=== PATIENT | male | born 1985 | race American Indian/Alaskan Native ===

== ENCOUNTER 2018-11-05 21:16 | Emergency (ER) | payer MEDICAID, OTHER | END 2018-11-05 21:35 | disposition left against medical advice (07) | LOC: JP.ED 21:16 | DX: Z53.21 Procedure and treatment not carried out due to patient leaving prior to being seen by health care provider (principal) ==

== ENCOUNTER 2019-07-03 21:45 | Inpatient (IN) | payer MEDICAID ==
[2019-07-03] MEDS ORDERED: Sodium Chloride 0.9% 1,000 ML IV SCH ×2 (22:45→23:15)
--- NOTE | 2019-07-03 22:47 | EDM.PDOC ---
ED HPI GENERAL MEDICAL PROBLEM - General Chief Complaint: Diabetic Complaint Stated Complaint: HIGH BLOOD SUGAR Time Seen by Provider: 07/03/19 22:46 Source of Information: Reports: Patient, Police History Limitations: Reports: No Limitations - History of Present Illness INITIAL COMMENTS - FREE TEXT/NARRATIVE: pt [facility] because he had a markedly elevated bs. He was also having severe upper abdomanal pain. He has a history of chronic pancreatitis. He has been drinking heavily and using Meth. His last Methj was used about 3 pm. Onset: Other ( He has not used his insulin for about 2 weeks. 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 Hx of trach Gastrointestinal History: Reports: GI Bleed, Pancreatitis Genitourinary History: Reports: Other (See Below) Other Genitourinary History: distended bladder Neurological History: Reports: Seizure Psychiatric History: Reports: Anxiety, Depression, Suicide Attempt Endocrine/Metabolic History: Reports: Diabetes, Type I Hematologic History: Reports: Anemia - Infectious Disease History Infectious Disease History: Reports: Chicken Pox Social & Family History - Tobacco Use Smoking Status *Q: Current Every Day Smoker Years of Tobacco use: 20 Packs/Tins Daily: 0.7 - Recreational Drug Use Recreational Drug Use: Yes Drug Use in Last 12 Months: Yes Recreational Drug Type: Reports: Methamphetamine Recreational Drug Use Frequency: Daily ED ROS GENERAL - Review of Systems Review Of Systems: See Below Constitutional: Reports: Weakness, Decreased Appetite HEENT: Reports: No Symptoms Respiratory: Reports: Shortness of Breath, Other (history of removal of 1 lung. ) Cardiovascular: Reports: No Symptoms Endocrine: Reports: No Symptoms GI/Abdominal: Reports: Abdominal Pain, Other (pt has upper abdomanal pain. He has been vomiting everything for the past 2 days. He has not used his insulin for 2 weeks. ) : Reports: No Symptoms Musculoskeletal: Reports: No Symptoms Skin: Reports: No Symptoms ED EXAM GENERAL NO PERIP PULSE - Physical Exam Exam: See Below Text/Narrative:: pt arrived with a very high bs. He has not used his insulin for 2 weeks. He has been vomiting for the past 2 days. He has upper abdomanal pain. He has not noted blood in the emesis. Exam Limited By: No Limitations General Appearance: Alert, Anxious, Moderate Distress Ears: Normal TMs Nose: Normal Inspection Throat/Mouth: Normal Inspection Head: Atraumatic Neck: Normal Inspection Respiratory/Chest: No Respiratory Distress Cardiovascular: Regular Rate, Rhythm GI/Abdominal: Other (pt has marked tenderness in the upper abdoman. ) (Male) Exam: Normal Inspection Rectal (Males) Exam: Deferred Back Exam: Normal Inspection Extremities: Normal Inspection Neurological: Alert, Oriented, Normal Cognition Course - Vital Signs Last Recorded V/S: Last Vital Signs Temp 35.2 C 07/03/19 22:09 Pulse 92 07/03/19 22:09 Resp 16 07/03/19 22:09 BP 110/78 07/03/19 22:09 Pulse Ox 100 07/03/19 22:09 - Orders/Labs/Meds Orders: Active Orders 24 hr Category Date Time Status Patient Status [ADT] Routine ADT 07/03/19 23:52 Active Accu Check [Blood Glucose Check, Bedside] [RC] Care 07/03/19 23:59 Active WITHMEALSANDBED Bedrest Bathroom Privileges [RC] ASDIRECTED Care 07/03/19 23:52 Active Height and Weight [RC] DAILY Care 07/03/19 23:52 Active Intake and Output [RC] QSHIFT Care 07/03/19 23:53 Active Oxygen Therapy [RC] PRN Care 07/03/19 23:52 Active Pulse Oximetry [RC] PRN Care 07/03/19 23:53 Active VTE/DVT Education [RC] Per Unit Routine Care 07/03/19 23:52 Active Vital Signs [RC] Q4H Care 07/03/19 23:52 Active OT Evaluation and Treatment [CONS] Routine Cons 07/03/19 23:52 Active PT Evaluation and Treatment [CONS] Routine Cons 07/03/19 23:52 Active Full Liquid Diet [DIET] Diet 11/14/19 Breakfast Ordered Chest 1V Frontal [CR] Stat Exams 07/04/19 00:01 Ordered CBC WITH AUTO DIFF [HEME] AM Lab 07/04/19 05:11 Ordered COMPREHENSIVE METABOLIC PN,CMP [CHEM] AM Lab 07/04/19 05:11 Ordered KETONES,BLOOD [CHEM] Stat Lab 07/04/19 00:07 Ordered LACTIC ACID [CHEM] Stat Lab 07/04/19 00:09 Ordered MAGNESIUM [CHEM] Stat Lab 07/03/19 23:52 Ordered PHOSPHORUS [CHEM] Stat Lab 07/03/19 23:52 Ordered Docusate Sodium/Sennosides [Senna Plus] Med 07/03/19 23:52 Ordered 1 tab PO BID PRN Enoxaparin [Lovenox] Med 07/04/19 09:00 Ordered 40 mg SUBCUT DAILY Insulin Glarg,Human.Rec.Analog [LantUS Solostar] Med 07/04/19 21:00 Ordered 20 units SUBCUT BEDTIME Insulin Lispro [HumaLOG] Med 07/04/19 07:00 Ordered See Protocol SUBCUT QIDACANDBED Morphine Med 07/04/19 00:02 Ordered 2 mg IVPUSH Q4H PRN Ondansetron [Zofran] Med 07/03/19 23:52 Ordered 4 mg IV Q4H PRN Pantoprazole [ProTONIX IV] 40 mg Med 07/04/19 00:15 Ordered Sodium Chloride 0.9% [Normal Saline] 100 ml IV Q24H Sodium Chloride 0.9% [Normal Saline] 1,000 ml Med 07/03/19 22:45 Active IV ASDIRECTED Sodium Chloride 0.9% [Normal Saline] 1,000 ml Med 07/03/19 23:15 Active IV ASDIRECTED Resuscitation Status Routine Resus Stat 07/03/19 23:52 Ordered Medication Orders Enoxaparin Sodium (Lovenox) 40 mg SUBCUT DAILY MARGY Sodium Chloride (Normal Saline) 1,000 mls @ 999 mls/hr IV ASDIRECTED MARGY Last Admin: 07/03/19 22:51 Dose: 999 mls/hr Sodium Chloride (Normal Saline) 1,000 mls @ 999 mls/hr IV ASDIRECTED MARGY Last Admin: 07/03/19 23:48 Dose: 999 mls/hr Pantoprazole Sodium 40 mg/ (Sodium Chloride) 100 mls @ 200 mls/hr IV Q24H MARGY Insulin Glargine (Lantus Solostar) 20 units SUBCUT BEDTIME MARGY Insulin Human Lispro (Humalog) 0 unit SUBCUT QIDACANDBED MARGY; Protocol Morphine Sulfate (Morphine) 2 mg IVPUSH Q4H PRN PRN Reason: Pain (moderate 4-6) Ondansetron HCl (Zofran) 4 mg IV Q4H PRN PRN Reason: Nausea/Vomiting Senna/Docusate Sodium (Senna Plus) 1 tab PO BID PRN PRN Reason: Constipation Labs: Laboratory Tests 07/03/19 07/03/19 07/03/19 Range/Units 19:00 19:00 19:00 WBC (4.5-11.0) K/uL RBC (4.30-5.90) M/uL Hgb (12.0-15.0) g/dL Hct (40.0-54.0) % MCV (80-98) fL MCH (27-31) pg MCHC (32-36) % Plt Count (150-400) K/uL Neut % (Auto) (36-66) % Lymph % (Auto) (24-44) % [place] % (Auto) (2-6) % Eos % (Auto) (2-4) % Baso % (Auto) (0-1) % VBG pH (7.350-7.450) Sodium (140-148) mmol/L Potassium (3.6-5.2) mmol/L Chloride (100-108) mmol/L Carbon Dioxide (21-32) mmol/L Anion Gap (5.0-14.0) mmol/L BUN (7-18) mg/dL Creatinine (0.8-1.3) mg/dL Est Cr Clr Drug Dosing mL/min Estimated GFR (MDRD) (>60) Glucose (74-106) mg/dL Calcium (8.5-10.1) mg/dL Total Bilirubin (0.2-1.0) mg/dL AST (15-37) U/L ALT (12-78) U/L Alkaline Phosphatase (46-116) U/L C-Reactive Protein 0.28 (0.0-0.3) mg/dL Total Protein (6.4-8.2) g/dL Albumin (3.4-5.0) g/dL Globulin (2.3-3.5) g/dL Albumin/Globulin Ratio (1.2-2.2) Amylase 29 (25-115) U/L Lipase 180 (73-393) U/L Urine Color (YELLOW) Urine Appearance (CLEAR) Urine pH (5.0-8.0) Ur Specific [place] (1.008-1.030) Urine Protein (NEGATIVE) mg/dL Urine Glucose (UA) (NEGATIVE) mg/dL Urine Ketones (NEGATIVE) mg/dL Urine Occult Blood (NEGATIVE) Urine Nitrite (NEGATIVE) Urine Bilirubin (NEGATIVE) Urine Urobilinogen (0.2-1.0) EU/dL Ur Leukocyte Esterase (NEGATIVE) Urine RBC (0-5) Urine WBC (0-5) Ur Epithelial Cells Amorphous Sediment Urine Bacteria Urine Mucus Urine Opiates Screen (NEGATIVE) Ur Oxycodone Screen (NEGATIVE) Urine Methadone Screen (NEGATIVE) Ur Propoxyphene Screen (NEGATIVE) Ur Barbiturates Screen (NEGATIVE) Ur Tricyclics Screen (NEGATIVE) Ur Phencyclidine Scrn (NEGATIVE) Ur Amphetamine Screen (NEGATIVE) U Methamphetamines Scrn (NEGATIVE) Urine MDMA Screen (NEGATIVE) U Benzodiazepines Scrn (NEGATIVE) U Cocaine Metab Screen (NEGATIVE) U Marijuana (THC) Screen (NEGATIVE) Ethyl Alcohol < 3 mg/dL 07/03/19 07/03/19 07/03/19 Range/Units 21:54 22:02 22:02 WBC 5.6 (4.5-11.0) K/uL RBC 4.23 L (4.30-5.90) M/uL Hgb 10.5 L (12.0-15.0) g/dL Hct 33.1 L (40.0-54.0) % MCV 78 L (80-98) fL MCH 25 L (27-31) pg MCHC 32 (32-36) % Plt Count 315 (150-400) K/uL Neut % (Auto) 60 (36-66) % Lymph % (Auto) 26 (24-44) % [place] % (Auto) 13 H (2-6) % Eos % (Auto) 1 L (2-4) % Baso % (Auto) 1 (0-1) % VBG pH 7.360 (7.350-7.450) Sodium 132 L (140-148) mmol/L Potassium 4.3 (3.6-5.2) mmol/L Chloride 98 L (100-108) mmol/L Carbon Dioxide 23 (21-32) mmol/L Anion Gap 15.3 H (5.0-14.0) mmol/L BUN 9 (7-18) mg/dL Creatinine 0.8 (0.8-1.3) mg/dL Est Cr Clr Drug Dosing 98.58 mL/min Estimated GFR (MDRD) > 60 (>60) Glucose 405 H* (74-106) mg/dL Calcium 8.3 L (8.5-10.1) mg/dL Total Bilirubin 0.3 (0.2-1.0) mg/dL AST 16 (15-37) U/L ALT 21 (12-78) U/L Alkaline Phosphatase 99 (46-116) U/L C-Reactive Protein (0.0-0.3) mg/dL Total Protein 6.3 L (6.4-8.2) g/dL Albumin 3.0 L (3.4-5.0) g/dL Globulin 3.3 (2.3-3.5) g/dL Albumin/Globulin Ratio 0.9 L (1.2-2.2) Amylase (25-115) U/L Lipase (73-393) U/L Urine Color (YELLOW) Urine Appearance (CLEAR) Urine pH (5.0-8.0) Ur Specific [place] (1.008-1.030) Urine Protein (NEGATIVE) mg/dL Urine Glucose (UA) (NEGATIVE) mg/dL Urine Ketones (NEGATIVE) mg/dL Urine Occult Blood (NEGATIVE) Urine Nitrite (NEGATIVE) Urine Bilirubin (NEGATIVE) Urine Urobilinogen (0.2-1.0) EU/dL Ur Leukocyte Esterase (NEGATIVE) Urine RBC (0-5) Urine WBC (0-5) Ur Epithelial Cells Amorphous Sediment Urine Bacteria Urine Mucus Urine Opiates Screen (NEGATIVE) Ur Oxycodone Screen (NEGATIVE) Urine Methadone Screen (NEGATIVE) Ur Propoxyphene Screen (NEGATIVE) Ur Barbiturates Screen (NEGATIVE) Ur Tricyclics Screen (NEGATIVE) Ur Phencyclidine Scrn (NEGATIVE) Ur Amphetamine Screen (NEGATIVE) U Methamphetamines Scrn (NEGATIVE) Urine MDMA Screen (NEGATIVE) U Benzodiazepines Scrn (NEGATIVE) U Cocaine Metab Screen (NEGATIVE) U Marijuana (THC) Screen (NEGATIVE) Ethyl Alcohol mg/dL 07/03/19 07/03/19 Range/Units 23:04 23:10 WBC (4.5-11.0) K/uL RBC (4.30-5.90) M/uL Hgb (12.0-15.0) g/dL Hct (40.0-54.0) % MCV (80-98) fL MCH (27-31) pg MCHC (32-36) % Plt Count (150-400) K/uL Neut % (Auto) (36-66) % Lymph % (Auto) (24-44) % [place] % (Auto) (2-6) % Eos % (Auto) (2-4) % Baso % (Auto) (0-1) % VBG pH (7.350-7.450) Sodium (140-148) mmol/L Potassium (3.6-5.2) mmol/L Chloride (100-108) mmol/L Carbon Dioxide (21-32) mmol/L Anion Gap (5.0-14.0) mmol/L BUN (7-18) mg/dL Creatinine (0.8-1.3) mg/dL Est Cr Clr Drug Dosing mL/min Estimated GFR (MDRD) (>60) Glucose (74-106) mg/dL Calcium (8.5-10.1) mg/dL Total Bilirubin (0.2-1.0) mg/dL AST (15-37) U/L ALT (12-78) U/L Alkaline Phosphatase (46-116) U/L C-Reactive Protein (0.0-0.3) mg/dL Total Protein (6.4-8.2) g/dL Albumin (3.4-5.0) g/dL Globulin (2.3-3.5) g/dL Albumin/Globulin Ratio (1.2-2.2) Amylase (25-115) U/L Lipase (73-393) U/L Urine Color Yellow (YELLOW) Urine Appearance Clear (CLEAR) Urine pH 5.5 (5.0-8.0) Ur Specific [place] 1.015 (1.008-1.030) Urine Protein Negative (NEGATIVE) mg/dL Urine Glucose (UA) 500 H (NEGATIVE) mg/dL Urine Ketones 40 H (NEGATIVE) mg/dL Urine Occult Blood Negative (NEGATIVE) Urine Nitrite Negative (NEGATIVE) Urine Bilirubin Negative (NEGATIVE) Urine Urobilinogen 0.2 (0.2-1.0) EU/dL Ur Leukocyte Esterase Negative (NEGATIVE) Urine RBC 0-5 (0-5) Urine WBC 0-5 (0-5) Ur Epithelial Cells Rare Amorphous Sediment Not seen Urine Bacteria Few Urine Mucus Not seen Urine Opiates Screen Negative (NEGATIVE) Ur Oxycodone Screen Negative (NEGATIVE) Urine Methadone Screen Negative (NEGATIVE) Ur Propoxyphene Screen Negative (NEGATIVE) Ur Barbiturates Screen Negative (NEGATIVE) Ur Tricyclics Screen Negative (NEGATIVE) Ur Phencyclidine Scrn Negative (NEGATIVE) Ur Amphetamine Screen Negative (NEGATIVE) U Methamphetamines Scrn Presumptive positive H (NEGATIVE) Urine MDMA Screen Negative (NEGATIVE) U Benzodiazepines Scrn Negative (NEGATIVE) U Cocaine Metab Screen Negative (NEGATIVE) U Marijuana (THC) Screen Negative (NEGATIVE) Ethyl Alcohol mg/dL Meds: Medications Generic Name Dose Route Start Last Admin Trade Name Freq PRN Reason Stop Dose Admin Enoxaparin Sodium 40 mg 07/04/19 09:00 Lovenox SUBCUT DAILY MARGY Sodium Chloride 1,000 mls @ 999 mls/hr 07/03/19 22:45 07/03/19 22:51 Normal Saline IV 999 mls/hr ASDIRECTED MARGY Administration Sodium Chloride 1,000 mls @ 999 mls/hr 07/03/19 23:15 07/03/19 23:48 Normal Saline IV 999 mls/hr ASDIRECTED MARGY Administration Pantoprazole Sodium 40 mg/ 100 mls @ 200 mls/hr 07/04/19 00:15 Sodium Chloride IV Q24H [facility] Insulin Glargine 20 units 07/04/19 21:00 Lantus Solostar SUBCUT BEDTIME MARGY Insulin Human Lispro 0 unit 07/04/19 07:00 Humalog SUBCUT QIDACANDBED [facility] Protocol Morphine Sulfate 2 mg 07/04/19 00:02 Morphine IVPUSH Q4H PRN Pain (moderate 4-6) Ondansetron HCl 4 mg 07/03/19 23:52 Zofran IV Q4H PRN Nausea/Vomiting Senna/Docusate Sodium 1 tab 07/03/19 23:52 Senna Plus PO BID PRN Constipation Discontinued Medications Generic Name Dose Route Start Last Admin Trade Name Kostas PRN Reason Stop Dose Admin Hydromorphone HCl 0.5 mg 07/03/19 23:13 07/03/19 23:45 Dilaudid IVPUSH 07/03/19 23:14 0.5 mg ONETIME ONE Administration Insulin Human Regular 3 unit 07/03/19 23:12 07/03/19 23:40 Humulin R IVPUSH 07/03/19 23:13 3 units ONETIME ONE Administration Insulin Human Regular 3 unit 07/03/19 23:13 07/03/19 23:43 Humulin R SUBCUT 07/03/19 23:14 3 units ONETIME ONE Administration Pantoprazole Sodium 40 mg 07/03/19 23:36 07/03/19 23:48 Protonix Iv IVPUSH 07/03/19 23:37 40 mg ONETIME ONE Administration - Re-Assessments/Exams Free Text/Narrative Re-Assessment/Exam: 07/03/19 23:45 pt had normal pancreatic enzymes. He is very dehydrated. His bs is 400. Departure - Departure Time of Disposition: 23:46 Disposition: Admitted As Inpatient 64 Condition: Fair Clinical Impression: Hyperglycemia, Dehydration, Methamphetamine abuse - Discharge Information Referrals: PCP,None [Primary Care Provider] - Forms: ED Department Discharge Care Plan Goals: admit to Dr Davison. - My Orders Last 24 Hours: My Active Orders 07/03/19 22:45 Sodium Chloride 0.9% [Normal Saline] 1,000 ml IV ASDIRECTED 07/03/19 23:15 Sodium Chloride 0.9% [Normal Saline] 1,000 ml IV ASDIRECTED 07/04/19 00:01 Chest 1V Frontal [CR] Stat - Assessment/Plan Last 24 Hours: My Active Orders 07/03/19 22:45 Sodium Chloride 0.9% [Normal Saline] 1,000 ml IV ASDIRECTED 07/03/19 23:15 Sodium Chloride 0.9% [Normal Saline] 1,000 ml IV ASDIRECTED 07/04/19 00:01 Chest 1V Frontal [CR] Stat
[2019-07-03] MEDS ORDERED: Insulin Regular, Human 100 Units/ML 3 ML Vial IVPUSH ONE (23:12)
[2019-07-03] MEDS ORDERED: Insulin Regular, Human 100 Units/ML 3 ML Vial SUBCUT ONE (23:13)
[2019-07-03] MEDS ORDERED: HYDROmorphone 0.5 MG/0.5 ML Syringe IVPUSH ONE (23:13)
[2019-07-03] MEDS ORDERED: Pantoprazole 40 MG Vial IVPUSH ONE (23:36)
--- NOTE | 2019-07-03 23:51 | PCM.HP.2 ---
H&P History of Present Illness - General Date of Service: 07/03/19 Admit Problem/Dx: hyperglycemia, abdominal pain Source of Information: Patient History Limitations: Reports: No Limitations - History of Present Illness Initial Comments - Free Text/Narative: 34-year-old male with past medical history of diabetes on Lantus 20 units twice daily, Humalog 10 units with each meal, history of drug abuse came to the ED with a concerns of abdominal pain. Patient reports of the abdominal pain started since last 2 days which is gradually progressing. Patient reports that he did not eat anything since last 2 weeks due to concerns of nausea, vomiting. Patient denies any recent fever, sick contacts. Patient denies any intermittent chest pains. Patient reports that he did not see any blood in the vomiting. Patient blood sugars are significantly elevated. The ED patient received 3 units of regular insulin and patient CRP results are within normal limit lipase, amylase levels are within normal limit patient CODE STATUS is DNR/DNI. 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 Hx of trach Gastrointestinal History: Reports: GI Bleed, Pancreatitis Genitourinary History: Reports: Other (See Below) Other Genitourinary History: distended bladder Neurological History: Reports: Seizure Psychiatric History: Reports: Anxiety, Depression, Suicide Attempt Endocrine/Metabolic History: Reports: Diabetes, Type I Hematologic History: Reports: Anemia - Infectious Disease History Infectious Disease History: Reports: Chicken Pox Social & Family History - Family History Family Medical History: Noncontributory - Tobacco Use Smoking Status *Q: Current Every Day Smoker Years of Tobacco use: 20 Packs/Tins Daily: 0.7 - Recreational Drug Use Recreational Drug Use: Yes Drug Use in Last 12 Months: Yes Recreational Drug Type: Reports: Methamphetamine Recreational Drug Use Frequency: Daily H&P Review of Systems - Review of Systems: Review Of Systems: See Below General: Reports: Weakness, Fatigue. Denies: Fever, Chills, Malaise Pulmonary: Denies: Shortness of Breath, Wheezing, Pleuritic Chest Pain, Cough, Sputum Cardiovascular: Denies: Chest Pain, Palpitations, Dyspnea on Exertion, Orthopnea Gastrointestinal: Reports: Abdominal Pain, Anorexia, Nausea, Vomiting. Denies: Black Stool, Constipation Genitourinary: Denies: Dysuria, Frequency, Burning, Pain Musculoskeletal: Denies: Neck Pain, Shoulder Pain, Arm Pain Skin: Denies: Cyanosis, Jaundice Psychiatric: Denies: Confusion, Depression, Mood Lability Neurological: Denies: Confusion, Dizziness Hematologic/Lymphatic: Denies: Anemia, Easy Bleeding Exam - Exam Exam: See Below - Vital Signs Vital Signs: Last Vital Signs Temp 35.2 C 07/03/19 22:09 Pulse 92 07/03/19 22:09 Resp 16 07/03/19 22:09 BP 110/78 07/03/19 22:09 Pulse Ox 100 07/03/19 22:09 Weight: 54.6 kg - Exam General: Alert, Oriented Neck: Supple, Trachea Midline Lungs: Clear to Auscultation, Normal Respiratory Effort Cardiovascular: Regular Rate, Regular Rhythm GI/Abdominal Exam: Normal Bowel Sounds, Tender. No: Non-Tender, Guarding, Rigid , Rebound, Hepatomegaly, Splenomegaly Back Exam: Normal Inspection, Full Range of Motion Extremities: Normal Inspection, Normal Range of Motion, Non-Tender, No Pedal Edema - Patient Data Lab Results Last 24 hrs: Laboratory Results - last 24 hr 07/03/19 07/03/19 07/03/19 Range/Units 19:00 19:00 19:00 WBC (4.5-11.0) K/uL RBC (4.30-5.90) M/uL Hgb (12.0-15.0) g/dL Hct (40.0-54.0) % MCV (80-98) fL MCH (27-31) pg MCHC (32-36) % Plt Count (150-400) K/uL Neut % (Auto) (36-66) % Lymph % (Auto) (24-44) % Barton % (Auto) (2-6) % Eos % (Auto) (2-4) % Baso % (Auto) (0-1) % VBG pH (7.350-7.450) Sodium (140-148) mmol/L Potassium (3.6-5.2) mmol/L Chloride (100-108) mmol/L Carbon Dioxide (21-32) mmol/L Anion Gap (5.0-14.0) mmol/L BUN (7-18) mg/dL Creatinine (0.8-1.3) mg/dL Est Cr Clr Drug Dosing mL/min Estimated GFR (MDRD) (>60) Glucose (74-106) mg/dL Calcium (8.5-10.1) mg/dL Total Bilirubin (0.2-1.0) mg/dL AST (15-37) U/L ALT (12-78) U/L Alkaline Phosphatase (46-116) U/L C-Reactive Protein 0.28 (0.0-0.3) mg/dL Total Protein (6.4-8.2) g/dL Albumin (3.4-5.0) g/dL Globulin (2.3-3.5) g/dL Albumin/Globulin Ratio (1.2-2.2) Amylase 29 (25-115) U/L Lipase 180 (73-393) U/L Urine Color (YELLOW) Urine Appearance (CLEAR) Urine pH (5.0-8.0) Ur Specific Sheldon (1.008-1.030) Urine Protein (NEGATIVE) mg/dL Urine Glucose (UA) (NEGATIVE) mg/dL Urine Ketones (NEGATIVE) mg/dL Urine Occult Blood (NEGATIVE) Urine Nitrite (NEGATIVE) Urine Bilirubin (NEGATIVE) Urine Urobilinogen (0.2-1.0) EU/dL Ur Leukocyte Esterase (NEGATIVE) Urine RBC (0-5) Urine WBC (0-5) Ur Epithelial Cells Amorphous Sediment Urine Bacteria Urine Mucus Urine Opiates Screen (NEGATIVE) Ur Oxycodone Screen (NEGATIVE) Urine Methadone Screen (NEGATIVE) Ur Propoxyphene Screen (NEGATIVE) Ur Barbiturates Screen (NEGATIVE) Ur Tricyclics Screen (NEGATIVE) Ur Phencyclidine Scrn (NEGATIVE) Ur Amphetamine Screen (NEGATIVE) U Methamphetamines Scrn (NEGATIVE) Urine MDMA Screen (NEGATIVE) U Benzodiazepines Scrn (NEGATIVE) U Cocaine Metab Screen (NEGATIVE) U Marijuana (THC) Screen (NEGATIVE) Ethyl Alcohol < 3 mg/dL 07/03/19 07/03/19 07/03/19 Range/Units 21:54 22:02 22:02 WBC 5.6 (4.5-11.0) K/uL RBC 4.23 L (4.30-5.90) M/uL Hgb 10.5 L (12.0-15.0) g/dL Hct 33.1 L (40.0-54.0) % MCV 78 L (80-98) fL MCH 25 L (27-31) pg MCHC 32 (32-36) % Plt Count 315 (150-400) K/uL Neut % (Auto) 60 (36-66) % Lymph % (Auto) 26 (24-44) % Barton % (Auto) 13 H (2-6) % Eos % (Auto) 1 L (2-4) % Baso % (Auto) 1 (0-1) % VBG pH 7.360 (7.350-7.450) Sodium 132 L (140-148) mmol/L Potassium 4.3 (3.6-5.2) mmol/L Chloride 98 L (100-108) mmol/L Carbon Dioxide 23 (21-32) mmol/L Anion Gap 15.3 H (5.0-14.0) mmol/L BUN 9 (7-18) mg/dL Creatinine 0.8 (0.8-1.3) mg/dL Est Cr Clr Drug Dosing 98.58 mL/min Estimated GFR (MDRD) > 60 (>60) Glucose 405 H* (74-106) mg/dL Calcium 8.3 L (8.5-10.1) mg/dL Total Bilirubin 0.3 (0.2-1.0) mg/dL AST 16 (15-37) U/L ALT 21 (12-78) U/L Alkaline Phosphatase 99 (46-116) U/L C-Reactive Protein (0.0-0.3) mg/dL Total Protein 6.3 L (6.4-8.2) g/dL Albumin 3.0 L (3.4-5.0) g/dL Globulin 3.3 (2.3-3.5) g/dL Albumin/Globulin Ratio 0.9 L (1.2-2.2) Amylase (25-115) U/L Lipase (73-393) U/L Urine Color (YELLOW) Urine Appearance (CLEAR) Urine pH (5.0-8.0) Ur Specific Sheldon (1.008-1.030) Urine Protein (NEGATIVE) mg/dL Urine Glucose (UA) (NEGATIVE) mg/dL Urine Ketones (NEGATIVE) mg/dL Urine Occult Blood (NEGATIVE) Urine Nitrite (NEGATIVE) Urine Bilirubin (NEGATIVE) Urine Urobilinogen (0.2-1.0) EU/dL Ur Leukocyte Esterase (NEGATIVE) Urine RBC (0-5) Urine WBC (0-5) Ur Epithelial Cells Amorphous Sediment Urine Bacteria Urine Mucus Urine Opiates Screen (NEGATIVE) Ur Oxycodone Screen (NEGATIVE) Urine Methadone Screen (NEGATIVE) Ur Propoxyphene Screen (NEGATIVE) Ur Barbiturates Screen (NEGATIVE) Ur Tricyclics Screen (NEGATIVE) Ur Phencyclidine Scrn (NEGATIVE) Ur Amphetamine Screen (NEGATIVE) U Methamphetamines Scrn (NEGATIVE) Urine MDMA Screen (NEGATIVE) U Benzodiazepines Scrn (NEGATIVE) U Cocaine Metab Screen (NEGATIVE) U Marijuana (THC) Screen (NEGATIVE) Ethyl Alcohol mg/dL 07/03/19 07/03/19 Range/Units 23:04 23:10 WBC (4.5-11.0) K/uL RBC (4.30-5.90) M/uL Hgb (12.0-15.0) g/dL Hct (40.0-54.0) % MCV (80-98) fL MCH (27-31) pg MCHC (32-36) % Plt Count (150-400) K/uL Neut % (Auto) (36-66) % Lymph % (Auto) (24-44) % Barton % (Auto) (2-6) % Eos % (Auto) (2-4) % Baso % (Auto) (0-1) % VBG pH (7.350-7.450) Sodium (140-148) mmol/L Potassium (3.6-5.2) mmol/L Chloride (100-108) mmol/L Carbon Dioxide (21-32) mmol/L Anion Gap (5.0-14.0) mmol/L BUN (7-18) mg/dL Creatinine (0.8-1.3) mg/dL Est Cr Clr Drug Dosing mL/min Estimated GFR (MDRD) (>60) Glucose (74-106) mg/dL Calcium (8.5-10.1) mg/dL Total Bilirubin (0.2-1.0) mg/dL AST (15-37) U/L ALT (12-78) U/L Alkaline Phosphatase (46-116) U/L C-Reactive Protein (0.0-0.3) mg/dL Total Protein (6.4-8.2) g/dL Albumin (3.4-5.0) g/dL Globulin (2.3-3.5) g/dL Albumin/Globulin Ratio (1.2-2.2) Amylase (25-115) U/L Lipase (73-393) U/L Urine Color Yellow (YELLOW) Urine Appearance Clear (CLEAR) Urine pH 5.5 (5.0-8.0) Ur Specific Sheldon 1.015 (1.008-1.030) Urine Protein Negative (NEGATIVE) mg/dL Urine Glucose (UA) 500 H (NEGATIVE) mg/dL Urine Ketones 40 H (NEGATIVE) mg/dL Urine Occult Blood Negative (NEGATIVE) Urine Nitrite Negative (NEGATIVE) Urine Bilirubin Negative (NEGATIVE) Urine Urobilinogen 0.2 (0.2-1.0) EU/dL Ur Leukocyte Esterase Negative (NEGATIVE) Urine RBC 0-5 (0-5) Urine WBC 0-5 (0-5) Ur Epithelial Cells Rare Amorphous Sediment Not seen Urine Bacteria Few Urine Mucus Not seen Urine Opiates Screen Negative (NEGATIVE) Ur Oxycodone Screen Negative (NEGATIVE) Urine Methadone Screen Negative (NEGATIVE) Ur Propoxyphene Screen Negative (NEGATIVE) Ur Barbiturates Screen Negative (NEGATIVE) Ur Tricyclics Screen Negative (NEGATIVE) Ur Phencyclidine Scrn Negative (NEGATIVE) Ur Amphetamine Screen Negative (NEGATIVE) U Methamphetamines Scrn Presumptive positive H (NEGATIVE) Urine MDMA Screen Negative (NEGATIVE) U Benzodiazepines Scrn Negative (NEGATIVE) U Cocaine Metab Screen Negative (NEGATIVE) U Marijuana (THC) Screen Negative (NEGATIVE) Ethyl Alcohol mg/dL Result Diagrams: 07/07/19 04:30 07/07/19 04:30 - Problem List (1) Dehydration SNOMED Code(s): 15206573 ICD Code: E86.0 - DEHYDRATION Status: Acute Current Visit: Yes (2) Hyperglycemia SNOMED Code(s): 63810216 ICD Code: R73.9 - HYPERGLYCEMIA, UNSPECIFIED Status: Acute Current Visit : Yes (3) Methamphetamine abuse SNOMED Code(s): 026621121 ICD Code: F15.10 - OTHER STIMULANT ABUSE, UNCOMPLICATED Status: Acute Current Visit: Yes (4) Type 2 diabetes mellitus SNOMED Code(s): 70888744 ICD Code: E11.9 - TYPE 2 DIABETES MELLITUS WITHOUT COMPLICATIONS Status: Chronic Current Visit: No Problem List Initiated/Reviewed/Updated: Yes Orders Last 24hrs: Active Orders 24 hr Category Date Time Status Chest 1V Frontal [CR] Stat Exams 07/03/19 23:37 Ordered Sodium Chloride 0.9% [Normal Saline] 1,000 ml Med 07/03/19 22:45 Active IV ASDIRECTED Sodium Chloride 0.9% [Normal Saline] 1,000 ml Med 07/03/19 23:15 Active IV ASDIRECTED Medication Orders Sodium Chloride (Normal Saline) 1,000 mls @ 999 mls/hr IV ASDIRECTED [facility] Last Admin: 07/03/19 22:51 Dose: 999 mls/hr Sodium Chloride (Normal Saline) 1,000 mls @ 999 mls/hr IV ASDIRECTED [facility] Last Admin: 07/03/19 23:48 Dose: 999 mls/hr Assessment/Plan Comment:: 34-year-old male with past medical history of diabetes on insulin, history of drug abuse came to the ED with a concerns of abdominal pain, high blood sugars and admitted into the hospital for hyperglycemia in observational status. Patient blood sugars are more than 400. Patient ketones are low, VBG is within normal limit Patient lipase, amylase levels are within normal limit CRP is at baseline. Lactic acid is 1.7 We will continue home Lantus 20 units twice daily Sliding scale insulin Maintenance IV fluids CBC CMP tomorrow DVT prophylaxis Lovenox 40 mg subcu GI prophylaxis pantoprazole 40 mg daily Full liquid diet Advance diet as tolerated DNR/DNI Observational status Sanchez catheter is not indicated
--- NOTE | 2019-07-04 00:33 | CRLCR ---
INDICATION: Chest pain shortness of breath TECHNIQUE: Chest radiograph 1 view COMPARISON: None FINDINGS: Mediastinum: The mediastinum is normal in appearance. The heart silhouette is normal in size and morphology. Lung: Bilateral hyperinflation is present and suggestive of moderate pulmonary emphysema. No sign of pleural effusion seen. No pneumothorax is identified. Bone and Soft tissue: Unremarkable for age. Moderate diffuse osteopenia is noted. IMPRESSION: 1. Bilateral hyperinflation is present and suggestive of moderate pulmonary emphysema. Dictated by: Luis A Chen MD @ 07/04/2019 00:31:46 (Electronically Signed)
[2019-07-04] MEDS ORDERED: Insulin Glargine,Human Rec. Analog 100 Units/ML 3 ML Pen SUBCUT STA (00:39)
[2019-07-04] MEDS: Sodium Chloride 0.9% 1,000 ML IV SCH ×3 (01:21→11:33)
[2019-07-04] MEDS: Morphine 2 MG/ML Syringe IVPUSH PRN ×4 (01:21→14:38)
[2019-07-04] MEDS ORDERED: FLU Vacc QS2019-20(6MOS+)/PF 60 MCG/0.5 ML SYRINGE IM ONE ×2 (02:00→10:00)
[2019-07-04] MEDS: Insulin Lispro 100 Unit/ML 3 ML KwikPen SUBCUT SCH ×4 (07:37→21:10)
[2019-07-04] MEDS: Enoxaparin 40 MG/0.4 ML Syringe SUBCUT SCH (09:34)
[2019-07-04] MEDS: Magnesium Oxide 400 MG Tab PO SCH ×2 (09:34→20:58)
[2019-07-04] MEDS: Magnesium Sulfate/Water 2 GM in Premix Bag 1 BAG IV SCH ×2 (09:34→16:33)
[2019-07-04] MEDS ORDERED: Sodium Ferric Gluconate Cmplex 250 MG in Sodium Chloride 0.9% 100 ML IV ONE (12:00)
[2019-07-04] MEDS ORDERED: Bisacodyl 5 MG Tab PO ONE ×2 (12:30→20:00)
[2019-07-04] MEDS ORDERED: Iopamidol 612 MG/ML 100 ML Bottle IV PRN (12:42)
[2019-07-04] MEDS ORDERED: Sodium Chloride 0.9% 1,000 ML IV SCH (12:45)
[2019-07-04] MEDS ORDERED: Potassium Chloride 20 MEQ Tab.ER PO ONE ×2 (12:45→17:00)
[2019-07-04] MEDS ORDERED: Sodium Chloride 0.9% 10 ML Syringe FLUSH SCH (12:45)
[2019-07-04] MEDS ORDERED: Iohexol 300 MG/ML 30 ML Bottle PO ONE (13:10)
[2019-07-04] MEDS: Pantoprazole 40 MG Vial IVPUSH SCH (14:06)
--- NOTE | 2019-07-04 14:59 | PCM.PN ---
- General Info Date of Service: 07/04/19 Subjective Update: Mr. Tony is a 34-year-old gentleman who was admitted through the emergency department last night with abdominal pain. He has a long-standing history of methamphetamine use and abuse and did test positive for methamphetamine. He has had difficulty with abdominal pain mainly in the left upper quadrant. Hemoglobin level was low on initial evaluation and after hydration has dropped to 7.7. MCV is low, ferritin and iron levels also found to be very low. Functional Status: Reports: Ambulating, Urinating - Review of Systems General: Reports: Weakness. Denies: Fever, Chills Pulmonary: Reports: No Symptoms Cardiovascular: Reports: No Symptoms Gastrointestinal: Reports: Abdominal Pain, Melena. Denies: Constipation, Diarrhea, Difficulty Swallowing, Hematochezia, Nausea, Vomiting - Patient Data Vitals - Most Recent: Last Vital Signs Temp 97.3 F 07/04/19 11:31 Pulse 88 07/04/19 11:31 Resp 18 07/04/19 11:31 BP 104/69 07/04/19 11:31 Pulse Ox 97 07/04/19 11:31 Weight - Most Recent: 120 lb I&O - Last 24 Hours: Intake & Output 07/03/19 07/04/19 07/04/19 22:59 06:59 14:59 Intake Total 1118 3521 Output Total 975 Balance 1118 1866 Lab Results Last 24 Hours: Laboratory Results - last 24 hr 07/03/19 07/03/19 07/03/19 Range/Units 19:00 19:00 19:00 WBC (4.5-11.0) K/uL RBC (4.30-5.90) M/uL Hgb (12.0-15.0) g/dL Hct (40.0-54.0) % MCV (80-98) fL MCH (27-31) pg MCHC (32-36) % Plt Count (150-400) K/uL Neut % (Auto) (36-66) % Lymph % (Auto) (24-44) % [place] % (Auto) (2-6) % Eos % (Auto) (2-4) % Baso % (Auto) (0-1) % VBG pH (7.350-7.450) Sodium (140-148) mmol/L Potassium (3.6-5.2) mmol/L Chloride (100-108) mmol/L Carbon Dioxide (21-32) mmol/L Anion Gap (5.0-14.0) mmol/L BUN (7-18) mg/dL Creatinine (0.8-1.3) mg/dL Est Cr Clr Drug Dosing mL/min Estimated GFR (MDRD) (>60) Glucose (74-106) mg/dL Lactic Acid (0.4-2.0) mmol/L Calcium (8.5-10.1) mg/dL Phosphorus (2.5-4.9) mg/dL Magnesium (1.8-2.4) mg/dL Iron (65-175) ug/dL TIBC (250-450) ug/dl % Saturation (20-55) % Ferritin (8-388) ng/ml Total Bilirubin (0.2-1.0) mg/dL AST (15-37) U/L ALT (12-78) U/L Alkaline Phosphatase (46-116) U/L C-Reactive Protein 0.28 (0.0-0.3) mg/dL Total Protein (6.4-8.2) g/dL Albumin (3.4-5.0) g/dL Globulin (2.3-3.5) g/dL Albumin/Globulin Ratio (1.2-2.2) Amylase 29 (25-115) U/L Lipase 180 (73-393) U/L Urine Color (YELLOW) Urine Appearance (CLEAR) Urine pH (5.0-8.0) Ur Specific [place] (1.008-1.030) Urine Protein (NEGATIVE) mg/dL Urine Glucose (UA) (NEGATIVE) mg/dL Urine Ketones (NEGATIVE) mg/dL Urine Occult Blood (NEGATIVE) Urine Nitrite (NEGATIVE) Urine Bilirubin (NEGATIVE) Urine Urobilinogen (0.2-1.0) EU/dL Ur Leukocyte Esterase (NEGATIVE) Urine RBC (0-5) Urine WBC (0-5) Ur Epithelial Cells Amorphous Sediment Urine Bacteria Urine Mucus Urine Opiates Screen (NEGATIVE) Ur Oxycodone Screen (NEGATIVE) Urine Methadone Screen (NEGATIVE) Ur Propoxyphene Screen (NEGATIVE) Ur Barbiturates Screen (NEGATIVE) Ur Tricyclics Screen (NEGATIVE) Ur Phencyclidine Scrn (NEGATIVE) Ur Amphetamine Screen (NEGATIVE) U Methamphetamines Scrn (NEGATIVE) Urine MDMA Screen (NEGATIVE) U Benzodiazepines Scrn (NEGATIVE) U Cocaine Metab Screen (NEGATIVE) U Marijuana (THC) Screen (NEGATIVE) Ethyl Alcohol < 3 mg/dL Ketones (NEGATIVE) 07/03/19 07/03/19 07/03/19 Range/Units 19:00 21:54 22:02 WBC 5.6 (4.5-11.0) K/uL RBC 4.23 L (4.30-5.90) M/uL Hgb 10.5 L (12.0-15.0) g/dL Hct 33.1 L (40.0-54.0) % MCV 78 L (80-98) fL MCH 25 L (27-31) pg MCHC 32 (32-36) % Plt Count 315 (150-400) K/uL Neut % (Auto) 60 (36-66) % Lymph % (Auto) 26 (24-44) % [place] % (Auto) 13 H (2-6) % Eos % (Auto) 1 L (2-4) % Baso % (Auto) 1 (0-1) % VBG pH (7.350-7.450) Sodium 132 L (140-148) mmol/L Potassium 4.3 (3.6-5.2) mmol/L Chloride 98 L (100-108) mmol/L Carbon Dioxide 23 (21-32) mmol/L Anion Gap 15.3 H (5.0-14.0) mmol/L BUN 9 (7-18) mg/dL Creatinine 0.8 (0.8-1.3) mg/dL Est Cr Clr Drug Dosing 98.58 mL/min Estimated GFR (MDRD) > 60 (>60) Glucose 405 H* (74-106) mg/dL Lactic Acid (0.4-2.0) mmol/L Calcium 8.3 L (8.5-10.1) mg/dL Phosphorus 3.9 (2.5-4.9) mg/dL Magnesium 1.5 L (1.8-2.4) mg/dL Iron (65-175) ug/dL TIBC (250-450) ug/dl % Saturation (20-55) % Ferritin (8-388) ng/ml Total Bilirubin 0.3 (0.2-1.0) mg/dL AST 16 (15-37) U/L ALT 21 (12-78) U/L Alkaline Phosphatase 99 (46-116) U/L C-Reactive Protein (0.0-0.3) mg/dL Total Protein 6.3 L (6.4-8.2) g/dL Albumin 3.0 L (3.4-5.0) g/dL Globulin 3.3 (2.3-3.5) g/dL Albumin/Globulin Ratio 0.9 L (1.2-2.2) Amylase (25-115) U/L Lipase (73-393) U/L Urine Color (YELLOW) Urine Appearance (CLEAR) Urine pH (5.0-8.0) Ur Specific [place] (1.008-1.030) Urine Protein (NEGATIVE) mg/dL Urine Glucose (UA) (NEGATIVE) mg/dL Urine Ketones (NEGATIVE) mg/dL Urine Occult Blood (NEGATIVE) Urine Nitrite (NEGATIVE) Urine Bilirubin (NEGATIVE) Urine Urobilinogen (0.2-1.0) EU/dL Ur Leukocyte Esterase (NEGATIVE) Urine RBC (0-5) Urine WBC (0-5) Ur Epithelial Cells Amorphous Sediment Urine Bacteria Urine Mucus Urine Opiates Screen (NEGATIVE) Ur Oxycodone Screen (NEGATIVE) Urine Methadone Screen (NEGATIVE) Ur Propoxyphene Screen (NEGATIVE) Ur Barbiturates Screen (NEGATIVE) Ur Tricyclics Screen (NEGATIVE) Ur Phencyclidine Scrn (NEGATIVE) Ur Amphetamine Screen (NEGATIVE) U Methamphetamines Scrn (NEGATIVE) Urine MDMA Screen (NEGATIVE) U Benzodiazepines Scrn (NEGATIVE) U Cocaine Metab Screen (NEGATIVE) U Marijuana (THC) Screen (NEGATIVE) Ethyl Alcohol mg/dL Ketones (NEGATIVE) 07/03/19 07/03/19 07/03/19 Range/Units 22:02 23:04 23:10 WBC (4.5-11.0) K/uL RBC (4.30-5.90) M/uL Hgb (12.0-15.0) g/dL Hct (40.0-54.0) % MCV (80-98) fL MCH (27-31) pg MCHC (32-36) % Plt Count (150-400) K/uL Neut % (Auto) (36-66) % Lymph % (Auto) (24-44) % [place] % (Auto) (2-6) % Eos % (Auto) (2-4) % Baso % (Auto) (0-1) % VBG pH 7.360 (7.350-7.450) Sodium (140-148) mmol/L Potassium (3.6-5.2) mmol/L Chloride (100-108) mmol/L Carbon Dioxide (21-32) mmol/L Anion Gap (5.0-14.0) mmol/L BUN (7-18) mg/dL Creatinine (0.8-1.3) mg/dL Est Cr Clr Drug Dosing mL/min Estimated GFR (MDRD) (>60) Glucose (74-106) mg/dL Lactic Acid (0.4-2.0) mmol/L Calcium (8.5-10.1) mg/dL Phosphorus (2.5-4.9) mg/dL Magnesium (1.8-2.4) mg/dL Iron (65-175) ug/dL TIBC (250-450) ug/dl % Saturation (20-55) % Ferritin (8-388) ng/ml Total Bilirubin (0.2-1.0) mg/dL AST (15-37) U/L ALT (12-78) U/L Alkaline Phosphatase (46-116) U/L C-Reactive Protein (0.0-0.3) mg/dL Total Protein (6.4-8.2) g/dL Albumin (3.4-5.0) g/dL Globulin (2.3-3.5) g/dL Albumin/Globulin Ratio (1.2-2.2) Amylase (25-115) U/L Lipase (73-393) U/L Urine Color Yellow (YELLOW) Urine Appearance Clear (CLEAR) Urine pH 5.5 (5.0-8.0) Ur Specific [place] 1.015 (1.008-1.030) Urine Protein Negative (NEGATIVE) mg/dL Urine Glucose (UA) 500 H (NEGATIVE) mg/dL Urine Ketones 40 H (NEGATIVE) mg/dL Urine Occult Blood Negative (NEGATIVE) Urine Nitrite Negative (NEGATIVE) Urine Bilirubin Negative (NEGATIVE) Urine Urobilinogen 0.2 (0.2-1.0) EU/dL Ur Leukocyte Esterase Negative (NEGATIVE) Urine RBC 0-5 (0-5) Urine WBC 0-5 (0-5) Ur Epithelial Cells Rare Amorphous Sediment Not seen Urine Bacteria Few Urine Mucus Not seen Urine Opiates Screen Negative (NEGATIVE) Ur Oxycodone Screen Negative (NEGATIVE) Urine Methadone Screen Negative (NEGATIVE) Ur Propoxyphene Screen Negative (NEGATIVE) Ur Barbiturates Screen Negative (NEGATIVE) Ur Tricyclics Screen Negative (NEGATIVE) Ur Phencyclidine Scrn Negative (NEGATIVE) Ur Amphetamine Screen Negative (NEGATIVE) U Methamphetamines Scrn Presumptive positive H (NEGATIVE) Urine MDMA Screen Negative (NEGATIVE) U Benzodiazepines Scrn Negative (NEGATIVE) U Cocaine Metab Screen Negative (NEGATIVE) U Marijuana (THC) Screen Negative (NEGATIVE) Ethyl Alcohol mg/dL Ketones (NEGATIVE) 07/04/19 07/04/19 07/04/19 Range/Units 00:15 00:19 00:19 WBC (4.5-11.0) K/uL RBC (4.30-5.90) M/uL Hgb (12.0-15.0) g/dL Hct (40.0-54.0) % MCV (80-98) fL MCH (27-31) pg MCHC (32-36) % Plt Count (150-400) K/uL Neut % (Auto) (36-66) % Lymph % (Auto) (24-44) % [place] % (Auto) (2-6) % Eos % (Auto) (2-4) % Baso % (Auto) (0-1) % VBG pH (7.350-7.450) Sodium (140-148) mmol/L Potassium (3.6-5.2) mmol/L Chloride (100-108) mmol/L Carbon Dioxide (21-32) mmol/L Anion Gap (5.0-14.0) mmol/L BUN (7-18) mg/dL Creatinine (0.8-1.3) mg/dL Est Cr Clr Drug Dosing mL/min Estimated GFR (MDRD) (>60) Glucose 226 H (74-106) mg/dL Lactic Acid 1.7 (0.4-2.0) mmol/L Calcium (8.5-10.1) mg/dL Phosphorus (2.5-4.9) mg/dL Magnesium (1.8-2.4) mg/dL Iron (65-175) ug/dL TIBC (250-450) ug/dl % Saturation (20-55) % Ferritin (8-388) ng/ml Total Bilirubin (0.2-1.0) mg/dL AST (15-37) U/L ALT (12-78) U/L Alkaline Phosphatase (46-116) U/L C-Reactive Protein (0.0-0.3) mg/dL Total Protein (6.4-8.2) g/dL Albumin (3.4-5.0) g/dL Globulin (2.3-3.5) g/dL Albumin/Globulin Ratio (1.2-2.2) Amylase (25-115) U/L Lipase (73-393) U/L Urine Color (YELLOW) Urine Appearance (CLEAR) Urine pH (5.0-8.0) Ur Specific [place] (1.008-1.030) Urine Protein (NEGATIVE) mg/dL Urine Glucose (UA) (NEGATIVE) mg/dL Urine Ketones (NEGATIVE) mg/dL Urine Occult Blood (NEGATIVE) Urine Nitrite (NEGATIVE) Urine Bilirubin (NEGATIVE) Urine Urobilinogen (0.2-1.0) EU/dL Ur Leukocyte Esterase (NEGATIVE) Urine RBC (0-5) Urine WBC (0-5) Ur Epithelial Cells Amorphous Sediment Urine Bacteria Urine Mucus Urine Opiates Screen (NEGATIVE) Ur Oxycodone Screen (NEGATIVE) Urine Methadone Screen (NEGATIVE) Ur Propoxyphene Screen (NEGATIVE) Ur Barbiturates Screen (NEGATIVE) Ur Tricyclics Screen (NEGATIVE) Ur Phencyclidine Scrn (NEGATIVE) Ur Amphetamine Screen (NEGATIVE) U Methamphetamines Scrn (NEGATIVE) Urine MDMA Screen (NEGATIVE) U Benzodiazepines Scrn (NEGATIVE) U Cocaine Metab Screen (NEGATIVE) U Marijuana (THC) Screen (NEGATIVE) Ethyl Alcohol mg/dL Ketones Small H (NEGATIVE) 07/04/19 07/04/19 07/04/19 Range/Units 05:45 05:45 08:39 WBC 4.0 L (4.5-11.0) K/uL RBC 3.18 L (4.30-5.90) M/uL Hgb 7.7 L D (12.0-15.0) g/dL Hct 24.8 L (40.0-54.0) % MCV 78 L (80-98) fL MCH 24 L (27-31) pg MCHC 31 L (32-36) % Plt Count 252 (150-400) K/uL Neut % (Auto) 29 L (36-66) % Lymph % (Auto) 50 H (24-44) % [place] % (Auto) 15 H (2-6) % Eos % (Auto) 5 H (2-4) % Baso % (Auto) 1 (0-1) % VBG pH (7.350-7.450) Sodium 139 L (140-148) mmol/L Potassium 3.4 L (3.6-5.2) mmol/L Chloride 109 H (100-108) mmol/L Carbon Dioxide 23 (21-32) mmol/L Anion Gap 10.4 (5.0-14.0) mmol/L BUN 6 L (7-18) mg/dL Creatinine 0.4 L (0.8-1.3) mg/dL Est Cr Clr Drug Dosing 197.17 mL/min Estimated GFR (MDRD) > 60 (>60) Glucose 75 (74-106) mg/dL Lactic Acid (0.4-2.0) mmol/L Calcium 6.9 L* D (8.5-10.1) mg/dL Phosphorus (2.5-4.9) mg/dL Magnesium (1.8-2.4) mg/dL Iron 11 L (65-175) ug/dL TIBC 219 L (250-450) ug/dl % Saturation 5 L (20-55) % Ferritin (8-388) ng/ml Total Bilirubin 0.2 (0.2-1.0) mg/dL AST 20 (15-37) U/L ALT 16 (12-78) U/L Alkaline Phosphatase 68 (46-116) U/L C-Reactive Protein (0.0-0.3) mg/dL Total Protein 4.7 L (6.4-8.2) g/dL Albumin 2.1 L (3.4-5.0) g/dL Globulin 2.6 (2.3-3.5) g/dL Albumin/Globulin Ratio 0.8 L (1.2-2.2) Amylase (25-115) U/L Lipase (73-393) U/L Urine Color (YELLOW) Urine Appearance (CLEAR) Urine pH (5.0-8.0) Ur Specific [place] (1.008-1.030) Urine Protein (NEGATIVE) mg/dL Urine Glucose (UA) (NEGATIVE) mg/dL Urine Ketones (NEGATIVE) mg/dL Urine Occult Blood (NEGATIVE) Urine Nitrite (NEGATIVE) Urine Bilirubin (NEGATIVE) Urine Urobilinogen (0.2-1.0) EU/dL Ur Leukocyte Esterase (NEGATIVE) Urine RBC (0-5) Urine WBC (0-5) Ur Epithelial Cells Amorphous Sediment Urine Bacteria Urine Mucus Urine Opiates Screen (NEGATIVE) Ur Oxycodone Screen (NEGATIVE) Urine Methadone Screen (NEGATIVE) Ur Propoxyphene Screen (NEGATIVE) Ur Barbiturates Screen (NEGATIVE) Ur Tricyclics Screen (NEGATIVE) Ur Phencyclidine Scrn (NEGATIVE) Ur Amphetamine Screen (NEGATIVE) U Methamphetamines Scrn (NEGATIVE) Urine MDMA Screen (NEGATIVE) U Benzodiazepines Scrn (NEGATIVE) U Cocaine Metab Screen (NEGATIVE) U Marijuana (THC) Screen (NEGATIVE) Ethyl Alcohol mg/dL Ketones (NEGATIVE) 07/04/19 Range/Units 08:39 WBC (4.5-11.0) K/uL RBC (4.30-5.90) M/uL Hgb (12.0-15.0) g/dL Hct (40.0-54.0) % MCV (80-98) fL MCH (27-31) pg MCHC (32-36) % Plt Count (150-400) K/uL Neut % (Auto) (36-66) % Lymph % (Auto) (24-44) % [place] % (Auto) (2-6) % Eos % (Auto) (2-4) % Baso % (Auto) (0-1) % VBG pH (7.350-7.450) Sodium (140-148) mmol/L Potassium (3.6-5.2) mmol/L Chloride (100-108) mmol/L Carbon Dioxide (21-32) mmol/L Anion Gap (5.0-14.0) mmol/L BUN (7-18) mg/dL Creatinine (0.8-1.3) mg/dL Est Cr Clr Drug Dosing mL/min Estimated GFR (MDRD) (>60) Glucose (74-106) mg/dL Lactic Acid (0.4-2.0) mmol/L Calcium (8.5-10.1) mg/dL Phosphorus (2.5-4.9) mg/dL Magnesium (1.8-2.4) mg/dL Iron (65-175) ug/dL TIBC (250-450) ug/dl % Saturation (20-55) % Ferritin 7 L (8-388) ng/ml Total Bilirubin (0.2-1.0) mg/dL AST (15-37) U/L ALT (12-78) U/L Alkaline Phosphatase (46-116) U/L C-Reactive Protein (0.0-0.3) mg/dL Total Protein (6.4-8.2) g/dL Albumin (3.4-5.0) g/dL Globulin (2.3-3.5) g/dL Albumin/Globulin Ratio (1.2-2.2) Amylase (25-115) U/L Lipase (73-393) U/L Urine Color (YELLOW) Urine Appearance (CLEAR) Urine pH (5.0-8.0) Ur Specific [place] (1.008-1.030) Urine Protein (NEGATIVE) mg/dL Urine Glucose (UA) (NEGATIVE) mg/dL Urine Ketones (NEGATIVE) mg/dL Urine Occult Blood (NEGATIVE) Urine Nitrite (NEGATIVE) Urine Bilirubin (NEGATIVE) Urine Urobilinogen (0.2-1.0) EU/dL Ur Leukocyte Esterase (NEGATIVE) Urine RBC (0-5) Urine WBC (0-5) Ur Epithelial Cells Amorphous Sediment Urine Bacteria Urine Mucus Urine Opiates Screen (NEGATIVE) Ur Oxycodone Screen (NEGATIVE) Urine Methadone Screen (NEGATIVE) Ur Propoxyphene Screen (NEGATIVE) Ur Barbiturates Screen (NEGATIVE) Ur Tricyclics Screen (NEGATIVE) Ur Phencyclidine Scrn (NEGATIVE) Ur Amphetamine Screen (NEGATIVE) U Methamphetamines Scrn (NEGATIVE) Urine MDMA Screen (NEGATIVE) U Benzodiazepines Scrn (NEGATIVE) U Cocaine Metab Screen (NEGATIVE) U Marijuana (THC) Screen (NEGATIVE) Ethyl Alcohol mg/dL Ketones (NEGATIVE) Med Orders - Current: Current Medications Bisacodyl (Dulcolax) 10 mg PO ONETIME ONE Stop: 07/04/19 20:01 Enoxaparin Sodium (Lovenox) 40 mg SUBCUT DAILY MARGY Last Admin: 07/04/19 09:34 Dose: 40 mg Magnesium Sulfate 2 gm/ Premix 50 mls @ 25 mls/hr IV Q6H [facility] Stop: 07/04/19 17:59 Last Admin: 07/04/19 09:34 Dose: 25 mls/hr Ferric Sodium Gluconate Complex 250 mg/ Sodium Chloride 120 mls @ 60 mls/hr IV ONETIME ONE Stop: 07/05/19 10:29 Sodium Chloride (Normal Saline) 1,000 mls @ 100 mls/hr IV ASDIRECTED [facility] Sodium Chloride (Normal Saline) 70 mls @ 3 mls/sec IV ASDIRECTED [facility] Stop: 07/04/19 16:00 Insulin Glargine (Lantus Solostar) 20 units SUBCUT BEDTIME MARGY Insulin Human Lispro (Humalog) 0 unit SUBCUT QIDACANDBED [facility]; Protocol Last Admin: 07/04/19 11:59 Dose: 2 unit Iopamidol (Isovue-300 (61%)) 81 ml IV . DIRECTED PRN PRN Reason: RADIOLOGY EXAM Stop: 07/05/19 12:43 Magnesium Oxide (Magnesium Oxide) 400 mg PO BID [facility] Last Admin: 07/04/19 09:34 Dose: 400 mg Ondansetron HCl (Zofran) 4 mg IV Q4H PRN PRN Reason: Nausea/Vomiting Pantoprazole Sodium (Protonix Iv) 40 mg IVPUSH Q12H [facility] Last Admin: 07/04/19 14:06 Dose: 40 mg Polyethylene Glycol (Miralax) 238 gm PO ONETIME ONE Stop: 07/04/19 17:01 Potassium Chloride (Klor-Con M20) 40 meq PO ONETIME ONE Stop: 07/04/19 17:01 Senna/Docusate Sodium (Senna Plus) 1 tab PO BID PRN PRN Reason: Constipation Sodium Chloride (Saline Flush) 10 ml FLUSH ONETIME [facility] Stop: 07/04/19 16:00 Discontinued Medications Bisacodyl (Dulcolax) 10 mg PO ONETIME ONE Stop: 07/04/19 12:31 Last Admin: 07/04/19 14:06 Dose: 10 mg Hydromorphone HCl (Dilaudid) 0.5 mg IVPUSH ONETIME ONE Stop: 07/03/19 23:14 Last Admin: 07/03/19 23:45 Dose: 0.5 mg Sodium Chloride (Normal Saline) 1,000 mls @ 999 mls/hr IV ASDIRECTED MARGY Last Admin: 07/03/19 22:51 Dose: 999 mls/hr Sodium Chloride (Normal Saline) 1,000 mls @ 999 mls/hr IV ASDIRECTED MARGY Last Admin: 07/03/19 23:48 Dose: 999 mls/hr Sodium Chloride (Normal Saline) 1,000 mls @ 200 mls/hr IV ASDIRECTED [facility] Last Admin: 07/04/19 11:33 Dose: 200 mls/hr Ferric Sodium Gluconate Complex 250 mg/ Sodium Chloride 120 mls @ 50 mls/hr IV ONETIME ONE Stop: 07/04/19 14:23 Last Admin: 07/04/19 11:57 Dose: 50 mls/hr Influenza Virus Vaccine (Fluzone Quad Syringe) 60 mcg IM .ONCE ONE Stop: 07/04/19 10:01 Last Admin: 07/04/19 09:31 Dose: 60 mcg Insulin Glargine (Lantus Solostar) 20 units SUBCUT BEDTIME STA Stop: 07/04/19 00:40 Last Admin: 07/04/19 01:02 Dose: 20 units Insulin Human Regular (Humulin R) 3 unit IVPUSH ONETIME ONE Stop: 07/03/19 23:13 Last Admin: 07/03/19 23:40 Dose: 3 units Insulin Human Regular (Humulin R) 3 unit SUBCUT ONETIME ONE Stop: 07/03/19 23:14 Last Admin: 07/03/19 23:43 Dose: 3 units Iohexol (Omnipaque) 20 ml PO ONETIME ONE Stop: 07/04/19 13:11 Last Admin: 07/04/19 14:16 Dose: 20 ml Morphine Sulfate (Morphine) 2 mg IVPUSH Q4H PRN PRN Reason: Pain (moderate 4-6) Last Admin: 07/04/19 14:38 Dose: 2 mg Pantoprazole Sodium (Protonix Iv) 40 mg IVPUSH ONETIME ONE Stop: 07/03/19 23:37 Last Admin: 07/03/19 23:48 Dose: 40 mg Potassium Chloride (Klor-Con M20) 40 meq PO ONETIME ONE Stop: 07/04/19 12:46 Last Admin: 07/04/19 14:06 Dose: 40 meq - Exam General: Alert, Oriented, Cooperative, Moderate Distress Lungs: Clear to Auscultation, Normal Respiratory Effort Cardiovascular: Regular Rate, Regular Rhythm, No Murmurs GI/Abdominal Exam: Soft, No Organomegaly, Tender. No: Distended, Guarding, Rigid, Rebound Extremities: Non-Tender, No Pedal Edema - Problem List Review Problem List Initiated/Reviewed/Updated: Yes - My Orders Last 24 Hours: My Active Orders 07/04/19 09:00 Magnesium Oxide 400 mg PO BID 07/04/19 10:00 Magnesium Sulfate/Water [Magnesium Sulfate in Water Premix] 2 gm Premix Bag 1 bag IV Q6H 07/04/19 12:26 Consult to Physician [CONS] Routine Abdomen Pelvis w Cont [CT] Urgent 07/04/19 12:27 Notify Provider Consults [RC] ASDIRECTED 07/04/19 12:30 Verify Patient Consent Obtain [RC] ASDIRECTED Schedule Procedure [COMM] Routine 07/04/19 12:42 Iopamidol [Isovue-300 (61%)] 81 ml IV . DIRECTED PRN 07/04/19 12:45 Sodium Chloride 0.9% [Normal Saline] 1,000 ml IV ASDIRECTED Sodium Chloride 0.9% [Normal Saline] 70 ml IV ASDIRECTED Sodium Chloride 0.9% [Saline Flush] 10 ml FLUSH ONETIME 07/04/19 13:00 Pantoprazole [ProTONIX IV] 40 mg IVPUSH Q12H 07/04/19 17:00 Polyethylene Glycol 3350 [MiraLAX] 238 gm PO ONETIME ONE Potassium Chloride [Klor-Con M20] 40 meq PO ONETIME ONE 07/04/19 20:00 Bisacodyl [Dulcolax] 10 mg PO ONETIME ONE 07/05/19 05:00 BASIC METABOLIC PANEL,BMP [CHEM] Timed CBC WITH AUTO DIFF [HEME] Timed 07/05/19 08:30 Sodium Ferric Gluconate Cmplex [Ferrlecit IV] 250 mg Sodium Chloride 0.9% [ Normal Saline] 100 ml IV ONETIME 07/05/19 Breakfast Nothing per Oral After Midnight Diet [DIET] - Plan Plan:: ASSESSMENT AND PLAN ABDOMINAL PAIN-fairly diffuse but seems to be worse in the left upper quadrant. Possible underlying ulcer disease versus gastritis versus other cause -Protonix 40 mg IV twice daily -CT scan of the abdomen and pelvis with IV and oral contrast -EGD and colonoscopy in a.m. MICROCYTIC ANEMIA-likely secondary to chronic blood loss as well as iron deficiency -IV iron supplement today and tomorrow -Follow-up hemoglobin in a.m. -EGD and colonoscopy as above MAINTENANCE ISSUES -DVT prophylaxis; not indicated -GI prophylaxis; Protonix as above -Sanchez catheter; not indicated -Nutrition; full liquid diet, nothing by mouth after midnight -Nicotine dependence; not required CODE STATUS-FULL CODE ADMISSION STATUS-patient will be admitted to inpatient status, expect at least a 2 night hospital stay for evaluation and management of problems as outlined above. At the time of this admission I do not reasonably expected evaluation and management of this problem will require more than a 96 hour hospital stay. DISPOSITION-anticipate discharge to home after the hospital stay. PRIMARY CARE PROVIDER-
[2019-07-04] MEDS: oxyCODONE 5 MG Tab PO PRN ×2 (16:31→20:33)
--- NOTE | 2019-07-04 16:46 | CRLCT ---
INDICATION: Abdominal pain TECHNIQUE: CT abdomen and pelvis acquired with IV and oral contrast. 80 mL of Isovue 300 administered. COMPARISON: None available FINDINGS: Lower chest: Areas of cystic bronchiectasis and parenchymal emphysematous changes at the lung bases, most pronounced in the right middle lobe, with associated scarring and subsegmental atelectasis. Small pleural effusions. Dilated, fluid and debris filled distal esophagus versus a hiatal hernia with apparent mild wall prominence. Few tiny collateral vessels may be present within the distal esophageal wall. Liver: Unremarkable. Mild central periportal edema. Spleen: Unremarkable. Pancreas: Multiple pancreatic calcifications consistent with chronic calcific pancreatitis. Dilatation of the central pancreatic duct measuring up to 7 mm. An irregular 2.3 x 2.1 x 2.2 cm collection of fluid and gas with thin peripheral enhancement adjacent to the distal pancreatic body, seen on images 41-46 of series 2 and images 43-47 of series 3, extending adjacent to the colonic splenic flexure. Gallbladder and bile ducts: Unremarkable. Adrenal glands: Unremarkable. Kidneys: Mild bilateral hydronephrosis. GI tract: A distended fluid and debris-filled stomach. A 1.1 x 0.9 cm ovoid low-attenuation luminal structure within the duodenum on image 63. Wall prominence in multiple left abdominal jejunal segments, as well as multiple nodular low-attenuation mural foci. Nondilated gas-filled small bowel segments are nonspecific and contrast traverses the small bowel into the cecum. Portions of a normal caliber appendix seen. No significant pericolonic changes. Vascular structures: Mild atherosclerotic changes. Thrombosis of the proximal splenic vein with multiple upper abdominal venous collaterals. Lymph nodes: No abnormally enlarged lymph nodes. Shotty subcentimeter mesenteric lymph nodes, nonspecific. Miscellaneous: Diffuse mesenteric edema with small to moderate ascites. No free air. Soft tissue edema. Pelvic Organs: A significantly distended bladder. A grossly unremarkable prostate. Bones: L5 spondylolysis. IMPRESSION: Chronic calcific pancreatitis. 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 Diffuse mesenteric edema with small to moderate ascites. Although this is not centered at the pancreas, correlate with pancreatic enzymes. A 2.3 cm irregular collection of fluid and gas with thin peripheral enhancement adjacent to the distal pancreatic body, extending to the colonic splenic flexure. This could represent an infected pseudocyst, abscess or sinus tract to the colon, versus a large irregular colonic diverticulum. Apparent fold thickening in multiple jejunal segments as well as multiple nodular low-attenuation mural foci within the jejunal segments, raising concern for small-bowel polyposis. Superimposed nonspecific enteritis may be present. Recommend further evaluation of the bowel. A distended fluid and debris-filled stomach. Dilatation of the distal esophagus versus a hiatal hernia with apparent mild wall prominence. Correlate for mild esophagitis. Mild bilateral hydronephrosis, likely related to a significantly distended urinary bladder. Small pleural effusions. Emphysematous changes and areas of cystic bronchiectasis at the lung bases with associated scarring. Dictated by Stevo Douglas MD @ 07/04/2019 4:42:32 PM Please note that all CT scans at this facility use dose modulation, iterative reconstruction, and/or weight-based dosing when appropriate to reduce radiation dose to as low as reasonably achievable. Dictated by: Stevo Douglas MD @ 07/04/2019 16:43:42 (Electronically Signed)
[2019-07-04] MEDS ORDERED: Insulin Lispro 100 Unit/ML 3 ML KwikPen SUBCUT ONE (16:54)
[2019-07-04] MEDS ORDERED: Polyethylene Glycol 3350 Powder 238 GM Bot PO ONE (17:00)
[2019-07-04] MEDS ORDERED: LORazepam 1 MG Tab PO SCH (17:45)
[2019-07-04] MEDS: Thiamine 100 MG Tab PO SCH (18:26)
[2019-07-04] MEDS: Folic Acid 1 MG Tab PO SCH (18:26)
[2019-07-04] MEDS: Calcium Carbonate/Vitamin D3 1500 MG-400 Units Tab PO SCH (20:34)
[2019-07-04] MEDS ORDERED: Pantoprazole 40 MG Vial IVPUSH SCH (21:00)
[2019-07-04] MEDS ORDERED: Pantoprazole 40 MG in Sodium Chloride 0.9% 100 ML IV SCH (21:00)
[2019-07-04] MEDS: Insulin Glargine,Human Rec. Analog 100 Units/ML 3 ML Pen SUBCUT SCH (21:09)
[2019-07-05] MEDS: Pantoprazole 40 MG Vial IVPUSH SCH ×2 (01:06→13:05)
[2019-07-05] MEDS: oxyCODONE 5 MG Tab PO PRN ×4 (01:10→21:18)
[2019-07-05] MEDS ORDERED: 50% Dextrose in Water 50 ML Syringe IVPUSH ONE (04:52)
[2019-07-05] MEDS ORDERED: 50% Dextrose in Water 50 ML Syringe ONE (04:55)
[2019-07-05] MEDS: Dextrose 5%-0.9% NaCl 1,000 ML IV SCH ×2 (05:01→11:46)
[2019-07-05] MEDS ORDERED: fentaNYL 100 MCG/2 ML SDV ONE (06:14)
[2019-07-05] MEDS ORDERED: Midazolam 1 MG/ML 2 ML SDV ONE (06:14)
[2019-07-05] MEDS ORDERED: Propofol 200 MG/20 ML SDV ONE (06:15)
[2019-07-05] MEDS ORDERED: Sodium Ferric Gluconate Cmplex 250 MG in Sodium Chloride 0.9% 100 ML IV ONE (08:30)
[2019-07-05] MEDS: Insulin Lispro 100 Unit/ML 3 ML KwikPen SUBCUT SCH ×4 (09:07→21:16)
[2019-07-05] MEDS: Calcium Carbonate/Vitamin D3 1500 MG-400 Units Tab PO SCH (09:34)
[2019-07-05] MEDS: Magnesium Oxide 400 MG Tab PO SCH ×2 (09:34→21:18)
[2019-07-05] MEDS: Thiamine 100 MG Tab PO SCH (09:34)
[2019-07-05] MEDS: Folic Acid 1 MG Tab PO SCH (09:34)
[2019-07-05] MEDS: Enoxaparin 40 MG/0.4 ML Syringe SUBCUT SCH (09:34)
[2019-07-05] MEDS ORDERED: Potassium Chloride 20 MEQ, Lidocaine 1% 2 ML in Sodium Chloride 0.9% 100 ML IV SCH (10:00)
[2019-07-05] MEDS: Potassium Chloride 20 MEQ, Lidocaine 1% 2 ML in Sodium Chloride 0.9% 100 ML IV SCH ×2 (11:44→14:26)
--- NOTE | 2019-07-05 11:48 | PCM.PN ---
- General Info Date of Service: 07/05/19 Subjective Update: Mr. Tony continues to experience abdominal pain, worse in the epigastric region and left upper quadrant. EGD was performed earlier today by Dr. Velarde and shows diffuse fulminant esophagitis and esophageal varices, probable source of ongoing blood loss. Colonoscopy was attempted but unsuccessful because of a poor prep. 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 He remains on Protonix twice daily. Dr. Velarde is planning for exploratory laparotomy in 2 days time. - Review of Systems General: Denies: Fever, Chills Pulmonary: Reports: No Symptoms Cardiovascular: Reports: No Symptoms Gastrointestinal: Reports: Abdominal Pain. Denies: Diarrhea, Difficulty Swallowing, Hematochezia, Melena, Nausea, Vomiting - Patient Data Vitals - Most Recent: Last Vital Signs Temp 96.8 F 07/05/19 09:45 Pulse 72 07/05/19 09:45 Resp 16 07/05/19 09:45 BP 101/74 07/05/19 09:45 Pulse Ox 98 07/05/19 09:45 Weight - Most Recent: 120 lb I&O - Last 24 Hours: Intake & Output 07/04/19 07/05/19 07/05/19 22:59 06:59 14:59 Intake Total 3252 1146 1920 Output Total 3900 3000 1000 Balance -648 -5236 920 Lab Results Last 24 Hours: Laboratory Results - last 24 hr 07/04/19 07/05/19 07/05/19 Range/Units 19:07 04:46 04:46 WBC 6.2 (4.5-11.0) K/uL RBC 3.74 L (4.30-5.90) M/uL Hgb 9.0 L (12.0-15.0) g/dL Hct 30.1 L (40.0-54.0) % MCV 81 (80-98) fL MCH 24 L (27-31) pg MCHC 30 L (32-36) % Plt Count 307 (150-400) K/uL Neut % (Auto) 56 (36-66) % Lymph % (Auto) 21 L (24-44) % [place] % (Auto) 20 H (2-6) % Eos % (Auto) 3 (2-4) % Baso % (Auto) 0 (0-1) % Sodium 145 (140-148) mmol/L Potassium 3.4 L (3.6-5.2) mmol/L Chloride 112 H (100-108) mmol/L Carbon Dioxide 25 (21-32) mmol/L Anion Gap 11.4 (5.0-14.0) mmol/L BUN 2 L D (7-18) mg/dL Creatinine 0.5 L (0.8-1.3) mg/dL Est Cr Clr Drug Dosing 157.25 mL/min Estimated GFR (MDRD) > 60 (>60) Glucose 55 L (74-106) mg/dL Calcium 7.5 L (8.5-10.1) mg/dL POC WB Ioniz Calcium 1.12 (1.12-1.32) mmol/L Med Orders - Current: Current Medications Calcium Carbonate (Caltrate 600+D 1500 Mg-400 Units) 1 tab PO DAILY [facility] Last Admin: 07/05/19 09:34 Dose: 1 tab Enoxaparin Sodium (Lovenox) 40 mg SUBCUT DAILY [facility] Last Admin: 07/05/19 09:34 Dose: 40 mg Folic Acid (Folic Acid) 1 mg PO DAILY [facility] Last Admin: 07/05/19 09:34 Dose: 1 mg Gabapentin (Neurontin) 400 mg PO Q8H [facility] Stop: 07/09/19 03:46 Potassium Chloride 20 meq/Lidocaine HCl 2 ml/ Sodium Chloride 112 mls @ 56 mls/ hr IV Q2H [facility] Stop: 07/05/19 14:59 Insulin Glargine (Lantus Solostar) 20 units SUBCUT BEDTIME [facility] Last Admin: 07/04/19 21:09 Dose: 20 units Insulin Human Lispro (Humalog) 0 unit SUBCUT QIDACANDBED [facility]; Protocol Last Admin: 07/05/19 09:07 Dose: Not Given Iopamidol (Isovue-300 (61%)) 81 ml IV . DIRECTED PRN PRN Reason: RADIOLOGY EXAM Stop: 07/05/19 12:43 Last Admin: 07/04/19 15:59 Dose: 79 ml Lorazepam (Ativan) 0 mg PO ASDIRECTED [facility]; Protocol Magnesium Oxide (Magnesium Oxide) 400 mg PO BID [facility] Last Admin: 07/05/19 09:34 Dose: 400 mg Ondansetron HCl (Zofran) 4 mg IV Q4H PRN PRN Reason: Nausea/Vomiting Oxycodone HCl (Oxycodone) 10 mg PO Q4H PRN PRN Reason: Pain Last Admin: 07/05/19 09:40 Dose: 10 mg Pantoprazole Sodium (Protonix Iv) 40 mg IVPUSH Q12H [facility] Last Admin: 07/05/19 01:06 Dose: 40 mg Potassium Chloride (Klor-Con M20) 40 meq PO ONETIME ONE Stop: 07/05/19 17:01 Senna/Docusate Sodium (Senna Plus) 1 tab PO BID PRN PRN Reason: Constipation Thiamine HCl (Vitamin B-1) 100 mg PO DAILY [facility] Last Admin: 07/05/19 09:34 Dose: 100 mg Discontinued Medications Bisacodyl (Dulcolax) 10 mg PO ONETIME ONE Stop: 07/04/19 12:31 Last Admin: 07/04/19 14:06 Dose: 10 mg Bisacodyl (Dulcolax) 10 mg PO ONETIME ONE Stop: 07/04/19 20:01 Last Admin: 07/04/19 20:33 Dose: 10 mg Dextrose/Water (Dextrose 50% In Water) 50 ml IVPUSH ONETIME ONE Stop: 07/05/19 04:53 Last Admin: 07/05/19 04:57 Dose: 50 ml Dextrose/Water (Dextrose 50% In Water) Confirm Administered Dose 50 ml .ROUTE .STK-MED ONE Stop: 07/05/19 04:56 Last Admin: 07/05/19 05:16 Dose: Not Given Fentanyl (Sublimaze) Confirm Administered Dose 100 mcg .ROUTE .STK-MED ONE Stop: 07/05/19 06:15 Hydromorphone HCl (Dilaudid) 0.5 mg IVPUSH ONETIME ONE Stop: 07/03/19 23:14 Last Admin: 07/03/19 23:45 Dose: 0.5 mg Sodium Chloride (Normal Saline) 1,000 mls @ 999 mls/hr IV ASDIRECTED [facility] Last Admin: 07/03/19 22:51 Dose: 999 mls/hr Sodium Chloride (Normal Saline) 1,000 mls @ 999 mls/hr IV ASDIRECTED [facility] Last Admin: 07/03/19 23:48 Dose: 999 mls/hr Sodium Chloride (Normal Saline) 1,000 mls @ 200 mls/hr IV ASDIRECTED [facility] Last Admin: 07/04/19 11:33 Dose: 200 mls/hr Magnesium Sulfate 2 gm/ Premix 50 mls @ 25 mls/hr IV Q6H [facility] Stop: 07/04/19 17:59 Last Admin: 07/04/19 16:33 Dose: 25 mls/hr Ferric Sodium Gluconate Complex 250 mg/ Sodium Chloride 120 mls @ 50 mls/hr IV ONETIME ONE Stop: 07/04/19 14:23 Last Admin: 07/04/19 11:57 Dose: 50 mls/hr Ferric Sodium Gluconate Complex 250 mg/ Sodium Chloride 120 mls @ 60 mls/hr IV ONETIME ONE Stop: 07/05/19 10:29 Last Admin: 07/05/19 08:54 Dose: 60 mls/hr Sodium Chloride (Normal Saline) 1,000 mls @ 100 mls/hr IV ASDIRECTED [facility] Last Admin: 07/05/19 00:17 Dose: 100 mls/hr Sodium Chloride (Normal Saline) 70 mls @ 3 mls/sec IV ASDIRECTED [facility] Stop: 07/04/19 16:00 Last Admin: 07/04/19 15:59 Dose: 3 mls/sec Dextrose/Sodium Chloride (Dextrose 5%-Normal Saline) 1,000 mls @ 100 mls/hr IV ASDIRECTED [facility] Last Admin: 07/05/19 05:01 Dose: 100 mls/hr Potassium Chloride 20 meq/Lidocaine HCl 2 ml/ Sodium Chloride 112 mls @ 56 mls/ hr IV Q2H [facility] Stop: 07/05/19 13:59 Influenza Virus Vaccine (Fluzone Quad 8278-2702 Syringe) 60 mcg IM .ONCE ONE Stop: 07/04/19 10:01 Last Admin: 07/04/19 09:31 Dose: 60 mcg Insulin Glargine (Lantus Solostar) 20 units SUBCUT BEDTIME [facility] Stop: 07/04/19 00:40 Last Admin: 07/04/19 01:02 Dose: 20 units Insulin Human Lispro (Humalog) 14 unit SUBCUT ONETIME ONE Stop: 07/04/19 16:55 Last Admin: 07/04/19 17:06 Dose: 14 units Insulin Human Regular (Humulin R) 3 unit IVPUSH ONETIME ONE Stop: 07/03/19 23:13 Last Admin: 07/03/19 23:40 Dose: 3 units Insulin Human Regular (Humulin R) 3 unit SUBCUT ONETIME ONE Stop: 07/03/19 23:14 Last Admin: 07/03/19 23:43 Dose: 3 units Iohexol (Omnipaque) 20 ml PO ONETIME ONE Stop: 07/04/19 13:11 Last Admin: 07/04/19 14:16 Dose: 20 ml Midazolam HCl (Versed 1 Mg/Ml) Confirm Administered Dose 2 mg .ROUTE .STK-MED ONE Stop: 07/05/19 06:15 Morphine Sulfate (Morphine) 2 mg IVPUSH Q4H PRN PRN Reason: Pain (moderate 4-6) Last Admin: 07/04/19 14:38 Dose: 2 mg Pantoprazole Sodium (Protonix Iv) 40 mg IVPUSH ONETIME ONE Stop: 07/03/19 23:37 Last Admin: 07/03/19 23:48 Dose: 40 mg Polyethylene Glycol (Miralax) 238 gm PO ONETIME ONE Stop: 07/04/19 17:01 Last Admin: 07/04/19 16:58 Dose: 238 gm Potassium Chloride (Klor-Con M20) 40 meq PO ONETIME ONE Stop: 07/04/19 12:46 Last Admin: 07/04/19 14:06 Dose: 40 meq Potassium Chloride (Klor-Con M20) 40 meq PO ONETIME ONE Stop: 07/04/19 17:01 Last Admin: 07/04/19 17:10 Dose: 40 meq Propofol (Diprivan 20 Ml) Confirm Administered Dose 200 mg .ROUTE .STK-MED ONE Stop: 07/05/19 06:16 Sodium Chloride (Saline Flush) 10 ml FLUSH ONETIME [facility] Stop: 07/04/19 16:00 Last Admin: 07/04/19 15:59 Dose: 10 ml - Exam General: Alert, Oriented, Mild Distress Lungs: Clear to Auscultation, Normal Respiratory Effort Cardiovascular: Regular Rate, Regular Rhythm, No Murmurs GI/Abdominal Exam: Soft, No Organomegaly, Tender. No: Distended, Guarding, Rigid, Rebound Extremities: Non-Tender, No Pedal Edema - Problem List Review Problem List Initiated/Reviewed/Updated: Yes - My Orders Last 24 Hours: My Active Orders 07/04/19 12:26 Consult to Physician [CONS] Routine 07/04/19 12:27 Notify Provider Consults [RC] ASDIRECTED 07/04/19 12:30 Schedule Procedure [COMM] Routine 07/04/19 12:42 Iopamidol [Isovue-300 (61%)] 81 ml IV . DIRECTED PRN 07/04/19 13:00 Pantoprazole [ProTONIX IV] 40 mg IVPUSH Q12H 07/04/19 16:17 oxyCODONE 10 mg PO Q4H PRN 07/04/19 17:43 CIWAA Assessment [RC] Q4H 07/04/19 17:45 LORazepam [Ativan] See Protocol PO ASDIRECTED 07/04/19 17:46 Notify Provider [RC] PRN 07/04/19 18:00 Folic Acid 1 mg PO DAILY Thiamine [Vitamin B-1] 100 mg PO DAILY 07/05/19 08:09 Transfuse Red Blood Cells [COMM] Routine 07/05/19 11:00 Potassium Chloride 20 meq Lidocaine 1% [Xylocaine 1%] 2 ml Sodium Chloride 0.9 % [Normal Saline] 100 ml IV Q2H 07/05/19 11:35 Convert IV to Saline Lock [OM.PC] Routine 07/05/19 11:45 Gabapentin [Neurontin] 400 mg PO Q8H 07/05/19 17:00 Potassium Chloride [Klor-Con M20] 40 meq PO ONETIME ONE 07/05/19 Breakfast GI Soft Low Fiber [Soft Diet] [DIET] - Plan Plan:: ASSESSMENT AND PLAN SEVERE ESOPHAGITIS-probable source of anemia and chronic blood loss -Protonix 40 mg IV twice daily -Soft low residue diet PANCREATIC PSEUDOCYST-evidence of chronic calcified pancreatitis noted on CT scan -Surgical management per Dr. Velarde SPLENIC VEIN THROMBOSIS HEPATIC CIRRHOSIS-evidence of esophageal varices as well as splenic vein thrombosis TYPE 2 DIABETES MELLITUS -Lantus 20 units subcutaneous twice daily -QID glucometers -Moderate dose sliding scale Humalog CHRONIC ALCOHOL USE -Gabapentin 400 mg by mouth every 8 hours 4 days, then 200 mg by mouth every 8 hours 4 days -Alcohol withdrawal protocol MICROCYTIC ANEMIA-likely secondary to chronic blood loss as well as iron deficiency -Follow-up hemoglobin in a.m. MAINTENANCE ISSUES -DVT prophylaxis; not indicated -GI prophylaxis; Protonix as above -Sanchez catheter; not indicated -Nutrition; full liquid diet, nothing by mouth after midnight -Nicotine dependence; not required CODE STATUS-FULL CODE ADMISSION STATUS-patient will be admitted to inpatient status, expect at least a 2 night hospital stay for evaluation and management of problems as outlined above. At the time of this admission I do not reasonably expected evaluation and management of this problem will require more than a 96 hour hospital stay. DISPOSITION-anticipate discharge to home after the hospital stay. PRIMARY CARE PROVIDER-patient currently has no primary care provider
[2019-07-05] MEDS: Gabapentin 400 MG Cap PO SCH ×2 (13:09→21:18)
[2019-07-05] MEDS ORDERED: Potassium Chloride 20 MEQ Tab.ER PO ONE (17:00)
[2019-07-05] MEDS: Insulin Glargine,Human Rec. Analog 100 Units/ML 3 ML Pen SUBCUT SCH (21:15)
[2019-07-06] MEDS: Pantoprazole 40 MG Vial IVPUSH SCH ×2 (00:14→14:40)
[2019-07-06] MEDS: oxyCODONE 5 MG Tab PO PRN ×4 (02:55→21:30)
[2019-07-06] MEDS: Gabapentin 400 MG Cap PO SCH ×3 (07:04→21:13)
[2019-07-06] MEDS: Insulin Lispro 100 Unit/ML 3 ML KwikPen SUBCUT SCH ×4 (09:28→21:12)
[2019-07-06] MEDS ORDERED: Magnesium Sulfate/Water 2 GM in Premix Bag 1 BAG IV SCH (10:00)
[2019-07-06] MEDS: Folic Acid 1 MG Tab PO SCH (10:03)
[2019-07-06] MEDS: Magnesium Oxide 400 MG Tab PO SCH ×2 (10:03→20:25)
[2019-07-06] MEDS: Calcium Carbonate/Vitamin D3 1500 MG-400 Units Tab PO SCH (10:03)
[2019-07-06] MEDS: Enoxaparin 40 MG/0.4 ML Syringe SUBCUT SCH (10:03)
[2019-07-06] MEDS: Thiamine 100 MG Tab PO SCH (10:04)
[2019-07-06] MEDS: Magnesium Sulfate/Water 2 GM in Premix Bag 1 BAG IV SCH ×2 (10:40→15:59)
--- NOTE | 2019-07-06 11:47 | PCM.PN ---
- General Info Date of Service: 07/06/19 Subjective Update: Mr. Tony has been stable for the last 24 hours. Continues to report abdominal pain, appetite has been good and these been eating several large meals per day. Glucose levels elevated because of oral intake. No evidence of significant alcohol withdrawal. Functional Status: Reports: Tolerating Diet, Ambulating, Urinating - Review of Systems General: Reports: Weakness. Denies: Fever, Chills Pulmonary: Reports: No Symptoms Cardiovascular: Reports: No Symptoms Gastrointestinal: Reports: Abdominal Pain. Denies: Constipation, Diarrhea, Difficulty Swallowing, Nausea, Vomiting - Patient Data Vitals - Most Recent: Last Vital Signs Temp 99.7 F 07/06/19 10:32 Pulse 99 07/06/19 10:32 Resp 14 07/06/19 10:32 BP 97/64 07/06/19 10:32 Pulse Ox 92 L 07/06/19 10:32 Weight - Most Recent: 120 lb I&O - Last 24 Hours: Intake & Output 07/05/19 07/06/19 07/06/19 22:59 06:59 14:59 Intake Total 2438 1195 1530 Output Total 1999 975 2000 Balance 438 220 -470 Lab Results Last 24 Hours: Laboratory Results - last 24 hr 07/05/19 07/06/19 07/06/19 Range/Units 08:25 04:00 04:00 WBC 4.0 L (4.5-11.0) K/uL RBC 3.19 L (4.30-5.90) M/uL Hgb 7.7 L (12.0-15.0) g/dL Hct 26.0 L (40.0-54.0) % MCV 82 (80-98) fL MCH 24 L (27-31) pg MCHC 30 L (32-36) % Plt Count 239 (150-400) K/uL Neut % (Auto) 41 (36-66) % Lymph % (Auto) 40 (24-44) % [place] % (Auto) 16 H (2-6) % Eos % (Auto) 4 (2-4) % Baso % (Auto) 0 (0-1) % Sodium 139 L (140-148) mmol/L Potassium 4.4 (3.6-5.2) mmol/L Chloride 105 (100-108) mmol/L Carbon Dioxide 28 (21-32) mmol/L Anion Gap 10.4 (5.0-14.0) mmol/L BUN 6 L D (7-18) mg/dL Creatinine 0.6 L (0.8-1.3) mg/dL Est Cr Clr Drug Dosing 131.04 mL/min Estimated GFR (MDRD) > 60 (>60) Glucose 159 H (74-106) mg/dL Calcium 8.0 L (8.5-10.1) mg/dL Phosphorus 4.5 (2.5-4.9) mg/dL Magnesium 1.5 L (1.8-2.4) mg/dL Total Bilirubin 0.1 L (0.2-1.0) mg/dL AST 20 (15-37) U/L ALT 19 (12-78) U/L Alkaline Phosphatase 64 (46-116) U/L NT-Pro-B Natriuret Pep 93 (5-125) pg/mL Total Protein 4.6 L (6.4-8.2) g/dL Albumin 2.0 L (3.4-5.0) g/dL Globulin 2.6 (2.3-3.5) g/dL Albumin/Globulin Ratio 0.8 L (1.2-2.2) Blood Type Cancelled Gel Antibody Screen Cancelled Antibody Identification Cancelled Crossmatch See Detail 07/06/19 Range/Units 04:00 WBC (4.5-11.0) K/uL RBC (4.30-5.90) M/uL Hgb (12.0-15.0) g/dL Hct (40.0-54.0) % MCV (80-98) fL MCH (27-31) pg MCHC (32-36) % Plt Count (150-400) K/uL Neut % (Auto) (36-66) % Lymph % (Auto) (24-44) % [place] % (Auto) (2-6) % Eos % (Auto) (2-4) % Baso % (Auto) (0-1) % Sodium (140-148) mmol/L Potassium (3.6-5.2) mmol/L Chloride (100-108) mmol/L Carbon Dioxide (21-32) mmol/L Anion Gap (5.0-14.0) mmol/L BUN (7-18) mg/dL Creatinine (0.8-1.3) mg/dL Est Cr Clr Drug Dosing mL/min Estimated GFR (MDRD) (>60) Glucose (74-106) mg/dL Calcium (8.5-10.1) mg/dL Phosphorus (2.5-4.9) mg/dL Magnesium (1.8-2.4) mg/dL Total Bilirubin (0.2-1.0) mg/dL AST (15-37) U/L ALT (12-78) U/L Alkaline Phosphatase (46-116) U/L NT-Pro-B Natriuret Pep (5-125) pg/mL Total Protein (6.4-8.2) g/dL Albumin (3.4-5.0) g/dL Globulin (2.3-3.5) g/dL Albumin/Globulin Ratio (1.2-2.2) Blood Type A POSITIVE Gel Antibody Screen Positive A* Antibody Identification Crossmatch See Detail Med Orders - Current: Current Medications Calcium Carbonate (Caltrate 600+D 1500 Mg-400 Units) 1 tab PO DAILY [facility] Last Admin: 07/06/19 10:03 Dose: 1 tab Ropivacaine 27 ml/Dexamethasone 8 mg/Epinephrine HCl 0.4 mg/ Sodium Chloride 50.6 ml 0 ml NERVRT ASDIRECTED [facility] Enoxaparin Sodium (Lovenox) 40 mg SUBCUT DAILY [facility] Last Admin: 07/06/19 10:03 Dose: 40 mg Folic Acid (Folic Acid) 1 mg PO DAILY [facility] Last Admin: 07/06/19 10:03 Dose: 1 mg Gabapentin (Neurontin) 400 mg PO Q8H [facility] Stop: 07/09/19 06:01 Last Admin: 07/06/19 07:04 Dose: 400 mg Ketamine HCl 50 mg/ Sodium (Chloride) 50 mls @ 16.32 mls/hr IV ASDIRECTED [facility] Magnesium Sulfate 2 gm/ Premix 50 mls @ 25 mls/hr IV Q6H [facility] Stop: 07/09/19 05:59 Last Admin: 07/06/19 10:40 Dose: 25 mls/hr Cefoxitin Sodium 2 gm/ Sodium (Chloride) 50 mls @ 100 mls/hr IV ONETIME ONE Stop: 07/07/19 09:29 Dextrose/Lactated Ringer's (Dextrose 5%-Lactated Ringers) 1,000 mls @ 100 mls/ hr IV ASDIRECTED [facility] Insulin Glargine (Lantus Solostar) 20 units SUBCUT BEDTIME [facility] Last Admin: 07/05/19 21:15 Dose: 20 units Insulin Human Lispro (Humalog) 0 unit SUBCUT QIDACANDBED [facility]; Protocol Last Admin: 07/06/19 11:13 Dose: 4 unit Ketamine HCl (Ketalar) 27 mg IV ASDIRECTED [facility] Lorazepam (Ativan) 0 mg PO ASDIRECTED [facility]; Protocol Magnesium Oxide (Magnesium Oxide) 400 mg PO BID [facility] Last Admin: 07/06/19 10:03 Dose: 400 mg Ondansetron HCl (Zofran) 4 mg IV Q4H PRN PRN Reason: Nausea/Vomiting Oxycodone HCl (Oxycodone) 10 mg PO Q4H PRN PRN Reason: Pain Last Admin: 07/06/19 07:09 Dose: 10 mg Pantoprazole Sodium (Protonix Iv) 40 mg IVPUSH Q12H [facility] Last Admin: 07/06/19 00:14 Dose: 40 mg Senna/Docusate Sodium (Senna Plus) 1 tab PO BID PRN PRN Reason: Constipation Thiamine HCl (Vitamin B-1) 100 mg PO DAILY [facility] Last Admin: 07/06/19 10:04 Dose: 100 mg Discontinued Medications Bisacodyl (Dulcolax) 10 mg PO ONETIME ONE Stop: 07/04/19 12:31 Last Admin: 07/04/19 14:06 Dose: 10 mg Bisacodyl (Dulcolax) 10 mg PO ONETIME ONE Stop: 07/04/19 20:01 Last Admin: 07/04/19 20:33 Dose: 10 mg Dextrose/Water (Dextrose 50% In Water) 50 ml IVPUSH ONETIME ONE Stop: 07/05/19 04:53 Last Admin: 07/05/19 04:57 Dose: 50 ml Dextrose/Water (Dextrose 50% In Water) Confirm Administered Dose 50 ml .ROUTE .STK-MED ONE Stop: 07/05/19 04:56 Last Admin: 07/05/19 05:16 Dose: Not Given Fentanyl (Sublimaze) Confirm Administered Dose 100 mcg .ROUTE .STK-MED ONE Stop: 07/05/19 06:15 Hydromorphone HCl (Dilaudid) 0.5 mg IVPUSH ONETIME ONE Stop: 07/03/19 23:14 Last Admin: 07/03/19 23:45 Dose: 0.5 mg Sodium Chloride (Normal Saline) 1,000 mls @ 999 mls/hr IV ASDIRECTED [facility] Last Admin: 07/03/19 22:51 Dose: 999 mls/hr Sodium Chloride (Normal Saline) 1,000 mls @ 999 mls/hr IV ASDIRECTED [facility] Last Admin: 07/03/19 23:48 Dose: 999 mls/hr Sodium Chloride (Normal Saline) 1,000 mls @ 200 mls/hr IV ASDIRECTED [facility] Last Admin: 07/04/19 11:33 Dose: 200 mls/hr Magnesium Sulfate 2 gm/ Premix 50 mls @ 25 mls/hr IV Q6H [facility] Stop: 07/04/19 17:59 Last Admin: 07/04/19 16:33 Dose: 25 mls/hr Ferric Sodium Gluconate Complex 250 mg/ Sodium Chloride 120 mls @ 50 mls/hr IV ONETIME ONE Stop: 07/04/19 14:23 Last Admin: 07/04/19 11:57 Dose: 50 mls/hr Ferric Sodium Gluconate Complex 250 mg/ Sodium Chloride 120 mls @ 60 mls/hr IV ONETIME ONE Stop: 07/05/19 10:29 Last Admin: 07/05/19 08:54 Dose: 60 mls/hr Sodium Chloride (Normal Saline) 1,000 mls @ 100 mls/hr IV ASDIRECTED [facility] Last Admin: 07/05/19 00:17 Dose: 100 mls/hr Sodium Chloride (Normal Saline) 70 mls @ 3 mls/sec IV ASDIRECTED [facility] Stop: 07/04/19 16:00 Last Admin: 07/04/19 15:59 Dose: 3 mls/sec Dextrose/Sodium Chloride (Dextrose 5%-Normal Saline) 1,000 mls @ 100 mls/hr IV ASDIRECTED [facility] Last Admin: 07/05/19 11:46 Dose: 100 mls/hr Potassium Chloride 20 meq/Lidocaine HCl 2 ml/ Sodium Chloride 112 mls @ 56 mls/ hr IV Q2H [facility] Stop: 07/05/19 13:59 Potassium Chloride 20 meq/Lidocaine HCl 2 ml/ Sodium Chloride 112 mls @ 56 mls/ hr IV Q2H [facility] Stop: 07/05/19 14:59 Last Admin: 07/05/19 14:26 Dose: 56 mls/hr Influenza Virus Vaccine (Fluzone Quad Syringe) 60 mcg IM .ONCE ONE Stop: 07/04/19 10:01 Last Admin: 07/04/19 09:31 Dose: 60 mcg Insulin Glargine (Lantus Solostar) 20 units SUBCUT BEDTIME [facility] Stop: 07/04/19 00:40 Last Admin: 07/04/19 01:02 Dose: 20 units Insulin Human Lispro (Humalog) 14 unit SUBCUT ONETIME ONE Stop: 07/04/19 16:55 Last Admin: 07/04/19 17:06 Dose: 14 units Insulin Human Regular (Humulin R) 3 unit IVPUSH ONETIME ONE Stop: 07/03/19 23:13 Last Admin: 07/03/19 23:40 Dose: 3 units Insulin Human Regular (Humulin R) 3 unit SUBCUT ONETIME ONE Stop: 07/03/19 23:14 Last Admin: 07/03/19 23:43 Dose: 3 units Iohexol (Omnipaque) 20 ml PO ONETIME ONE Stop: 07/04/19 13:11 Last Admin: 07/04/19 14:16 Dose: 20 ml Iopamidol (Isovue-300 (61%)) 81 ml IV . DIRECTED PRN PRN Reason: RADIOLOGY EXAM Stop: 07/05/19 12:43 Last Admin: 07/04/19 15:59 Dose: 79 ml Midazolam HCl (Versed 1 Mg/Ml) Confirm Administered Dose 2 mg .ROUTE .STK-MED ONE Stop: 07/05/19 06:15 Morphine Sulfate (Morphine) 2 mg IVPUSH Q4H PRN PRN Reason: Pain (moderate 4-6) Last Admin: 07/04/19 14:38 Dose: 2 mg Pantoprazole Sodium (Protonix Iv) 40 mg IVPUSH ONETIME ONE Stop: 07/03/19 23:37 Last Admin: 07/03/19 23:48 Dose: 40 mg Polyethylene Glycol (Miralax) 238 gm PO ONETIME ONE Stop: 07/04/19 17:01 Last Admin: 07/04/19 16:58 Dose: 238 gm Potassium Chloride (Klor-Con M20) 40 meq PO ONETIME ONE Stop: 07/04/19 12:46 Last Admin: 07/04/19 14:06 Dose: 40 meq Potassium Chloride (Klor-Con M20) 40 meq PO ONETIME ONE Stop: 07/04/19 17:01 Last Admin: 07/04/19 17:10 Dose: 40 meq Potassium Chloride (Klor-Con M20) 40 meq PO ONETIME ONE Stop: 07/05/19 17:01 Last Admin: 07/05/19 16:53 Dose: 40 meq Propofol (Diprivan 20 Ml) Confirm Administered Dose 200 mg .ROUTE .STK-MED ONE Stop: 07/05/19 06:16 Sodium Chloride (Saline Flush) 10 ml FLUSH ONETIME [facility] Stop: 07/04/19 16:00 Last Admin: 07/04/19 15:59 Dose: 10 ml - Exam General: Alert, Oriented, Cooperative, Mild Distress Lungs: Clear to Auscultation, Normal Respiratory Effort Cardiovascular: Regular Rate, Regular Rhythm, No Murmurs GI/Abdominal Exam: Soft, No Organomegaly, Tender. No: Distended, Guarding, Rigid, Rebound Extremities: Non-Tender, No Pedal Edema Skin: Warm, Dry - Problem List Review Problem List Initiated/Reviewed/Updated: Yes - My Orders Last 24 Hours: My Active Orders 07/05/19 11:35 Convert IV to Saline Lock [OM.PC] Routine 07/05/19 14:00 Gabapentin [Neurontin] 400 mg PO Q8H 07/06/19 08:35 Verify Patient Consent Obtain [RC] ASDIRECTED 07/07/19 05:00 BASIC METABOLIC PANEL,BMP [CHEM] Timed CBC WITH AUTO DIFF [HEME] Timed MAGNESIUM [CHEM] Timed - Plan Plan:: ASSESSMENT AND PLAN SEVERE ESOPHAGITIS-probable source of anemia and chronic blood loss -Protonix 40 mg IV twice daily -Soft low residue diet, nothing by mouth after midnight PANCREATIC PSEUDOCYST-evidence of chronic calcified pancreatitis noted on CT scan, with pseudocyst noted at the pancreatic tail -Surgical management per Dr. Velarde SPLENIC VEIN THROMBOSIS HEPATIC CIRRHOSIS-evidence of esophageal varices as well as splenic vein thrombosis TYPE 2 DIABETES MELLITUS -Lantus 20 units subcutaneous twice daily -QID glucometers -Moderate dose sliding scale Humalog CHRONIC ALCOHOL USE -Gabapentin 400 mg by mouth every 8 hours 4 days, then 200 mg by mouth every 8 hours 4 days -Alcohol withdrawal protocol MICROCYTIC ANEMIA-likely secondary to chronic blood loss as well as iron deficiency -He will be transfused 1 unit of red blood cells pending surgery tomorrow -Follow-up hemoglobin in a.m. MAINTENANCE ISSUES -DVT prophylaxis; not indicated -GI prophylaxis; Protonix as above -Sanchez catheter; not indicated -Nutrition; full liquid diet, nothing by mouth after midnight -Nicotine dependence; not required CODE STATUS-FULL CODE ADMISSION STATUS-patient will be admitted to inpatient status, expect at least a 2 night hospital stay for evaluation and management of problems as outlined above. At the time of this admission I do not reasonably expected evaluation and management of this problem will require more than a 96 hour hospital stay. DISPOSITION-anticipate discharge to home after the hospital stay. PRIMARY CARE PROVIDER-patient currently has no primary care provider
--- NOTE | 2019-07-06 13:37 | PN ---
DATE OF SERVICE: 07/06/2019 The patient has been afebrile with stable vital signs. Oral intake is quite good. Blood sugar control is a little bit better this morning. His hemoglobin is down to 7.7. We are not able to give him blood as of yet due to antibody problems, and we will try getting in 4 units of blood either later today or tomorrow. Otherwise, his magnesium is somewhat low. 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 The plan will be to proceed with exploratory laparotomy and likely distal pancreatectomy and splenectomy, which will likely definitively treat both components. We will try to minimize the amount of pancreatic resection given his diabetic status and generally the predominance of islet cells located in the tail of the pancreas. Potential risks were reviewed with the patient including bleeding, infection, injury to underlying viscera, possible leaks from the pancreatic closure, and lastly, the remote possibility of cardiopulmonary, septic, or hemorrhagic complications leading to were all discussed, and the patient wishes to proceed. His magnesium is low. We will give him some magnesium supplementation today and then transfuse him up with 1 or 2 units of blood if available prior to the surgery tomorrow. Isaias Velarde MD /[id number]
[2019-07-06] MEDS: Insulin Glargine,Human Rec. Analog 100 Units/ML 3 ML Pen SUBCUT SCH (21:10)
[2019-07-07] MEDS: oxyCODONE 5 MG Tab PO PRN ×2 (02:05→07:06)
[2019-07-07] MEDS: Magnesium Sulfate/Water 2 GM in Premix Bag 1 BAG IV SCH ×4 (02:54→17:11)
[2019-07-07] MEDS: Pantoprazole 40 MG Vial IVPUSH SCH ×2 (03:24→17:03)
[2019-07-07] MEDS ORDERED: Dextrose 5%-Lactated Ringers 1,000 ML IV SCH (04:00)
[2019-07-07] MEDS: Gabapentin 400 MG Cap PO SCH ×2 (05:22→17:04)
--- NOTE | 2019-07-07 08:14 | PN ---
DATE OF SERVICE: 07/07/2019 SUBJECTIVE: Joe states his pain is controlled. Vital signs have been stable. He is n.p.o. for surgery. Case to follow. He had 2 units of packed red blood cells overnight. Hemoglobin went from 7.7 yesterday to 9.9 this morning REVIEW OF SYSTEMS: Remainder of review of systems negative for any pertinent positives and negatives. OBJECTIVE: GENERAL: Joe Tony is a 34-year-old male. He is quite quiet. VITAL SIGNS: TPR is 97.3, 101, 16. Blood pressure 114/79. HEENT: Negative. NECK: Supple. HEART: Regular rate and rhythm. LUNGS: Clear. ABDOMEN: Slightly distended. Generalized tenderness in the upper right and left quadrant to minimal palpation. EXTREMITIES: Negative. ASSESSMENT: 1. Pancreatic pseudocyst. 2. Esophageal varices. 3. Diabetes type 2. PLAN: 1. Three more units of packed red blood cells. A verbal order given to , LEGAL SUPPORT SPECIALIST, to have available. 2. We will evaluate p.r.n. Orders to be written postoperatively. Dione Cunningham PA-C /[id number]
[2019-07-07] MEDS: Enoxaparin 40 MG/0.4 ML Syringe SUBCUT SCH (08:56)
[2019-07-07] MEDS ORDERED: cefOXitin 2 GM in Sodium Chloride 0.9% 50 ML IV ONE (09:00)
--- NOTE | 2019-07-07 09:05 | CONS ---
DATE OF SERVICE: 07/05/2019 REFERRING PHYSICIAN: CONSULTING PHYSICIAN: Isaias Velarde MD HISTORY OF PRESENT ILLNESS: This is a 34-year-old, admitted with severe anemia and some upper abdominal pain. At the time of upper endoscopy this morning, the patient was noted to have severe esophagitis extending up to the proximal esophagus, associated with quite a bit in the way of esophageal varices as well. Colonoscopy was planned, but his prep was grossly inadequate, and we did find an obvious bleeding source in terms of the ulcerative esophagitis with which there was some blood present in the esophagus at the time of the endoscopy, so I do not think we will need to pursue the colonoscopy per se. Otherwise, the patient has a complex past medical history as outlined in the H and P. Appears to have chronic pancreatitis and has what is probably an infected pancreatic pseudocyst with air and possible attachment to the splenic flexure of the colon. This is in the pancreatic tail. He does also have splenic vein thrombosis, which likely accounts for his esophageal varices. He does not have any significant liver disease evident on the CT scan. IMPRESSION: 1. Severe esophagitis with esophageal varices, secondary to splenic vein thrombosis. 2. Probable re-infected pancreatic pseudocyst involving the pancreatic tail, possibly extending or connecting to the colon. This is associated with some degree of dilation of the pancreatic duct, but not too significantly, this only measuring around 7 mm at its maximum. PLAN: The plan will be to continue the proton pump inhibitor use. The patient also has a large gastric bezoar, and at some point, he may benefit from some prokinetic agents but will put that issue on a back burner at this point. With regard to the splenic vein thrombosis and esophageal varices, a splenectomy is probably indicated at this time, so as to avoid problems with bleeding. With the liver being apparently normal, his esophageal varices will likely disappear once the splenectomy is undertaken. We also would, if the pancreatic pseudocyst is identified, proceed with distal pancreatectomy, along with colon resection if indicated. The operative procedures will be discussed with the patient later on today. Isaias Velarde MD /[id number]
[2019-07-07] MEDS: Insulin Lispro 100 Unit/ML 3 ML KwikPen SUBCUT SCH ×2 (09:09→14:06)
[2019-07-07] MEDS: Magnesium Oxide 400 MG Tab PO SCH (09:20)
[2019-07-07] MEDS: Calcium Carbonate/Vitamin D3 1500 MG-400 Units Tab PO SCH (09:20)
[2019-07-07] MEDS: Folic Acid 1 MG Tab PO SCH (09:20)
[2019-07-07] MEDS: Thiamine 100 MG Tab PO SCH (09:21)
[2019-07-07] MEDS ORDERED: Ketamine 500 MG/5 ML MDV IV SCH (10:00)
[2019-07-07] MEDS ORDERED: Ketamine 50 MG in Sodium Chloride 0.9% 49.5 ML IV SCH (10:00)
--- NOTE | 2019-07-07 10:28 | PCM.PN ---
- General Info Date of Service: 07/07/19 Subjective Update: There were no acute events overnight. Patient does report a difference in his abdominal pain today. Patient reports that his pain is now across the lower portion of his abdomen rather than the upper half. Pain is rated as severe. He had an emesis this morning of about 500 mL. He has not had any fevers. No diarrhea. He is hungry and asking when he gets to eat after surgery. No evidence for withdrawal. Functional Status: Reports: Pain Controlled - Review of Systems General: Denies: Fever Gastrointestinal: Reports: Abdominal Pain - Patient Data Vitals - Most Recent: Last Vital Signs Temp 36.3 C 07/07/19 06:42 Pulse 101 H 07/07/19 06:42 Resp 16 07/07/19 06:42 BP 114/79 07/07/19 06:42 Pulse Ox 92 L 07/07/19 06:42 Weight - Most Recent: 54.431 kg I&O - Last 24 Hours: Intake & Output 07/06/19 07/07/19 07/07/19 22:59 06:59 14:59 Intake Total 1432 1661 Output Total 850 Balance 582 1661 Lab Results Last 24 Hours: Laboratory Results - last 24 hr 07/06/19 07/07/19 07/07/19 Range/Units 04:00 04:30 04:30 WBC 4.9 (4.5-11.0) K/uL RBC 3.86 L (4.30-5.90) M/uL Hgb 9.9 L D (12.0-15.0) g/dL Hct 31.9 L (40.0-54.0) % MCV 83 (80-98) fL MCH 26 L (27-31) pg MCHC 31 L (32-36) % Plt Count 203 (150-400) K/uL Neut % (Auto) 42 (36-66) % Lymph % (Auto) 34 (24-44) % [place] % (Auto) 20 H (2-6) % Eos % (Auto) 3 (2-4) % Baso % (Auto) 0 (0-1) % Sodium 139 L (140-148) mmol/L Potassium 4.0 (3.6-5.2) mmol/L Chloride 104 (100-108) mmol/L Carbon Dioxide 29 (21-32) mmol/L Anion Gap 10.0 (5.0-14.0) mmol/L BUN 9 (7-18) mg/dL Creatinine 0.5 L (0.8-1.3) mg/dL Est Cr Clr Drug Dosing 157.25 mL/min Estimated GFR (MDRD) > 60 (>60) Glucose 203 H (74-106) mg/dL Calcium 8.0 L (8.5-10.1) mg/dL Magnesium 2.1 (1.8-2.4) mg/dL Blood Type A POSITIVE Gel Antibody Screen Positive A* Antibody Identification Anti-K Crossmatch See Detail Med Orders - Current: Current Medications Calcium Carbonate (Caltrate 600+D 1500 Mg-400 Units) 1 tab PO DAILY [facility] Last Admin: 07/07/19 09:20 Dose: Not Given Ropivacaine 27 ml/Dexamethasone 8 mg/Epinephrine HCl 0.4 mg/ Sodium Chloride 50.6 ml 0 ml NERVRT ASDIRECTED [facility] Folic Acid (Folic Acid) 1 mg PO DAILY [facility] Last Admin: 07/07/19 09:20 Dose: Not Given Gabapentin (Neurontin) 400 mg PO Q8H [facility] Stop: 07/09/19 06:01 Last Admin: 07/07/19 05:22 Dose: 400 mg Ketamine HCl 50 mg/ Sodium (Chloride) 50 mls @ 16.32 mls/hr IV ASDIRECTED [facility] Magnesium Sulfate 2 gm/ Premix 50 mls @ 25 mls/hr IV Q6H [facility] Stop: 07/09/19 05:59 Last Admin: 07/07/19 09:18 Dose: 25 mls/hr Dextrose/Lactated Ringer's (Dextrose 5%-Lactated Ringers) 1,000 mls @ 100 mls/ hr IV ASDIRECTED [facility] Last Admin: 07/07/19 03:24 Dose: 100 mls/hr Insulin Glargine (Lantus Solostar) 20 units SUBCUT BEDTIME [facility] Last Admin: 07/06/19 21:10 Dose: 20 units Insulin Human Lispro (Humalog) 0 unit SUBCUT QIDACANDBED [facility]; Protocol Last Admin: 07/07/19 09:09 Dose: 2 unit Ketamine HCl (Ketalar) 27 mg IV ASDIRECTED [facility] Lorazepam (Ativan) 0 mg PO ASDIRECTED [facility]; Protocol Magnesium Oxide (Magnesium Oxide) 400 mg PO BID [facility] Last Admin: 07/07/19 09:20 Dose: Not Given Ondansetron HCl (Zofran) 4 mg IV Q4H PRN PRN Reason: Nausea/Vomiting Oxycodone HCl (Oxycodone) 10 mg PO Q4H PRN PRN Reason: Pain Last Admin: 07/07/19 07:06 Dose: 10 mg Pantoprazole Sodium (Protonix Iv) 40 mg IVPUSH Q12H [facility] Last Admin: 07/07/19 03:24 Dose: 40 mg Senna/Docusate Sodium (Senna Plus) 1 tab PO BID PRN PRN Reason: Constipation Last Admin: 07/06/19 21:30 Dose: 1 tab Thiamine HCl (Vitamin B-1) 100 mg PO DAILY [facility] Last Admin: 07/07/19 09:21 Dose: Not Given Discontinued Medications Bisacodyl (Dulcolax) 10 mg PO ONETIME ONE Stop: 07/04/19 12:31 Last Admin: 07/04/19 14:06 Dose: 10 mg Bisacodyl (Dulcolax) 10 mg PO ONETIME ONE Stop: 07/04/19 20:01 Last Admin: 07/04/19 20:33 Dose: 10 mg Dextrose/Water (Dextrose 50% In Water) 50 ml IVPUSH ONETIME ONE Stop: 07/05/19 04:53 Last Admin: 07/05/19 04:57 Dose: 50 ml Dextrose/Water (Dextrose 50% In Water) Confirm Administered Dose 50 ml .ROUTE .STK-MED ONE Stop: 07/05/19 04:56 Last Admin: 07/05/19 05:16 Dose: Not Given Enoxaparin Sodium (Lovenox) 40 mg SUBCUT DAILY [facility] Last Admin: 07/07/19 08:56 Dose: Not Given Fentanyl (Sublimaze) Confirm Administered Dose 100 mcg .ROUTE .STK-MED ONE Stop: 07/05/19 06:15 Hydromorphone HCl (Dilaudid) 0.5 mg IVPUSH ONETIME ONE Stop: 07/03/19 23:14 Last Admin: 07/03/19 23:45 Dose: 0.5 mg Sodium Chloride (Normal Saline) 1,000 mls @ 999 mls/hr IV ASDIRECTED [facility] Last Admin: 07/03/19 22:51 Dose: 999 mls/hr Sodium Chloride (Normal Saline) 1,000 mls @ 999 mls/hr IV ASDIRECTED [facility] Last Admin: 07/03/19 23:48 Dose: 999 mls/hr Sodium Chloride (Normal Saline) 1,000 mls @ 200 mls/hr IV ASDIRECTED [facility] Last Admin: 07/04/19 11:33 Dose: 200 mls/hr Magnesium Sulfate 2 gm/ Premix 50 mls @ 25 mls/hr IV Q6H [facility] Stop: 07/04/19 17:59 Last Admin: 07/04/19 16:33 Dose: 25 mls/hr Ferric Sodium Gluconate Complex 250 mg/ Sodium Chloride 120 mls @ 50 mls/hr IV ONETIME ONE Stop: 07/04/19 14:23 Last Admin: 07/04/19 11:57 Dose: 50 mls/hr Ferric Sodium Gluconate Complex 250 mg/ Sodium Chloride 120 mls @ 60 mls/hr IV ONETIME ONE Stop: 07/05/19 10:29 Last Admin: 07/05/19 08:54 Dose: 60 mls/hr Sodium Chloride (Normal Saline) 1,000 mls @ 100 mls/hr IV ASDIRECTED [facility] Last Admin: 07/05/19 00:17 Dose: 100 mls/hr Sodium Chloride (Normal Saline) 70 mls @ 3 mls/sec IV ASDIRECTED [facility] Stop: 07/04/19 16:00 Last Admin: 07/04/19 15:59 Dose: 3 mls/sec Dextrose/Sodium Chloride (Dextrose 5%-Normal Saline) 1,000 mls @ 100 mls/hr IV ASDIRECTED [facility] Last Admin: 07/05/19 11:46 Dose: 100 mls/hr Potassium Chloride 20 meq/Lidocaine HCl 2 ml/ Sodium Chloride 112 mls @ 56 mls/ hr IV Q2H [facility] Stop: 07/05/19 13:59 Potassium Chloride 20 meq/Lidocaine HCl 2 ml/ Sodium Chloride 112 mls @ 56 mls/ hr IV Q2H [facility] Stop: 07/05/19 14:59 Last Admin: 07/05/19 14:26 Dose: 56 mls/hr Cefoxitin Sodium 2 gm/ Sodium (Chloride) 50 mls @ 100 mls/hr IV ONETIME ONE Stop: 07/07/19 09:29 Influenza Virus Vaccine (Fluzone Quad 0490-4496 Syringe) 60 mcg IM .ONCE ONE Stop: 07/04/19 10:01 Last Admin: 07/04/19 09:31 Dose: 60 mcg Insulin Glargine (Lantus Solostar) 20 units SUBCUT BEDTIME [facility] Stop: 07/04/19 00:40 Last Admin: 07/04/19 01:02 Dose: 20 units Insulin Human Lispro (Humalog) 14 unit SUBCUT ONETIME ONE Stop: 07/04/19 16:55 Last Admin: 07/04/19 17:06 Dose: 14 units Insulin Human Regular (Humulin R) 3 unit IVPUSH ONETIME ONE Stop: 07/03/19 23:13 Last Admin: 07/03/19 23:40 Dose: 3 units Insulin Human Regular (Humulin R) 3 unit SUBCUT ONETIME ONE Stop: 07/03/19 23:14 Last Admin: 07/03/19 23:43 Dose: 3 units Iohexol (Omnipaque) 20 ml PO ONETIME ONE Stop: 07/04/19 13:11 Last Admin: 07/04/19 14:16 Dose: 20 ml Iopamidol (Isovue-300 (61%)) 81 ml IV . DIRECTED PRN PRN Reason: RADIOLOGY EXAM Stop: 07/05/19 12:43 Last Admin: 07/04/19 15:59 Dose: 79 ml Midazolam HCl (Versed 1 Mg/Ml) Confirm Administered Dose 2 mg .ROUTE .STK-MED ONE Stop: 07/05/19 06:15 Morphine Sulfate (Morphine) 2 mg IVPUSH Q4H PRN PRN Reason: Pain (moderate 4-6) Last Admin: 07/04/19 14:38 Dose: 2 mg Pantoprazole Sodium (Protonix Iv) 40 mg IVPUSH ONETIME ONE Stop: 07/03/19 23:37 Last Admin: 07/03/19 23:48 Dose: 40 mg Polyethylene Glycol (Miralax) 238 gm PO ONETIME ONE Stop: 07/04/19 17:01 Last Admin: 07/04/19 16:58 Dose: 238 gm Potassium Chloride (Klor-Con M20) 40 meq PO ONETIME ONE Stop: 07/04/19 12:46 Last Admin: 07/04/19 14:06 Dose: 40 meq Potassium Chloride (Klor-Con M20) 40 meq PO ONETIME ONE Stop: 07/04/19 17:01 Last Admin: 07/04/19 17:10 Dose: 40 meq Potassium Chloride (Klor-Con M20) 40 meq PO ONETIME ONE Stop: 07/05/19 17:01 Last Admin: 07/05/19 16:53 Dose: 40 meq Propofol (Diprivan 20 Ml) Confirm Administered Dose 200 mg .ROUTE .STK-MED ONE Stop: 07/05/19 06:16 Sodium Chloride (Saline Flush) 10 ml FLUSH ONETIME [facility] Stop: 07/04/19 16:00 Last Admin: 07/04/19 15:59 Dose: 10 ml - Exam Quality Assessment: No: Supplemental Oxygen General: Alert, Oriented, Cooperative, No Acute Distress Lungs: Normal Respiratory Effort Cardiovascular: Regular Rate, Regular Rhythm GI/Abdominal Exam: Soft, No Distention, Tender Extremities: No Pedal Edema Psy/Mental Status: Alert, Normal Affect - Problem List Review Problem List Initiated/Reviewed/Updated: Yes - My Orders Last 24 Hours: My Active Orders 07/07/19 10:27 Up ad [place]tag[place]ia [RC] ASDIRECTED 07/08/19 05:00 CBC W/O DIFF,HEMOGRAM [HEME] Timed (1) COMPREHENSIVE METABOLIC PN,CMP [CHEM] Timed - Plan Plan:: ASSESSMENT AND PLAN SEVERE ESOPHAGITIS - probable source of anemia and chronic blood loss. Doing well from the standpoint and tolerating diet before he became nothing by mouth. -Protonix 40 mg IV twice daily -Nothing by mouth PANCREATIC PSEUDOCYST - evidence of chronic calcified pancreatitis noted on CT scan, with pseudocyst noted at the pancreatic tail. There is concern for possible communication with the colon and surgical exploration is planned today. -Surgical management per Dr. Velarde SPLENIC VEIN THROMBOSIS HEPATIC CIRRHOSIS - evidence of esophageal varices as well as splenic vein thrombosis TYPE 2 DIABETES MELLITUS - blood sugar control has improved during the hospital stay. -Lantus 15 units subcutaneous twice daily -QID glucometers -Moderate dose sliding scale Humalog CHRONIC ALCOHOL USE - no evidence for withdrawal. He is interested in treatment for alcohol dependence. -Gabapentin 400 mg by mouth every 8 hours 4 days, then 200 mg by mouth every 8 hours 4 days -Alcohol withdrawal protocol MICROCYTIC ANEMIA - likely secondary to chronic blood loss as well as iron deficiency. Hemoglobin stable following transfusion. -Follow-up hemoglobin in a.m. MAINTENANCE ISSUES -DVT prophylaxis; mechanical -GI prophylaxis; Protonix as above -Sanchez catheter; not indicated -Nutrition; nothing by mouth -Nicotine dependence; not required DISPOSITION - anticipate discharge to home after the hospital stay. Jens Bailon M.D.
[2019-07-07] MEDS ORDERED: Glycopyrrolate 0.2 MG/ML 5 ML MDV ONE (10:32)
[2019-07-07] MEDS ORDERED: fentaNYL 250 MCG/5 ML SDV ONE (10:32)
[2019-07-07] MEDS ORDERED: Ondansetron 4 MG/2 ML SDV ONE (10:32)
[2019-07-07] MEDS ORDERED: Propofol 200 MG/20 ML SDV ONE ×3 (10:32→11:18)
[2019-07-07] MEDS ORDERED: Succinylcholine 200 MG/10 ML MDV ONE (10:32)
[2019-07-07] MEDS ORDERED: Dexamethasone 4 MG/ML SDV ONE (10:32)
[2019-07-07] MEDS ORDERED: Neostigmine Methylsulfate 1 MG/ML 5 ML Syringe ONE (10:32)
[2019-07-07] MEDS ORDERED: Midazolam 1 MG/ML 2 ML SDV ONE (10:33)
[2019-07-07] MEDS ORDERED: fentaNYL 100 MCG/2 ML SDV ONE (10:33)
[2019-07-07] MEDS: Ondansetron 4 MG/2 ML SDV IV PRN (10:40)
[2019-07-07] MEDS ORDERED: fentaNYL 100 MCG/2 ML SDV IVPUSH ONE (10:51)
[2019-07-07] MEDS ORDERED: Lactated Ringers 0 ML ONE (11:39)
[2019-07-07] MEDS ORDERED: Meropenem 500 MG SDV ONE (12:06)
[2019-07-07] MEDS ORDERED: Lactated Ringers 1,000 ML ONE ×2 (13:13→15:08)
[2019-07-07] MEDS ORDERED: Azithromycin 250 MG in Sodium Chloride 0.9% 250 ML IV ONE (14:00)
[2019-07-07] MEDS ORDERED: Labetalol 20 MG/4 ML Syringe ONE (15:09)
[2019-07-07] MEDS ORDERED: diphenhydrAMINE 50 MG/ML SDV IVPUSH PRN (16:22)
[2019-07-07] MEDS ORDERED: Ondansetron 4 MG/2 ML SDV IVPUSH PRN (16:22)
[2019-07-07] MEDS ORDERED: diphenhydrAMINE 25 MG Cap PO PRN (16:22)
[2019-07-07] MEDS ORDERED: Naloxone 0.4 MG/ML SDV IVPUSH PRN (16:22)
[2019-07-07] MEDS ORDERED: Naloxone 0.4 MG/ML SDV IV PRN (16:27)
[2019-07-07] MEDS ORDERED: hydrOXYzine HCl 100 MG/2 ML SDV IM PRN (16:41)
[2019-07-07] MEDS: HYDROmorphone/Normal Saline 15 MG/30 ML PCA IV PRN (16:42)
[2019-07-07] MEDS ORDERED: 50% Dextrose in Water 50 ML Syringe IVPUSH PRN (16:48)
[2019-07-07] MEDS ORDERED: Glucagon,Human Recombinant 1 MG Vial IM PRN (16:48)
[2019-07-07] MEDS ORDERED: Glucose Gel 15 GM in 37.5 GM Tube PO PRN (16:48)
[2019-07-07] MEDS: Insulin Lispro 100 Unit/ML 3 ML KwikPen SUBCUT PRN ×2 (17:19→20:36)
[2019-07-07] MEDS: MVI, Adult with Vitamin K 10 ML, Thiamine 100 MG, Chromium/Copper/Mang/Selen/Zn 1 ML in... IV SCH ×4 (18:25)
[2019-07-07] MEDS: cefOXitin 2 GM in Sodium Chloride 0.9% 50 ML IV SCH (20:35)
[2019-07-07] MEDS: Metoclopramide 10 MG/2 ML SDV IVPUSH SCH (20:36)
[2019-07-07] MEDS: Insulin Glargine,Human Rec. Analog 100 Units/ML 3 ML Pen SUBCUT SCH (20:36)
[2019-07-08] MEDS: Dextrose 5%-Lactated Ringers 1,000 ML IV SCH ×4 (00:19→21:53)
[2019-07-08] MEDS: Magnesium Sulfate/Water 2 GM in Premix Bag 1 BAG IV SCH ×5 (00:19→23:33)
[2019-07-08] MEDS: Pantoprazole 40 MG Vial IVPUSH SCH ×2 (00:19→14:11)
[2019-07-08] MEDS: LORazepam 2 MG/ML SDV IVPUSH PRN ×2 (00:35→14:23)
[2019-07-08] MEDS: Metoclopramide 10 MG/2 ML SDV IVPUSH SCH ×4 (02:24→19:47)
[2019-07-08] MEDS: cefOXitin 2 GM in Sodium Chloride 0.9% 50 ML IV SCH ×4 (02:24→19:39)
[2019-07-08] MEDS: Azithromycin 125 MG in Sodium Chloride 0.9% 150 ML IV SCH ×2 (02:55→14:48)
[2019-07-08] MEDS: HYDROmorphone/Normal Saline 15 MG/30 ML PCA IV PRN (07:33)
[2019-07-08] MEDS: Insulin Glargine,Human Rec. Analog 100 Units/ML 3 ML Pen SUBCUT SCH (09:24)
[2019-07-08] MEDS: Insulin Lispro 100 Unit/ML 3 ML KwikPen SUBCUT PRN ×2 (09:25→12:15)
--- NOTE | 2019-07-08 10:03 | PCM.PN ---
- General Info Date of Service: 07/08/19 Subjective Update: No acute events overnight. Patient underwent an exploratory laparotomy with partial pancreatectomy and drainage of a fluid collection that was adherent to the transverse colon as well as a splenectomy. He is reporting moderately severe pain in the abdomen. Pain is in the central abdomen. No complaints of nausea. He does report that he's hungry. Blood sugars have been running in the mid 200s or greater. He does not feel short of breath at this time. Functional Status: Reports: Pain Controlled - Review of Systems General: Denies: Fever Gastrointestinal: Reports: Abdominal Pain - Patient Data Vitals - Most Recent: Last Vital Signs Temp 36.9 C 07/08/19 03:00 Pulse 114 H 07/07/19 19:00 Resp 10 L 07/08/19 06:00 BP 120/82 07/08/19 06:00 Pulse Ox 96 07/08/19 06:00 Weight - Most Recent: 54.6 kg I&O - Last 24 Hours: Intake & Output 07/07/19 07/08/19 07/08/19 22:59 06:59 14:59 Intake Total 390 1935 Output Total 2261 2145 Balance -1879 -210 Lab Results Last 24 Hours: Laboratory Results - last 24 hr 07/06/19 07/08/19 07/08/19 Range/Units 04:00 04:00 04:00 WBC 18.2 H (4.5-11.0) K/uL RBC 3.89 L (4.30-5.90) M/uL Hgb 10.1 L (12.0-15.0) g/dL Hct 31.8 L (40.0-54.0) % MCV 82 (80-98) fL MCH 26 L (27-31) pg MCHC 32 (32-36) % Plt Count 194 (150-400) K/uL Sodium 136 L (140-148) mmol/L Potassium 4.4 (3.6-5.2) mmol/L Chloride 99 L (100-108) mmol/L Carbon Dioxide 29 (21-32) mmol/L Anion Gap 12.4 (5.0-14.0) mmol/L BUN 8 (7-18) mg/dL Creatinine 0.6 L (0.8-1.3) mg/dL Est Cr Clr Drug Dosing 131.44 mL/min Estimated GFR (MDRD) > 60 (>60) Glucose 261 H (74-106) mg/dL Calcium 8.0 L (8.5-10.1) mg/dL Total Bilirubin 0.4 D (0.2-1.0) mg/dL AST 26 (15-37) U/L ALT 30 (12-78) U/L Alkaline Phosphatase 64 (46-116) U/L Total Protein 5.4 L (6.4-8.2) g/dL Albumin 2.2 L (3.4-5.0) g/dL Globulin 3.2 (2.3-3.5) g/dL Albumin/Globulin Ratio 0.7 L (1.2-2.2) Blood Type A POSITIVE Gel Antibody Screen Positive A* Antibody Identification Anti-K Crossmatch See Detail Kiran Results Last 24 Hours: Microbiology 07/07/19 16:09 Gram Stain - Final Spleen Med Orders - Current: Current Medications Dextrose (Glutose 15) 15 gm PO ASDIRECTED PRN PRN Reason: HYPOGLYCEMIA Dextrose/Water (Dextrose 50% In Water) 50 ml IVPUSH ASDIRECTED PRN PRN Reason: HYPOGLYCEMIA Glucagon (Glucagen) 1 mg IM ASDIRECTED PRN PRN Reason: HYPOGLYCEMIA Hydromorphone HCl (Dilaudid Sanitary Inspector 15 Mg In Ns 30 Ml) 0 mg IV ASDIRECTED PRN; Protocol PRN Reason: Pain Last Admin: 07/08/19 07:33 Dose: 15 mg Hydroxyzine HCl (Vistaril) 100 mg IM Q4H PRN PRN Reason: pain Multivitamins/Minerals 10 ml/Thiamine HCl 100 mg/ Chromium/Copper/Manganese/ Seleni/Zn 1 ml/ Dextrose/Lactated Ringer's 1,012 mls @ 200 mls/hr IV DAILY@ 1600 [facility] Last Admin: 07/07/19 18:25 Dose: 200 mls/hr Cefoxitin Sodium 2 gm/ Sodium (Chloride) 50 mls @ 100 mls/hr IV Q6H MARGY Last Admin: 07/08/19 09:05 Dose: 100 mls/hr Azithromycin 125 mg/ Sodium (Chloride) 150 mls @ 150 mls/hr IV Q12H [facility] Last Admin: 07/08/19 02:55 Dose: 150 mls/hr Magnesium Sulfate 2 gm/ Premix 50 mls @ 25 mls/hr IV Q6H [facility] Stop: 07/09/19 13:59 Last Admin: 07/08/19 05:59 Dose: 25 mls/hr Dextrose/Lactated Ringer's (Dextrose 5%-Lactated Ringers) 1,000 mls @ 100 mls/ hr IV ASDIRECTED [facility] Insulin Glargine (Lantus Solostar) 10 units SUBCUT Q12H [facility] Last Admin: 07/08/19 09:24 Dose: 10 units Insulin Human Lispro (Humalog) 0 unit SUBCUT ASDIRECTED PRN; Protocol PRN Reason: MEDIUM CORRECTIONAL DOSING Last Admin: 07/08/19 09:25 Dose: 5 units Lorazepam (Ativan) 0.5 - 1 mg IVPUSH Q4H PRN PRN Reason: * Last Admin: 07/08/19 00:35 Dose: 1 mg Metoclopramide HCl (Reglan) 10 mg IVPUSH Q6H [facility] Last Admin: 07/08/19 09:34 Dose: 10 mg Naloxone HCl (Narcan) 0.1 mg IV ASDIRECTED PRN PRN Reason: decreased respiratory rate Ondansetron HCl (Zofran) 4 mg IV Q4H PRN PRN Reason: Nausea/Vomiting Last Admin: 07/07/19 10:40 Dose: 4 mg Pantoprazole Sodium (Protonix Iv) 40 mg IVPUSH Q12H [facility] Last Admin: 07/08/19 00:19 Dose: 40 mg Discontinued Medications Bisacodyl (Dulcolax) 10 mg PO ONETIME ONE Stop: 07/04/19 12:31 Last Admin: 07/04/19 14:06 Dose: 10 mg Bisacodyl (Dulcolax) 10 mg PO ONETIME ONE Stop: 07/04/19 20:01 Last Admin: 07/04/19 20:33 Dose: 10 mg Calcium Carbonate (Caltrate 600+D 1500 Mg-400 Units) 1 tab PO DAILY [facility] Last Admin: 07/07/19 09:20 Dose: Not Given Ropivacaine 27 ml/Dexamethasone 8 mg/Epinephrine HCl 0.4 mg/ Sodium Chloride 50.6 ml 0 ml NERVRT ASDIRECTED [facility] Last Admin: 07/07/19 13:24 Dose: 80 syringe Dexamethasone (Dexamethasone) Confirm Administered Dose 4 mg .ROUTE .STK-MED ONE Stop: 07/07/19 10:33 Dextrose/Water (Dextrose 50% In Water) 50 ml IVPUSH ONETIME ONE Stop: 07/05/19 04:53 Last Admin: 07/05/19 04:57 Dose: 50 ml Dextrose/Water (Dextrose 50% In Water) Confirm Administered Dose 50 ml .ROUTE .STK-MED ONE Stop: 07/05/19 04:56 Last Admin: 07/05/19 05:16 Dose: Not Given Enoxaparin Sodium (Lovenox) 40 mg SUBCUT DAILY [facility] Last Admin: 07/07/19 08:56 Dose: Not Given Fentanyl (Sublimaze) Confirm Administered Dose 100 mcg .ROUTE .STK-MED ONE Stop: 07/05/19 06:15 Fentanyl (Sublimaze) Confirm Administered Dose 250 mcg .ROUTE .STK-MED ONE Stop: 07/07/19 10:33 Fentanyl (Sublimaze) Confirm Administered Dose 100 mcg .ROUTE .STK-MED ONE Stop: 07/07/19 10:34 Fentanyl (Sublimaze) 50 mcg IVPUSH ONETIME ONE Stop: 07/07/19 10:52 Last Admin: 07/07/19 11:00 Dose: 50 mcg Folic Acid (Folic Acid) 1 mg PO DAILY [facility] Last Admin: 07/07/19 09:20 Dose: Not Given Gabapentin (Neurontin) 400 mg PO Q8H MARGY Stop: 07/09/19 06:01 Last Admin: 07/07/19 17:04 Dose: Not Given Glycopyrrolate (Robinul) Confirm Administered Dose 1 mg .ROUTE .STK-MED ONE Stop: 07/07/19 10:33 Hydromorphone HCl (Dilaudid) 0.5 mg IVPUSH ONETIME ONE Stop: 07/03/19 23:14 Last Admin: 07/03/19 23:45 Dose: 0.5 mg Sodium Chloride (Normal Saline) 1,000 mls @ 999 mls/hr IV ASDIRECTED [facility] Last Admin: 07/03/19 22:51 Dose: 999 mls/hr Sodium Chloride (Normal Saline) 1,000 mls @ 999 mls/hr IV ASDIRECTED [facility] Last Admin: 07/03/19 23:48 Dose: 999 mls/hr Sodium Chloride (Normal Saline) 1,000 mls @ 200 mls/hr IV ASDIRECTED [facility] Last Admin: 07/04/19 11:33 Dose: 200 mls/hr Magnesium Sulfate 2 gm/ Premix 50 mls @ 25 mls/hr IV Q6H [facility] Stop: 07/04/19 17:59 Last Admin: 07/04/19 16:33 Dose: 25 mls/hr Ferric Sodium Gluconate Complex 250 mg/ Sodium Chloride 120 mls @ 50 mls/hr IV ONETIME ONE Stop: 07/04/19 14:23 Last Admin: 07/04/19 11:57 Dose: 50 mls/hr Ferric Sodium Gluconate Complex 250 mg/ Sodium Chloride 120 mls @ 60 mls/hr IV ONETIME ONE Stop: 07/05/19 10:29 Last Admin: 07/05/19 08:54 Dose: 60 mls/hr Sodium Chloride (Normal Saline) 1,000 mls @ 100 mls/hr IV ASDIRECTED [facility] Last Admin: 07/05/19 00:17 Dose: 100 mls/hr Sodium Chloride (Normal Saline) 70 mls @ 3 mls/sec IV ASDIRECTED [facility] Stop: 07/04/19 16:00 Last Admin: 07/04/19 15:59 Dose: 3 mls/sec Dextrose/Sodium Chloride (Dextrose 5%-Normal Saline) 1,000 mls @ 100 mls/hr IV ASDIRECTED [facility] Last Admin: 07/05/19 11:46 Dose: 100 mls/hr Potassium Chloride 20 meq/Lidocaine HCl 2 ml/ Sodium Chloride 112 mls @ 56 mls/ hr IV Q2H [facility] Stop: 07/05/19 13:59 Potassium Chloride 20 meq/Lidocaine HCl 2 ml/ Sodium Chloride 112 mls @ 56 mls/ hr IV Q2H [facility] Stop: 07/05/19 14:59 Last Admin: 07/05/19 14:26 Dose: 56 mls/hr Ketamine HCl 50 mg/ Sodium (Chloride) 50 mls @ 16.32 mls/hr IV ASDIRECTED [facility] Magnesium Sulfate 2 gm/ Premix 50 mls @ 25 mls/hr IV Q6H [facility] Stop: 07/09/19 05:59 Last Admin: 07/07/19 09:18 Dose: 25 mls/hr Cefoxitin Sodium 2 gm/ Sodium (Chloride) 50 mls @ 100 mls/hr IV ONETIME ONE Stop: 07/07/19 09:29 Last Admin: 07/07/19 13:23 Dose: 100 mls/hr Dextrose/Lactated Ringer's (Dextrose 5%-Lactated Ringers) 1,000 mls @ 100 mls/ hr IV ASDIRECTED [facility] Last Admin: 07/07/19 03:24 Dose: 100 mls/hr Lactated Ringer's (Ringers, Lactated) Confirm Administered Dose 1,000 mls @ as directed .ROUTE .STK-MED ONE Stop: 07/07/19 11:40 Lactated Ringer's (Ringers, Lactated) Confirm Administered Dose 1,000 mls @ as directed .ROUTE .STK-MED ONE Stop: 07/07/19 13:14 Azithromycin 250 mg/ Sodium (Chloride) 250 mls @ 250 mls/hr IV ONETIME ONE Stop: 07/07/19 14:59 Last Admin: 07/07/19 16:55 Dose: 250 mls/hr Lactated Ringer's (Ringers, Lactated) Confirm Administered Dose 1,000 mls @ as directed .ROUTE .STK-[facility] ONE Stop: 07/07/19 15:09 Dextrose/Lactated Ringer's (Dextrose 5%-Lactated Ringers) 1,000 mls @ 200 mls/ hr IV ASDIRECTED [facility] Last Admin: 07/08/19 06:04 Dose: 200 mls/hr Influenza Virus Vaccine (Fluzone Quad 9246-3145 Syringe) 60 mcg IM .ONCE ONE Stop: 07/04/19 10:01 Last Admin: 07/04/19 09:31 Dose: 60 mcg Insulin Glargine (Lantus Solostar) 20 units SUBCUT BEDTIME [facility] Last Admin: 07/06/19 21:10 Dose: 20 units Insulin Glargine (Lantus Solostar) 20 units SUBCUT BEDTIME STA Stop: 07/04/19 00:40 Last Admin: 07/04/19 01:02 Dose: 20 units Insulin Human Lispro (Humalog) 0 unit SUBCUT QIDACANDBED [facility]; Protocol Last Admin: 07/07/19 14:06 Dose: Not Given Insulin Human Lispro (Humalog) 14 unit SUBCUT ONETIME ONE Stop: 07/04/19 16:55 Last Admin: 07/04/19 17:06 Dose: 14 units Insulin Human Regular (Humulin R) 3 unit IVPUSH ONETIME ONE Stop: 07/03/19 23:13 Last Admin: 07/03/19 23:40 Dose: 3 units Insulin Human Regular (Humulin R) 3 unit SUBCUT ONETIME ONE Stop: 07/03/19 23:14 Last Admin: 07/03/19 23:43 Dose: 3 units Iohexol (Omnipaque) 20 ml PO ONETIME ONE Stop: 07/04/19 13:11 Last Admin: 07/04/19 14:16 Dose: 20 ml Iopamidol (Isovue-300 (61%)) 81 ml IV . DIRECTED PRN PRN Reason: RADIOLOGY EXAM Stop: 07/05/19 12:43 Last Admin: 07/04/19 15:59 Dose: 79 ml Ketamine HCl (Ketalar) 27 mg IV ASDIRECTED [facility] Labetalol HCl (Normodyne) Confirm Administered Dose 20 mg .ROUTE .STK-MED ONE Stop: 07/07/19 15:10 Lorazepam (Ativan) 0 mg PO ASDIRECTED [facility]; Protocol Magnesium Oxide (Magnesium Oxide) 400 mg PO BID [facility] Last Admin: 07/07/19 09:20 Dose: Not Given Meropenem (Merrem) Confirm Administered Dose 500 mg .ROUTE .STK-MED ONE Stop: 07/07/19 12:07 Last Admin: 07/07/19 13:35 Dose: 500 mg Midazolam HCl (Versed 1 Mg/Ml) Confirm Administered Dose 2 mg .ROUTE .STK-MED ONE Stop: 07/05/19 06:15 Midazolam HCl (Versed 1 Mg/Ml) Confirm Administered Dose 2 mg .ROUTE .STK-MED ONE Stop: 07/07/19 10:34 Morphine Sulfate (Morphine) 2 mg IVPUSH Q4H PRN PRN Reason: Pain (moderate 4-6) Last Admin: 07/04/19 14:38 Dose: 2 mg Neostigmine Methylsulfate (Neostigmine) Confirm Administered Dose 5 mg .ROUTE .STK-MED ONE Stop: 07/07/19 10:33 Ondansetron HCl (Zofran) Confirm Administered Dose 4 mg .ROUTE .STK-MED ONE Stop: 07/07/19 10:33 Oxycodone HCl (Oxycodone) 10 mg PO Q4H PRN PRN Reason: Pain Last Admin: 07/07/19 07:06 Dose: 10 mg Pantoprazole Sodium (Protonix Iv) 40 mg IVPUSH ONETIME ONE Stop: 07/03/19 23:37 Last Admin: 07/03/19 23:48 Dose: 40 mg Polyethylene Glycol (Miralax) 238 gm PO ONETIME ONE Stop: 07/04/19 17:01 Last Admin: 07/04/19 16:58 Dose: 238 gm Potassium Chloride (Klor-Con M20) 40 meq PO ONETIME ONE Stop: 07/04/19 12:46 Last Admin: 07/04/19 14:06 Dose: 40 meq Potassium Chloride (Klor-Con M20) 40 meq PO ONETIME ONE Stop: 07/04/19 17:01 Last Admin: 07/04/19 17:10 Dose: 40 meq Potassium Chloride (Klor-Con M20) 40 meq PO ONETIME ONE Stop: 07/05/19 17:01 Last Admin: 07/05/19 16:53 Dose: 40 meq Propofol (Diprivan 20 Ml) Confirm Administered Dose 200 mg .ROUTE .STK-MED ONE Stop: 07/05/19 06:16 Propofol (Diprivan 20 Ml) Confirm Administered Dose 200 mg .ROUTE .STK-MED ONE Stop: 07/07/19 10:33 Propofol (Diprivan 20 Ml) Confirm Administered Dose 200 mg .ROUTE .STK-MED ONE Stop: 07/07/19 10:34 Senna/Docusate Sodium (Senna Plus) 1 tab PO BID PRN PRN Reason: Constipation Last Admin: 07/06/19 21:30 Dose: 1 tab Sodium Chloride (Saline Flush) 10 ml FLUSH ONETIME MARGY Stop: 07/04/19 16:00 Last Admin: 07/04/19 15:59 Dose: 10 ml Succinylcholine Chloride (Quelicin) Confirm Administered Dose 200 mg .ROUTE .STK -MED ONE Stop: 07/07/19 10:33 Thiamine HCl (Vitamin B-1) 100 mg PO DAILY [facility] Last Admin: 07/07/19 09:21 Dose: Not Given - Exam Quality Assessment: Supplemental Oxygen General: Alert, Oriented, Cooperative, Mild Distress HEENT: Pupils Equal Lungs: Clear to Auscultation, Normal Respiratory Effort Cardiovascular: Regular Rhythm, Tachycardia GI/Abdominal Exam: Soft, Tender, Abnormal Bowel Sounds (hypoactive but present) Extremities: No Pedal Edema. No: Increased Warmth Skin: Warm, Dry Psy/Mental Status: Alert, Normal Affect - Problem List Review Problem List Initiated/Reviewed/Updated: Yes - My Orders Last 24 Hours: My Active Orders 07/07/19 11:50 Patient Status [ADT] Routine 07/07/19 16:15 Up ad Altagracia [RC] QID 07/08/19 21:00 Insulin Glarg,Human.Rec.Analog [LantUS Solostar] 20 units SUBCUT BID - Plan Plan:: SEVERE ESOPHAGITIS - probable source of anemia and chronic blood loss. Doing well from the standpoint and no esophageal pain at this time. -Protonix 40 mg IV twice daily -Nothing by mouth PANCREATIC PSEUDOCYST - evidence of chronic calcified pancreatitis noted on CT scan, with pseudocyst noted at the pancreatic tail. 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 Still having a fair amount of pain but otherwise stable. -Surgical management per Dr. 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 HEPATIC CIRRHOSIS - evidence of esophageal varices as well as splenic vein thrombosis TYPE 2 DIABETES MELLITUS - blood sugar has been moderately elevated and he is on a dextrose containing infusion at this time. -Lantus 20 units subcutaneous twice daily -QID glucometers -Moderate dose sliding scale Humalog CHRONIC ALCOHOL USE - no evidence for withdrawal. He is interested in treatment for alcohol dependence. -Gabapentin 200 mg by mouth every 8 hours 4 days -Alcohol withdrawal protocol MICROCYTIC ANEMIA - likely secondary to chronic blood loss as well as iron deficiency. Hemoglobin stable following transfusion. -Follow-up hemoglobin in a.m. MAINTENANCE ISSUES -DVT prophylaxis; mechanical -GI prophylaxis; Protonix as above -Sanchez catheter; not indicated -Nutrition; nothing by mouth DISPOSITION - anticipate discharge to home after the hospital stay. Jens Bailon M.D.
[2019-07-08] MEDS ORDERED: Lactated Ringers 1,000 ML IV SCH ×3 (15:45→19:30)
[2019-07-08] MEDS: MVI, Adult with Vitamin K 10 ML, Thiamine 100 MG, Chromium/Copper/Mang/Selen/Zn 1 ML in... IV SCH ×4 (16:20)
[2019-07-08] MEDS ORDERED: Sodium Chloride 0.9% 100 ML IV SCH (17:30)
[2019-07-08] MEDS ORDERED: Iopamidol 755 Mg/ML 100 ML Bottle IV SCH (17:30)
[2019-07-08] MEDS: Sodium Chloride 0.9% 10 ML Syringe FLUSH ONE ×2 (18:20→18:26)
--- NOTE | 2019-07-08 18:55 | CRLCT ---
INDICATION: Shortness of breath, tachycardia TECHNIQUE: CT chest pulmonary PE protocol acquired with 100 cc Isovue 370 IV contrast. COMPARISON: Chest radiograph July 04, 2019, CT abdomen pelvis July 04, 2019 FINDINGS: Cardiovascular structures: Normal vascular enhancement of the pulmonary arteries, no sign of pulmonary embolism. Heart size is normal. No sign of aneurysm in the thoracic aorta. Mediastinum and ronnie: No mass or adenopathy. There is fluid and debris within the esophagus to the level of thoracic inlet. Lungs: Emphysema. No focal infiltrate. Pleura and pericardium: Small bilateral pleural effusions. Chest wall and axilla: No mass or adenopathy. Upper abdomen: S/p midline laparotomy. Gastric drainage tube tip terminates at the level of the mid stomach. The gastric benjamin appear thickened. Status post splenectomy with two NEMO drains in left upper quadrant. Small amount of postoperative pneumoperitoneum. Pancreatic calcifications. Moderate anasarca. Bones: No significant findings. IMPRESSION: No pulmonary embolism or pneumonia. Moderate to severe emphysema. Small bilateral pleural effusions. Fluid and debris within the esophagus to the level of the thoracic inlet. Gastric drainage tube appears appropriate in position. The gastric benjamin appear thickened which could be due to postoperative state,recent significant gastric distension or gastritis. Chronic pancreatitis. Moderate anasarca. Findings discussed with Dr. Bailon at 6:52 p.m. on July 08, 2019. Please note that all CT scans at this facility use dose modulation, iterative reconstruction, and/or weight-based dosing when appropriate to reduce radiation dose to as low as reasonably achievable. Dictated by Unique Mcgee MD @ Jul 08 2019 6:46PM (Electronically Signed)
[2019-07-08] MEDS ORDERED: Hydrocortisone Sodium Succinate 100 MG/2 ML SDV IVPUSH ONE (22:32)
[2019-07-09] MEDS: Pantoprazole 40 MG Vial IVPUSH SCH ×2 (00:56→12:00)
[2019-07-09] MEDS: Metoclopramide 10 MG/2 ML SDV IVPUSH SCH ×4 (01:01→19:59)
[2019-07-09] MEDS: cefOXitin 2 GM in Sodium Chloride 0.9% 50 ML IV SCH ×4 (01:01→19:56)
[2019-07-09] MEDS: Azithromycin 125 MG in Sodium Chloride 0.9% 150 ML IV SCH ×2 (01:36→13:50)
[2019-07-09] MEDS: HYDROmorphone/Normal Saline 15 MG/30 ML PCA IV PRN (03:58)
[2019-07-09] MEDS: Magnesium Sulfate/Water 2 GM in Premix Bag 1 BAG IV SCH (05:46)
[2019-07-09] MEDS: Dextrose 5%-Lactated Ringers 1,000 ML IV SCH ×2 (08:19→21:36)
--- NOTE | 2019-07-09 08:48 | PN ---
DATE OF SERVICE: 07/09/2019 SUBJECTIVE: Joe had a temperature max of 101. Current temperature is 98.6. He did become quite tachy at 1:41. NG put out 50. He is using his [employer], not reporting additional pain. He did have some suicide ideations and was put on suicide watch. He was given albumin and Solu-Cortef during the night. LABORATORY DATA: White count was 28.9, hemoglobin 8.5, and albumin was 2.3. OBJECTIVE: GENERAL: Joe Tony is a 34-year-old male. He is resting comfortably in bed. VITAL SIGNS: TPR is 98.7, 116, . Blood pressure 92/50. HEART: Regular rate and rhythm. LUNGS: Reveal some rales, but he has decreased breath sounds. ABDOMEN: Abdominal binder is on. Dressing dry. EXTREMITIES: Without peripheral edema. ASSESSMENT: Exploratory laparotomy with distal pancreatectomy and splenectomy. Date of surgery is 07/07/2019. PLAN: He is scheduled for delayed primary closure with TAP block in a.m., 07/10/2019. Isaias Velarde MD, will be available to evaluate the patient in approximately 2 hours. Dione Cunningham PA-C /[id number]
--- NOTE | 2019-07-09 09:53 | PCM.PN ---
- General Info Date of Service: 07/09/19 Subjective Update: Yesterday afternoon the patient had a steady rise in his heart rate up to 150s. Heart rate has slowly come down with the use of fluid boluses, albumin and hydrocortisone. Pain is little better today. No fevers overnight. Still on supplemental oxygen but oxygenation has been improving. Patient did also make statements to the nurse last night that he wishes all of this would and then later was seen trying to find something in the room that was sharp but he would not say why. He was placed on suicide precautions. This morning he reports fleeting thoughts of harming himself. He no longer feels suicidal. Functional Status: Reports: Pain Controlled - Review of Systems General: Denies: Fever Gastrointestinal: Reports: Abdominal Pain - Patient Data Vitals - Most Recent: Last Vital Signs Temp 37.0 C 07/09/19 08:00 Pulse 119 H 07/09/19 08:00 Resp 14 07/09/19 08:00 BP 91/67 07/09/19 08:00 Pulse Ox 99 07/09/19 08:00 Weight - Most Recent: 54.6 kg I&O - Last 24 Hours: Intake & Output 07/08/19 07/09/19 07/09/19 22:59 06:59 14:59 Intake Total 2700 1739 Output Total 1960 2060 100 Balance 740 -321 -100 Lab Results Last 24 Hours: Laboratory Results - last 24 hr 07/08/19 07/09/19 07/09/19 Range/Units 15:32 04:40 04:40 WBC 28.9 H (4.5-11.0) K/uL RBC 3.27 L (4.30-5.90) M/uL Hgb 10.1 L 8.5 L (12.0-15.0) g/dL Hct 28.1 L (40.0-54.0) % MCV 86 (80-98) fL MCH 26 L (27-31) pg MCHC 30 L (32-36) % Plt Count 310 (150-400) K/uL Sodium 138 L (140-148) mmol/L Potassium 4.2 (3.6-5.2) mmol/L Chloride 103 (100-108) mmol/L Carbon Dioxide 29 (21-32) mmol/L Anion Gap 10.2 (5.0-14.0) mmol/L BUN 6 L (7-18) mg/dL Creatinine 0.6 L (0.8-1.3) mg/dL Est Cr Clr Drug Dosing 131.44 mL/min Estimated GFR (MDRD) > 60 (>60) Glucose 79 (74-106) mg/dL Calcium 7.7 L (8.5-10.1) mg/dL Phosphorus 4.4 (2.5-4.9) mg/dL Total Bilirubin 0.4 (0.2-1.0) mg/dL AST 31 (15-37) U/L ALT 25 (12-78) U/L Alkaline Phosphatase 65 (46-116) U/L Total Protein 5.4 L (6.4-8.2) g/dL Albumin 2.3 L (3.4-5.0) g/dL Globulin 3.1 (2.3-3.5) g/dL Albumin/Globulin Ratio 0.7 L (1.2-2.2) Med Orders - Current: Current Medications Ropivacaine 27 ml/Dexamethasone 8 mg/Epinephrine HCl 0.4 mg/ Sodium Chloride 50.6 ml 0 ml NERVRT ASDIRECTED MARGY Dextrose (Glutose 15) 15 gm PO ASDIRECTED PRN PRN Reason: HYPOGLYCEMIA Dextrose/Water (Dextrose 50% In Water) 50 ml IVPUSH ASDIRECTED PRN PRN Reason: HYPOGLYCEMIA Last Admin: 07/08/19 21:12 Dose: 50 ml Glucagon (Glucagen) 1 mg IM ASDIRECTED PRN PRN Reason: HYPOGLYCEMIA Hydrocortisone Sodium Succinate (Solu-Cortef) 100 mg IVPUSH Q12H [facility] Stop: 07/10/19 10:01 Hydromorphone HCl (Dilaudid [employer] Educator 15 Mg In Ns 30 Ml) 0 mg IV ASDIRECTED PRN; Protocol PRN Reason: Pain Last Admin: 07/09/19 03:58 Dose: 15 mg Hydroxyzine HCl (Vistaril) 100 mg IM Q4H PRN PRN Reason: pain Multivitamins/Minerals 10 ml/Thiamine HCl 100 mg/ Chromium/Copper/Manganese/ Seleni/Zn 1 ml/ Dextrose/Lactated Ringer's 1,012 mls @ 200 mls/hr IV DAILY@ 1600 MARGY Last Admin: 07/08/19 16:20 Dose: 200 mls/hr Cefoxitin Sodium 2 gm/ Sodium (Chloride) 50 mls @ 100 mls/hr IV Q6H [facility] Last Admin: 07/09/19 08:05 Dose: 100 mls/hr Azithromycin 125 mg/ Sodium (Chloride) 150 mls @ 150 mls/hr IV Q12H [facility] Last Admin: 07/09/19 01:36 Dose: 150 mls/hr Dextrose/Lactated Ringer's (Dextrose 5%-Lactated Ringers) 1,000 mls @ 100 mls/ hr IV ASDIRECTED MARGY Last Admin: 07/09/19 08:19 Dose: 100 mls/hr Insulin Glargine (Lantus Solostar) 20 units SUBCUT BID [facility] Insulin Human Lispro (Humalog) 0 unit SUBCUT ASDIRECTED PRN; Protocol PRN Reason: MEDIUM CORRECTIONAL DOSING Last Admin: 07/08/19 12:15 Dose: 2 units Lorazepam (Ativan) 0.5 - 1 mg IVPUSH Q4H PRN PRN Reason: * Last Admin: 07/08/19 14:23 Dose: 1 mg Metoclopramide HCl (Reglan) 10 mg IVPUSH Q6H [facility] Last Admin: 07/09/19 08:10 Dose: 10 mg Naloxone HCl (Narcan) 0.1 mg IV ASDIRECTED PRN PRN Reason: decreased respiratory rate Ondansetron HCl (Zofran) 4 mg IV Q4H PRN PRN Reason: Nausea/Vomiting Last Admin: 07/07/19 10:40 Dose: 4 mg Pantoprazole Sodium (Protonix Iv) 40 mg IVPUSH Q12H [facility] Last Admin: 07/09/19 00:56 Dose: 40 mg Discontinued Medications Bisacodyl (Dulcolax) 10 mg PO ONETIME ONE Stop: 07/04/19 12:31 Last Admin: 07/04/19 14:06 Dose: 10 mg Bisacodyl (Dulcolax) 10 mg PO ONETIME ONE Stop: 07/04/19 20:01 Last Admin: 07/04/19 20:33 Dose: 10 mg Calcium Carbonate (Caltrate 600+D 1500 Mg-400 Units) 1 tab PO DAILY [facility] Last Admin: 07/07/19 09:20 Dose: Not Given Ropivacaine 27 ml/Dexamethasone 8 mg/Epinephrine HCl 0.4 mg/ Sodium Chloride 50.6 ml 0 ml NERVRT ASDIRECTED [facility] Last Admin: 07/07/19 13:24 Dose: 80 syringe Dexamethasone (Dexamethasone) Confirm Administered Dose 4 mg .ROUTE .STK-MED ONE Stop: 07/07/19 10:33 Dextrose/Water (Dextrose 50% In Water) 50 ml IVPUSH ONETIME ONE Stop: 07/05/19 04:53 Last Admin: 07/05/19 04:57 Dose: 50 ml Dextrose/Water (Dextrose 50% In Water) Confirm Administered Dose 50 ml .ROUTE .STK-MED ONE Stop: 07/05/19 04:56 Last Admin: 07/05/19 05:16 Dose: Not Given Enoxaparin Sodium (Lovenox) 40 mg SUBCUT DAILY [facility] Last Admin: 07/07/19 08:56 Dose: Not Given Fentanyl (Sublimaze) Confirm Administered Dose 100 mcg .ROUTE .STK-MED ONE Stop: 07/05/19 06:15 Fentanyl (Sublimaze) Confirm Administered Dose 250 mcg .ROUTE .STK-MED ONE Stop: 07/07/19 10:33 Fentanyl (Sublimaze) Confirm Administered Dose 100 mcg .ROUTE .STK-MED ONE Stop: 07/07/19 10:34 Fentanyl (Sublimaze) 50 mcg IVPUSH ONETIME ONE Stop: 07/07/19 10:52 Last Admin: 07/07/19 11:00 Dose: 50 mcg Folic Acid (Folic Acid) 1 mg PO DAILY [facility] Last Admin: 07/07/19 09:20 Dose: Not Given Gabapentin (Neurontin) 400 mg PO Q8H [facility] Stop: 07/09/19 06:01 Last Admin: 07/07/19 17:04 Dose: Not Given Glycopyrrolate (Robinul) Confirm Administered Dose 1 mg .ROUTE .STK-MED ONE Stop: 07/07/19 10:33 Hydrocortisone Sodium Succinate (Solu-Cortef) 100 mg IVPUSH ONETIME ONE Stop: 07/08/19 22:33 Last Admin: 07/08/19 22:49 Dose: 100 mg Hydromorphone HCl (Dilaudid) 0.5 mg IVPUSH ONETIME ONE Stop: 07/03/19 23:14 Last Admin: 07/03/19 23:45 Dose: 0.5 mg Sodium Chloride (Normal Saline) 1,000 mls @ 999 mls/hr IV ASDIRECTED MARGY Last Admin: 07/03/19 22:51 Dose: 999 mls/hr Sodium Chloride (Normal Saline) 1,000 mls @ 999 mls/hr IV ASDIRECTED MARGY Last Admin: 07/03/19 23:48 Dose: 999 mls/hr Sodium Chloride (Normal Saline) 1,000 mls @ 200 mls/hr IV ASDIRECTED MARGY Last Admin: 07/04/19 11:33 Dose: 200 mls/hr Magnesium Sulfate 2 gm/ Premix 50 mls @ 25 mls/hr IV Q6H MARGY Stop: 07/04/19 17:59 Last Admin: 07/04/19 16:33 Dose: 25 mls/hr Ferric Sodium Gluconate Complex 250 mg/ Sodium Chloride 120 mls @ 50 mls/hr IV ONETIME ONE Stop: 07/04/19 14:23 Last Admin: 07/04/19 11:57 Dose: 50 mls/hr Ferric Sodium Gluconate Complex 250 mg/ Sodium Chloride 120 mls @ 60 mls/hr IV ONETIME ONE Stop: 07/05/19 10:29 Last Admin: 07/05/19 08:54 Dose: 60 mls/hr Sodium Chloride (Normal Saline) 1,000 mls @ 100 mls/hr IV ASDIRECTED MARGY Last Admin: 07/05/19 00:17 Dose: 100 mls/hr Sodium Chloride (Normal Saline) 70 mls @ 3 mls/sec IV ASDIRECTED MARGY Stop: 07/04/19 16:00 Last Admin: 07/04/19 15:59 Dose: 3 mls/sec Dextrose/Sodium Chloride (Dextrose 5%-Normal Saline) 1,000 mls @ 100 mls/hr IV ASDIRECTED MARGY Last Admin: 07/05/19 11:46 Dose: 100 mls/hr Potassium Chloride 20 meq/Lidocaine HCl 2 ml/ Sodium Chloride 112 mls @ 56 mls/ hr IV Q2H MARGY Stop: 07/05/19 13:59 Potassium Chloride 20 meq/Lidocaine HCl 2 ml/ Sodium Chloride 112 mls @ 56 mls/ hr IV Q2H MARGY Stop: 07/05/19 14:59 Last Admin: 07/05/19 14:26 Dose: 56 mls/hr Ketamine HCl 50 mg/ Sodium (Chloride) 50 mls @ 16.32 mls/hr IV ASDIRECTED [facility] Magnesium Sulfate 2 gm/ Premix 50 mls @ 25 mls/hr IV Q6H [facility] Stop: 07/09/19 05:59 Last Admin: 07/07/19 09:18 Dose: 25 mls/hr Cefoxitin Sodium 2 gm/ Sodium (Chloride) 50 mls @ 100 mls/hr IV ONETIME ONE Stop: 07/07/19 09:29 Last Admin: 07/07/19 13:23 Dose: 100 mls/hr Dextrose/Lactated Ringer's (Dextrose 5%-Lactated Ringers) 1,000 mls @ 100 mls/ hr IV ASDIRECTED [facility] Last Admin: 07/07/19 03:24 Dose: 100 mls/hr Lactated Ringer's (Ringers, Lactated) Confirm Administered Dose 1,000 mls @ as directed .ROUTE .STK-MED ONE Stop: 07/07/19 11:40 Lactated Ringer's (Ringers, Lactated) Confirm Administered Dose 1,000 mls @ as directed .ROUTE .STK-MED ONE Stop: 07/07/19 13:14 Azithromycin 250 mg/ Sodium (Chloride) 250 mls @ 250 mls/hr IV ONETIME ONE Stop: 07/07/19 14:59 Last Admin: 07/07/19 16:55 Dose: 250 mls/hr Lactated Ringer's (Ringers, Lactated) Confirm Administered Dose 1,000 mls @ as directed .ROUTE .STK-MED ONE Stop: 07/07/19 15:09 Dextrose/Lactated Ringer's (Dextrose 5%-Lactated Ringers) 1,000 mls @ 200 mls/ hr IV ASDIRECTED [facility] Last Admin: 07/08/19 06:04 Dose: 200 mls/hr Magnesium Sulfate 2 gm/ Premix 50 mls @ 25 mls/hr IV Q6H [facility] Stop: 07/09/19 13:59 Last Admin: 07/09/19 05:46 Dose: 25 mls/hr Lactated Ringer's (Ringers, Lactated) 1,000 mls @ 999 mls/hr IV ASDIRECTED [facility] Stop: 07/08/19 16:46 Lactated Ringer's (Ringers, Lactated) 1,000 mls @ 500 mls/hr IV ASDIRECTED MARGY Stop: 07/08/19 19:31 Last Admin: 07/08/19 17:15 Dose: 500 mls/hr Sodium Chloride (Normal Saline) 100 mls @ 0 mls/hr IV ASDIRECTED [facility] Stop: 07/08/19 17:31 Last Admin: 07/08/19 18:26 Dose: 3.5 mls/hr Albumin Human (Albumin 25%) 25 gm in 100 mls @ 25 mls/hr IV ONETIME ONE Stop: 07/08/19 23:03 Last Admin: 07/08/19 19:50 Dose: 25 mls/hr Lactated Ringer's (Ringers, Lactated) 1,000 mls @ 250 mls/hr IV ASDIRECTED MARGY Stop: 07/08/19 23:31 Last Admin: 07/08/19 19:30 Dose: 250 mls/hr Albumin Human (Albumin 25%) 25 gm in 100 mls @ 25 mls/hr IV ONETIME ONE Stop: 07/09/19 07:03 Last Admin: 07/09/19 03:19 Dose: 25 mls/hr Influenza Virus Vaccine (Fluzone Quad 2701-5926 Syringe) 60 mcg IM .ONCE ONE Stop: 07/04/19 10:01 Last Admin: 07/04/19 09:31 Dose: 60 mcg Insulin Glargine (Lantus Solostar) 20 units SUBCUT BEDTIME [facility] Last Admin: 07/06/19 21:10 Dose: 20 units Insulin Glargine (Lantus Solostar) 20 units SUBCUT BEDTIME STA Stop: 07/04/19 00:40 Last Admin: 07/04/19 01:02 Dose: 20 units Insulin Glargine (Lantus Solostar) 10 units SUBCUT Q12H [facility] Last Admin: 07/08/19 09:24 Dose: 10 units Insulin Human Lispro (Humalog) 0 unit SUBCUT QIDACANDBED [facility]; Protocol Last Admin: 07/07/19 14:06 Dose: Not Given Insulin Human Lispro (Humalog) 14 unit SUBCUT ONETIME ONE Stop: 07/04/19 16:55 Last Admin: 07/04/19 17:06 Dose: 14 units Insulin Human Regular (Humulin R) 3 unit IVPUSH ONETIME ONE Stop: 07/03/19 23:13 Last Admin: 07/03/19 23:40 Dose: 3 units Insulin Human Regular (Humulin R) 3 unit SUBCUT ONETIME ONE Stop: 07/03/19 23:14 Last Admin: 07/03/19 23:43 Dose: 3 units Iohexol (Omnipaque) 20 ml PO ONETIME ONE Stop: 07/04/19 13:11 Last Admin: 07/04/19 14:16 Dose: 20 ml Iopamidol (Isovue-300 (61%)) 81 ml IV . DIRECTED PRN PRN Reason: RADIOLOGY EXAM Stop: 07/05/19 12:43 Last Admin: 07/04/19 15:59 Dose: 79 ml Iopamidol (Isovue-370 (76%)) 100 ml IV . DIRECTED MARGY Stop: 07/08/19 17:31 Last Admin: 07/08/19 18:26 Dose: 100 ml Ketamine HCl (Ketalar) 27 mg IV ASDIRECTED [facility] Labetalol HCl (Normodyne) Confirm Administered Dose 20 mg .ROUTE .STK-MED ONE Stop: 07/07/19 15:10 Lorazepam (Ativan) 0 mg PO ASDIRECTED [facility]; Protocol Magnesium Oxide (Magnesium Oxide) 400 mg PO BID [facility] Last Admin: 07/07/19 09:20 Dose: Not Given Meropenem (Merrem) Confirm Administered Dose 500 mg .ROUTE .STK-MED ONE Stop: 07/07/19 12:07 Last Admin: 07/07/19 13:35 Dose: 500 mg Midazolam HCl (Versed 1 Mg/Ml) Confirm Administered Dose 2 mg .ROUTE .STK-MED ONE Stop: 07/05/19 06:15 Midazolam HCl (Versed 1 Mg/Ml) Confirm Administered Dose 2 mg .ROUTE .STK-MED ONE Stop: 07/07/19 10:34 Morphine Sulfate (Morphine) 2 mg IVPUSH Q4H PRN PRN Reason: Pain (moderate 4-6) Last Admin: 07/04/19 14:38 Dose: 2 mg Neostigmine Methylsulfate (Neostigmine) Confirm Administered Dose 5 mg .ROUTE .STK-MED ONE Stop: 07/07/19 10:33 Ondansetron HCl (Zofran) Confirm Administered Dose 4 mg .ROUTE .STK-MED ONE Stop: 07/07/19 10:33 Oxycodone HCl (Oxycodone) 10 mg PO Q4H PRN PRN Reason: Pain Last Admin: 07/07/19 07:06 Dose: 10 mg Pantoprazole Sodium (Protonix Iv) 40 mg IVPUSH ONETIME ONE Stop: 07/03/19 23:37 Last Admin: 07/03/19 23:48 Dose: 40 mg Polyethylene Glycol (Miralax) 238 gm PO ONETIME ONE Stop: 07/04/19 17:01 Last Admin: 07/04/19 16:58 Dose: 238 gm Potassium Chloride (Klor-Con M20) 40 meq PO ONETIME ONE Stop: 07/04/19 12:46 Last Admin: 07/04/19 14:06 Dose: 40 meq Potassium Chloride (Klor-Con M20) 40 meq PO ONETIME ONE Stop: 07/04/19 17:01 Last Admin: 07/04/19 17:10 Dose: 40 meq Potassium Chloride (Klor-Con M20) 40 meq PO ONETIME ONE Stop: 07/05/19 17:01 Last Admin: 07/05/19 16:53 Dose: 40 meq Propofol (Diprivan 20 Ml) Confirm Administered Dose 200 mg .ROUTE .STK-MED ONE Stop: 07/05/19 06:16 Propofol (Diprivan 20 Ml) Confirm Administered Dose 200 mg .ROUTE .STK-MED ONE Stop: 07/07/19 10:33 Propofol (Diprivan 20 Ml) Confirm Administered Dose 200 mg .ROUTE .STK-MED ONE Stop: 07/07/19 10:34 Senna/Docusate Sodium (Senna Plus) 1 tab PO BID PRN PRN Reason: Constipation Last Admin: 07/06/19 21:30 Dose: 1 tab Sodium Chloride (Saline Flush) 10 ml FLUSH ONETIME MARGY Stop: 07/04/19 16:00 Last Admin: 07/04/19 15:59 Dose: 10 ml Sodium Chloride (Saline Flush) 10 ml FLUSH ONETIME ONE Stop: 07/08/19 17:23 Last Admin: 07/08/19 18:26 Dose: 10 ml Succinylcholine Chloride (Quelicin) Confirm Administered Dose 200 mg .ROUTE .STK -MED ONE Stop: 07/07/19 10:33 Thiamine HCl (Vitamin B-1) 100 mg PO DAILY MARGY Last Admin: 07/07/19 09:21 Dose: Not Given - Exam Quality Assessment: Supplemental Oxygen General: Alert, Oriented, Cooperative, No Acute Distress Lungs: Clear to Auscultation, Normal Respiratory Effort Cardiovascular: Regular Rhythm, Tachycardia GI/Abdominal Exam: Soft, No Distention, Abnormal Bowel Sounds (hypoactive ) Extremities: No Pedal Edema. No: Increased Warmth Skin: Warm, Dry Psy/Mental Status: Alert, Normal Affect. No: Suicidal Ideation - Problem List Review Problem List Initiated/Reviewed/Updated: Yes - My Orders Last 24 Hours: My Active Orders 07/08/19 15:10 EKG Documentation Completion [RC] ASDIRECTED EKG 12 Lead [EK] Urgent 07/08/19 21:00 Insulin Glarg,Human.Rec.Analog [LantUS Solostar] 20 units SUBCUT BID 07/09/19 04:40 [id number], SERUM Routine 07/09/19 10:00 Albumin Human [Albumin 25%] 25 gm in 100 ml IV Q8H Hydrocortisone Sod Succinate [Solu-CORTEF] 100 mg IVPUSH Q12H 07/09/19 16:15 Sanchez Catheter Insertion [Insert Urinary Catheter] [OM.PC] Q24H 07/10/19 05:00 BASIC METABOLIC PANEL,BMP [CHEM] Timed CBC W/O DIFF,HEMOGRAM [HEME] Timed (1) - Plan Plan:: ASSESSMENT AND PLAN - SEVERE ESOPHAGITIS - probable source of anemia and chronic blood loss. Doing well from the standpoint and no esophageal pain at this time. -Protonix 40 mg IV twice daily -Nothing by mouth PANCREATIC PSEUDOCYST - evidence of chronic calcified pancreatitis noted on CT scan, with pseudocyst noted at the pancreatic tail. 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 Pain control improving. He did have some hypovolemia leading to hypotension and tachycardia but this is improving. -Hydrocortisone 100 mg 3 doses -Supplement albumin over the next 24 hours -Surgical management per Dr. Velarde SUICIDAL IDEATIONS - fleeting thoughts of harming himself which have now resolved. Likely due to his acute medical illnesses. He was on precautions overnight but reports no ongoing suicidal ideations today. 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 HEPATIC CIRRHOSIS - evidence of esophageal varices as well as splenic vein thrombosis TYPE 2 DIABETES MELLITUS - blood sugar has been on the low side. -Hold long acting insulin -QID glucometers -Moderate dose sliding scale Humalog CHRONIC ALCOHOL USE - no evidence for withdrawal. He is interested in treatment for alcohol dependence. -Gabapentin 200 mg by mouth every 8 hours 4 days -Alcohol withdrawal protocol MICROCYTIC ANEMIA - likely secondary to chronic blood loss as well as iron deficiency. Hemoglobin stable following transfusion. -Follow-up hemoglobin in a.m. MAINTENANCE ISSUES -DVT prophylaxis; mechanical -GI prophylaxis; Protonix as above -Sanchez catheter; not indicated -Nutrition; nothing by mouth DISPOSITION - anticipate discharge to home after the hospital stay. Jens Bailon M.D.
[2019-07-09] MEDS: Hydrocortisone Sodium Succinate 100 MG/2 ML SDV IVPUSH SCH ×2 (11:52→21:35)
[2019-07-09] MEDS: Insulin Lispro 100 Unit/ML 3 ML KwikPen SUBCUT PRN ×3 (13:11→21:35)
[2019-07-09] MEDS: MVI, Adult with Vitamin K 10 ML, Thiamine 100 MG, Chromium/Copper/Mang/Selen/Zn 1 ML in... IV SCH ×4 (16:26)
[2019-07-09] MEDS: Insulin Glargine,Human Rec. Analog 100 Units/ML 3 ML Pen SUBCUT SCH (21:34)
[2019-07-10] MEDS: Pantoprazole 40 MG Vial IVPUSH SCH ×2 (01:29→12:49)
[2019-07-10] MEDS: cefOXitin 2 GM in Sodium Chloride 0.9% 50 ML IV SCH ×4 (01:29→19:39)
[2019-07-10] MEDS: Metoclopramide 10 MG/2 ML SDV IVPUSH SCH ×4 (01:29→21:05)
[2019-07-10] MEDS: Azithromycin 125 MG in Sodium Chloride 0.9% 150 ML IV SCH ×2 (01:30→14:23)
[2019-07-10] MEDS: LORazepam 2 MG/ML SDV IVPUSH PRN (05:18)
[2019-07-10] MEDS ORDERED: Lidocaine 1% with EPINEPHrine 1:100,000 50 ML MDV ONE (06:47)
[2019-07-10] MEDS ORDERED: Meropenem 500 MG SDV ONE (06:47)
[2019-07-10] MEDS ORDERED: Bupivacaine 0.5% 50 ML MDV ONE (06:47)
[2019-07-10] MEDS ORDERED: Propofol 200 MG/20 ML SDV ONE (07:29)
[2019-07-10] MEDS ORDERED: fentaNYL 100 MCG/2 ML SDV ONE (07:29)
[2019-07-10] MEDS ORDERED: Midazolam 1 MG/ML 2 ML SDV ONE (07:29)
[2019-07-10] MEDS ORDERED: Lactated Ringers 1,000 ML ONE (08:11)
--- NOTE | 2019-07-10 08:13 | PN ---
DATE OF SERVICE: 07/10/2019 SUBJECTIVE: Joe is n.p.o. for delayed primary closure. Vital signs have been stable. He has been up ambulating. Pain has been controlled. Labs; white count 29.9, hemoglobin is 7.5. Potassium 3.9. Glucose is 213. OBJECTIVE: GENERAL: Joe is a 34-year-old male. He is resting comfortably in bed. Reluctant to open his eyes. VITAL SIGNS: TPR is 97.9, 94, 8. Blood pressure 103/66. HEART: Regular rate and rhythm. LUNGS: Clear. Dressing dry and intact. EXTREMITIES: Without peripheral edema. ASSESSMENT: Exploratory laparotomy with distal pancreatectomy and splenectomy. Date of surgery is 07/07/2019. PLAN: 1. Check amylase on each NEMO drain stat after his delayed primary closure this morning. Case to follow. 2. He will have 1 unit of packed red blood cells, then sips of Ensure Clear, and check labs in a.m. 3. Continue to work on good pulmonary toilet. 4. We will evaluate p.r.n. or in a.m. Dione Cunningham PA-C /[id number]
[2019-07-10] MEDS: Insulin Glargine,Human Rec. Analog 100 Units/ML 3 ML Pen SUBCUT SCH ×2 (09:07→21:04)
[2019-07-10] MEDS: Hydrocortisone Sodium Succinate 100 MG/2 ML SDV IVPUSH SCH (09:11)
[2019-07-10] MEDS: Bisacodyl 5 MG Tab PO SCH ×2 (09:21→21:05)
[2019-07-10] MEDS: Enoxaparin 40 MG/0.4 ML Syringe SUBCUT SCH (09:21)
--- NOTE | 2019-07-10 09:57 | PCM.PN ---
- General Info Date of Service: 07/10/19 Subjective Update: No acute events overnight. Blood pressure has been stable and are rate has continued to trend down. He had a delayed primary closure this morning which was uneventful. He is somewhat somnolent after the sedation and returning to his room. Pain has been improving. No return of his suicidal ideations. No significant nausea. Blood sugars have been acceptable. Patient is hungry and wondering when he gets to eat. Functional Status: Reports: Pain Controlled - Review of Systems General: Denies: Fever Gastrointestinal: Reports: Abdominal Pain - Patient Data Vitals - Most Recent: Last Vital Signs Temp 36.2 C 07/10/19 08:40 Pulse 104 H 07/10/19 08:40 Resp 12 07/10/19 08:40 BP 107/65 07/10/19 08:40 Pulse Ox 94 L 07/10/19 08:40 Weight - Most Recent: 54.6 kg I&O - Last 24 Hours: Intake & Output 07/09/19 07/10/19 07/10/19 22:59 06:59 14:59 Intake Total 1640 1722 Output Total 1725 1655 195 Balance -85 67 -195 Lab Results Last 24 Hours: Laboratory Results - last 24 hr 07/06/19 07/10/19 07/10/19 Range/Units 04:00 06:07 06:07 WBC 29.9 H (4.5-11.0) K/uL RBC 2.91 L (4.30-5.90) M/uL Hgb 7.5 L (12.0-15.0) g/dL Hct 25.6 L (40.0-54.0) % MCV 88 (80-98) fL MCH 26 L (27-31) pg MCHC 29 L (32-36) % Plt Count 353 (150-400) K/uL Sodium 139 L (140-148) mmol/L Potassium 3.9 (3.6-5.2) mmol/L Chloride 103 (100-108) mmol/L Carbon Dioxide 30 (21-32) mmol/L Anion Gap 9.9 (5.0-14.0) mmol/L BUN 8 (7-18) mg/dL Creatinine 0.5 L (0.8-1.3) mg/dL Est Cr Clr Drug Dosing 157.73 mL/min Estimated GFR (MDRD) > 60 (>60) Glucose 213 H (74-106) mg/dL Calcium 8.2 L (8.5-10.1) mg/dL Fluid Type Fluid Amylase U/L Crossmatch See Detail 07/10/19 07/10/19 Range/Units 06:17 06:18 WBC (4.5-11.0) K/uL RBC (4.30-5.90) M/uL Hgb (12.0-15.0) g/dL Hct (40.0-54.0) % MCV (80-98) fL MCH (27-31) pg MCHC (32-36) % Plt Count (150-400) K/uL Sodium (140-148) mmol/L Potassium (3.6-5.2) mmol/L Chloride (100-108) mmol/L Carbon Dioxide (21-32) mmol/L Anion Gap (5.0-14.0) mmol/L BUN (7-18) mg/dL Creatinine (0.8-1.3) mg/dL Est Cr Clr Drug Dosing mL/min Estimated GFR (MDRD) (>60) Glucose (74-106) mg/dL Calcium (8.5-10.1) mg/dL Fluid Type Calin drainage #1 Calin drainage #2 Fluid Amylase 24 22 U/L Crossmatch Kiran Results Last 24 Hours: Microbiology 07/07/19 16:09 Gram Stain - Final Spleen Wound Culture - Preliminary Anaerobic Culture - Preliminary NO GROWTH AFTER 1 DAY Med Orders - Current: Current Medications Bisacodyl (Dulcolax) 10 mg PO BID [facility] Last Admin: 07/10/19 09:21 Dose: 10 mg Dextrose (Glutose 15) 15 gm PO ASDIRECTED PRN PRN Reason: HYPOGLYCEMIA Dextrose/Water (Dextrose 50% In Water) 50 ml IVPUSH ASDIRECTED PRN PRN Reason: HYPOGLYCEMIA Last Admin: 07/08/19 21:12 Dose: 50 ml Enoxaparin Sodium (Lovenox) 40 mg SUBCUT Q24H [facility] Last Admin: 07/10/19 09:21 Dose: 40 mg Furosemide (Lasix) 10 mg IVPUSH ONETIME ONE Stop: 07/10/19 14:01 Glucagon (Glucagen) 1 mg IM ASDIRECTED PRN PRN Reason: HYPOGLYCEMIA Hydrocortisone Sodium Succinate (Solu-Cortef) 100 mg IVPUSH Q12H [facility] Stop: 07/10/19 10:01 Last Admin: 07/10/19 09:11 Dose: 100 mg Hydromorphone HCl (Dilaudid Quality Control Projectionist 15 Mg In Ns 30 Ml) 0 mg IV ASDIRECTED PRN; Protocol PRN Reason: Pain Last Admin: 07/09/19 03:58 Dose: 15 mg Hydroxyzine HCl (Vistaril) 100 mg IM Q4H PRN PRN Reason: pain Multivitamins/Minerals 10 ml/Thiamine HCl 100 mg/ Chromium/Copper/Manganese/ Seleni/Zn 1 ml/ Dextrose/Lactated Ringer's 1,012 mls @ 200 mls/hr IV DAILY@ 1600 [facility] Last Admin: 07/09/19 16:26 Dose: 200 mls/hr Cefoxitin Sodium 2 gm/ Sodium (Chloride) 50 mls @ 100 mls/hr IV Q6H [facility] Last Admin: 07/10/19 08:58 Dose: 100 mls/hr Azithromycin 125 mg/ Sodium (Chloride) 150 mls @ 150 mls/hr IV Q12H [facility] Last Admin: 07/10/19 01:30 Dose: 150 mls/hr Dextrose/Lactated Ringer's (Dextrose 5%-Lactated Ringers) 1,000 mls @ 100 mls/ hr IV ASDIRECTED [facility] Last Admin: 07/09/19 21:36 Dose: 100 mls/hr Insulin Glargine (Lantus Solostar) 20 units SUBCUT BID [facility] Last Admin: 07/10/19 09:07 Dose: 20 units Insulin Human Lispro (Humalog) 0 unit SUBCUT ASDIRECTED PRN; Protocol PRN Reason: MEDIUM CORRECTIONAL DOSING Last Admin: 07/09/19 21:35 Dose: 5 units Lorazepam (Ativan) 0.5 - 1 mg IVPUSH Q4H PRN PRN Reason: * Last Admin: 07/10/19 05:18 Dose: 1 mg Metoclopramide HCl (Reglan) 10 mg IVPUSH Q6H [facility] Last Admin: 07/10/19 09:02 Dose: 10 mg Naloxone HCl (Narcan) 0.1 mg IV ASDIRECTED PRN PRN Reason: decreased respiratory rate Ondansetron HCl (Zofran) 4 mg IV Q4H PRN PRN Reason: Nausea/Vomiting Last Admin: 07/07/19 10:40 Dose: 4 mg Pantoprazole Sodium (Protonix Iv) 40 mg IVPUSH Q12H [facility] Last Admin: 07/10/19 01:29 Dose: 40 mg Discontinued Medications Bisacodyl (Dulcolax) 10 mg PO ONETIME ONE Stop: 07/04/19 12:31 Last Admin: 07/04/19 14:06 Dose: 10 mg Bisacodyl (Dulcolax) 10 mg PO ONETIME ONE Stop: 07/04/19 20:01 Last Admin: 07/04/19 20:33 Dose: 10 mg Bupivacaine HCl (Marcaine 0.5%) Confirm Administered Dose 50 ml .ROUTE .STK-MED ONE Stop: 07/10/19 06:48 Last Admin: 07/10/19 08:01 Dose: 10 ml Calcium Carbonate (Caltrate 600+D 1500 Mg-400 Units) 1 tab PO DAILY [facility] Last Admin: 07/07/19 09:20 Dose: Not Given Ropivacaine 27 ml/Dexamethasone 8 mg/Epinephrine HCl 0.4 mg/ Sodium Chloride 50.6 ml 0 ml NERVRT ASDIRECTED [facility] Last Admin: 07/07/19 13:24 Dose: 80 syringe Ropivacaine 27 ml/Dexamethasone 8 mg/Epinephrine HCl 0.4 mg/ Sodium Chloride 50.6 ml 0 ml NERVRT ASDIRECTED [facility] Last Admin: 07/10/19 07:55 Dose: 80 syringe Dexamethasone (Dexamethasone) Confirm Administered Dose 4 mg .ROUTE .STK-MED ONE Stop: 07/07/19 10:33 Dextrose/Water (Dextrose 50% In Water) 50 ml IVPUSH ONETIME ONE Stop: 07/05/19 04:53 Last Admin: 07/05/19 04:57 Dose: 50 ml Dextrose/Water (Dextrose 50% In Water) Confirm Administered Dose 50 ml .ROUTE .STK-MED ONE Stop: 07/05/19 04:56 Last Admin: 07/05/19 05:16 Dose: Not Given Enoxaparin Sodium (Lovenox) 40 mg SUBCUT DAILY [facility] Last Admin: 07/07/19 08:56 Dose: Not Given Fentanyl (Sublimaze) Confirm Administered Dose 100 mcg .ROUTE .STK-MED ONE Stop: 07/05/19 06:15 Fentanyl (Sublimaze) Confirm Administered Dose 250 mcg .ROUTE .STK-MED ONE Stop: 07/07/19 10:33 Fentanyl (Sublimaze) Confirm Administered Dose 100 mcg .ROUTE .STK-MED ONE Stop: 07/07/19 10:34 Fentanyl (Sublimaze) 50 mcg IVPUSH ONETIME ONE Stop: 07/07/19 10:52 Last Admin: 07/07/19 11:00 Dose: 50 mcg Fentanyl (Sublimaze) Confirm Administered Dose 100 mcg .ROUTE .STK-MED ONE Stop: 07/10/19 07:30 Folic Acid (Folic Acid) 1 mg PO DAILY [facility] Last Admin: 07/07/19 09:20 Dose: Not Given Gabapentin (Neurontin) 400 mg PO Q8H [facility] Stop: 07/09/19 06:01 Last Admin: 07/07/19 17:04 Dose: Not Given Glycopyrrolate (Robinul) Confirm Administered Dose 1 mg .ROUTE .STK-MED ONE Stop: 07/07/19 10:33 Hydrocortisone Sodium Succinate (Solu-Cortef) 100 mg IVPUSH ONETIME ONE Stop: 07/08/19 22:33 Last Admin: 07/08/19 22:49 Dose: 100 mg Hydromorphone HCl (Dilaudid) 0.5 mg IVPUSH ONETIME ONE Stop: 07/03/19 23:14 Last Admin: 07/03/19 23:45 Dose: 0.5 mg Sodium Chloride (Normal Saline) 1,000 mls @ 999 mls/hr IV ASDIRECTED [facility] Last Admin: 07/03/19 22:51 Dose: 999 mls/hr Sodium Chloride (Normal Saline) 1,000 mls @ 999 mls/hr IV ASDIRECTED [facility] Last Admin: 07/03/19 23:48 Dose: 999 mls/hr Sodium Chloride (Normal Saline) 1,000 mls @ 200 mls/hr IV ASDIRECTED [facility] Last Admin: 07/04/19 11:33 Dose: 200 mls/hr Magnesium Sulfate 2 gm/ Premix 50 mls @ 25 mls/hr IV Q6H [facility] Stop: 07/04/19 17:59 Last Admin: 07/04/19 16:33 Dose: 25 mls/hr Ferric Sodium Gluconate Complex 250 mg/ Sodium Chloride 120 mls @ 50 mls/hr IV ONETIME ONE Stop: 07/04/19 14:23 Last Admin: 07/04/19 11:57 Dose: 50 mls/hr Ferric Sodium Gluconate Complex 250 mg/ Sodium Chloride 120 mls @ 60 mls/hr IV ONETIME ONE Stop: 07/05/19 10:29 Last Admin: 07/05/19 08:54 Dose: 60 mls/hr Sodium Chloride (Normal Saline) 1,000 mls @ 100 mls/hr IV ASDIRECTED [facility] Last Admin: 07/05/19 00:17 Dose: 100 mls/hr Sodium Chloride (Normal Saline) 70 mls @ 3 mls/sec IV ASDIRECTED [facility] Stop: 07/04/19 16:00 Last Admin: 07/04/19 15:59 Dose: 3 mls/sec Dextrose/Sodium Chloride (Dextrose 5%-Normal Saline) 1,000 mls @ 100 mls/hr IV ASDIRECTED [facility] Last Admin: 07/05/19 11:46 Dose: 100 mls/hr Potassium Chloride 20 meq/Lidocaine HCl 2 ml/ Sodium Chloride 112 mls @ 56 mls/ hr IV Q2H [facility] Stop: 07/05/19 13:59 Potassium Chloride 20 meq/Lidocaine HCl 2 ml/ Sodium Chloride 112 mls @ 56 mls/ hr IV Q2H [facility] Stop: 07/05/19 14:59 Last Admin: 07/05/19 14:26 Dose: 56 mls/hr Ketamine HCl 50 mg/ Sodium (Chloride) 50 mls @ 16.32 mls/hr IV ASDIRECTED [facility] Magnesium Sulfate 2 gm/ Premix 50 mls @ 25 mls/hr IV Q6H [facility] Stop: 07/09/19 05:59 Last Admin: 07/07/19 09:18 Dose: 25 mls/hr Cefoxitin Sodium 2 gm/ Sodium (Chloride) 50 mls @ 100 mls/hr IV ONETIME ONE Stop: 07/07/19 09:29 Last Admin: 07/07/19 13:23 Dose: 100 mls/hr Dextrose/Lactated Ringer's (Dextrose 5%-Lactated Ringers) 1,000 mls @ 100 mls/ hr IV ASDIRECTED [facility] Last Admin: 07/07/19 03:24 Dose: 100 mls/hr Lactated Ringer's (Ringers, Lactated) Confirm Administered Dose 1,000 mls @ as directed .ROUTE .STK-MED ONE Stop: 07/07/19 11:40 Lactated Ringer's (Ringers, Lactated) Confirm Administered Dose 1,000 mls @ as directed .ROUTE .[facility] ONE Stop: 07/07/19 13:14 Azithromycin 250 mg/ Sodium (Chloride) 250 mls @ 250 mls/hr IV ONETIME ONE Stop: 07/07/19 14:59 Last Admin: 07/07/19 16:55 Dose: 250 mls/hr Lactated Ringer's (Ringers, Lactated) Confirm Administered Dose 1,000 mls @ as directed .ROUTE .[facility] ONE Stop: 07/07/19 15:09 Dextrose/Lactated Ringer's (Dextrose 5%-Lactated Ringers) 1,000 mls @ 200 mls/ hr IV ASDIRECTED [facility] Last Admin: 07/08/19 06:04 Dose: 200 mls/hr Magnesium Sulfate 2 gm/ Premix 50 mls @ 25 mls/hr IV Q6H [facility] Stop: 07/09/19 13:59 Last Admin: 07/09/19 05:46 Dose: 25 mls/hr Lactated Ringer's (Ringers, Lactated) 1,000 mls @ 999 mls/hr IV ASDIRECTED [facility] Stop: 07/08/19 16:46 Lactated Ringer's (Ringers, Lactated) 1,000 mls @ 500 mls/hr IV ASDIRECTED [facility] Stop: 07/08/19 19:31 Last Admin: 07/08/19 17:15 Dose: 500 mls/hr Sodium Chloride (Normal Saline) 100 mls @ 0 mls/hr IV ASDIRECTED [facility] Stop: 07/08/19 17:31 Last Admin: 07/08/19 18:26 Dose: 3.5 mls/hr Albumin Human (Albumin 25%) 25 gm in 100 mls @ 25 mls/hr IV ONETIME ONE Stop: 07/08/19 23:03 Last Admin: 07/08/19 19:50 Dose: 25 mls/hr Lactated Ringer's (Ringers, Lactated) 1,000 mls @ 250 mls/hr IV ASDIRECTED [facility] Stop: 07/08/19 23:31 Last Admin: 07/08/19 19:30 Dose: 250 mls/hr Albumin Human (Albumin 25%) 25 gm in 100 mls @ 25 mls/hr IV ONETIME ONE Stop: 07/09/19 07:03 Last Admin: 07/09/19 03:19 Dose: 25 mls/hr Albumin Human (Albumin 25%) 25 gm in 100 mls @ 25 mls/hr IV Q8H [facility] Stop: 07/10/19 05:59 Last Admin: 07/10/19 01:30 Dose: 25 mls/hr Lactated Ringer's (Ringers, Lactated) Confirm Administered Dose 1,000 mls @ as directed .ROUTE .STK-MED ONE Stop: 07/10/19 08:12 Influenza Virus Vaccine (Fluzone Quad Syringe) 60 mcg IM .ONCE ONE Stop: 07/04/19 10:01 Last Admin: 07/04/19 09:31 Dose: 60 mcg Insulin Glargine (Lantus Solostar) 20 units SUBCUT BEDTIME [facility] Last Admin: 07/06/19 21:10 Dose: 20 units Insulin Glargine (Lantus Solostar) 20 units SUBCUT BEDTIME [facility] Stop: 07/04/19 00:40 Last Admin: 07/04/19 01:02 Dose: 20 units Insulin Glargine (Lantus Solostar) 10 units SUBCUT Q12H [facility] Last Admin: 07/08/19 09:24 Dose: 10 units Insulin Human Lispro (Humalog) 0 unit SUBCUT QIDACANDBED [facility]; Protocol Last Admin: 07/07/19 14:06 Dose: Not Given Insulin Human Lispro (Humalog) 14 unit SUBCUT ONETIME ONE Stop: 07/04/19 16:55 Last Admin: 07/04/19 17:06 Dose: 14 units Insulin Human Regular (Humulin R) 3 unit IVPUSH ONETIME ONE Stop: 07/03/19 23:13 Last Admin: 07/03/19 23:40 Dose: 3 units Insulin Human Regular (Humulin R) 3 unit SUBCUT ONETIME ONE Stop: 07/03/19 23:14 Last Admin: 07/03/19 23:43 Dose: 3 units Iohexol (Omnipaque) 20 ml PO ONETIME ONE Stop: 07/04/19 13:11 Last Admin: 07/04/19 14:16 Dose: 20 ml Iopamidol (Isovue-300 (61%)) 81 ml IV . DIRECTED PRN PRN Reason: RADIOLOGY EXAM Stop: 07/05/19 12:43 Last Admin: 07/04/19 15:59 Dose: 79 ml Iopamidol (Isovue-370 (76%)) 100 ml IV . DIRECTED [facility] Stop: 07/08/19 17:31 Last Admin: 07/08/19 18:26 Dose: 100 ml Ketamine HCl (Ketalar) 27 mg IV ASDIRECTED [facility] Labetalol HCl (Normodyne) Confirm Administered Dose 20 mg .ROUTE .STK-MED ONE Stop: 07/07/19 15:10 Lidocaine/Epinephrine (Xylocaine 1% With Epinephrine 1:100,000) Confirm Administered Dose 50 ml .ROUTE .STK-MED ONE Stop: 07/10/19 06:48 Last Admin: 07/10/19 08:01 Dose: 10 ml Lorazepam (Ativan) 0 mg PO ASDIRECTED [facility]; Protocol Magnesium Oxide (Magnesium Oxide) 400 mg PO BID [facility] Last Admin: 07/07/19 09:20 Dose: Not Given Meropenem (Merrem) Confirm Administered Dose 500 mg .ROUTE .STK-MED ONE Stop: 07/07/19 12:07 Last Admin: 07/07/19 13:35 Dose: 500 mg Meropenem (Merrem) Confirm Administered Dose 500 mg .ROUTE .STK-MED ONE Stop: 07/10/19 06:48 Last Admin: 07/10/19 08:01 Dose: 500 mg Midazolam HCl (Versed 1 Mg/Ml) Confirm Administered Dose 2 mg .ROUTE .STK-MED ONE Stop: 07/05/19 06:15 Midazolam HCl (Versed 1 Mg/Ml) Confirm Administered Dose 2 mg .ROUTE .STK-MED ONE Stop: 07/07/19 10:34 Midazolam HCl (Versed 1 Mg/Ml) Confirm Administered Dose 2 mg .ROUTE .STK-MED ONE Stop: 07/10/19 07:30 Morphine Sulfate (Morphine) 2 mg IVPUSH Q4H PRN PRN Reason: Pain (moderate 4-6) Last Admin: 07/04/19 14:38 Dose: 2 mg Neostigmine Methylsulfate (Neostigmine) Confirm Administered Dose 5 mg .ROUTE .STK-MED ONE Stop: 07/07/19 10:33 Ondansetron HCl (Zofran) Confirm Administered Dose 4 mg .ROUTE .STK-MED ONE Stop: 07/07/19 10:33 Oxycodone HCl (Oxycodone) 10 mg PO Q4H PRN PRN Reason: Pain Last Admin: 07/07/19 07:06 Dose: 10 mg Pantoprazole Sodium (Protonix Iv) 40 mg IVPUSH ONETIME ONE Stop: 07/03/19 23:37 Last Admin: 07/03/19 23:48 Dose: 40 mg Polyethylene Glycol (Miralax) 238 gm PO ONETIME ONE Stop: 07/04/19 17:01 Last Admin: 07/04/19 16:58 Dose: 238 gm Potassium Chloride (Klor-Con M20) 40 meq PO ONETIME ONE Stop: 07/04/19 12:46 Last Admin: 07/04/19 14:06 Dose: 40 meq Potassium Chloride (Klor-Con M20) 40 meq PO ONETIME ONE Stop: 07/04/19 17:01 Last Admin: 07/04/19 17:10 Dose: 40 meq Potassium Chloride (Klor-Con M20) 40 meq PO ONETIME ONE Stop: 07/05/19 17:01 Last Admin: 07/05/19 16:53 Dose: 40 meq Propofol (Diprivan 20 Ml) Confirm Administered Dose 200 mg .ROUTE .STK-MED ONE Stop: 07/05/19 06:16 Propofol (Diprivan 20 Ml) Confirm Administered Dose 200 mg .ROUTE .STK-MED ONE Stop: 07/07/19 10:33 Propofol (Diprivan 20 Ml) Confirm Administered Dose 200 mg .ROUTE .STK-MED ONE Stop: 07/07/19 10:34 Propofol (Diprivan 20 Ml) Confirm Administered Dose 200 mg .ROUTE .STK-MED ONE Stop: 07/10/19 07:30 Senna/Docusate Sodium (Senna Plus) 1 tab PO BID PRN PRN Reason: Constipation Last Admin: 07/06/19 21:30 Dose: 1 tab Sodium Chloride (Saline Flush) 10 ml FLUSH ONETIME [facility] Stop: 07/04/19 16:00 Last Admin: 07/04/19 15:59 Dose: 10 ml Sodium Chloride (Saline Flush) 10 ml FLUSH ONETIME ONE Stop: 07/08/19 17:23 Last Admin: 07/08/19 18:26 Dose: 10 ml Succinylcholine Chloride (Quelicin) Confirm Administered Dose 200 mg .ROUTE .STK -MED ONE Stop: 07/07/19 10:33 Thiamine HCl (Vitamin B-1) 100 mg PO DAILY [facility] Last Admin: 07/07/19 09:21 Dose: Not Given - Exam Quality Assessment: No: Supplemental Oxygen General: Alert, Cooperative, No Acute Distress, Lethargic Lungs: Clear to Auscultation, Normal Respiratory Effort Cardiovascular: Regular Rhythm, Tachycardia GI/Abdominal Exam: Soft, No Distention Extremities: No Pedal Edema. No: Increased Warmth Skin: Warm, Dry Psy/Mental Status: Alert, Normal Affect - Problem List Review Problem List Initiated/Reviewed/Updated: Yes - My Orders Last 24 Hours: My Active Orders 07/09/19 10:00 Hydrocortisone Sod Succinate [Solu-CORTEF] 100 mg IVPUSH Q12H 07/09/19 16:15 Sanchez Catheter Insertion [Insert Urinary Catheter] [OM.PC] Q24H - Plan Plan:: ASSESSMENT AND PLAN - SEVERE ESOPHAGITIS - probable source of anemia and chronic blood loss. Doing well from the standpoint and no esophageal pain at this time. -Protonix 40 mg IV twice daily -Nothing by mouth PANCREATIC PSEUDOCYST - evidence of chronic calcified pancreatitis noted on CT scan, with pseudocyst noted at the pancreatic tail. 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 Pain control improving. Vital signs have stabilized. White blood cell count is higher today but probably related to the hydrocortisone. -Surgical management per Dr. Velarde SUICIDAL IDEATIONS - fleeting thoughts of harming himself which have now resolved. Likely due to his acute medical illnesses. He was on precautions overnight but reports no ongoing suicidal ideations yesterday or today. 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 HEPATIC CIRRHOSIS - evidence of esophageal varices as well as splenic vein thrombosis SEVERE EMPHYSEMA - noted on CT scan. Alpha-1 antitrypsin is pending. TYPE 2 DIABETES MELLITUS - blood sugar has been on the low side. -Hold long acting insulin -QID glucometers -Moderate dose sliding scale Humalog CHRONIC ALCOHOL USE - no evidence for withdrawal. He is interested in treatment for alcohol dependence. -Outpatient treatment MICROCYTIC ANEMIA - likely secondary to chronic blood loss as well as iron deficiency. Hemoglobin stable following transfusion. -Follow-up hemoglobin in a.m. MAINTENANCE ISSUES -DVT prophylaxis; mechanical -GI prophylaxis; Protonix as above -Sanchez catheter; not indicated -Nutrition; nothing by mouth DISPOSITION - anticipate discharge to home after the hospital stay. Jens Bailon M.D.
[2019-07-10] MEDS: Insulin Lispro 100 Unit/ML 3 ML KwikPen SUBCUT PRN ×3 (11:20→21:03)
[2019-07-10] MEDS ORDERED: Furosemide 20 MG/2 ML VIAL IVPUSH ONE (14:00)
[2019-07-10] MEDS: HYDROmorphone/Normal Saline 15 MG/30 ML PCA IV PRN (15:27)
[2019-07-10] MEDS: MVI, Adult with Vitamin K 10 ML, Thiamine 100 MG, Chromium/Copper/Mang/Selen/Zn 1 ML in... IV SCH ×4 (16:02)
[2019-07-10] MEDS: Dextrose 5%-Lactated Ringers 1,000 ML IV SCH (21:31)
[2019-07-11] MEDS: Pantoprazole 40 MG Vial IVPUSH SCH (01:34)
[2019-07-11] MEDS: cefOXitin 2 GM in Sodium Chloride 0.9% 50 ML IV SCH ×2 (01:34→08:28)
[2019-07-11] MEDS: Metoclopramide 10 MG/2 ML SDV IVPUSH SCH ×4 (02:14→20:20)
[2019-07-11] MEDS: Azithromycin 125 MG in Sodium Chloride 0.9% 150 ML IV SCH (02:14)
[2019-07-11] MEDS: Bisacodyl 5 MG Tab PO SCH ×2 (08:27→20:22)
[2019-07-11] MEDS: Insulin Glargine,Human Rec. Analog 100 Units/ML 3 ML Pen SUBCUT SCH (08:36)
[2019-07-11] MEDS: Insulin Lispro 100 Unit/ML 3 ML KwikPen SUBCUT PRN (08:37)
--- NOTE | 2019-07-11 09:02 | PN ---
DATE OF SERVICE: 07/11/2019 SUBJECTIVE: Joe is alert and quite talkative this morning. His pain is controlled. Vital signs have been stable. He has been afebrile. Oral intake, 2200. Urine output, 2375. LABORATORY DATA: Hemoglobin 9.5, potassium is 3.5, and magnesium 1.6. REVIEW OF SYSTEMS: Remainder of review of systems negative for any pertinent positives and negatives. OBJECTIVE: GENERAL: Joe Tony is a 34-year-old male. He is alert orientated. VITAL SIGNS: TPR is 96.5, 77, 10. Blood pressure 119/82. HEENT: Negative. NECK: Supple. HEART: Regular rate and rhythm. LUNGS: Clear. ABDOMEN: Dressings dry and intact. He does have Aquacel on after his delayed primary closure. EXTREMITIES: Without peripheral edema. ASSESSMENT: 1. Delayed primary closure, 07/10/2019, Isaias Velarde MD. 2. Exploratory laparotomy with distal pancreatectomy and splenectomy. Date of surgery, 07/07/2019. Surgeon, Isaias Velarde MD. PLAN: 1. Full liquid diet. 2. Transfer to Med/Surg floor. 3. Give 1 unit of packed red blood cells. 4. K-Phos 22.5 mmol q.4 hours 2 bags to be given. 5. Check labs in a.m. 6. We will evaluate p.r.n. or in a.m. Dione Cunningham PA-C /[id number]
[2019-07-11] MEDS: Enoxaparin 40 MG/0.4 ML Syringe SUBCUT SCH (09:35)
[2019-07-11] MEDS: Magnesium Sulfate/Water 2 GM in Premix Bag 1 BAG IV SCH ×3 (09:35→21:39)
--- NOTE | 2019-07-11 09:37 | PCM.PN ---
- General Info Date of Service: 07/11/19 Subjective Update: There were no acute events overnight. Abdominal pain has been slowly improving. No nausea. He's been tolerating his full liquids well. He has not had any fevers. Culture from the fluid collection around the tail of the pancreas did grow out a staph species as well as Escherichia coli. Strength is improving. Vital signs have been stable. Functional Status: Reports: Pain Controlled, Tolerating Diet - Review of Systems General: Denies: Fever - Patient Data Vitals - Most Recent: Last Vital Signs Temp 36.1 C 07/11/19 08:42 Pulse 81 07/11/19 08:42 Resp 10 L 07/11/19 08:42 BP 125/88 07/11/19 08:42 Pulse Ox 98 07/11/19 08:42 Weight - Most Recent: 54.6 kg I&O - Last 24 Hours: Intake & Output 07/10/19 07/11/19 07/11/19 22:59 06:59 14:59 Intake Total 3963 1378 620 Output Total 1300 1075 Balance 2663 303 620 Lab Results Last 24 Hours: Laboratory Results - last 24 hr 07/06/19 07/09/19 07/10/19 Range/Units 04:00 04:40 06:42 WBC (4.5-11.0) K/uL RBC (4.30-5.90) M/uL Hgb (12.0-15.0) g/dL Hct (40.0-54.0) % MCV (80-98) fL MCH (27-31) pg MCHC (32-36) % Plt Count (150-400) K/uL Sodium (140-148) mmol/L Potassium (3.6-5.2) mmol/L Chloride (100-108) mmol/L Carbon Dioxide (21-32) mmol/L Anion Gap (5.0-14.0) mmol/L BUN (7-18) mg/dL Creatinine (0.8-1.3) mg/dL Est Cr Clr Drug Dosing mL/min Estimated GFR (MDRD) (>60) Glucose (74-106) mg/dL Calcium (8.5-10.1) mg/dL Phosphorus (2.5-4.9) mg/dL Magnesium (1.8-2.4) mg/dL Total Bilirubin (0.2-1.0) mg/dL AST (15-37) U/L ALT (12-78) U/L Alkaline Phosphatase (46-116) U/L Total Protein (6.4-8.2) g/dL Albumin (3.4-5.0) g/dL Globulin (2.3-3.5) g/dL Albumin/Globulin Ratio (1.2-2.2) [id number] 209 H (95-164) mg/dL Blood Type A POSITIVE Gel Antibody Screen Positive A* Antibody Identification Anti-K Crossmatch See Detail See Detail 07/11/19 07/11/19 Range/Units 04:30 04:30 WBC 26.6 H (4.5-11.0) K/uL RBC 3.69 L (4.30-5.90) M/uL Hgb 9.5 L D (12.0-15.0) g/dL Hct 31.4 L (40.0-54.0) % MCV 85 (80-98) fL MCH 26 L (27-31) pg MCHC 30 L (32-36) % Plt Count 459 H (150-400) K/uL Sodium 141 (140-148) mmol/L Potassium 3.5 L (3.6-5.2) mmol/L Chloride 107 (100-108) mmol/L Carbon Dioxide 28 (21-32) mmol/L Anion Gap 9.5 (5.0-14.0) mmol/L BUN 8 (7-18) mg/dL Creatinine 0.5 L (0.8-1.3) mg/dL Est Cr Clr Drug Dosing 157.73 mL/min Estimated GFR (MDRD) > 60 (>60) Glucose 231 H (74-106) mg/dL Calcium 8.0 L (8.5-10.1) mg/dL Phosphorus 2.7 (2.5-4.9) mg/dL Magnesium 1.6 L (1.8-2.4) mg/dL Total Bilirubin 0.3 (0.2-1.0) mg/dL AST 10 L (15-37) U/L ALT 19 (12-78) U/L Alkaline Phosphatase 77 (46-116) U/L Total Protein 5.3 L (6.4-8.2) g/dL Albumin 2.2 L (3.4-5.0) g/dL Globulin 3.1 (2.3-3.5) g/dL Albumin/Globulin Ratio 0.7 L (1.2-2.2) Btlkv-3-Jvsdyofnzhs (95-164) mg/dL Blood Type Gel Antibody Screen Antibody Identification Crossmatch Kiran Results Last 24 Hours: Microbiology 07/07/19 16:09 Gram Stain - Final Spleen Wound Culture - Final Staphylococcus Warneri Escherichia Coli Anaerobic Culture - Final NO GROWTH AFTER 3 DAYS Med Orders - Current: Current Medications Bisacodyl (Dulcolax) 10 mg PO BID [facility] Last Admin: 07/11/19 08:27 Dose: 10 mg Ciprofloxacin (Ciprofloxacin Hcl) 500 mg PO BID [facility] Dextrose (Glutose 15) 15 gm PO ASDIRECTED PRN PRN Reason: HYPOGLYCEMIA Dextrose/Water (Dextrose 50% In Water) 50 ml IVPUSH ASDIRECTED PRN PRN Reason: HYPOGLYCEMIA Last Admin: 07/08/19 21:12 Dose: 50 ml Enoxaparin Sodium (Lovenox) 40 mg SUBCUT Q24H [facility] Last Admin: 07/11/19 09:35 Dose: 40 mg Glucagon (Glucagen) 1 mg IM ASDIRECTED PRN PRN Reason: HYPOGLYCEMIA Hydromorphone HCl (Dilaudid Rod Buster Helper 15 Mg In Ns 30 Ml) 0 mg IV ASDIRECTED PRN; Protocol PRN Reason: Pain Last Admin: 07/10/19 15:27 Dose: 15 mg Hydroxyzine HCl (Vistaril) 100 mg IM Q4H PRN PRN Reason: pain Multivitamins/Minerals 10 ml/Thiamine HCl 100 mg/ Chromium/Copper/Manganese/ Seleni/Zn 1 ml/ Dextrose/Lactated Ringer's 1,012 mls @ 200 mls/hr IV DAILY@ 1600 [facility] Last Admin: 07/10/19 16:02 Dose: 200 mls/hr Magnesium Sulfate 2 gm/ Premix 50 mls @ 25 mls/hr IV Q6H [facility] Stop: 07/14/19 05:59 Last Admin: 07/11/19 09:35 Dose: 25 mls/hr Potassium Phosphate 22.5 mmole (/ Sodium Chloride) 257.5 mls @ 65 mls/hr IV Q4H [facility] Stop: 11/22/19 19:58 Insulin Glargine (Lantus Solostar) 20 units SUBCUT BID [facility] Last Admin: 07/11/19 08:36 Dose: 20 units Insulin Human Lispro (Humalog) 5 unit SUBCUT TIDMEALS [facility] Insulin Human Lispro (Humalog) 0 unit SUBCUT QIDACANDBED [facility]; Protocol Lorazepam (Ativan) 0.5 - 1 mg IVPUSH Q4H PRN PRN Reason: * Last Admin: 07/10/19 05:18 Dose: 1 mg Metoclopramide HCl (Reglan) 10 mg IVPUSH Q6H [facility] Last Admin: 07/11/19 08:23 Dose: 10 mg Naloxone HCl (Narcan) 0.1 mg IV ASDIRECTED PRN PRN Reason: decreased respiratory rate Ondansetron HCl (Zofran) 4 mg IV Q4H PRN PRN Reason: Nausea/Vomiting Last Admin: 07/07/19 10:40 Dose: 4 mg [facility]op[facility]ole [facility] Medications Bisacodyl (Dulcolax) 10 mg PO ONETIME ONE Stop: 07/04/19 12:31 Last Admin: 07/04/19 14:06 Dose: 10 mg Bisacodyl (Dulcolax) 10 mg PO ONETIME ONE Stop: 07/04/19 20:01 Last Admin: 07/04/19 20:33 Dose: 10 mg Bupivacaine HCl (Marcaine 0.5%) Confirm Administered Dose 50 ml .ROUTE .STK-MED ONE Stop: 07/10/19 06:48 Last Admin: 07/10/19 08:01 Dose: 10 ml Calcium Carbonate (Caltrate 600+D 1500 Mg-400 Units) 1 tab PO DAILY [facility] Last Admin: 07/07/19 09:20 Dose: Not Given Ropivacaine 27 ml/Dexamethasone 8 mg/Epinephrine HCl 0.4 mg/ Sodium Chloride 50.6 ml 0 ml NERVRT ASDIRECTED [facility] Last Admin: 07/07/19 13:24 Dose: 80 syringe Ropivacaine 27 ml/Dexamethasone 8 mg/Epinephrine HCl 0.4 mg/ Sodium Chloride 50.6 ml 0 ml NERVRT ASDIRECTED [facility] Last Admin: 07/10/19 07:55 Dose: 80 syringe Dexamethasone (Dexamethasone) Confirm Administered Dose 4 mg .ROUTE .STK-MED ONE Stop: 07/07/19 10:33 Dextrose/Water (Dextrose 50% In Water) 50 ml IVPUSH ONETIME ONE Stop: 07/05/19 04:53 Last Admin: 07/05/19 04:57 Dose: 50 ml Dextrose/Water (Dextrose 50% In Water) Confirm Administered Dose 50 ml .ROUTE .STK-MED ONE Stop: 07/05/19 04:56 Last Admin: 07/05/19 05:16 Dose: Not Given Enoxaparin Sodium (Lovenox) 40 mg SUBCUT DAILY [facility] Last Admin: 07/07/19 08:56 Dose: Not Given Fentanyl (Sublimaze) Confirm Administered Dose 100 mcg .ROUTE .STK-MED ONE Stop: 07/05/19 06:15 Fentanyl (Sublimaze) Confirm Administered Dose 250 mcg .ROUTE .STK-MED ONE Stop: 07/07/19 10:33 Fentanyl (Sublimaze) Confirm Administered Dose 100 mcg .ROUTE .STK-MED ONE Stop: 07/07/19 10:34 Fentanyl (Sublimaze) 50 mcg IVPUSH ONETIME ONE Stop: 07/07/19 10:52 Last Admin: 07/07/19 11:00 Dose: 50 mcg Fentanyl (Sublimaze) Confirm Administered Dose 100 mcg .ROUTE .STK-MED ONE Stop: 07/10/19 07:30 Folic Acid (Folic Acid) 1 mg PO DAILY [facility] Last Admin: 07/07/19 09:20 Dose: Not Given Furosemide (Lasix) 10 mg IVPUSH ONETIME ONE Stop: 07/10/19 14:01 Last Admin: 07/10/19 15:05 Dose: 10 mg Gabapentin (Neurontin) 400 mg PO Q8H [facility] Stop: 07/09/19 06:01 Last Admin: 07/07/19 17:04 Dose: Not Given Glycopyrrolate (Robinul) Confirm Administered Dose 1 mg .ROUTE .STK-MED ONE Stop: 07/07/19 10:33 Hydrocortisone Sodium Succinate (Solu-Cortef) 100 mg IVPUSH ONETIME ONE Stop: 07/08/19 22:33 Last Admin: 07/08/19 22:49 Dose: 100 mg Hydrocortisone Sodium Succinate (Solu-Cortef) 100 mg IVPUSH Q12H [facility] Stop: 07/10/19 10:01 Last Admin: 07/10/19 09:11 Dose: 100 mg Hydromorphone HCl (Dilaudid) 0.5 mg IVPUSH ONETIME ONE Stop: 07/03/19 23:14 Last Admin: 07/03/19 23:45 Dose: 0.5 mg Sodium Chloride (Normal Saline) 1,000 mls @ 999 mls/hr IV ASDIRECTED MARGY Last Admin: 07/03/19 22:51 Dose: 999 mls/hr Sodium Chloride (Normal Saline) 1,000 mls @ 999 mls/hr IV ASDIRECTED MARGY Last Admin: 07/03/19 23:48 Dose: 999 mls/hr Sodium Chloride (Normal Saline) 1,000 mls @ 200 mls/hr IV ASDIRECTED MARGY Last Admin: 07/04/19 11:33 Dose: 200 mls/hr Magnesium Sulfate 2 gm/ Premix 50 mls @ 25 mls/hr IV Q6H MARGY Stop: 07/04/19 17:59 Last Admin: 07/04/19 16:33 Dose: 25 mls/hr Ferric Sodium Gluconate Complex 250 mg/ Sodium Chloride 120 mls @ 50 mls/hr IV ONETIME ONE Stop: 07/04/19 14:23 Last Admin: 07/04/19 11:57 Dose: 50 mls/hr Ferric Sodium Gluconate Complex 250 mg/ Sodium Chloride 120 mls @ 60 mls/hr IV ONETIME ONE Stop: 07/05/19 10:29 Last Admin: 07/05/19 08:54 Dose: 60 mls/hr Sodium Chloride (Normal Saline) 1,000 mls @ 100 mls/hr IV ASDIRECTED MARGY Last Admin: 07/05/19 00:17 Dose: 100 mls/hr Sodium Chloride (Normal Saline) 70 mls @ 3 mls/sec IV ASDIRECTED MARGY Stop: 07/04/19 16:00 Last Admin: 07/04/19 15:59 Dose: 3 mls/sec Dextrose/Sodium Chloride (Dextrose 5%-Normal Saline) 1,000 mls @ 100 mls/hr IV ASDIRECTED MARGY Last Admin: 07/05/19 11:46 Dose: 100 mls/hr Potassium Chloride 20 meq/Lidocaine HCl 2 ml/ Sodium Chloride 112 mls @ 56 mls/ hr IV Q2H MARGY Stop: 07/05/19 13:59 Potassium Chloride 20 meq/Lidocaine HCl 2 ml/ Sodium Chloride 112 mls @ 56 mls/ hr IV Q2H [facility] Stop: 07/05/19 14:59 Last Admin: 07/05/19 14:26 Dose: 56 mls/hr Ketamine HCl 50 mg/ Sodium (Chloride) 50 mls @ 16.32 mls/hr IV ASDIRECTED [facility] Magnesium Sulfate 2 gm/ Premix 50 mls @ 25 mls/hr IV Q6H [facility] Stop: 07/09/19 05:59 Last Admin: 07/07/19 09:18 Dose: 25 mls/hr Cefoxitin Sodium 2 gm/ Sodium (Chloride) 50 mls @ 100 mls/hr IV ONETIME ONE Stop: 07/07/19 09:29 Last Admin: 07/07/19 13:23 Dose: 100 mls/hr Dextrose/Lactated Ringer's (Dextrose 5%-Lactated Ringers) 1,000 mls @ 100 mls/ hr IV ASDIRECTED [facility] Last Admin: 07/07/19 03:24 Dose: 100 mls/hr Lactated Ringer's (Ringers, Lactated) Confirm Administered Dose 1,000 mls @ as directed .ROUTE .STK-MED ONE Stop: 07/07/19 11:40 Lactated Ringer's (Ringers, Lactated) Confirm Administered Dose 1,000 mls @ as directed .ROUTE .STK-MED ONE Stop: 07/07/19 13:14 Azithromycin 250 mg/ Sodium (Chloride) 250 mls @ 250 mls/hr IV ONETIME ONE Stop: 07/07/19 14:59 Last Admin: 07/07/19 16:55 Dose: 250 mls/hr Lactated Ringer's (Ringers, Lactated) Confirm Administered Dose 1,000 mls @ as directed .ROUTE .STK-MED ONE Stop: 07/07/19 15:09 Dextrose/Lactated Ringer's (Dextrose 5%-Lactated Ringers) 1,000 mls @ 200 mls/ hr IV ASDIRECTED [facility] Last Admin: 07/08/19 06:04 Dose: 200 mls/hr Cefoxitin Sodium 2 gm/ Sodium (Chloride) 50 mls @ 100 mls/hr IV Q6H [facility] Last Admin: 07/11/19 08:28 Dose: 100 mls/hr Azithromycin 125 mg/ Sodium (Chloride) 150 mls @ 150 mls/hr IV Q12H [facility] Last Admin: 07/11/19 02:14 Dose: 150 mls/hr Magnesium Sulfate 2 gm/ Premix 50 mls @ 25 mls/hr IV Q6H MARGY Stop: 07/09/19 13:59 Last Admin: 07/09/19 05:46 Dose: 25 mls/hr Dextrose/Lactated Ringer's (Dextrose 5%-Lactated Ringers) 1,000 mls @ 100 mls/ hr IV ASDIRECTED [facility] Last Admin: 07/10/19 21:31 Dose: 100 mls/hr Lactated Ringer's (Ringers, Lactated) 1,000 mls @ 999 mls/hr IV ASDIRECTED [facility] Stop: 07/08/19 16:46 Lactated Ringer's (Ringers, Lactated) 1,000 mls @ 500 mls/hr IV ASDIRECTED [facility] Stop: 07/08/19 19:31 Last Admin: 07/08/19 17:15 Dose: 500 mls/hr Sodium Chloride (Normal Saline) 100 mls @ 0 mls/hr IV ASDIRECTED [facility] Stop: 07/08/19 17:31 Last Admin: 07/08/19 18:26 Dose: 3.5 mls/hr Albumin Human (Albumin 25%) 25 gm in 100 mls @ 25 mls/hr IV ONETIME ONE Stop: 07/08/19 23:03 Last Admin: 07/08/19 19:50 Dose: 25 mls/hr Lactated Ringer's (Ringers, Lactated) 1,000 mls @ 250 mls/hr IV ASDIRECTED [facility] Stop: 07/08/19 23:31 Last Admin: 07/08/19 19:30 Dose: 250 mls/hr Albumin Human (Albumin 25%) 25 gm in 100 mls @ 25 mls/hr IV ONETIME ONE Stop: 07/09/19 07:03 Last Admin: 07/09/19 03:19 Dose: 25 mls/hr Albumin Human (Albumin 25%) 25 gm in 100 mls @ 25 mls/hr IV Q8H [facility] Stop: 07/10/19 05:59 Last Admin: 07/10/19 01:30 Dose: 25 mls/hr Lactated Ringer's (Ringers, Lactated) Confirm Administered Dose 1,000 mls @ as directed .ROUTE .STK-MED ONE Stop: 07/10/19 08:12 Influenza Virus Vaccine (Fluzone Quad [id number] Syringe) 60 mcg IM .ONCE ONE Stop: 07/04/19 10:01 Last Admin: 07/04/19 09:31 Dose: 60 mcg Insulin Glargine (Lantus Solostar) 20 units SUBCUT BEDTIME MARGY Last Admin: 07/06/19 21:10 Dose: 20 units Insulin Glargine (Lantus Solostar) 20 units SUBCUT BEDTIME STA Stop: 07/04/19 00:40 Last Admin: 07/04/19 01:02 Dose: 20 units Insulin Glargine (Lantus Solostar) 10 units SUBCUT Q12H MARGY Last Admin: 07/08/19 09:24 Dose: 10 units Insulin Human Lispro (Humalog) 0 unit SUBCUT QIDACANDBED MARGY; Protocol Last Admin: 07/07/19 14:06 Dose: Not Given Insulin Human Lispro (Humalog) 14 unit SUBCUT ONETIME ONE Stop: 07/04/19 16:55 Last Admin: 07/04/19 17:06 Dose: 14 units Insulin Human Lispro (Humalog) 0 unit SUBCUT ASDIRECTED PRN; Protocol PRN Reason: MEDIUM CORRECTIONAL DOSING Last Admin: 07/11/19 08:37 Dose: 3 units Insulin Human Regular (Humulin R) 3 unit IVPUSH ONETIME ONE Stop: 07/03/19 23:13 Last Admin: 07/03/19 23:40 Dose: 3 units Insulin Human Regular (Humulin R) 3 unit SUBCUT ONETIME ONE Stop: 07/03/19 23:14 Last Admin: 07/03/19 23:43 Dose: 3 units Iohexol (Omnipaque) 20 ml PO ONETIME ONE Stop: 07/04/19 13:11 Last Admin: 07/04/19 14:16 Dose: 20 ml Iopamidol (Isovue-300 (61%)) 81 ml IV . DIRECTED PRN PRN Reason: RADIOLOGY EXAM Stop: 07/05/19 12:43 Last Admin: 07/04/19 15:59 Dose: 79 ml Iopamidol (Isovue-370 (76%)) 100 ml IV . DIRECTED MARGY Stop: 07/08/19 17:31 Last Admin: 07/08/19 18:26 Dose: 100 ml Ketamine HCl (Ketalar) 27 mg IV ASDIRECTED [facility] Labetalol HCl (Normodyne) Confirm Administered Dose 20 mg .ROUTE .STK-MED ONE Stop: 07/07/19 15:10 Lidocaine/Epinephrine (Xylocaine 1% With Epinephrine 1:100,000) Confirm Administered Dose 50 ml .ROUTE .STK-MED ONE Stop: 07/10/19 06:48 Last Admin: 07/10/19 08:01 Dose: 10 ml Lorazepam (Ativan) 0 mg PO ASDIRECTED [facility]; Protocol Magnesium Oxide (Magnesium Oxide) 400 mg PO BID MARGY Last Admin: 07/07/19 09:20 Dose: Not Given Meropenem (Merrem) Confirm Administered Dose 500 mg .ROUTE .STK-MED ONE Stop: 07/07/19 12:07 Last Admin: 07/07/19 13:35 Dose: 500 mg Meropenem (Merrem) Confirm Administered Dose 500 mg .ROUTE .STK-MED ONE Stop: 07/10/19 06:48 Last Admin: 07/10/19 08:01 Dose: 500 mg Midazolam HCl (Versed 1 Mg/Ml) Confirm Administered Dose 2 mg .ROUTE .STK-MED ONE Stop: 07/05/19 06:15 Midazolam HCl (Versed 1 Mg/Ml) Confirm Administered Dose 2 mg .ROUTE .STK-MED ONE Stop: 07/07/19 10:34 Midazolam HCl (Versed 1 Mg/Ml) Confirm Administered Dose 2 mg .ROUTE .STK-MED ONE Stop: 07/10/19 07:30 Morphine Sulfate (Morphine) 2 mg IVPUSH Q4H PRN PRN Reason: Pain (moderate 4-6) Last Admin: 07/04/19 14:38 Dose: 2 mg Neostigmine Methylsulfate (Neostigmine) Confirm Administered Dose 5 mg .ROUTE .STK-MED ONE Stop: 07/07/19 10:33 Ondansetron HCl (Zofran) Confirm Administered Dose 4 mg .ROUTE .STK-MED ONE Stop: 07/07/19 10:33 Oxycodone HCl (Oxycodone) 10 mg PO Q4H PRN PRN Reason: Pain Last Admin: 07/07/19 07:06 Dose: 10 mg Pantoprazole Sodium (Protonix Iv) 40 mg IVPUSH ONETIME ONE Stop: 07/03/19 23:37 Last Admin: 07/03/19 23:48 Dose: 40 mg Pantoprazole Sodium (Protonix Iv) 40 mg IVPUSH Q12H MARGY Last Admin: 07/11/19 01:34 Dose: 40 mg Polyethylene Glycol (Miralax) 238 gm PO ONETIME ONE Stop: 07/04/19 17:01 Last Admin: 07/04/19 16:58 Dose: 238 gm Potassium Chloride (Klor-Con M20) 40 meq PO ONETIME ONE Stop: 07/04/19 12:46 Last Admin: 07/04/19 14:06 Dose: 40 meq Potassium Chloride (Klor-Con M20) 40 meq PO ONETIME ONE Stop: 07/04/19 17:01 Last Admin: 07/04/19 17:10 Dose: 40 meq Potassium Chloride (Klor-Con M20) 40 meq PO ONETIME ONE Stop: 07/05/19 17:01 Last Admin: 07/05/19 16:53 Dose: 40 meq Propofol (Diprivan 20 Ml) Confirm Administered Dose 200 mg .ROUTE .STK-MED ONE Stop: 07/05/19 06:16 Propofol (Diprivan 20 Ml) Confirm Administered Dose 200 mg .ROUTE .STK-MED ONE Stop: 07/07/19 10:33 Propofol (Diprivan 20 Ml) Confirm Administered Dose 200 mg .ROUTE .STK-MED ONE Stop: 07/07/19 10:34 Propofol (Diprivan 20 Ml) Confirm Administered Dose 200 mg .ROUTE .STK-MED ONE Stop: 07/10/19 07:30 Senna/Docusate Sodium (Senna Plus) 1 tab PO BID PRN PRN Reason: Constipation Last Admin: 07/06/19 21:30 Dose: 1 tab Sodium Chloride (Saline Flush) 10 ml FLUSH ONETIME MARGY Stop: 07/04/19 16:00 Last Admin: 07/04/19 15:59 Dose: 10 ml Sodium Chloride (Saline Flush) 10 ml FLUSH ONETIME ONE Stop: 07/08/19 17:23 Last Admin: 07/08/19 18:26 Dose: 10 ml Succinylcholine Chloride (Quelicin) Confirm Administered Dose 200 mg .ROUTE .STK -MED ONE Stop: 07/07/19 10:33 Thiamine HCl (Vitamin B-1) 100 mg PO DAILY MARGY Last Admin: 07/07/19 09:21 Dose: Not Given - Exam Quality Assessment: No: Supplemental Oxygen General: Alert, Oriented, Cooperative, No Acute Distress Lungs: Clear to Auscultation, Normal Respiratory Effort Cardiovascular: Regular Rate, Regular Rhythm GI/Abdominal Exam: Normal Bowel Sounds, Soft, No Distention Psy/Mental Status: Alert, Normal Affect - Problem List Review Problem List Initiated/Reviewed/Updated: Yes - My Orders Last 24 Hours: My Active Orders 07/11/19 09:45 Ciprofloxacin [Ciprofloxacin HCl] 500 mg PO BID Sodium Chloride 0.9% [Normal Saline] 1,000 ml IV ASDIRECTED 07/11/19 11:00 Insulin Lispro [HumaLOG] See Protocol SUBCUT QIDACANDBED 07/11/19 12:00 Insulin Lispro [HumaLOG] 5 unit SUBCUT TIDMEALS 07/11/19 16:30 Pantoprazole [ProTONIX] 40 mg PO BIDAC - Plan Plan:: ASSESSMENT AND PLAN - SEVERE ESOPHAGITIS - probable source of anemia and chronic blood loss. Doing well from the standpoint and no pain with swallowing at this time. -Oral proton pump inhibitor twice daily -Nothing by mouth PANCREATIC PSEUDOCYST - evidence of chronic calcified pancreatitis noted on CT scan, with pseudocyst noted at the pancreatic tail. 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 Pain control improving and vital signs have been stable. Culture did grow out a staph species and Escherichia coli. -Oral ciprofloxacin -Surgical management per Dr. Velarde SUICIDAL IDEATIONS - fleeting thoughts of harming himself which have now resolved. Likely due to his acute medical illnesses. He was on precautions a few nights ago but has done well since that time. 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 HEPATIC CIRRHOSIS - evidence of esophageal varices as well as splenic vein thrombosis SEVERE EMPHYSEMA - noted on CT scan. Alpha-1 antitrypsin is pending. TYPE 2 DIABETES MELLITUS - blood sugar has been on the high side. -Continue long-acting insulin -Start mealtime insulin -QID glucometers -Low dose sliding scale Humalog CHRONIC ALCOHOL USE - no evidence for withdrawal. He is interested in treatment for alcohol dependence. -Outpatient treatment MICROCYTIC ANEMIA - likely secondary to chronic blood loss as well as iron deficiency. Hemoglobin stable following transfusion. -Follow-up hemoglobin in a.m. MAINTENANCE ISSUES -DVT prophylaxis; enoxaparin -GI prophylaxis; BID PPI -Sanchez catheter; not indicated -Nutrition; full liquids DISPOSITION - anticipate discharge to [facility] in [place] after the hospital stay. Jens Bailon M.D.
[2019-07-11] MEDS: Ciprofloxacin 500 MG Tab PO SCH ×2 (10:28→21:39)
[2019-07-11] MEDS: Sodium Chloride 0.9% 1,000 ML IV SCH (11:57)
[2019-07-11] MEDS ORDERED: Potassium Phosphates 22.5 MMOLE in Sodium Chloride 0.9% 250 ML IV SCH (12:00)
[2019-07-11] MEDS: Insulin Lispro 100 Unit/ML 3 ML KwikPen SUBCUT SCH ×5 (12:04→20:21)
[2019-07-11] MEDS ORDERED: Potassium Chloride 20 MEQ Tab.ER PO ONE (14:15)
[2019-07-11] MEDS: oxyCODONE 5 MG Tab PO PRN ×2 (14:24→20:21)
[2019-07-11] MEDS: Pantoprazole 40 MG Tab.CR PO SCH (16:40)
[2019-07-11] MEDS: Ondansetron 4 MG/2 ML SDV IV PRN (22:01)
[2019-07-12] MEDS: Metoclopramide 10 MG/2 ML SDV IVPUSH SCH ×2 (01:48→09:14)
[2019-07-12] MEDS: oxyCODONE 5 MG Tab PO PRN ×5 (02:22→22:32)
[2019-07-12] MEDS: Magnesium Sulfate/Water 2 GM in Premix Bag 1 BAG IV SCH ×2 (04:32→09:17)
[2019-07-12] MEDS: Insulin Lispro 100 Unit/ML 3 ML KwikPen SUBCUT SCH ×5 (08:29→21:45)
[2019-07-12] MEDS: Pantoprazole 40 MG Tab.CR PO SCH ×2 (09:14→16:40)
[2019-07-12] MEDS: Bisacodyl 5 MG Tab PO SCH ×2 (09:15→20:07)
[2019-07-12] MEDS: Docusate Sodium 100 MG Cap PO SCH ×2 (09:15→20:07)
[2019-07-12] MEDS: Multivitamins with Iron/Calcium/Folic Acid/Minerals Tab PO SCH (09:16)
[2019-07-12] MEDS: Enoxaparin 40 MG/0.4 ML Syringe SUBCUT SCH (09:16)
[2019-07-12] MEDS: Ciprofloxacin 500 MG Tab PO SCH ×2 (09:16→22:31)
--- NOTE | 2019-07-12 09:51 | PCM.PN ---
- General Info Date of Service: 07/12/19 Subjective Update: There were no acute events overnight. Vital signs have remained stable. Appetite has been good. Patient does report suboptimal pain control with the transition to oral medications yesterday. He has not had any fevers. He is having bowel movements. No complaints of shortness of breath. Blood sugars were on the low side and has long-acting insulin has been discontinued. Functional Status: Reports: Pain Controlled, Tolerating Diet - Review of Systems Gastrointestinal: Reports: Abdominal Pain - Patient Data Vitals - Most Recent: Last Vital Signs Temp 36.6 C 07/12/19 08:00 Pulse 92 07/12/19 08:00 Resp 18 07/12/19 08:00 BP 127/91 H 07/12/19 08:00 Pulse Ox 97 07/12/19 08:00 Weight - Most Recent: 54.6 kg I&O - Last 24 Hours: Intake & Output 07/11/19 07/12/19 07/12/19 22:59 06:59 14:59 Intake Total 1276 50 Output Total 400 1375 Balance 876 -1325 Lab Results Last 24 Hours: Laboratory Results - last 24 hr 07/12/19 07/12/19 Range/Units 04:00 04:00 WBC 15.7 H (4.5-11.0) K/uL RBC 4.21 L (4.30-5.90) M/uL Hgb 10.7 L (12.0-15.0) g/dL Hct 35.4 L (40.0-54.0) % MCV 84 (80-98) fL MCH 25 L (27-31) pg MCHC 30 L (32-36) % Plt Count 568 H (150-400) K/uL Sodium 142 (140-148) mmol/L Potassium 3.3 L (3.6-5.2) mmol/L Chloride 108 (100-108) mmol/L Carbon Dioxide 27 (21-32) mmol/L Anion Gap 10.3 (5.0-14.0) mmol/L BUN 5 L (7-18) mg/dL Creatinine 0.5 L (0.8-1.3) mg/dL Est Cr Clr Drug Dosing 157.73 mL/min Estimated GFR (MDRD) > 60 (>60) Glucose 61 L (74-106) mg/dL Calcium 7.8 L (8.5-10.1) mg/dL Phosphorus 2.3 L (2.5-4.9) mg/dL Total Bilirubin 0.2 (0.2-1.0) mg/dL AST 14 L (15-37) U/L ALT 19 (12-78) U/L Alkaline Phosphatase 85 (46-116) U/L Total Protein 5.6 L (6.4-8.2) g/dL Albumin 2.4 L (3.4-5.0) g/dL Globulin 3.2 (2.3-3.5) g/dL Albumin/Globulin Ratio 0.8 L (1.2-2.2) Kiran Results Last 24 Hours: Microbiology 07/07/19 16:09 Gram Stain - Final Spleen Wound Culture - Final Staphylococcus Warneri Escherichia Coli Anaerobic Culture - Final NO GROWTH AFTER 3 DAYS Med Orders - Current: Current Medications Bisacodyl (Dulcolax) 10 mg PO BID [facility] Last Admin: 07/12/19 09:15 Dose: 10 mg Ciprofloxacin (Ciprofloxacin Hcl) 500 mg PO Q12H [facility] Last Admin: 07/12/19 09:16 Dose: 500 mg Dextrose (Glutose 15) 15 gm PO ASDIRECTED PRN PRN Reason: HYPOGLYCEMIA Dextrose/Water (Dextrose 50% In Water) 50 ml IVPUSH ASDIRECTED PRN PRN Reason: HYPOGLYCEMIA Last Admin: 07/08/19 21:12 Dose: 50 ml Docusate Sodium (Colace) 100 mg PO BID [facility] Last Admin: 07/12/19 09:15 Dose: 100 mg Enoxaparin Sodium (Lovenox) 40 mg SUBCUT Q24H [facility] Last Admin: 07/12/19 09:16 Dose: 40 mg Glucagon (Glucagen) 1 mg IM ASDIRECTED PRN PRN Reason: HYPOGLYCEMIA Hydroxyzine HCl (Vistaril) 100 mg IM Q4H PRN PRN Reason: pain Last Admin: 07/11/19 21:57 Dose: 100 mg Sodium Chloride (Normal Saline) 1,000 mls @ 25 mls/hr IV ASDIRECTED [facility] Last Admin: 07/11/19 11:57 Dose: 25 mls/hr Potassium Phosphate 20 mmole/ (Sodium Chloride) 256.6667 mls @ 85.556 mls/hr IV Q3H [facility] Stop: 07/12/19 20:59 Insulin Human Lispro (Humalog) 0 unit SUBCUT QIDACANDBED [facility]; Protocol Last Admin: 07/12/19 08:29 Dose: Not Given Multivitamins/Minerals (Thera M Plus) 1 tab PO DAILY [facility] Last Admin: 07/12/19 09:16 Dose: 1 tab Ondansetron HCl (Zofran) 4 mg IV Q4H PRN PRN Reason: Nausea/Vomiting Last Admin: 07/11/19 22:01 Dose: 4 mg Oxycodone HCl (Oxycodone) 5 mg PO Q4H PRN PRN Reason: Pain (moderate 4-6) Last Admin: 07/11/19 20:21 Dose: 5 mg Oxycodone HCl (Oxycodone) 10 mg PO Q4H PRN PRN Reason: Pain (severe 7-10) Last Admin: 07/12/19 08:23 Dose: 10 mg Pantoprazole Sodium (Protonix) 40 mg PO BIDAC [facility] Last Admin: 07/12/19 09:14 Dose: 40 mg Discontinued Medications Bisacodyl (Dulcolax) 10 mg PO ONETIME ONE Stop: 07/04/19 12:31 Last Admin: 07/04/19 14:06 Dose: 10 mg Bisacodyl (Dulcolax) 10 mg PO ONETIME ONE Stop: 07/04/19 20:01 Last Admin: 07/04/19 20:33 Dose: 10 mg Bupivacaine HCl (Marcaine 0.5%) Confirm Administered Dose 50 ml .ROUTE .STK-MED ONE Stop: 07/10/19 06:48 Last Admin: 07/10/19 08:01 Dose: 10 ml Calcium Carbonate (Caltrate 600+D 1500 Mg-400 Units) 1 tab PO DAILY [facility] Last Admin: 07/07/19 09:20 Dose: Not Given Ropivacaine 27 ml/Dexamethasone 8 mg/Epinephrine HCl 0.4 mg/ Sodium Chloride 50.6 ml 0 ml NERVRT ASDIRECTED [facility] Last Admin: 07/07/19 13:24 Dose: 80 syringe Ropivacaine 27 ml/Dexamethasone 8 mg/Epinephrine HCl 0.4 mg/ Sodium Chloride 50.6 ml 0 ml NERVRT ASDIRECTED [facility] Last Admin: 07/10/19 07:55 Dose: 80 syringe Dexamethasone (Dexamethasone) Confirm Administered Dose 4 mg .ROUTE .STK-MED ONE Stop: 07/07/19 10:33 Dextrose/Water (Dextrose 50% In Water) 50 ml IVPUSH ONETIME ONE Stop: 07/05/19 04:53 Last Admin: 07/05/19 04:57 Dose: 50 ml Dextrose/Water (Dextrose 50% In Water) Confirm Administered Dose 50 ml .ROUTE .STK-MED ONE Stop: 07/05/19 04:56 Last Admin: 07/05/19 05:16 Dose: Not Given Enoxaparin Sodium (Lovenox) 40 mg SUBCUT DAILY [facility] Last Admin: 07/07/19 08:56 Dose: Not Given Fentanyl (Sublimaze) Confirm Administered Dose 100 mcg .ROUTE .STK-MED ONE Stop: 07/05/19 06:15 Fentanyl (Sublimaze) Confirm Administered Dose 250 mcg .ROUTE .STK-MED ONE Stop: 07/07/19 10:33 Fentanyl (Sublimaze) Confirm Administered Dose 100 mcg .ROUTE .STK-MED ONE Stop: 07/07/19 10:34 Fentanyl (Sublimaze) 50 mcg IVPUSH ONETIME ONE Stop: 07/07/19 10:52 Last Admin: 07/07/19 11:00 Dose: 50 mcg Fentanyl (Sublimaze) Confirm Administered Dose 100 mcg .ROUTE .STK-MED ONE Stop: 07/10/19 07:30 Folic Acid (Folic Acid) 1 mg PO DAILY [facility] Last Admin: 07/07/19 09:20 Dose: Not Given Furosemide (Lasix) 10 mg IVPUSH ONETIME ONE Stop: 07/10/19 14:01 Last Admin: 07/10/19 15:05 Dose: 10 mg Gabapentin (Neurontin) 400 mg PO Q8H [facility] Stop: 07/09/19 06:01 Last Admin: 07/07/19 17:04 Dose: Not Given Glycopyrrolate (Robinul) Confirm Administered Dose 1 mg .ROUTE .STK-MED ONE Stop: 07/07/19 10:33 Hydrocortisone Sodium Succinate (Solu-Cortef) 100 mg IVPUSH ONETIME ONE Stop: 07/08/19 22:33 Last Admin: 07/08/19 22:49 Dose: 100 mg Hydrocortisone Sodium Succinate (Solu-Cortef) 100 mg IVPUSH Q12H [facility] Stop: 07/10/19 10:01 Last Admin: 07/10/19 09:11 Dose: 100 mg Hydromorphone HCl (Dilaudid) 0.5 mg IVPUSH ONETIME ONE Stop: 07/03/19 23:14 Last Admin: 07/03/19 23:45 Dose: 0.5 mg Hydromorphone HCl (Dilaudid Show Card Letterer 15 Mg In Ns 30 Ml) 0 mg IV ASDIRECTED PRN; Protocol PRN Reason: Pain Last Admin: 07/10/19 15:27 Dose: 15 mg Sodium Chloride (Normal Saline) 1,000 mls @ 999 mls/hr IV ASDIRECTED [facility] Last Admin: 07/03/19 22:51 Dose: 999 mls/hr Sodium Chloride (Normal Saline) 1,000 mls @ 999 mls/hr IV ASDIRECTED [facility] Last Admin: 07/03/19 23:48 Dose: 999 mls/hr Sodium Chloride (Normal Saline) 1,000 mls @ 200 mls/hr IV ASDIRECTED [facility] Last Admin: 07/04/19 11:33 Dose: 200 mls/hr Magnesium Sulfate 2 gm/ Premix 50 mls @ 25 mls/hr IV Q6H [facility] Stop: 07/04/19 17:59 Last Admin: 07/04/19 16:33 Dose: 25 mls/hr Ferric Sodium Gluconate Complex 250 mg/ Sodium Chloride 120 mls @ 50 mls/hr IV ONETIME ONE Stop: 07/04/19 14:23 Last Admin: 07/04/19 11:57 Dose: 50 mls/hr Ferric Sodium Gluconate Complex 250 mg/ Sodium Chloride 120 mls @ 60 mls/hr IV ONETIME ONE Stop: 07/05/19 10:29 Last Admin: 07/05/19 08:54 Dose: 60 mls/hr Sodium Chloride (Normal Saline) 1,000 mls @ 100 mls/hr IV ASDIRECTED [facility] Last Admin: 07/05/19 00:17 Dose: 100 mls/hr Sodium Chloride (Normal Saline) 70 mls @ 3 mls/sec IV ASDIRECTED [facility] Stop: 07/04/19 16:00 Last Admin: 07/04/19 15:59 Dose: 3 mls/sec Dextrose/Sodium Chloride (Dextrose 5%-Normal Saline) 1,000 mls @ 100 mls/hr IV ASDIRECTED [facility] Last Admin: 07/05/19 11:46 Dose: 100 mls/hr Potassium Chloride 20 meq/Lidocaine HCl 2 ml/ Sodium Chloride 112 mls @ 56 mls/ hr IV Q2H [facility] Stop: 07/05/19 13:59 Potassium Chloride 20 meq/Lidocaine HCl 2 ml/ Sodium Chloride 112 mls @ 56 mls/ hr IV Q2H [facility] Stop: 07/05/19 14:59 Last Admin: 07/05/19 14:26 Dose: 56 mls/hr Ketamine HCl 50 mg/ Sodium (Chloride) 50 mls @ 16.32 mls/hr IV ASDIRECTED [facility] Magnesium Sulfate 2 gm/ Premix 50 mls @ 25 mls/hr IV Q6H [facility] Stop: 07/09/19 05:59 Last Admin: 07/07/19 09:18 Dose: 25 mls/hr Cefoxitin Sodium 2 gm/ Sodium (Chloride) 50 mls @ 100 mls/hr IV ONETIME ONE Stop: 07/07/19 09:29 Last Admin: 07/07/19 13:23 Dose: 100 mls/hr Dextrose/Lactated Ringer's (Dextrose 5%-Lactated Ringers) 1,000 mls @ 100 mls/ hr IV ASDIRECTED [facility] Last Admin: 07/07/19 03:24 Dose: 100 mls/hr Lactated Ringer's (Ringers, Lactated) Confirm Administered Dose 1,000 mls @ as directed .ROUTE .STK-MED ONE Stop: 07/07/19 11:40 Lactated Ringer's (Ringers, Lactated) Confirm Administered Dose 1,000 mls @ as directed .ROUTE .STK-[facility] ONE Stop: 07/07/19 13:14 Azithromycin 250 mg/ Sodium (Chloride) 250 mls @ 250 mls/hr IV ONETIME ONE Stop: 07/07/19 14:59 Last Admin: 07/07/19 16:55 Dose: 250 mls/hr Lactated Ringer's (Ringers, Lactated) Confirm Administered Dose 1,000 mls @ as directed .ROUTE .STK-MED ONE Stop: 07/07/19 15:09 Dextrose/Lactated Ringer's (Dextrose 5%-Lactated Ringers) 1,000 mls @ 200 mls/ hr IV ASDIRECTED [facility] Last Admin: 07/08/19 06:04 Dose: 200 mls/hr Multivitamins/Minerals 10 ml/Thiamine HCl 100 mg/ Chromium/Copper/Manganese/ Seleni/Zn 1 ml/ Dextrose/Lactated Ringer's 1,012 mls @ 200 mls/hr IV DAILY@ 1600 [facility] Last Admin: 07/10/19 16:02 Dose: 200 mls/hr Cefoxitin Sodium 2 gm/ Sodium (Chloride) 50 mls @ 100 mls/hr IV Q6H [facility] Last Admin: 07/11/19 08:28 Dose: 100 mls/hr Azithromycin 125 mg/ Sodium (Chloride) 150 mls @ 150 mls/hr IV Q12H [facility] Last Admin: 07/11/19 02:14 Dose: 150 mls/hr Magnesium Sulfate 2 gm/ Premix 50 mls @ 25 mls/hr IV Q6H [facility] Stop: 07/09/19 13:59 Last Admin: 07/09/19 05:46 Dose: 25 mls/hr Dextrose/Lactated Ringer's (Dextrose 5%-Lactated Ringers) 1,000 mls @ 100 mls/ hr IV ASDIRECTED [facility] Last Admin: 07/10/19 21:31 Dose: 100 mls/hr Lactated Ringer's (Ringers, Lactated) 1,000 mls @ 999 mls/hr IV ASDIRECTED [facility] Stop: 07/08/19 16:46 Lactated Ringer's (Ringers, Lactated) 1,000 mls @ 500 mls/hr IV ASDIRECTED [facility] Stop: 07/08/19 19:31 Last Admin: 07/08/19 17:15 Dose: 500 mls/hr Sodium Chloride (Normal Saline) 100 mls @ 0 mls/hr IV ASDIRECTED [facility] Stop: 07/08/19 17:31 Last Admin: 07/08/19 18:26 Dose: 3.5 mls/hr Albumin Human (Albumin 25%) 25 gm in 100 mls @ 25 mls/hr IV ONETIME ONE Stop: 07/08/19 23:03 Last Admin: 07/08/19 19:50 Dose: 25 mls/hr Lactated Ringer's (Ringers, Lactated) 1,000 mls @ 250 mls/hr IV ASDIRECTED [facility] Stop: 07/08/19 23:31 Last Admin: 07/08/19 19:30 Dose: 250 mls/hr Albumin Human (Albumin 25%) 25 gm in 100 mls @ 25 mls/hr IV ONETIME ONE Stop: 07/09/19 07:03 Last Admin: 07/09/19 03:19 Dose: 25 mls/hr Albumin Human (Albumin 25%) 25 gm in 100 mls @ 25 mls/hr IV Q8H [facility] Stop: 07/10/19 05:59 Last Admin: 07/10/19 01:30 Dose: 25 mls/hr Lactated Ringer's (Ringers, Lactated) Confirm Administered Dose 1,000 mls @ as directed .ROUTE .STK-MED ONE Stop: 07/10/19 08:12 Magnesium Sulfate 2 gm/ Premix 50 mls @ 25 mls/hr IV Q6H [facility] Stop: 07/14/19 05:59 Last Admin: 07/12/19 09:17 Dose: 25 mls/hr Potassium Phosphate 22.5 mmole (/ Sodium Chloride) 257.5 mls @ 65 mls/hr IV Q4H [facility] Stop: 07/11/19 15:55 Last Admin: 07/11/19 13:23 Dose: 65 mls/hr Influenza Virus Vaccine (Fluzone Quad [id number] Syringe) 60 mcg IM .ONCE ONE Stop: 07/04/19 10:01 Last Admin: 07/04/19 09:31 Dose: 60 mcg Insulin Glargine (Lantus Solostar) 20 units SUBCUT BEDTIME [facility] Last Admin: 07/06/19 21:10 Dose: 20 units Insulin Glargine (Lantus Solostar) 20 units SUBCUT BEDTIME [facility] Stop: 07/04/19 00:40 Last Admin: 07/04/19 01:02 Dose: 20 units Insulin Glargine (Lantus Solostar) 10 units SUBCUT Q12H [facility] Last Admin: 07/08/19 09:24 Dose: 10 units Insulin Glargine (Lantus Solostar) 20 units SUBCUT BID [facility] Last Admin: 07/11/19 08:36 Dose: 20 units Insulin Human Lispro (Humalog) 0 unit SUBCUT QIDACANDBED [facility]; Protocol Last Admin: 07/07/19 14:06 Dose: Not Given Insulin Human Lispro (Humalog) 14 unit SUBCUT ONETIME ONE Stop: 07/04/19 16:55 Last Admin: 07/04/19 17:06 Dose: 14 units Insulin Human Lispro (Humalog) 0 unit SUBCUT ASDIRECTED PRN; Protocol PRN Reason: MEDIUM CORRECTIONAL DOSING Last Admin: 07/11/19 08:37 Dose: 3 units Insulin Human Lispro (Humalog) 5 unit SUBCUT TIDMEALS [facility] Last Admin: 07/11/19 17:09 Dose: Not Given Insulin Human Regular (Humulin R) 3 unit IVPUSH ONETIME ONE Stop: 07/03/19 23:13 Last Admin: 07/03/19 23:40 Dose: 3 units Insulin Human Regular (Humulin R) 3 unit SUBCUT ONETIME ONE Stop: 07/03/19 23:14 Last Admin: 07/03/19 23:43 Dose: 3 units Iohexol (Omnipaque) 20 ml PO ONETIME ONE Stop: 07/04/19 13:11 Last Admin: 07/04/19 14:16 Dose: 20 ml Iopamidol (Isovue-300 (61%)) 81 ml IV . DIRECTED PRN PRN Reason: RADIOLOGY EXAM Stop: 07/05/19 12:43 Last Admin: 07/04/19 15:59 Dose: 79 ml Iopamidol (Isovue-370 (76%)) 100 ml IV . DIRECTED [facility] Stop: 07/08/19 17:31 Last Admin: 07/08/19 18:26 Dose: 100 ml Ketamine HCl (Ketalar) 27 mg IV ASDIRECTED [facility] Labetalol HCl (Normodyne) Confirm Administered Dose 20 mg .ROUTE .STK-MED ONE Stop: 07/07/19 15:10 Lidocaine/Epinephrine (Xylocaine 1% With Epinephrine 1:100,000) Confirm Administered Dose 50 ml .ROUTE .STK-MED ONE Stop: 07/10/19 06:48 Last Admin: 07/10/19 08:01 Dose: 10 ml Lorazepam (Ativan) 0 mg PO ASDIRECTED [facility]; Protocol Lorazepam (Ativan) 0.5 - 1 mg IVPUSH Q4H PRN PRN Reason: * Last Admin: 07/10/19 05:18 Dose: 1 mg Magnesium Oxide (Magnesium Oxide) 400 mg PO BID [facility] Last Admin: 07/07/19 09:20 Dose: Not Given Meropenem (Merrem) Confirm Administered Dose 500 mg .ROUTE .STK-MED ONE Stop: 07/07/19 12:07 Last Admin: 07/07/19 13:35 Dose: 500 mg Meropenem (Merrem) Confirm Administered Dose 500 mg .ROUTE .STK-MED ONE Stop: 07/10/19 06:48 Last Admin: 07/10/19 08:01 Dose: 500 mg Metoclopramide HCl (Reglan) 10 mg IVPUSH Q6H [facility] Last Admin: 07/12/19 09:14 Dose: 10 mg Midazolam HCl (Versed 1 Mg/Ml) Confirm Administered Dose 2 mg .ROUTE .STK-MED ONE Stop: 07/05/19 06:15 Midazolam HCl (Versed 1 Mg/Ml) Confirm Administered Dose 2 mg .ROUTE .STK-MED ONE Stop: 07/07/19 10:34 Midazolam HCl (Versed 1 Mg/Ml) Confirm Administered Dose 2 mg .ROUTE .STK-MED ONE Stop: 07/10/19 07:30 Morphine Sulfate (Morphine) 2 mg IVPUSH Q4H PRN PRN Reason: Pain (moderate 4-6) Last Admin: 07/04/19 14:38 Dose: 2 mg Naloxone HCl (Narcan) 0.1 mg IV ASDIRECTED PRN PRN Reason: decreased respiratory rate Neostigmine Methylsulfate (Neostigmine) Confirm Administered Dose 5 mg .ROUTE .STK-MED ONE Stop: 07/07/19 10:33 Ondansetron HCl (Zofran) Confirm Administered Dose 4 mg .ROUTE .STK-MED ONE Stop: 07/07/19 10:33 Oxycodone HCl (Oxycodone) 10 mg PO Q4H PRN PRN Reason: Pain Last Admin: 07/07/19 07:06 Dose: 10 mg Pantoprazole Sodium (Protonix Iv) 40 mg IVPUSH ONETIME ONE Stop: 07/03/19 23:37 Last Admin: 07/03/19 23:48 Dose: 40 mg Pantoprazole Sodium (Protonix Iv) 40 mg IVPUSH Q12H [facility] Last Admin: 07/11/19 01:34 Dose: 40 mg Polyethylene Glycol (Miralax) 238 gm PO ONETIME ONE Stop: 07/04/19 17:01 Last Admin: 07/04/19 16:58 Dose: 238 gm Potassium Chloride (Klor-Con M20) 40 meq PO ONETIME ONE Stop: 07/04/19 12:46 Last Admin: 07/04/19 14:06 Dose: 40 meq Potassium Chloride (Klor-Con M20) 40 meq PO ONETIME ONE Stop: 07/04/19 17:01 Last Admin: 07/04/19 17:10 Dose: 40 meq Potassium Chloride (Klor-Con M20) 40 meq PO ONETIME ONE Stop: 07/05/19 17:01 Last Admin: 07/05/19 16:53 Dose: 40 meq Potassium Chloride (Klor-Con M20) 40 meq PO ONETIME ONE Stop: 07/11/19 14:16 Last Admin: 07/11/19 15:28 Dose: 40 meq Propofol (Diprivan 20 Ml) Confirm Administered Dose 200 mg .ROUTE .STK-MED ONE Stop: 07/05/19 06:16 Propofol (Diprivan 20 Ml) Confirm Administered Dose 200 mg .ROUTE .STK-MED ONE Stop: 07/07/19 10:33 Propofol (Diprivan 20 Ml) Confirm Administered Dose 200 mg .ROUTE .STK-MED ONE Stop: 07/07/19 10:34 Propofol (Diprivan 20 Ml) Confirm Administered Dose 200 mg .ROUTE .STK-MED ONE Stop: 07/10/19 07:30 Senna/Docusate Sodium (Senna Plus) 1 tab PO BID PRN PRN Reason: Constipation Last Admin: 07/06/19 21:30 Dose: 1 tab Sodium Chloride (Saline Flush) 10 ml FLUSH ONETIME [facility] Stop: 07/04/19 16:00 Last Admin: 07/04/19 15:59 Dose: 10 ml Sodium Chloride (Saline Flush) 10 ml FLUSH ONETIME ONE Stop: 07/08/19 17:23 Last Admin: 07/08/19 18:26 Dose: 10 ml Succinylcholine Chloride (Quelicin) Confirm Administered Dose 200 mg .ROUTE .STK -MED ONE Stop: 07/07/19 10:33 Thiamine HCl (Vitamin B-1) 100 mg PO DAILY [facility] Last Admin: 07/07/19 09:21 Dose: Not Given - Exam Quality Assessment: No: Supplemental Oxygen General: Alert, Oriented, Cooperative, No Acute Distress Lungs: Normal Respiratory Effort Cardiovascular: Regular Rate, Regular Rhythm GI/Abdominal Exam: Soft, No Distention Extremities: No Pedal Edema Skin: Warm, Dry Psy/Mental Status: Alert, Normal Affect - Problem List Review Problem List Initiated/Reviewed/Updated: Yes - My Orders Last 24 Hours: My Active Orders 07/11/19 09:45 Sodium Chloride 0.9% [Normal Saline] 1,000 ml IV ASDIRECTED 07/11/19 10:00 Ciprofloxacin [Ciprofloxacin HCl] 500 mg PO Q12H 07/11/19 11:00 Insulin Lispro [HumaLOG] See Protocol SUBCUT QIDACANDBED 07/11/19 13:51 oxyCODONE 10 mg PO Q4H PRN oxyCODONE 5 mg PO Q4H PRN 07/11/19 16:30 Pantoprazole [ProTONIX] 40 mg PO BIDAC 07/12/19 09:00 Multivitamins w-Iron/Ca/FA/Min [Thera M Plus] 1 tab PO DAILY 07/12/19 09:49 HYDROmorphone [Dilaudid] 1 mg IVPUSH Q4H PRN 07/12/19 11:00 Metoclopramide [Reglan] 10 mg PO QIDACANDBED - Plan Plan:: ASSESSMENT AND PLAN - SEVERE ESOPHAGITIS - probable source of anemia and chronic blood loss. Doing well from the standpoint and no pain with swallowing at this time. -Oral proton pump inhibitor twice daily PANCREATIC PSEUDOCYST - evidence of chronic calcified pancreatitis noted on CT scan, with pseudocyst noted at the pancreatic tail. 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 Pain control improving and vital signs have been stable. Culture did grow out a staph species and Escherichia coli. -Oral ciprofloxacin -Surgical management per Dr. Velarde SUICIDAL IDEATIONS - fleeting thoughts of harming himself which have now resolved. Likely due to his acute medical illnesses. He was on precautions a few nights ago but has done well since that time. 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 HEPATIC CIRRHOSIS - evidence of esophageal varices as well as splenic vein thrombosis SEVERE EMPHYSEMA - noted on CT scan. Alpha-1 antitrypsin is pending. TYPE 2 DIABETES MELLITUS - blood sugars have been on the low side. -Discontinue long-acting and mealtime insulins -QID glucometers -Medium dose sliding scale Humalog CHRONIC ALCOHOL USE - no evidence for withdrawal. He is interested in treatment for alcohol dependence. -Outpatient treatment MICROCYTIC ANEMIA - likely secondary to chronic blood loss as well as iron deficiency. Hemoglobin stable following transfusion. -Follow-up hemoglobin in a.m. MAINTENANCE ISSUES -DVT prophylaxis; enoxaparin -GI prophylaxis; BID PPI -Sanchez catheter; not indicated -Nutrition; regular diet DISPOSITION - anticipate discharge to [facility] after the hospital stay. Jens Bailon M.D.
[2019-07-12] MEDS: HYDROmorphone 1 MG/ML Syringe IVPUSH PRN ×3 (10:10→20:06)
[2019-07-12] MEDS: Metoclopramide 10 MG Tab PO SCH ×3 (11:14→20:07)
[2019-07-12] MEDS: Potassium Phosphates 22.5 MMOLE in Sodium Chloride 0.9% 250 ML IV SCH ×2 (11:58→16:04)
[2019-07-12] MEDS ORDERED: Potassium Phosphates 20 MMOLE in Sodium Chloride 0.9% 250 ML IV SCH (12:00)
[2019-07-12] MEDS ORDERED: Potassium Phosphates 15 MMOLE in Sodium Chloride 0.9% 250 ML IV ONE (20:00)
[2019-07-13] MEDS: HYDROmorphone 1 MG/ML Syringe IVPUSH PRN ×5 (00:07→20:02)
[2019-07-13] MEDS: oxyCODONE 5 MG Tab PO PRN ×4 (02:40→23:49)
--- NOTE | 2019-07-13 07:12 | CRLCR ---
INDICATION: Abdominal pain. TECHNIQUE: Flat and upright. COMPARISON: Abdomen/pelvis CT of 07/04/2019. FINDINGS: Interval laparotomy. Distended transverse colon with thickened haustrations suggesting mucosal edema. Distended colon contains air fluid levels. Distended small bowel loops also containing air-fluid levels. Gas extending to the rectum. No free air or significant abnormal calcification. IMPRESSION: Abnormal postop gas pattern compatible postop ileus and possible colitis. Dictated by Jostin Apodaca MD @ Jul 13 2019 7:02AM Signed by Dr. Jostin Apodaca @ Jul 13 2019 7:10AM
[2019-07-13] MEDS: Metoclopramide 10 MG Tab PO SCH (07:42)
[2019-07-13] MEDS: Pantoprazole 40 MG Tab.CR PO SCH ×2 (07:42→17:22)
[2019-07-13] MEDS: Insulin Lispro 100 Unit/ML 3 ML KwikPen SUBCUT SCH ×4 (07:44→21:08)
[2019-07-13] MEDS: Docusate Sodium 100 MG Cap PO SCH ×2 (09:05→21:11)
[2019-07-13] MEDS: metFORMIN 500 MG Tab PO SCH ×2 (09:05→17:22)
[2019-07-13] MEDS: Bisacodyl 5 MG Tab PO SCH ×2 (09:05→21:11)
[2019-07-13] MEDS: Multivitamins with Iron/Calcium/Folic Acid/Minerals Tab PO SCH (09:06)
[2019-07-13] MEDS: Ciprofloxacin 500 MG Tab PO SCH ×2 (09:11→23:20)
[2019-07-13] MEDS: Enoxaparin 40 MG/0.4 ML Syringe SUBCUT SCH (09:12)
--- NOTE | 2019-07-13 09:27 | PCM.PN ---
- General Info Date of Service: 07/13/19 Subjective Update: No acute events overnight. Abdominal pain is a little better today than yesterday. He has had several bowel movements over the past 24 hours. He has not had any fevers. White blood cell count is a little higher today. No complaints of shortness of breath. Tolerating his diet well. X-ray of the abdomen this morning suggested possible ileus. Functional Status: Reports: Pain Controlled, Tolerating Diet - Review of Systems General: Denies: Fever Gastrointestinal: Reports: Abdominal Pain - Patient Data Vitals - Most Recent: Last Vital Signs Temp 37.0 C 07/13/19 08:00 Pulse 98 07/13/19 08:00 Resp 18 07/13/19 08:00 BP 136/97 H 07/13/19 08:00 Pulse Ox 96 07/13/19 08:00 Weight - Most Recent: 54.6 kg I&O - Last 24 Hours: Intake & Output 07/12/19 07/13/19 07/13/19 22:59 06:59 14:59 Intake Total 900 Output Total 400 Balance 900 -400 Lab Results Last 24 Hours: Laboratory Results - last 24 hr 07/13/19 07/13/19 Range/Units 04:00 04:00 WBC 21.0 H (4.5-11.0) K/uL RBC 4.21 L (4.30-5.90) M/uL Hgb 11.2 L (12.0-15.0) g/dL Hct 35.5 L (40.0-54.0) % MCV 84 (80-98) fL MCH 27 (27-31) pg MCHC 32 (32-36) % Plt Count 649 H (150-400) K/uL Sodium 139 L (140-148) mmol/L Potassium 4.6 (3.6-5.2) mmol/L Chloride 104 (100-108) mmol/L Carbon Dioxide 27 (21-32) mmol/L Anion Gap 12.6 (5.0-14.0) mmol/L BUN 7 (7-18) mg/dL Creatinine 0.5 L (0.8-1.3) mg/dL Est Cr Clr Drug Dosing 157.73 mL/min Estimated GFR (MDRD) > 60 (>60) Glucose 242 H (74-106) mg/dL Calcium 8.0 L (8.5-10.1) mg/dL Phosphorus 3.3 (2.5-4.9) mg/dL Total Bilirubin 0.4 D (0.2-1.0) mg/dL AST 12 L (15-37) U/L ALT 18 (12-78) U/L Alkaline Phosphatase 97 (46-116) U/L Total Protein 5.8 L (6.4-8.2) g/dL Albumin 2.4 L (3.4-5.0) g/dL Globulin 3.4 (2.3-3.5) g/dL Albumin/Globulin Ratio 0.7 L (1.2-2.2) Med Orders - Current: Current Medications Bisacodyl (Dulcolax) 10 mg PO BID [facility] Last Admin: 07/13/19 09:05 Dose: 10 mg Ciprofloxacin (Ciprofloxacin Hcl) 500 mg PO Q12H [facility] Last Admin: 07/13/19 09:11 Dose: 500 mg Dextrose (Glutose 15) 15 gm PO ASDIRECTED PRN PRN Reason: HYPOGLYCEMIA Dextrose/Water (Dextrose 50% In Water) 50 ml IVPUSH ASDIRECTED PRN PRN Reason: HYPOGLYCEMIA Last Admin: 07/08/19 21:12 Dose: 50 ml Docusate Sodium (Colace) 100 mg PO BID [facility] Last Admin: 07/13/19 09:05 Dose: 100 mg Enoxaparin Sodium (Lovenox) 40 mg SUBCUT Q24H [facility] Last Admin: 07/13/19 09:12 Dose: 40 mg Glucagon (Glucagen) 1 mg IM ASDIRECTED PRN PRN Reason: HYPOGLYCEMIA Hydromorphone HCl (Dilaudid) 1 mg IVPUSH Q4H PRN PRN Reason: Pain (severe 7-10) Last Admin: 07/13/19 04:00 Dose: 1 mg Hydroxyzine HCl (Vistaril) 100 mg IM Q4H PRN PRN Reason: pain Last Admin: 07/11/19 21:57 Dose: 100 mg Sodium Chloride (Normal Saline) 1,000 mls @ 25 mls/hr IV ASDIRECTED [facility] Last Admin: 07/11/19 11:57 Dose: 25 mls/hr Azithromycin 250 mg/ Sodium (Chloride) 150 mls @ 150 mls/hr IV ONETIME ONE Stop: 07/13/19 09:59 Last Admin: 07/13/19 09:06 Dose: 150 mls/hr Azithromycin 125 mg/ Sodium (Chloride) 150 mls @ 150 mls/hr IV Q12H [facility] Potassium Phosphate 20 mmole/ (Sodium Chloride) 256.6667 mls @ 85.556 mls/hr IV Q3H [facility] Stop: 07/13/19 19:29 Insulin Glargine (Lantus Solostar) 10 units SUBCUT DAILY [facility] Insulin Human Lispro (Humalog) 0 unit SUBCUT QIDACANDBED [facility]; Protocol Last Admin: 07/13/19 07:44 Dose: 2 unit Metformin HCl (Glucophage) 1,000 mg PO BIDMEALS [facility] Last Admin: 07/13/19 09:05 Dose: 1,000 mg Metoclopramide HCl (Reglan) 10 mg IV Q6H [facility] Multivitamins/Minerals (Thera M Plus) 1 tab PO DAILY [facility] Last Admin: 07/13/19 09:06 Dose: 1 tab Ondansetron HCl (Zofran) 4 mg IV Q4H PRN PRN Reason: Nausea/Vomiting Last Admin: 07/11/19 22:01 Dose: 4 mg Oxycodone HCl (Oxycodone) 5 mg PO Q4H PRN PRN Reason: Pain (moderate 4-6) Last Admin: 07/11/19 20:21 Dose: 5 mg Oxycodone HCl (Oxycodone) 10 mg PO Q4H PRN PRN Reason: Pain (severe 7-10) Last Admin: 07/13/19 06:56 Dose: 10 mg Pantoprazole Sodium (Protonix) 40 mg PO BIDAC [facility] Last Admin: 07/13/19 07:42 Dose: 40 mg Discontinued Medications Bisacodyl (Dulcolax) 10 mg PO ONETIME ONE Stop: 07/04/19 12:31 Last Admin: 07/04/19 14:06 Dose: 10 mg Bisacodyl (Dulcolax) 10 mg PO ONETIME ONE Stop: 07/04/19 20:01 Last Admin: 07/04/19 20:33 Dose: 10 mg Bupivacaine HCl (Marcaine 0.5%) Confirm Administered Dose 50 ml .ROUTE .STK-MED ONE Stop: 07/10/19 06:48 Last Admin: 07/10/19 08:01 Dose: 10 ml Calcium Carbonate (Caltrate 600+D 1500 Mg-400 Units) 1 tab PO DAILY [facility] Last Admin: 07/07/19 09:20 Dose: Not Given Ropivacaine 27 ml/Dexamethasone 8 mg/Epinephrine HCl 0.4 mg/ Sodium Chloride 50.6 ml 0 ml NERVRT ASDIRECTED [facility] Last Admin: 07/07/19 13:24 Dose: 80 syringe Ropivacaine 27 ml/Dexamethasone 8 mg/Epinephrine HCl 0.4 mg/ Sodium Chloride 50.6 ml 0 ml NERVRT ASDIRECTED [facility] Last Admin: 07/10/19 07:55 Dose: 80 syringe Dexamethasone (Dexamethasone) Confirm Administered Dose 4 mg .ROUTE .STK-MED ONE Stop: 07/07/19 10:33 Dextrose/Water (Dextrose 50% In Water) 50 ml IVPUSH ONETIME ONE Stop: 07/05/19 04:53 Last Admin: 07/05/19 04:57 Dose: 50 ml Dextrose/Water (Dextrose 50% In Water) Confirm Administered Dose 50 ml .ROUTE .STK-MED ONE Stop: 07/05/19 04:56 Last Admin: 07/05/19 05:16 Dose: Not Given Enoxaparin Sodium (Lovenox) 40 mg SUBCUT DAILY [facility] Last Admin: 07/07/19 08:56 Dose: Not Given Fentanyl (Sublimaze) Confirm Administered Dose 100 mcg .ROUTE .STK-MED ONE Stop: 07/05/19 06:15 Fentanyl (Sublimaze) Confirm Administered Dose 250 mcg .ROUTE .STK-MED ONE Stop: 07/07/19 10:33 Fentanyl (Sublimaze) Confirm Administered Dose 100 mcg .ROUTE .STK-MED ONE Stop: 07/07/19 10:34 Fentanyl (Sublimaze) 50 mcg IVPUSH ONETIME ONE Stop: 07/07/19 10:52 Last Admin: 07/07/19 11:00 Dose: 50 mcg Fentanyl (Sublimaze) Confirm Administered Dose 100 mcg .ROUTE .STK-MED ONE Stop: 07/10/19 07:30 Folic Acid (Folic Acid) 1 mg PO DAILY [facility] Last Admin: 07/07/19 09:20 Dose: Not Given Furosemide (Lasix) 10 mg IVPUSH ONETIME ONE Stop: 07/10/19 14:01 Last Admin: 07/10/19 15:05 Dose: 10 mg Gabapentin (Neurontin) 400 mg PO Q8H [facility] Stop: 07/09/19 06:01 Last Admin: 07/07/19 17:04 Dose: Not Given Glycopyrrolate (Robinul) Confirm Administered Dose 1 mg .ROUTE .STK-MED ONE Stop: 07/07/19 10:33 Hydrocortisone Sodium Succinate (Solu-Cortef) 100 mg IVPUSH ONETIME ONE Stop: 07/08/19 22:33 Last Admin: 07/08/19 22:49 Dose: 100 mg Hydrocortisone Sodium Succinate (Solu-Cortef) 100 mg IVPUSH Q12H [facility] Stop: 07/10/19 10:01 Last Admin: 07/10/19 09:11 Dose: 100 mg Hydromorphone HCl (Dilaudid) 0.5 mg IVPUSH ONETIME ONE Stop: 07/03/19 23:14 Last Admin: 07/03/19 23:45 Dose: 0.5 mg Hydromorphone HCl (Dilaudid [employer] 15 Mg In Ns 30 Ml) 0 mg IV ASDIRECTED PRN; Protocol PRN Reason: Pain Last Admin: 07/10/19 15:27 Dose: 15 mg Sodium Chloride (Normal Saline) 1,000 mls @ 999 mls/hr IV ASDIRECTED [facility] Last Admin: 07/03/19 22:51 Dose: 999 mls/hr Sodium Chloride (Normal Saline) 1,000 mls @ 999 mls/hr IV ASDIRECTED [facility] Last Admin: 07/03/19 23:48 Dose: 999 mls/hr Sodium Chloride (Normal Saline) 1,000 mls @ 200 mls/hr IV ASDIRECTED [facility] Last Admin: 07/04/19 11:33 Dose: 200 mls/hr Magnesium Sulfate 2 gm/ Premix 50 mls @ 25 mls/hr IV Q6H [facility] Stop: 07/04/19 17:59 Last Admin: 07/04/19 16:33 Dose: 25 mls/hr Ferric Sodium Gluconate Complex 250 mg/ Sodium Chloride 120 mls @ 50 mls/hr IV ONETIME ONE Stop: 07/04/19 14:23 Last Admin: 07/04/19 11:57 Dose: 50 mls/hr Ferric Sodium Gluconate Complex 250 mg/ Sodium Chloride 120 mls @ 60 mls/hr IV ONETIME ONE Stop: 07/05/19 10:29 Last Admin: 07/05/19 08:54 Dose: 60 mls/hr Sodium Chloride (Normal Saline) 1,000 mls @ 100 mls/hr IV ASDIRECTED [facility] Last Admin: 07/05/19 00:17 Dose: 100 mls/hr Sodium Chloride (Normal Saline) 70 mls @ 3 mls/sec IV ASDIRECTED [facility] Stop: 07/04/19 16:00 Last Admin: 07/04/19 15:59 Dose: 3 mls/sec Dextrose/Sodium Chloride (Dextrose 5%-Normal Saline) 1,000 mls @ 100 mls/hr IV ASDIRECTED [facility] Last Admin: 07/05/19 11:46 Dose: 100 mls/hr Potassium Chloride 20 meq/Lidocaine HCl 2 ml/ Sodium Chloride 112 mls @ 56 mls/ hr IV Q2H [facility] Stop: 07/05/19 13:59 Potassium Chloride 20 meq/Lidocaine HCl 2 ml/ Sodium Chloride 112 mls @ 56 mls/ hr IV Q2H [facility] Stop: 07/05/19 14:59 Last Admin: 07/05/19 14:26 Dose: 56 mls/hr Ketamine HCl 50 mg/ Sodium (Chloride) 50 mls @ 16.32 mls/hr IV ASDIRECTED [facility] Magnesium Sulfate 2 gm/ Premix 50 mls @ 25 mls/hr IV Q6H [facility] Stop: 07/09/19 05:59 Last Admin: 07/07/19 09:18 Dose: 25 mls/hr Cefoxitin Sodium 2 gm/ Sodium (Chloride) 50 mls @ 100 mls/hr IV ONETIME ONE Stop: 07/07/19 09:29 Last Admin: 07/07/19 13:23 Dose: 100 mls/hr Dextrose/Lactated Ringer's (Dextrose 5%-Lactated Ringers) 1,000 mls @ 100 mls/ hr IV ASDIRECTED [facility] Last Admin: 07/07/19 03:24 Dose: 100 mls/hr Lactated Ringer's (Ringers, Lactated) Confirm Administered Dose 1,000 mls @ as directed .ROUTE .STK-MED ONE Stop: 07/07/19 11:40 Lactated Ringer's (Ringers, Lactated) Confirm Administered Dose 1,000 mls @ as directed .ROUTE .STK-MED ONE Stop: 07/07/19 13:14 Azithromycin 250 mg/ Sodium (Chloride) 250 mls @ 250 mls/hr IV ONETIME ONE Stop: 07/07/19 14:59 Last Admin: 07/07/19 16:55 Dose: 250 mls/hr Lactated Ringer's (Ringers, Lactated) Confirm Administered Dose 1,000 mls @ as directed .ROUTE .STK-MED ONE Stop: 07/07/19 15:09 Dextrose/Lactated Ringer's (Dextrose 5%-Lactated Ringers) 1,000 mls @ 200 mls/ hr IV ASDIRECTED [facility] Last Admin: 07/08/19 06:04 Dose: 200 mls/hr Multivitamins/Minerals 10 ml/Thiamine HCl 100 mg/ Chromium/Copper/Manganese/ Seleni/Zn 1 ml/ Dextrose/Lactated Ringer's 1,012 mls @ 200 mls/hr IV DAILY@ 1600 [facility] Last Admin: 07/10/19 16:02 Dose: 200 mls/hr Cefoxitin Sodium 2 gm/ Sodium (Chloride) 50 mls @ 100 mls/hr IV Q6H [facility] Last Admin: 07/11/19 08:28 Dose: 100 mls/hr Azithromycin 125 mg/ Sodium (Chloride) 150 mls @ 150 mls/hr IV Q12H [facility] Last Admin: 07/11/19 02:14 Dose: 150 mls/hr Magnesium Sulfate 2 gm/ Premix 50 mls @ 25 mls/hr IV Q6H [facility] Stop: 07/09/19 13:59 Last Admin: 07/09/19 05:46 Dose: 25 mls/hr Dextrose/Lactated Ringer's (Dextrose 5%-Lactated Ringers) 1,000 mls @ 100 mls/ hr IV ASDIRECTED [facility] Last Admin: 07/10/19 21:31 Dose: 100 mls/hr Lactated Ringer's (Ringers, Lactated) 1,000 mls @ 999 mls/hr IV ASDIRECTED [facility] Stop: 07/08/19 16:46 Lactated Ringer's (Ringers, Lactated) 1,000 mls @ 500 mls/hr IV ASDIRECTED [facility] Stop: 07/08/19 19:31 Last Admin: 07/08/19 17:15 Dose: 500 mls/hr Sodium Chloride (Normal Saline) 100 mls @ 0 mls/hr IV ASDIRECTED [facility] Stop: 07/08/19 17:31 Last Admin: 07/08/19 18:26 Dose: 3.5 mls/hr Albumin Human (Albumin 25%) 25 gm in 100 mls @ 25 mls/hr IV ONETIME ONE Stop: 07/08/19 23:03 Last Admin: 07/08/19 19:50 Dose: 25 mls/hr Lactated Ringer's (Ringers, Lactated) 1,000 mls @ 250 mls/hr IV ASDIRECTED [facility] Stop: 07/08/19 23:31 Last Admin: 07/08/19 19:30 Dose: 250 mls/hr Albumin Human (Albumin 25%) 25 gm in 100 mls @ 25 mls/hr IV ONETIME ONE Stop: 07/09/19 07:03 Last Admin: 07/09/19 03:19 Dose: 25 mls/hr Albumin Human (Albumin 25%) 25 gm in 100 mls @ 25 mls/hr IV Q8H [facility] Stop: 07/10/19 05:59 Last Admin: 07/10/19 01:30 Dose: 25 mls/hr Lactated Ringer's (Ringers, Lactated) Confirm Administered Dose 1,000 mls @ as directed .ROUTE .STK-MED ONE Stop: 07/10/19 08:12 Magnesium Sulfate 2 gm/ Premix 50 mls @ 25 mls/hr IV Q6H [facility] Stop: 07/14/19 05:59 Last Admin: 07/12/19 09:17 Dose: 25 mls/hr Potassium Phosphate 22.5 mmole (/ Sodium Chloride) 257.5 mls @ 65 mls/hr IV Q4H [facility] Stop: 07/11/19 15:55 Last Admin: 07/11/19 13:23 Dose: 65 mls/hr Potassium Phosphate 22.5 mmole (/ Sodium Chloride) 257.5 mls @ 65 mls/hr IV Q4H [facility] Stop: 07/12/19 19:58 Last Admin: 07/12/19 16:04 Dose: 65 mls/hr Potassium Phosphate 15 mmole/ (Sodium Chloride) 255 mls @ 85 mls/hr IV ONETIME ONE Stop: 07/12/19 22:59 Last Admin: 07/12/19 20:05 Dose: 85 mls/hr Influenza Virus Vaccine (Fluzone Quad [id number] Syringe) 60 mcg IM .ONCE ONE Stop: 07/04/19 10:01 Last Admin: 07/04/19 09:31 Dose: 60 mcg Insulin Glargine (Lantus Solostar) 20 units SUBCUT BEDTIME [facility] Last Admin: 07/06/19 21:10 Dose: 20 units Insulin Glargine (Lantus Solostar) 20 units SUBCUT BEDTIME [facility] Stop: 07/04/19 00:40 Last Admin: 07/04/19 01:02 Dose: 20 units Insulin Glargine (Lantus Solostar) 10 units SUBCUT Q12H [facility] Last Admin: 07/08/19 09:24 Dose: 10 units Insulin Glargine (Lantus Solostar) 20 units SUBCUT BID [facility] Last Admin: 07/11/19 08:36 Dose: 20 units Insulin Human Lispro (Humalog) 0 unit SUBCUT QIDACANDBED [facility]; Protocol Last Admin: 07/07/19 14:06 Dose: Not Given Insulin Human Lispro (Humalog) 14 unit SUBCUT ONETIME ONE Stop: 07/04/19 16:55 Last Admin: 07/04/19 17:06 Dose: 14 units Insulin Human Lispro (Humalog) 0 unit SUBCUT ASDIRECTED PRN; Protocol PRN Reason: MEDIUM CORRECTIONAL DOSING Last Admin: 07/11/19 08:37 Dose: 3 units Insulin Human Lispro (Humalog) 5 unit SUBCUT TIDMEALS [facility] Last Admin: 07/12/19 16:42 Dose: Not Given Insulin Human Regular (Humulin R) 3 unit IVPUSH ONETIME ONE Stop: 07/03/19 23:13 Last Admin: 07/03/19 23:40 Dose: 3 units Insulin Human Regular (Humulin R) 3 unit SUBCUT ONETIME ONE Stop: 07/03/19 23:14 Last Admin: 07/03/19 23:43 Dose: 3 units Iohexol (Omnipaque) 20 ml PO ONETIME ONE Stop: 07/04/19 13:11 Last Admin: 07/04/19 14:16 Dose: 20 ml Iopamidol (Isovue-300 (61%)) 81 ml IV . DIRECTED PRN PRN Reason: RADIOLOGY EXAM Stop: 07/05/19 12:43 Last Admin: 07/04/19 15:59 Dose: 79 ml Iopamidol (Isovue-370 (76%)) 100 ml IV . DIRECTED [facility] Stop: 07/08/19 17:31 Last Admin: 07/08/19 18:26 Dose: 100 ml Ketamine HCl (Ketalar) 27 mg IV ASDIRECTED [facility] Labetalol HCl (Normodyne) Confirm Administered Dose 20 mg .ROUTE .STK-MED ONE Stop: 07/07/19 15:10 Lidocaine/Epinephrine (Xylocaine 1% With Epinephrine 1:100,000) Confirm Administered Dose 50 ml .ROUTE .STK-MED ONE Stop: 07/10/19 06:48 Last Admin: 07/10/19 08:01 Dose: 10 ml Lorazepam (Ativan) 0 mg PO ASDIRECTED [facility]; Protocol Lorazepam (Ativan) 0.5 - 1 mg IVPUSH Q4H PRN PRN Reason: * Last Admin: 07/10/19 05:18 Dose: 1 mg Magnesium Oxide (Magnesium Oxide) 400 mg PO BID [facility] Last Admin: 07/07/19 09:20 Dose: Not Given Meropenem (Merrem) Confirm Administered Dose 500 mg .ROUTE .STK-MED ONE Stop: 07/07/19 12:07 Last Admin: 07/07/19 13:35 Dose: 500 mg Meropenem (Merrem) Confirm Administered Dose 500 mg .ROUTE .STK-MED ONE Stop: 07/10/19 06:48 Last Admin: 07/10/19 08:01 Dose: 500 mg Metoclopramide HCl (Reglan) 10 mg IVPUSH Q6H [facility] Last Admin: 07/12/19 09:14 Dose: 10 mg Metoclopramide HCl (Reglan) 10 mg PO QIDACANDBED [facility] Last Admin: 07/13/19 07:42 Dose: 10 mg Midazolam HCl (Versed 1 Mg/Ml) Confirm Administered Dose 2 mg .ROUTE .STK-MED ONE Stop: 07/05/19 06:15 Midazolam HCl (Versed 1 Mg/Ml) Confirm Administered Dose 2 mg .ROUTE .STK-MED ONE Stop: 07/07/19 10:34 Midazolam HCl (Versed 1 Mg/Ml) Confirm Administered Dose 2 mg .ROUTE .STK-MED ONE Stop: 07/10/19 07:30 Morphine Sulfate (Morphine) 2 mg IVPUSH Q4H PRN PRN Reason: Pain (moderate 4-6) Last Admin: 07/04/19 14:38 Dose: 2 mg Naloxone HCl (Narcan) 0.1 mg IV ASDIRECTED PRN PRN Reason: decreased respiratory rate Neostigmine Methylsulfate (Neostigmine) Confirm Administered Dose 5 mg .ROUTE .STK-MED ONE Stop: 07/07/19 10:33 Ondansetron HCl (Zofran) Confirm Administered Dose 4 mg .ROUTE .STK-MED ONE Stop: 07/07/19 10:33 Oxycodone HCl (Oxycodone) 10 mg PO Q4H PRN PRN Reason: Pain Last Admin: 07/07/19 07:06 Dose: 10 mg Pantoprazole Sodium (Protonix Iv) 40 mg IVPUSH ONETIME ONE Stop: 07/03/19 23:37 Last Admin: 07/03/19 23:48 Dose: 40 mg Pantoprazole Sodium (Protonix Iv) 40 mg IVPUSH Q12H [facility] Last Admin: 07/11/19 01:34 Dose: 40 mg Polyethylene Glycol (Miralax) 238 gm PO ONETIME ONE Stop: 07/04/19 17:01 Last Admin: 07/04/19 16:58 Dose: 238 gm Potassium Chloride (Klor-Con M20) 40 meq PO ONETIME ONE Stop: 07/04/19 12:46 Last Admin: 07/04/19 14:06 Dose: 40 meq Potassium Chloride (Klor-Con M20) 40 meq PO ONETIME ONE Stop: 07/04/19 17:01 Last Admin: 07/04/19 17:10 Dose: 40 meq Potassium Chloride (Klor-Con M20) 40 meq PO ONETIME ONE Stop: 07/05/19 17:01 Last Admin: 07/05/19 16:53 Dose: 40 meq Potassium Chloride (Klor-Con M20) 40 meq PO ONETIME ONE Stop: 07/11/19 14:16 Last Admin: 07/11/19 15:28 Dose: 40 meq Propofol (Diprivan 20 Ml) Confirm Administered Dose 200 mg .ROUTE .STK-MED ONE Stop: 07/05/19 06:16 Propofol (Diprivan 20 Ml) Confirm Administered Dose 200 mg .ROUTE .STK-MED ONE Stop: 07/07/19 10:33 Propofol (Diprivan 20 Ml) Confirm Administered Dose 200 mg .ROUTE .STK-MED ONE Stop: 07/07/19 10:34 Propofol (Diprivan 20 Ml) Confirm Administered Dose 200 mg .ROUTE .STK-MED ONE Stop: 07/10/19 07:30 Senna/Docusate Sodium (Senna Plus) 1 tab PO BID PRN PRN Reason: Constipation Last Admin: 07/06/19 21:30 Dose: 1 tab Sodium Chloride (Saline Flush) 10 ml FLUSH ONETIME [facility] Stop: 07/04/19 16:00 Last Admin: 07/04/19 15:59 Dose: 10 ml Sodium Chloride (Saline Flush) 10 ml FLUSH ONETIME ONE Stop: 07/08/19 17:23 Last Admin: 07/08/19 18:26 Dose: 10 ml Succinylcholine Chloride (Quelicin) Confirm Administered Dose 200 mg .ROUTE .STK -MED ONE Stop: 07/07/19 10:33 Thiamine HCl (Vitamin B-1) 100 mg PO DAILY [facility] Last Admin: 07/07/19 09:21 Dose: Not Given - Exam Quality Assessment: No: Supplemental Oxygen General: Alert, Oriented, Cooperative, No Acute Distress Lungs: Normal Respiratory Effort. No: Wheezing Cardiovascular: Regular Rate, Regular Rhythm GI/Abdominal Exam: Soft, No Distention, Tender Extremities: No Pedal Edema. No: Increased Warmth Skin: Warm, Dry Psy/Mental Status: Alert, Normal Affect. No: Suicidal Ideation - Problem List Review Problem List Initiated/Reviewed/Updated: Yes - My Orders Last 24 Hours: My Active Orders 07/12/19 09:00 Multivitamins w-Iron/Ca/FA/Min [Thera M Plus] 1 tab PO DAILY 07/12/19 09:49 HYDROmorphone [Dilaudid] 1 mg IVPUSH Q4H PRN 07/13/19 09:30 Insulin Glarg,Human.Rec.Analog [LantUS Solostar] 10 units SUBCUT DAILY 07/13/19 14:00 Metoclopramide [Reglan] 10 mg IV Q6H - Plan Plan:: ASSESSMENT AND PLAN - SEVERE ESOPHAGITIS - probable source of anemia and chronic blood loss. Doing well from the standpoint and no pain with swallowing at this time. -Oral proton pump inhibitor twice daily PANCREATIC PSEUDOCYST - evidence of chronic calcified pancreatitis noted on CT scan, with pseudocyst noted at the pancreatic tail. 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 Pain control improving and vital signs have been stable. Culture did grow out a staph species and Escherichia coli. Possible postop ileus. -Oral ciprofloxacin -Surgical management per Dr. Velarde SUICIDAL IDEATIONS - fleeting thoughts of harming himself which have now resolved. Likely due to his acute medical illnesses. He was on precautions a few nights ago but has done well since that time. He reports that his mood is steadily improving. 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 HEPATIC CIRRHOSIS - evidence of esophageal varices as well as splenic vein thrombosis SEVERE EMPHYSEMA - noted on CT scan. Alpha-1 antitrypsin is pending. TYPE 2 DIABETES MELLITUS - blood sugars have been improving after the long- acting insulin was held. -Restart partial dose of his long-acting insulin -QID glucometers -low dose sliding scale Humalog CHRONIC ALCOHOL USE - no evidence for withdrawal. He is interested in treatment for alcohol dependence. -Outpatient treatment MICROCYTIC ANEMIA - likely secondary to chronic blood loss as well as iron deficiency. Hemoglobin stable following transfusion. -Follow-up hemoglobin in a.m. MAINTENANCE ISSUES -DVT prophylaxis; enoxaparin -GI prophylaxis; BID PPI -Sanchez catheter; not indicated -Nutrition; regular diet DISPOSITION - anticipate discharge to [facility] in [place] after the hospital stay. Jens Bailon M.D.
[2019-07-13] MEDS ORDERED: Insulin Glargine,Human Rec. Analog 100 Units/ML 3 ML Pen SUBCUT SCH (09:30)
[2019-07-13] MEDS: Potassium Phosphates 20 MMOLE in Sodium Chloride 0.9% 250 ML IV SCH ×3 (11:33→17:26)
[2019-07-13] MEDS: Metoclopramide 10 MG/2 ML SDV IV SCH ×2 (13:57→21:11)
[2019-07-13] MEDS ORDERED: Azithromycin 125 MG in Sodium Chloride 0.9% 150 ML IV SCH (21:00)
--- NOTE | 2019-07-13 21:17 | PN ---
DATE OF SERVICE: 07/12/2019 The patient has been afebrile with stable vital signs. Oral intake has been fairly good. He is moving his bowels. The blood sugars are fairly low at this point. I think we will discontinue the Lantus and see how he does off insulin other than for coverage. If he does develop some higher blood sugar, we will probably start some metformin as his creatinine is fairly good. Otherwise, maximize activity, work with pulmonary toilet. Phosphate and potassium are marginally low, these will be supplemented today. Isaias Velarde MD /[id number]
--- NOTE | 2019-07-13 22:10 | PN ---
DATE OF SERVICE: 07/13/2019 The patient is complaining of some increasing abdominal pain. He does have some fullness present. We did recheck his abdominal x-ray and there appears to be quite a bit of retained food within the stomach consistent with gastroparesis. Given this, we will switch over the Reglan to IV push for today and restart his Zithromax IV. Potassium marginally low as well. Blood sugar was running a little bit high. We will restart some metformin 1000 mg b.i.d. and recheck some labs in the morning. Otherwise, maximize activity, we will work with pulmonary toilet. Patient when he is ready for discharge currently he is going to be going to a location in [place], where he will undergo some rehab as well as have an area of housing and nutritional support. Isaias Velarde MD /[id number]
[2019-07-14] MEDS: Sodium Chloride 0.9% 1,000 ML IV SCH (01:30)
[2019-07-14] MEDS: HYDROmorphone 1 MG/ML Syringe IVPUSH PRN ×5 (01:30→22:38)
[2019-07-14] MEDS: Metoclopramide 10 MG/2 ML SDV IV SCH ×2 (01:31→14:13)
[2019-07-14] MEDS: oxyCODONE 5 MG Tab PO PRN ×4 (04:18→19:39)
[2019-07-14] MEDS ORDERED: Insulin Glargine,Human Rec. Analog 100 Units/ML 3 ML Pen SUBCUT ONE (08:15)
[2019-07-14] MEDS: Docusate Sodium 100 MG Cap PO SCH ×2 (08:17→21:03)
[2019-07-14] MEDS: Ciprofloxacin 500 MG Tab PO SCH ×2 (08:18→21:02)
[2019-07-14] MEDS: metFORMIN 500 MG Tab PO SCH ×2 (08:20→16:33)
[2019-07-14] MEDS: Pantoprazole 40 MG Tab.CR PO SCH ×2 (08:20→16:35)
[2019-07-14] MEDS: Insulin Lispro 100 Unit/ML 3 ML KwikPen SUBCUT SCH ×4 (08:20→21:00)
[2019-07-14] MEDS: Metoclopramide 10 MG Tab PO SCH ×3 (08:21→21:02)
[2019-07-14] MEDS: Multivitamins with Iron/Calcium/Folic Acid/Minerals Tab PO SCH (08:24)
[2019-07-14] MEDS: Bisacodyl 5 MG Tab PO SCH ×2 (08:24→21:03)
--- NOTE | 2019-07-14 10:18 | PN ---
DATE OF SERVICE: 07/14/2019 SUBJECTIVE: Joe states his pain is controlled. Vital signs have been stable. He has been afebrile. Oral intake 1300 and urine output recorded 150, breakfast recorded, 60% of lunch. He has had 1 bowel movement and several voids, which have not been measured. REVIEW OF SYSTEMS: Remainder of review of systems negative for any pertinent positives and negatives. OBJECTIVE: GENERAL: Joe Tony is a 34-year-old male. VITAL SIGNS: TPR is 98.9, 106, 14, blood pressure 125/82. HEENT: Negative. NECK: Supple. HEART: Regular rate and rhythm. LUNGS: Clear. ABDOMEN: Negative. EXTREMITIES: Negative. ASSESSMENT: Exploratory laparotomy, distal pancreatectomy, splenectomy; date of surgery 07/07/2019. PLAN: Reglan 10 mg p.o. every 6 hours. Check CBC, CMP, mag, phos in a.m. We will evaluate p.r.n. or in a.m. Dione Cunningham PA-C /[id number]
--- NOTE | 2019-07-14 10:41 | PCM.PN ---
- General Info Date of Service: 07/14/19 Subjective Update: Mr. Tony is status post splenectomy and partial pancreatectomy as well as debridement of a pancreatic pseudocyst. His white blood cell count is increased over the past few days he reports increase in abdominal pain. Heart rate has increased and he is mildly tachycardic. Vital signs are otherwise stable and oxygenation is within desired range. Functional Status: Reports: Tolerating Diet, Ambulating, Urinating - Review of Systems General: Reports: Weakness, Fatigue. Denies: Fever, Chills Pulmonary: Reports: No Symptoms Cardiovascular: Reports: No Symptoms Gastrointestinal: Reports: Abdominal Pain. Denies: Constipation, Diarrhea, Difficulty Swallowing, Nausea, Vomiting Genitourinary: Reports: No Symptoms - Patient Data Vitals - Most Recent: Last Vital Signs Temp 98.0 F 07/14/19 08:00 Pulse 109 H 07/14/19 08:00 Resp 16 07/14/19 08:00 BP 134/87 07/14/19 08:00 Pulse Ox 97 07/14/19 08:00 Weight - Most Recent: 120 lb 5.958 oz I&O - Last 24 Hours: Intake & Output 07/13/19 07/14/19 07/14/19 22:59 06:59 14:59 Intake Total 1327 1228 Output Total 150 Balance 1327 1078 Lab Results Last 24 Hours: Laboratory Results - last 24 hr 07/10/19 07/14/19 07/14/19 Range/Units 06:42 04:10 04:10 WBC 22.9 H (4.5-11.0) K/uL RBC 4.67 (4.30-5.90) M/uL Hgb 12.0 (12.0-15.0) g/dL Hct 39.4 L (40.0-54.0) % MCV 84 (80-98) fL MCH 26 L (27-31) pg MCHC 31 L (32-36) % Plt Count 985 H (150-400) K/uL Sodium 137 L (140-148) mmol/L Potassium 4.0 (3.6-5.2) mmol/L Chloride 100 (100-108) mmol/L Carbon Dioxide 27 (21-32) mmol/L Anion Gap 14.0 (5.0-14.0) mmol/L BUN 7 (7-18) mg/dL Creatinine 0.6 L (0.8-1.3) mg/dL Est Cr Clr Drug Dosing 131.44 mL/min Estimated GFR (MDRD) > 60 (>60) Glucose 242 H (74-106) mg/dL Calcium 8.1 L (8.5-10.1) mg/dL Phosphorus 3.1 (2.5-4.9) mg/dL Total Bilirubin 0.4 (0.2-1.0) mg/dL AST 12 L (15-37) U/L ALT 19 (12-78) U/L Alkaline Phosphatase 109 (46-116) U/L Total Protein 6.2 L (6.4-8.2) g/dL Albumin 2.5 L (3.4-5.0) g/dL Globulin 3.7 H (2.3-3.5) g/dL Albumin/Globulin Ratio 0.7 L (1.2-2.2) Crossmatch See Detail Med Orders - Current: Current Medications Azithromycin (Zithromax) 250 mg PO Q24H [facility] Bisacodyl (Dulcolax) 10 mg PO BID [facility] Last Admin: 07/14/19 08:24 Dose: 10 mg Ciprofloxacin (Ciprofloxacin Hcl) 500 mg PO BID@0730,2100 [facility] Last Admin: 07/14/19 08:18 Dose: 500 mg Dextrose (Glutose 15) 15 gm PO ASDIRECTED PRN PRN Reason: HYPOGLYCEMIA Dextrose/Water (Dextrose 50% In Water) 50 ml IVPUSH ASDIRECTED PRN PRN Reason: HYPOGLYCEMIA Last Admin: 07/08/19 21:12 Dose: 50 ml Docusate Sodium (Colace) 100 mg PO BID [facility] Last Admin: 07/14/19 08:17 Dose: 100 mg Enoxaparin Sodium (Lovenox) 40 mg SUBCUT Q24H [facility] Last Admin: 07/13/19 09:12 Dose: 40 mg Glucagon (Glucagen) 1 mg IM ASDIRECTED PRN PRN Reason: HYPOGLYCEMIA Hydromorphone HCl (Dilaudid) 1 mg IVPUSH Q4H PRN PRN Reason: Pain (severe 7-10) Last Admin: 07/14/19 10:30 Dose: 1 mg Hydroxyzine HCl (Vistaril) 100 mg IM Q4H PRN PRN Reason: pain Last Admin: 07/11/19 21:57 Dose: 100 mg Sodium Chloride (Normal Saline) 1,000 mls @ 25 mls/hr IV ASDIRECTED [facility] Last Admin: 07/14/19 01:30 Dose: 25 mls/hr Insulin Glargine (Lantus Solostar) 10 units SUBCUT BEDTIME [facility] Insulin Human Lispro (Humalog) 0 unit SUBCUT QIDACANDBED [facility]; Protocol Last Admin: 07/14/19 08:20 Dose: Not Given Metformin HCl (Glucophage) 1,000 mg PO BIDMEALS [facility] Last Admin: 07/14/19 08:20 Dose: 1,000 mg Metoclopramide HCl (Reglan) 10 mg PO Q6H [facility] Last Admin: 07/14/19 08:21 Dose: 10 mg Multivitamins/Minerals (Thera M Plus) 1 tab PO DAILY [facility] Last Admin: 07/14/19 08:24 Dose: 1 tab Ondansetron HCl (Zofran) 4 mg IV Q4H PRN PRN Reason: Nausea/Vomiting Last Admin: 07/11/19 22:01 Dose: 4 mg Oxycodone HCl (Oxycodone) 5 mg PO Q4H PRN PRN Reason: Pain (moderate 4-6) Last Admin: 07/14/19 08:35 Dose: 5 mg Oxycodone HCl (Oxycodone) 10 mg PO Q4H PRN PRN Reason: Pain (severe 7-10) Last Admin: 07/13/19 23:49 Dose: 10 mg Pantoprazole Sodium (Protonix) 40 mg PO BIDAC [facility] Last Admin: 07/14/19 08:20 Dose: 40 mg Discontinued Medications Bisacodyl (Dulcolax) 10 mg PO ONETIME ONE Stop: 07/04/19 12:31 Last Admin: 07/04/19 14:06 Dose: 10 mg Bisacodyl (Dulcolax) 10 mg PO ONETIME ONE Stop: 07/04/19 20:01 Last Admin: 07/04/19 20:33 Dose: 10 mg Bupivacaine HCl (Marcaine 0.5%) Confirm Administered Dose 50 ml .ROUTE .STK-MED ONE Stop: 07/10/19 06:48 Last Admin: 07/10/19 08:01 Dose: 10 ml Calcium Carbonate (Caltrate 600+D 1500 Mg-400 Units) 1 tab PO DAILY [facility] Last Admin: 07/07/19 09:20 Dose: Not Given Ciprofloxacin (Ciprofloxacin Hcl) 500 mg PO Q12H [facility] Last Admin: 07/13/19 23:20 Dose: 500 mg Ropivacaine 27 ml/Dexamethasone 8 mg/Epinephrine HCl 0.4 mg/ Sodium Chloride 50.6 ml 0 ml NERVRT ASDIRECTED [facility] Last Admin: 07/07/19 13:24 Dose: 80 syringe Ropivacaine 27 ml/Dexamethasone 8 mg/Epinephrine HCl 0.4 mg/ Sodium Chloride 50.6 ml 0 ml NERVRT ASDIRECTED [facility] Last Admin: 07/10/19 07:55 Dose: 80 syringe Dexamethasone (Dexamethasone) Confirm Administered Dose 4 mg .ROUTE .STK-MED ONE Stop: 07/07/19 10:33 Dextrose/Water (Dextrose 50% In Water) 50 ml IVPUSH ONETIME ONE Stop: 07/05/19 04:53 Last Admin: 07/05/19 04:57 Dose: 50 ml Dextrose/Water (Dextrose 50% In Water) Confirm Administered Dose 50 ml .ROUTE .STK-MED ONE Stop: 07/05/19 04:56 Last Admin: 07/05/19 05:16 Dose: Not Given Enoxaparin Sodium (Lovenox) 40 mg SUBCUT DAILY [facility] Last Admin: 07/07/19 08:56 Dose: Not Given Fentanyl (Sublimaze) Confirm Administered Dose 100 mcg .ROUTE .STK-MED ONE Stop: 07/05/19 06:15 Fentanyl (Sublimaze) Confirm Administered Dose 250 mcg .ROUTE .STK-MED ONE Stop: 07/07/19 10:33 Fentanyl (Sublimaze) Confirm Administered Dose 100 mcg .ROUTE .STK-MED ONE Stop: 07/07/19 10:34 Fentanyl (Sublimaze) 50 mcg IVPUSH ONETIME ONE Stop: 07/07/19 10:52 Last Admin: 07/07/19 11:00 Dose: 50 mcg Fentanyl (Sublimaze) Confirm Administered Dose 100 mcg .ROUTE .STK-MED ONE Stop: 07/10/19 07:30 Folic Acid (Folic Acid) 1 mg PO DAILY [facility] Last Admin: 07/07/19 09:20 Dose: Not Given Furosemide (Lasix) 10 mg IVPUSH ONETIME ONE Stop: 07/10/19 14:01 Last Admin: 07/10/19 15:05 Dose: 10 mg Gabapentin (Neurontin) 400 mg PO Q8H [facility] Stop: 07/09/19 06:01 Last Admin: 07/07/19 17:04 Dose: Not Given Glycopyrrolate (Robinul) Confirm Administered Dose 1 mg .ROUTE .STK-MED ONE Stop: 07/07/19 10:33 Hydrocortisone Sodium Succinate (Solu-Cortef) 100 mg IVPUSH ONETIME ONE Stop: 07/08/19 22:33 Last Admin: 07/08/19 22:49 Dose: 100 mg Hydrocortisone Sodium Succinate (Solu-Cortef) 100 mg IVPUSH Q12H [facility] Stop: 07/10/19 10:01 Last Admin: 07/10/19 09:11 Dose: 100 mg Hydromorphone HCl (Dilaudid) 0.5 mg IVPUSH ONETIME ONE Stop: 07/03/19 23:14 Last Admin: 07/03/19 23:45 Dose: 0.5 mg Hydromorphone HCl (Dilaudid Director Education 15 Mg In Ns 30 Ml) 0 mg IV ASDIRECTED PRN; Protocol PRN Reason: Pain Last Admin: 07/10/19 15:27 Dose: 15 mg Sodium Chloride (Normal Saline) 1,000 mls @ 999 mls/hr IV ASDIRECTED [facility] Last Admin: 07/03/19 22:51 Dose: 999 mls/hr Sodium Chloride (Normal Saline) 1,000 mls @ 999 mls/hr IV ASDIRECTED [facility] Last Admin: 07/03/19 23:48 Dose: 999 mls/hr Sodium Chloride (Normal Saline) 1,000 mls @ 200 mls/hr IV ASDIRECTED [facility] Last Admin: 07/04/19 11:33 Dose: 200 mls/hr Magnesium Sulfate 2 gm/ Premix 50 mls @ 25 mls/hr IV Q6H [facility] Stop: 07/04/19 17:59 Last Admin: 07/04/19 16:33 Dose: 25 mls/hr Ferric Sodium Gluconate Complex 250 mg/ Sodium Chloride 120 mls @ 50 mls/hr IV ONETIME ONE Stop: 07/04/19 14:23 Last Admin: 07/04/19 11:57 Dose: 50 mls/hr Ferric Sodium Gluconate Complex 250 mg/ Sodium Chloride 120 mls @ 60 mls/hr IV ONETIME ONE Stop: 07/05/19 10:29 Last Admin: 07/05/19 08:54 Dose: 60 mls/hr Sodium Chloride (Normal Saline) 1,000 mls @ 100 mls/hr IV ASDIRECTED [facility] Last Admin: 07/05/19 00:17 Dose: 100 mls/hr Sodium Chloride (Normal Saline) 70 mls @ 3 mls/sec IV ASDIRECTED [facility] Stop: 07/04/19 16:00 Last Admin: 07/04/19 15:59 Dose: 3 mls/sec Dextrose/Sodium Chloride (Dextrose 5%-Normal Saline) 1,000 mls @ 100 mls/hr IV ASDIRECTED [facility] Last Admin: 07/05/19 11:46 Dose: 100 mls/hr Potassium Chloride 20 meq/Lidocaine HCl 2 ml/ Sodium Chloride 112 mls @ 56 mls/ hr IV Q2H [facility] Stop: 07/05/19 13:59 Potassium Chloride 20 meq/Lidocaine HCl 2 ml/ Sodium Chloride 112 mls @ 56 mls/ hr IV Q2H [facility] Stop: 07/05/19 14:59 Last Admin: 07/05/19 14:26 Dose: 56 mls/hr Ketamine HCl 50 mg/ Sodium (Chloride) 50 mls @ 16.32 mls/hr IV ASDIRECTED [facility] Magnesium Sulfate 2 gm/ Premix 50 mls @ 25 mls/hr IV Q6H [facility] Stop: 07/09/19 05:59 Last Admin: 07/07/19 09:18 Dose: 25 mls/hr Cefoxitin Sodium 2 gm/ Sodium (Chloride) 50 mls @ 100 mls/hr IV ONETIME ONE Stop: 07/07/19 09:29 Last Admin: 07/07/19 13:23 Dose: 100 mls/hr Dextrose/Lactated Ringer's (Dextrose 5%-Lactated Ringers) 1,000 mls @ 100 mls/ hr IV ASDIRECTED [facility] Last Admin: 07/07/19 03:24 Dose: 100 mls/hr Lactated Ringer's (Ringers, Lactated) Confirm Administered Dose 1,000 mls @ as directed .ROUTE .STK-MED ONE Stop: 07/07/19 11:40 Lactated Ringer's (Ringers, Lactated) Confirm Administered Dose 1,000 mls @ as directed .ROUTE .STK-MED ONE Stop: 07/07/19 13:14 Azithromycin 250 mg/ Sodium (Chloride) 250 mls @ 250 mls/hr IV ONETIME ONE Stop: 07/07/19 14:59 Last Admin: 07/07/19 16:55 Dose: 250 mls/hr Lactated Ringer's (Ringers, Lactated) Confirm Administered Dose 1,000 mls @ as directed .ROUTE .STK-MED ONE Stop: 07/07/19 15:09 Dextrose/Lactated Ringer's (Dextrose 5%-Lactated Ringers) 1,000 mls @ 200 mls/ hr IV ASDIRECTED [facility] Last Admin: 07/08/19 06:04 Dose: 200 mls/hr Multivitamins/Minerals 10 ml/Thiamine HCl 100 mg/ Chromium/Copper/Manganese/ Seleni/Zn 1 ml/ Dextrose/Lactated Ringer's 1,012 mls @ 200 mls/hr IV DAILY@ 1600 [facility] Last Admin: 07/10/19 16:02 Dose: 200 mls/hr Cefoxitin Sodium 2 gm/ Sodium (Chloride) 50 mls @ 100 mls/hr IV Q6H [facility] Last Admin: 07/11/19 08:28 Dose: 100 mls/hr Azithromycin 125 mg/ Sodium (Chloride) 150 mls @ 150 mls/hr IV Q12H [facility] Last Admin: 07/11/19 02:14 Dose: 150 mls/hr Magnesium Sulfate 2 gm/ Premix 50 mls @ 25 mls/hr IV Q6H [facility] Stop: 07/09/19 13:59 Last Admin: 07/09/19 05:46 Dose: 25 mls/hr Dextrose/Lactated Ringer's (Dextrose 5%-Lactated Ringers) 1,000 mls @ 100 mls/ hr IV ASDIRECTED [facility] Last Admin: 07/10/19 21:31 Dose: 100 mls/hr Lactated Ringer's (Ringers, Lactated) 1,000 mls @ 999 mls/hr IV ASDIRECTED [facility] Stop: 07/08/19 16:46 Lactated Ringer's (Ringers, Lactated) 1,000 mls @ 500 mls/hr IV ASDIRECTED [facility] Stop: 07/08/19 19:31 Last Admin: 07/08/19 17:15 Dose: 500 mls/hr Sodium Chloride (Normal Saline) 100 mls @ 0 mls/hr IV ASDIRECTED [facility] Stop: 07/08/19 17:31 Last Admin: 07/08/19 18:26 Dose: 3.5 mls/hr Albumin Human (Albumin 25%) 25 gm in 100 mls @ 25 mls/hr IV ONETIME ONE Stop: 07/08/19 23:03 Last Admin: 07/08/19 19:50 Dose: 25 mls/hr Lactated Ringer's (Ringers, Lactated) 1,000 mls @ 250 mls/hr IV ASDIRECTED [facility] Stop: 07/08/19 23:31 Last Admin: 07/08/19 19:30 Dose: 250 mls/hr Albumin Human (Albumin 25%) 25 gm in 100 mls @ 25 mls/hr IV ONETIME ONE Stop: 07/09/19 07:03 Last Admin: 07/09/19 03:19 Dose: 25 mls/hr Albumin Human (Albumin 25%) 25 gm in 100 mls @ 25 mls/hr IV Q8H [facility] Stop: 07/10/19 05:59 Last Admin: 07/10/19 01:30 Dose: 25 mls/hr Lactated Ringer's (Ringers, Lactated) Confirm Administered Dose 1,000 mls @ as directed .ROUTE .STK-MED ONE Stop: 07/10/19 08:12 Magnesium Sulfate 2 gm/ Premix 50 mls @ 25 mls/hr IV Q6H [facility] Stop: 07/14/19 05:59 Last Admin: 07/12/19 09:17 Dose: 25 mls/hr Potassium Phosphate 22.5 mmole (/ Sodium Chloride) 257.5 mls @ 65 mls/hr IV Q4H [facility] Stop: 07/11/19 15:55 Last Admin: 07/11/19 13:23 Dose: 65 mls/hr Potassium Phosphate 22.5 mmole (/ Sodium Chloride) 257.5 mls @ 65 mls/hr IV Q4H [facility] Stop: 07/12/19 19:58 Last Admin: 07/12/19 16:04 Dose: 65 mls/hr Potassium Phosphate 15 mmole/ (Sodium Chloride) 255 mls @ 85 mls/hr IV ONETIME ONE Stop: 07/12/19 22:59 Last Admin: 07/12/19 20:05 Dose: 85 mls/hr Azithromycin 250 mg/ Sodium (Chloride) 150 mls @ 150 mls/hr IV ONETIME ONE Stop: 07/13/19 09:59 Last Admin: 07/13/19 09:06 Dose: 150 mls/hr Azithromycin 125 mg/ Sodium (Chloride) 150 mls @ 150 mls/hr IV Q12H [facility] Last Admin: 07/13/19 21:10 Dose: 150 mls/hr Potassium Phosphate 20 mmole/ (Sodium Chloride) 256.6667 mls @ 85.556 mls/hr IV Q3H [facility] Stop: 07/13/19 19:29 Last Admin: 07/13/19 17:26 Dose: 85.556 mls/hr Influenza Virus Vaccine (Fluzone Quad [id number] Syringe) 60 mcg IM .ONCE ONE Stop: 07/04/19 10:01 Last Admin: 07/04/19 09:31 Dose: 60 mcg Insulin Glargine (Lantus Solostar) 20 units SUBCUT BEDTIME [facility] Last Admin: 07/06/19 21:10 Dose: 20 units Insulin Glargine (Lantus Solostar) 20 units SUBCUT BEDTIME [facility] Stop: 07/04/19 00:40 Last Admin: 07/04/19 01:02 Dose: 20 units Insulin Glargine (Lantus Solostar) 10 units SUBCUT Q12H [facility] Last Admin: 07/08/19 09:24 Dose: 10 units Insulin Glargine (Lantus Solostar) 20 units SUBCUT BID [facility] Last Admin: 07/11/19 08:36 Dose: 20 units Insulin Glargine (Lantus Solostar) 10 units SUBCUT DAILY [facility] Last Admin: 07/13/19 10:03 Dose: 10 units Insulin Glargine (Lantus Solostar) 8 units SUBCUT ONETIME ONE Stop: 07/14/19 08:16 Last Admin: 07/14/19 08:22 Dose: 8 units Insulin Human Lispro (Humalog) 0 unit SUBCUT QIDACANDBED [facility]; Protocol Last Admin: 07/07/19 14:06 Dose: Not Given Insulin Human Lispro (Humalog) 14 unit SUBCUT ONETIME ONE Stop: 07/04/19 16:55 Last Admin: 07/04/19 17:06 Dose: 14 units Insulin Human Lispro (Humalog) 0 unit SUBCUT ASDIRECTED PRN; Protocol PRN Reason: MEDIUM CORRECTIONAL DOSING Last Admin: 07/11/19 08:37 Dose: 3 units Insulin Human Lispro (Humalog) 5 unit SUBCUT TIDMEALS [facility] Last Admin: 07/12/19 16:42 Dose: Not Given Insulin Human Regular (Humulin R) 3 unit IVPUSH ONETIME ONE Stop: 07/03/19 23:13 Last Admin: 07/03/19 23:40 Dose: 3 units Insulin Human Regular (Humulin R) 3 unit SUBCUT ONETIME ONE Stop: 07/03/19 23:14 Last Admin: 07/03/19 23:43 Dose: 3 units Iohexol (Omnipaque) 20 ml PO ONETIME ONE Stop: 07/04/19 13:11 Last Admin: 07/04/19 14:16 Dose: 20 ml Iopamidol (Isovue-300 (61%)) 81 ml IV . DIRECTED PRN PRN Reason: RADIOLOGY EXAM Stop: 07/05/19 12:43 Last Admin: 07/04/19 15:59 Dose: 79 ml Iopamidol (Isovue-370 (76%)) 100 ml IV . DIRECTED [facility] Stop: 07/08/19 17:31 Last Admin: 07/08/19 18:26 Dose: 100 ml Ketamine HCl (Ketalar) 27 mg IV ASDIRECTED [facility] Labetalol HCl (Normodyne) Confirm Administered Dose 20 mg .ROUTE .STK-MED ONE Stop: 07/07/19 15:10 Lidocaine/Epinephrine (Xylocaine 1% With Epinephrine 1:100,000) Confirm Administered Dose 50 ml .ROUTE .STK-MED ONE Stop: 07/10/19 06:48 Last Admin: 07/10/19 08:01 Dose: 10 ml Lorazepam (Ativan) 0 mg PO ASDIRECTED [facility]; Protocol Lorazepam (Ativan) 0.5 - 1 mg IVPUSH Q4H PRN PRN Reason: * Last Admin: 07/10/19 05:18 Dose: 1 mg Magnesium Oxide (Magnesium Oxide) 400 mg PO BID [facility] Last Admin: 07/07/19 09:20 Dose: Not Given Meropenem (Merrem) Confirm Administered Dose 500 mg .ROUTE .STK-MED ONE Stop: 07/07/19 12:07 Last Admin: 07/07/19 13:35 Dose: 500 mg Meropenem (Merrem) Confirm Administered Dose 500 mg .ROUTE .STK-MED ONE Stop: 07/10/19 06:48 Last Admin: 07/10/19 08:01 Dose: 500 mg Metoclopramide HCl (Reglan) 10 mg IVPUSH Q6H [facility] Last Admin: 07/12/19 09:14 Dose: 10 mg Metoclopramide HCl (Reglan) 10 mg PO QIDACANDBED [facility] Last Admin: 07/13/19 07:42 Dose: 10 mg Metoclopramide HCl (Reglan) 10 mg IV Q6H [facility] Last Admin: 07/14/19 01:31 Dose: 10 mg Midazolam HCl (Versed 1 Mg/Ml) Confirm Administered Dose 2 mg .ROUTE .STK-MED ONE Stop: 07/05/19 06:15 Midazolam HCl (Versed 1 Mg/Ml) Confirm Administered Dose 2 mg .ROUTE .STK-MED ONE Stop: 07/07/19 10:34 Midazolam HCl (Versed 1 Mg/Ml) Confirm Administered Dose 2 mg .ROUTE .STK-MED ONE Stop: 07/10/19 07:30 Morphine Sulfate (Morphine) 2 mg IVPUSH Q4H PRN PRN Reason: Pain (moderate 4-6) Last Admin: 07/04/19 14:38 Dose: 2 mg Naloxone HCl (Narcan) 0.1 mg IV ASDIRECTED PRN PRN Reason: decreased respiratory rate Neostigmine Methylsulfate (Neostigmine) Confirm Administered Dose 5 mg .ROUTE .STK-MED ONE Stop: 07/07/19 10:33 Ondansetron HCl (Zofran) Confirm Administered Dose 4 mg .ROUTE .STK-MED ONE Stop: 07/07/19 10:33 Oxycodone HCl (Oxycodone) 10 mg PO Q4H PRN PRN Reason: Pain Last Admin: 07/07/19 07:06 Dose: 10 mg Pantoprazole Sodium (Protonix Iv) 40 mg IVPUSH ONETIME ONE Stop: 07/03/19 23:37 Last Admin: 07/03/19 23:48 Dose: 40 mg Pantoprazole Sodium (Protonix Iv) 40 mg IVPUSH Q12H [facility] Last Admin: 07/11/19 01:34 Dose: 40 mg Polyethylene Glycol (Miralax) 238 gm PO ONETIME ONE Stop: 07/04/19 17:01 Last Admin: 07/04/19 16:58 Dose: 238 gm Potassium Chloride (Klor-Con M20) 40 meq PO ONETIME ONE Stop: 07/04/19 12:46 Last Admin: 07/04/19 14:06 Dose: 40 meq Potassium Chloride (Klor-Con M20) 40 meq PO ONETIME ONE Stop: 07/04/19 17:01 Last Admin: 07/04/19 17:10 Dose: 40 meq Potassium Chloride (Klor-Con M20) 40 meq PO ONETIME ONE Stop: 07/05/19 17:01 Last Admin: 07/05/19 16:53 Dose: 40 meq Potassium Chloride (Klor-Con M20) 40 meq PO ONETIME ONE Stop: 07/11/19 14:16 Last Admin: 07/11/19 15:28 Dose: 40 meq Propofol (Diprivan 20 Ml) Confirm Administered Dose 200 mg .ROUTE .STK-MED ONE Stop: 07/05/19 06:16 Propofol (Diprivan 20 Ml) Confirm Administered Dose 200 mg .ROUTE .STK-MED ONE Stop: 07/07/19 10:33 Propofol (Diprivan 20 Ml) Confirm Administered Dose 200 mg .ROUTE .STK-MED ONE Stop: 07/07/19 10:34 Propofol (Diprivan 20 Ml) Confirm Administered Dose 200 mg .ROUTE .STK-MED ONE Stop: 07/10/19 07:30 Senna/Docusate Sodium (Senna Plus) 1 tab PO BID PRN PRN Reason: Constipation Last Admin: 07/06/19 21:30 Dose: 1 tab Sodium Chloride (Saline Flush) 10 ml FLUSH ONETIME [facility] Stop: 07/04/19 16:00 Last Admin: 07/04/19 15:59 Dose: 10 ml Sodium Chloride (Saline Flush) 10 ml FLUSH ONETIME ONE Stop: 07/08/19 17:23 Last Admin: 07/08/19 18:26 Dose: 10 ml Succinylcholine Chloride (Quelicin) Confirm Administered Dose 200 mg .ROUTE .STK -MED ONE Stop: 07/07/19 10:33 Thiamine HCl (Vitamin B-1) 100 mg PO DAILY [facility] Last Admin: 07/07/19 09:21 Dose: Not Given - Exam Quality Assessment: DVT Prophylaxis General: Alert, Oriented, Cooperative, Mild Distress Lungs: Clear to Auscultation, Normal Respiratory Effort Cardiovascular: Regular Rate, Regular Rhythm, No Murmurs GI/Abdominal Exam: Soft, No Organomegaly, Distended, Tender. No: Guarding, Rigid, Rebound Extremities: Non-Tender, No Pedal Edema - Problem List Review Problem List Initiated/Reviewed/Updated: Yes - My Orders Last 24 Hours: My Active Orders 07/14/19 10:33 Abdomen Pelvis w Cont [CT] Stat - Plan Plan:: ASSESSMENT AND PLAN - SEVERE ESOPHAGITIS - probable source of anemia and chronic blood loss. Doing well from the standpoint and no pain with swallowing at this time. -Oral proton pump inhibitor twice daily PANCREATIC PSEUDOCYST - evidence of chronic calcified pancreatitis noted on CT scan, with pseudocyst noted at the pancreatic tail. 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 He has experienced increased pain and progessive leukocytosis -CT scan of the abdomen and pelvis with IV contrast -Oral ciprofloxacin -Surgical management per Dr. Velarde SUICIDAL IDEATIONS - fleeting thoughts of harming himself which have now resolved. Likely due to his acute medical illnesses. He was on precautions a few nights ago but has done well since that time. He reports that his mood is steadily improving. 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 HEPATIC CIRRHOSIS - evidence of esophageal varices as well as splenic vein thrombosis SEVERE EMPHYSEMA - noted on CT scan. Alpha-1 antitrypsin is pending. TYPE 2 DIABETES MELLITUS - blood sugars have been improving after the long- acting insulin was held. -Restart partial dose of his long-acting insulin -QID glucometers -low dose sliding scale Humalog CHRONIC ALCOHOL USE - no evidence for withdrawal. He is interested in treatment for alcohol dependence. -Outpatient treatment MICROCYTIC ANEMIA - likely secondary to chronic blood loss as well as iron deficiency. Hemoglobin stable following transfusion. -Follow-up hemoglobin in a.m. MAINTENANCE ISSUES -DVT prophylaxis; enoxaparin -GI prophylaxis; BID PPI -Sanchez catheter; not indicated -Nutrition; regular diet DISPOSITION - anticipate discharge to [facility] in [place] after the hospital stay.
[2019-07-14] MEDS: Azithromycin 250 MG Tab PO SCH (10:46)
[2019-07-14] MEDS: Enoxaparin 40 MG/0.4 ML Syringe SUBCUT SCH (10:46)
[2019-07-14] MEDS ORDERED: Iopamidol 612 MG/ML 100 ML Bottle IV ONE (10:47)
--- NOTE | 2019-07-14 15:20 | CT ---
Abdomen Pelvis w Cont CLINICAL HISTORY: Leukocytosis and abdominal pain COMPARISON: 07/08/2019. TECHNIQUE: Axial tomographic images are obtained from the dome of the diaphragm to the pubic symphysis without IV contrast enhancement. No oral contrast was used. As described os show bilateral pleural effusions right greater than left increased since prior study FINDINGS: The lung bases show scattered emphysematous bulla. There is also patchy airspace disease which is increased since prior study. The liver shows no mass or biliary dilatation. The gallbladder is nondistended. The spleen has been removed. There is been extensive left upper quadrant surgery.. The pancreas contains numerous calcifications. There are some atrophic changes.. The adrenal glands appear normal bilaterally. The kidneys show no mass or hydronephrosis. The aorta has a normal course and caliber. There is no suspicious retroperitoneal adenopathy. There is moderate to diffuse small bowel distention with some scattered air-fluid levels. There is some fecalization of small bowel content in the ileum. There is diffuse the distention of the right and transverse colon to the hepatic flexure. Descending and sigmoid colon are much less distended. There is no wall thickening. No free air is identified. There appears to be a small amount of free fluid. The bladder is mildly distended. There is also mildly thick-walled. The there is some air in the bladder likely from catheterization. IMPRESSION: Moderate to diffuse small bowel distention with some fecalization of the stool small bowel content. There is also distention of the right and transverse colon to the region of surgery in the left upper quadrant which may be bowel anastomosis. The colon distal to this is less distended. Partial obstruction versus severe ileus are considerations Possible small amount of ascites Small bibasal effusions Previous splenectomy Moderate diffuse bladder wall thickening and bladder distention
[2019-07-14] MEDS ORDERED: Insulin Glargine,Human Rec. Analog 100 Units/ML 3 ML Pen SUBCUT SCH (21:00)
[2019-07-15] MEDS: oxyCODONE 5 MG Tab PO PRN ×6 (00:35→23:41)
[2019-07-15] MEDS: Metoclopramide 10 MG Tab PO SCH ×4 (01:54→20:21)
[2019-07-15] MEDS: HYDROmorphone 1 MG/ML Syringe IVPUSH PRN ×2 (02:20→20:28)
[2019-07-15] MEDS: Ondansetron 4 MG/2 ML SDV IV PRN (06:57)
[2019-07-15] MEDS: Insulin Lispro 100 Unit/ML 3 ML KwikPen SUBCUT SCH ×4 (09:16→20:26)
[2019-07-15] MEDS: Ciprofloxacin 500 MG Tab PO SCH ×2 (09:18→20:20)
[2019-07-15] MEDS: Pantoprazole 40 MG Tab.CR PO SCH ×2 (09:18→16:32)
[2019-07-15] MEDS: Multivitamins with Iron/Calcium/Folic Acid/Minerals Tab PO SCH (09:20)
[2019-07-15] MEDS: Bisacodyl 5 MG Tab PO SCH ×2 (09:20→20:21)
[2019-07-15] MEDS: Aspirin 325 MG Tab.EC PO SCH (09:20)
[2019-07-15] MEDS: Enoxaparin 40 MG/0.4 ML Syringe SUBCUT SCH (09:21)
[2019-07-15] MEDS: Magnesium Sulfate/Water 2 GM in Premix Bag 1 BAG IV SCH ×3 (09:22→21:37)
[2019-07-15] MEDS: Docusate Sodium 100 MG Cap PO SCH ×2 (09:23→20:21)
--- NOTE | 2019-07-15 10:25 | PCM.PN ---
- General Info Date of Service: 07/15/19 Subjective Update: Mr. Tony continues to experience difficulty with an ileus and bloating. Glucose levels have been decreased because of decreased oral intake. He has been reluctant to walk in the hallways for sit in the chair. Functional Status: Reports: Urinating - Review of Systems General: Reports: Weakness. Denies: Fever, Chills Pulmonary: Reports: No Symptoms Cardiovascular: Reports: No Symptoms Gastrointestinal: Reports: Abdominal Pain, Flatus, Nausea. Denies: Constipation , Diarrhea, Difficulty Swallowing, Vomiting - Patient Data Vitals - Most Recent: Last Vital Signs Temp 98.7 F 07/15/19 08:00 Pulse 115 H 07/15/19 08:00 Resp 15 07/15/19 08:00 BP 139/97 H 07/15/19 08:00 Pulse Ox 95 07/15/19 08:00 Weight - Most Recent: 120 lb 5.958 oz I&O - Last 24 Hours: Intake & Output 07/14/19 07/15/19 07/15/19 22:59 06:59 14:59 Intake Total 0 780 50 Output Total 1200 250 200 Balance -1200 530 -150 Lab Results Last 24 Hours: Laboratory Results - last 24 hr 07/15/19 07/15/19 Range/Units 04:00 04:00 WBC 16.5 H (4.5-11.0) K/uL RBC 4.60 (4.30-5.90) M/uL Hgb 11.9 L (12.0-15.0) g/dL Hct 38.4 L (40.0-54.0) % MCV 84 (80-98) fL MCH 26 L (27-31) pg MCHC 31 L (32-36) % Plt Count 1142 H* (150-400) K/uL Sodium 138 L (140-148) mmol/L Potassium 3.9 (3.6-5.2) mmol/L Chloride 100 (100-108) mmol/L Carbon Dioxide 28 (21-32) mmol/L Anion Gap 13.9 (5.0-14.0) mmol/L BUN 5 L (7-18) mg/dL Creatinine 0.6 L (0.8-1.3) mg/dL Est Cr Clr Drug Dosing 131.44 mL/min Estimated GFR (MDRD) > 60 (>60) Glucose 68 L (74-106) mg/dL Calcium 8.1 L (8.5-10.1) mg/dL Phosphorus 3.8 (2.5-4.9) mg/dL Magnesium 1.7 L (1.8-2.4) mg/dL Total Bilirubin 0.2 (0.2-1.0) mg/dL AST 19 (15-37) U/L ALT 18 (12-78) U/L Alkaline Phosphatase 112 (46-116) U/L Total Protein 6.8 (6.4-8.2) g/dL Albumin 2.6 L (3.4-5.0) g/dL Globulin 4.2 H (2.3-3.5) g/dL Albumin/Globulin Ratio 0.6 L (1.2-2.2) Med Orders - Current: Current Medications Aspirin (Ecotrin) 325 mg PO DAILY [facility] Last Admin: 07/15/19 09:20 Dose: 325 mg Azithromycin (Zithromax) 250 mg PO Q24H [facility] Last Admin: 07/14/19 10:46 Dose: 250 mg Bisacodyl (Dulcolax) 10 mg PO BID [facility] Last Admin: 07/15/19 09:20 Dose: 10 mg Ciprofloxacin (Ciprofloxacin Hcl) 500 mg PO BID@0730,2100 [facility] Last Admin: 07/15/19 09:18 Dose: 500 mg Dextrose (Glutose 15) 15 gm PO ASDIRECTED PRN PRN Reason: HYPOGLYCEMIA Dextrose/Water (Dextrose 50% In Water) 50 ml IVPUSH ASDIRECTED PRN PRN Reason: HYPOGLYCEMIA Last Admin: 07/08/19 21:12 Dose: 50 ml Docusate Sodium (Colace) 100 mg PO BID [facility] Last Admin: 07/15/19 09:23 Dose: 100 mg Enoxaparin Sodium (Lovenox) 40 mg SUBCUT Q24H [facility] Last Admin: 07/15/19 09:21 Dose: 40 mg Glucagon (Glucagen) 1 mg IM ASDIRECTED PRN PRN Reason: HYPOGLYCEMIA Hydromorphone HCl (Dilaudid) 1 mg IVPUSH Q4H PRN PRN Reason: Pain (severe 7-10) Last Admin: 07/15/19 02:20 Dose: 1 mg Hydroxyzine HCl (Vistaril) 100 mg IM Q4H PRN PRN Reason: pain Last Admin: 07/11/19 21:57 Dose: 100 mg Sodium Chloride (Normal Saline) 1,000 mls @ 25 mls/hr IV ASDIRECTED [facility] Last Admin: 07/14/19 01:30 Dose: 25 mls/hr Magnesium Sulfate 2 gm/ Premix 50 mls @ 25 mls/hr IV Q6HR [facility] Stop: 07/18/19 05:59 Last Admin: 07/15/19 09:22 Dose: 25 mls/hr Insulin Glargine (Lantus Solostar) 5 units SUBCUT BEDTIME [facility] Insulin Human Lispro (Humalog) 0 unit SUBCUT QIDACANDBED [facility]; Protocol Last Admin: 07/15/19 09:16 Dose: Not Given Metoclopramide HCl (Reglan) 10 mg PO Q6H [facility] Last Admin: 07/15/19 09:20 Dose: 10 mg Multivitamins/Minerals (Thera M Plus) 1 tab PO DAILY [facility] Last Admin: 07/15/19 09:20 Dose: 1 tab Ondansetron HCl (Zofran) 4 mg IV Q4H PRN PRN Reason: Nausea/Vomiting Last Admin: 07/15/19 06:57 Dose: 4 mg Oxycodone HCl (Oxycodone) 5 mg PO Q4H PRN PRN Reason: Pain (moderate 4-6) Last Admin: 07/14/19 13:53 Dose: 5 mg Oxycodone HCl (Oxycodone) 10 mg PO Q4H PRN PRN Reason: Pain (severe 7-10) Last Admin: 07/15/19 09:21 Dose: 10 mg Pantoprazole Sodium (Protonix) 40 mg PO BIDAC [facility] Last Admin: 07/15/19 09:18 Dose: 40 mg Discontinued Medications Bisacodyl (Dulcolax) 10 mg PO ONETIME ONE Stop: 07/04/19 12:31 Last Admin: 07/04/19 14:06 Dose: 10 mg Bisacodyl (Dulcolax) 10 mg PO ONETIME ONE Stop: 07/04/19 20:01 Last Admin: 07/04/19 20:33 Dose: 10 mg Bupivacaine HCl (Marcaine 0.5%) Confirm Administered Dose 50 ml .ROUTE .STK-MED ONE Stop: 07/10/19 06:48 Last Admin: 07/10/19 08:01 Dose: 10 ml Calcium Carbonate (Caltrate 600+D 1500 Mg-400 Units) 1 tab PO DAILY [facility] Last Admin: 07/07/19 09:20 Dose: Not Given Ciprofloxacin (Ciprofloxacin Hcl) 500 mg PO Q12H [facility] Last Admin: 07/13/19 23:20 Dose: 500 mg Ropivacaine 27 ml/Dexamethasone 8 mg/Epinephrine HCl 0.4 mg/ Sodium Chloride 50.6 ml 0 ml NERVRT ASDIRECTED [facility] Last Admin: 07/07/19 13:24 Dose: 80 syringe Ropivacaine 27 ml/Dexamethasone 8 mg/Epinephrine HCl 0.4 mg/ Sodium Chloride 50.6 ml 0 ml NERVRT ASDIRECTED [facility] Last Admin: 07/10/19 07:55 Dose: 80 syringe Dexamethasone (Dexamethasone) Confirm Administered Dose 4 mg .ROUTE .STK-MED ONE Stop: 07/07/19 10:33 Dextrose/Water (Dextrose 50% In Water) 50 ml IVPUSH ONETIME ONE Stop: 07/05/19 04:53 Last Admin: 07/05/19 04:57 Dose: 50 ml Dextrose/Water (Dextrose 50% In Water) Confirm Administered Dose 50 ml .ROUTE .STK-MED ONE Stop: 07/05/19 04:56 Last Admin: 07/05/19 05:16 Dose: Not Given Enoxaparin Sodium (Lovenox) 40 mg SUBCUT DAILY [facility] Last Admin: 07/07/19 08:56 Dose: Not Given Fentanyl (Sublimaze) Confirm Administered Dose 100 mcg .ROUTE .STK-MED ONE Stop: 07/05/19 06:15 Fentanyl (Sublimaze) Confirm Administered Dose 250 mcg .ROUTE .STK-MED ONE Stop: 07/07/19 10:33 Fentanyl (Sublimaze) Confirm Administered Dose 100 mcg .ROUTE .STK-MED ONE Stop: 07/07/19 10:34 Fentanyl (Sublimaze) 50 mcg IVPUSH ONETIME ONE Stop: 07/07/19 10:52 Last Admin: 07/07/19 11:00 Dose: 50 mcg Fentanyl (Sublimaze) Confirm Administered Dose 100 mcg .ROUTE .STK-MED ONE Stop: 07/10/19 07:30 Folic Acid (Folic Acid) 1 mg PO DAILY [facility] Last Admin: 07/07/19 09:20 Dose: Not Given Furosemide (Lasix) 10 mg IVPUSH ONETIME ONE Stop: 07/10/19 14:01 Last Admin: 07/10/19 15:05 Dose: 10 mg Gabapentin (Neurontin) 400 mg PO Q8H [facility] Stop: 07/09/19 06:01 Last Admin: 07/07/19 17:04 Dose: Not Given Glycopyrrolate (Robinul) Confirm Administered Dose 1 mg .ROUTE .STK-MED ONE Stop: 07/07/19 10:33 Hydrocortisone Sodium Succinate (Solu-Cortef) 100 mg IVPUSH ONETIME ONE Stop: 07/08/19 22:33 Last Admin: 07/08/19 22:49 Dose: 100 mg Hydrocortisone Sodium Succinate (Solu-Cortef) 100 mg IVPUSH Q12H [facility] Stop: 07/10/19 10:01 Last Admin: 07/10/19 09:11 Dose: 100 mg Hydromorphone HCl (Dilaudid) 0.5 mg IVPUSH ONETIME ONE Stop: 07/03/19 23:14 Last Admin: 07/03/19 23:45 Dose: 0.5 mg Hydromorphone HCl (Dilaudid Paper Sorter [employer] Counter 15 Mg In Ns 30 Ml) 0 mg IV ASDIRECTED PRN; Protocol PRN Reason: Pain Last Admin: 07/10/19 15:27 Dose: 15 mg Sodium Chloride (Normal Saline) 1,000 mls @ 999 mls/hr IV ASDIRECTED [facility] Last Admin: 07/03/19 22:51 Dose: 999 mls/hr Sodium Chloride (Normal Saline) 1,000 mls @ 999 mls/hr IV ASDIRECTED [facility] Last Admin: 07/03/19 23:48 Dose: 999 mls/hr Sodium Chloride (Normal Saline) 1,000 mls @ 200 mls/hr IV ASDIRECTED [facility] Last Admin: 07/04/19 11:33 Dose: 200 mls/hr Magnesium Sulfate 2 gm/ Premix 50 mls @ 25 mls/hr IV Q6H [facility] Stop: 07/04/19 17:59 Last Admin: 07/04/19 16:33 Dose: 25 mls/hr Ferric Sodium Gluconate Complex 250 mg/ Sodium Chloride 120 mls @ 50 mls/hr IV ONETIME ONE Stop: 07/04/19 14:23 Last Admin: 07/04/19 11:57 Dose: 50 mls/hr Ferric Sodium Gluconate Complex 250 mg/ Sodium Chloride 120 mls @ 60 mls/hr IV ONETIME ONE Stop: 07/05/19 10:29 Last Admin: 07/05/19 08:54 Dose: 60 mls/hr Sodium Chloride (Normal Saline) 1,000 mls @ 100 mls/hr IV ASDIRECTED [facility] Last Admin: 07/05/19 00:17 Dose: 100 mls/hr Sodium Chloride (Normal Saline) 70 mls @ 3 mls/sec IV ASDIRECTED [facility] Stop: 07/04/19 16:00 Last Admin: 07/04/19 15:59 Dose: 3 mls/sec Dextrose/Sodium Chloride (Dextrose 5%-Normal Saline) 1,000 mls @ 100 mls/hr IV ASDIRECTED [facility] Last Admin: 07/05/19 11:46 Dose: 100 mls/hr Potassium Chloride 20 meq/Lidocaine HCl 2 ml/ Sodium Chloride 112 mls @ 56 mls/ hr IV Q2H [facility] Stop: 07/05/19 13:59 Potassium Chloride 20 meq/Lidocaine HCl 2 ml/ Sodium Chloride 112 mls @ 56 mls/ hr IV Q2H [facility] Stop: 07/05/19 14:59 Last Admin: 07/05/19 14:26 Dose: 56 mls/hr Ketamine HCl 50 mg/ Sodium (Chloride) 50 mls @ 16.32 mls/hr IV ASDIRECTED [facility] Magnesium Sulfate 2 gm/ Premix 50 mls @ 25 mls/hr IV Q6H [facility] Stop: 07/09/19 05:59 Last Admin: 07/07/19 09:18 Dose: 25 mls/hr Cefoxitin Sodium 2 gm/ Sodium (Chloride) 50 mls @ 100 mls/hr IV ONETIME ONE Stop: 07/07/19 09:29 Last Admin: 07/07/19 13:23 Dose: 100 mls/hr Dextrose/Lactated Ringer's (Dextrose 5%-Lactated Ringers) 1,000 mls @ 100 mls/ hr IV ASDIRECTED [facility] Last Admin: 07/07/19 03:24 Dose: 100 mls/hr Lactated Ringer's (Ringers, Lactated) Confirm Administered Dose 1,000 mls @ as directed .ROUTE .[facility] ONE Stop: 07/07/19 11:40 Lactated Ringer's (Ringers, Lactated) Confirm Administered Dose 1,000 mls @ as directed .ROUTE .[facility] ONE Stop: 07/07/19 13:14 Azithromycin 250 mg/ Sodium (Chloride) 250 mls @ 250 mls/hr IV ONETIME ONE Stop: 07/07/19 14:59 Last Admin: 07/07/19 16:55 Dose: 250 mls/hr Lactated Ringer's (Ringers, Lactated) Confirm Administered Dose 1,000 mls @ as directed .ROUTE .[facility]-MED ONE Stop: 07/07/19 15:09 Dextrose/Lactated Ringer's (Dextrose 5%-Lactated Ringers) 1,000 mls @ 200 mls/ hr IV ASDIRECTED [facility] Last Admin: 07/08/19 06:04 Dose: 200 mls/hr Multivitamins/Minerals 10 ml/Thiamine HCl 100 mg/ Chromium/Copper/Manganese/ Seleni/Zn 1 ml/ Dextrose/Lactated Ringer's 1,012 mls @ 200 mls/hr IV DAILY@ 1600 [facility] Last Admin: 07/10/19 16:02 Dose: 200 mls/hr Cefoxitin Sodium 2 gm/ Sodium (Chloride) 50 mls @ 100 mls/hr IV Q6H [facility] Last Admin: 07/11/19 08:28 Dose: 100 mls/hr Azithromycin 125 mg/ Sodium (Chloride) 150 mls @ 150 mls/hr IV Q12H [facility] Last Admin: 07/11/19 02:14 Dose: 150 mls/hr Magnesium Sulfate 2 gm/ Premix 50 mls @ 25 mls/hr IV Q6H [facility] Stop: 07/09/19 13:59 Last Admin: 07/09/19 05:46 Dose: 25 mls/hr Dextrose/Lactated Ringer's (Dextrose 5%-Lactated Ringers) 1,000 mls @ 100 mls/ hr IV ASDIRECTED [facility] Last Admin: 07/10/19 21:31 Dose: 100 mls/hr Lactated Ringer's (Ringers, Lactated) 1,000 mls @ 999 mls/hr IV ASDIRECTED [facility] Stop: 07/08/19 16:46 Lactated Ringer's (Ringers, Lactated) 1,000 mls @ 500 mls/hr IV ASDIRECTED [facility] Stop: 07/08/19 19:31 Last Admin: 07/08/19 17:15 Dose: 500 mls/hr Sodium Chloride (Normal Saline) 100 mls @ 0 mls/hr IV ASDIRECTED [facility] Stop: 07/08/19 17:31 Last Admin: 07/08/19 18:26 Dose: 3.5 mls/hr Albumin Human (Albumin 25%) 25 gm in 100 mls @ 25 mls/hr IV ONETIME ONE Stop: 07/08/19 23:03 Last Admin: 07/08/19 19:50 Dose: 25 mls/hr Lactated Ringer's (Ringers, Lactated) 1,000 mls @ 250 mls/hr IV ASDIRECTED [facility] Stop: 07/08/19 23:31 Last Admin: 07/08/19 19:30 Dose: 250 mls/hr Albumin Human (Albumin 25%) 25 gm in 100 mls @ 25 mls/hr IV ONETIME ONE Stop: 07/09/19 07:03 Last Admin: 07/09/19 03:19 Dose: 25 mls/hr Albumin Human (Albumin 25%) 25 gm in 100 mls @ 25 mls/hr IV Q8H [facility] Stop: 07/10/19 05:59 Last Admin: 07/10/19 01:30 Dose: 25 mls/hr Lactated Ringer's (Ringers, Lactated) Confirm Administered Dose 1,000 mls @ as directed .ROUTE .STK-MED ONE Stop: 07/10/19 08:12 Magnesium Sulfate 2 gm/ Premix 50 mls @ 25 mls/hr IV Q6H [facility] Stop: 07/14/19 05:59 Last Admin: 07/12/19 09:17 Dose: 25 mls/hr Potassium Phosphate 22.5 mmole (/ Sodium Chloride) 257.5 mls @ 65 mls/hr IV Q4H [facility] Stop: 07/11/19 15:55 Last Admin: 07/11/19 13:23 Dose: 65 mls/hr Potassium Phosphate 22.5 mmole (/ Sodium Chloride) 257.5 mls @ 65 mls/hr IV Q4H [facility] Stop: 07/12/19 19:58 Last Admin: 07/12/19 16:04 Dose: 65 mls/hr Potassium Phosphate 15 mmole/ (Sodium Chloride) 255 mls @ 85 mls/hr IV ONETIME ONE Stop: 07/12/19 22:59 Last Admin: 07/12/19 20:05 Dose: 85 mls/hr Azithromycin 250 mg/ Sodium (Chloride) 150 mls @ 150 mls/hr IV ONETIME ONE Stop: 07/13/19 09:59 Last Admin: 07/13/19 09:06 Dose: 150 mls/hr Azithromycin 125 mg/ Sodium (Chloride) 150 mls @ 150 mls/hr IV Q12H [facility] Last Admin: 07/13/19 21:10 Dose: 150 mls/hr Potassium Phosphate 20 mmole/ (Sodium Chloride) 256.6667 mls @ 85.556 mls/hr IV Q3H [facility] Stop: 07/13/19 19:29 Last Admin: 07/13/19 17:26 Dose: 85.556 mls/hr Sodium Chloride (Normal Saline) 70 mls @ 3 mls/sec IV ASDIRECTED [facility] Stop: 07/14/19 13:00 Last Admin: 07/14/19 11:45 Dose: 3 mls/sec Influenza Virus Vaccine (Fluzone Quad 3973-1446 Syringe) 60 mcg IM .ONCE ONE Stop: 07/04/19 10:01 Last Admin: 07/04/19 09:31 Dose: 60 mcg Insulin Glargine (Lantus Solostar) 20 units SUBCUT BEDTIME [facility] Last Admin: 07/06/19 21:10 Dose: 20 units Insulin Glargine (Lantus Solostar) 20 units SUBCUT BEDTIME [facility] Stop: 07/04/19 00:40 Last Admin: 07/04/19 01:02 Dose: 20 units Insulin Glargine (Lantus Solostar) 10 units SUBCUT Q12H [facility] Last Admin: 07/08/19 09:24 Dose: 10 units Insulin Glargine (Lantus Solostar) 20 units SUBCUT BID [facility] Last Admin: 07/11/19 08:36 Dose: 20 units Insulin Glargine (Lantus Solostar) 10 units SUBCUT DAILY [facility] Last Admin: 07/13/19 10:03 Dose: 10 units Insulin Glargine (Lantus Solostar) 10 units SUBCUT BEDTIME [facility] Last Admin: 07/14/19 21:01 Dose: 10 units Insulin Glargine (Lantus Solostar) 8 units SUBCUT ONETIME ONE Stop: 07/14/19 08:16 Last Admin: 07/14/19 08:22 Dose: 8 units Insulin Human Lispro (Humalog) 0 unit SUBCUT QIDACANDBED [facility]; Protocol Last Admin: 07/07/19 14:06 Dose: Not Given Insulin Human Lispro (Humalog) 14 unit SUBCUT ONETIME ONE Stop: 07/04/19 16:55 Last Admin: 07/04/19 17:06 Dose: 14 units Insulin Human Lispro (Humalog) 0 unit SUBCUT ASDIRECTED PRN; Protocol PRN Reason: MEDIUM CORRECTIONAL DOSING Last Admin: 07/11/19 08:37 Dose: 3 units Insulin Human Lispro (Humalog) 5 unit SUBCUT TIDMEALS [facility] Last Admin: 07/12/19 16:42 Dose: Not Given Insulin Human Regular (Humulin R) 3 unit IVPUSH ONETIME ONE Stop: 07/03/19 23:13 Last Admin: 07/03/19 23:40 Dose: 3 units Insulin Human Regular (Humulin R) 3 unit SUBCUT ONETIME ONE Stop: 07/03/19 23:14 Last Admin: 07/03/19 23:43 Dose: 3 units Iohexol (Omnipaque) 20 ml PO ONETIME ONE Stop: 07/04/19 13:11 Last Admin: 07/04/19 14:16 Dose: 20 ml Iopamidol (Isovue-300 (61%)) 81 ml IV . DIRECTED PRN PRN Reason: RADIOLOGY EXAM Stop: 07/05/19 12:43 Last Admin: 07/04/19 15:59 Dose: 79 ml Iopamidol (Isovue-370 (76%)) 100 ml IV . DIRECTED [facility] Stop: 07/08/19 17:31 Last Admin: 07/08/19 18:26 Dose: 100 ml Iopamidol (Isovue-300 (61%)) 100 ml IV . DIRECTED ONE Stop: 07/14/19 10:48 Last Admin: 07/14/19 11:45 Dose: 82 ml Ketamine HCl (Ketalar) 27 mg IV ASDIRECTED [facility] Labetalol HCl (Normodyne) Confirm Administered Dose 20 mg .ROUTE .STK-MED ONE Stop: 07/07/19 15:10 Lidocaine/Epinephrine (Xylocaine 1% With Epinephrine 1:100,000) Confirm Administered Dose 50 ml .ROUTE .STK-MED ONE Stop: 07/10/19 06:48 Last Admin: 07/10/19 08:01 Dose: 10 ml Lorazepam (Ativan) 0 mg PO ASDIRECTED [facility]; Protocol Lorazepam (Ativan) 0.5 - 1 mg IVPUSH Q4H PRN PRN Reason: * Last Admin: 07/10/19 05:18 Dose: 1 mg Magnesium Oxide (Magnesium Oxide) 400 mg PO BID [facility] Last Admin: 07/07/19 09:20 Dose: Not Given Meropenem (Merrem) Confirm Administered Dose 500 mg .ROUTE .STK-MED ONE Stop: 07/07/19 12:07 Last Admin: 07/07/19 13:35 Dose: 500 mg Meropenem (Merrem) Confirm Administered Dose 500 mg .ROUTE .STK-MED ONE Stop: 07/10/19 06:48 Last Admin: 07/10/19 08:01 Dose: 500 mg Metformin HCl (Glucophage) 1,000 mg PO BIDMEALS [facility] Last Admin: 07/14/19 16:33 Dose: 1,000 mg Metoclopramide HCl (Reglan) 10 mg IVPUSH Q6H [facility] Last Admin: 07/12/19 09:14 Dose: 10 mg Metoclopramide HCl (Reglan) 10 mg PO QIDACANDBED [facility] Last Admin: 07/13/19 07:42 Dose: 10 mg Metoclopramide HCl (Reglan) 10 mg IV Q6H [facility] Last Admin: 07/14/19 14:13 Dose: Not Given Midazolam HCl (Versed 1 Mg/Ml) Confirm Administered Dose 2 mg .ROUTE .STK-MED ONE Stop: 07/05/19 06:15 Midazolam HCl (Versed 1 Mg/Ml) Confirm Administered Dose 2 mg .ROUTE .STK-MED ONE Stop: 07/07/19 10:34 Midazolam HCl (Versed 1 Mg/Ml) Confirm Administered Dose 2 mg .ROUTE .STK-MED ONE Stop: 07/10/19 07:30 Morphine Sulfate (Morphine) 2 mg IVPUSH Q4H PRN PRN Reason: Pain (moderate 4-6) Last Admin: 07/04/19 14:38 Dose: 2 mg Naloxone HCl (Narcan) 0.1 mg IV ASDIRECTED PRN PRN Reason: decreased respiratory rate Neostigmine Methylsulfate (Neostigmine) Confirm Administered Dose 5 mg .ROUTE .STK-MED ONE Stop: 07/07/19 10:33 Ondansetron HCl (Zofran) Confirm Administered Dose 4 mg .ROUTE .STK-MED ONE Stop: 07/07/19 10:33 Oxycodone HCl (Oxycodone) 10 mg PO Q4H PRN PRN Reason: Pain Last Admin: 07/07/19 07:06 Dose: 10 mg Pantoprazole Sodium (Protonix Iv) 40 mg IVPUSH ONETIME ONE Stop: 07/03/19 23:37 Last Admin: 07/03/19 23:48 Dose: 40 mg Pantoprazole Sodium (Protonix Iv) 40 mg IVPUSH Q12H [facility] Last Admin: 07/11/19 01:34 Dose: 40 mg Polyethylene Glycol (Miralax) 238 gm PO ONETIME ONE Stop: 07/04/19 17:01 Last Admin: 07/04/19 16:58 Dose: 238 gm Potassium Chloride (Klor-Con M20) 40 meq PO ONETIME ONE Stop: 07/04/19 12:46 Last Admin: 07/04/19 14:06 Dose: 40 meq Potassium Chloride (Klor-Con M20) 40 meq PO ONETIME ONE Stop: 07/04/19 17:01 Last Admin: 07/04/19 17:10 Dose: 40 meq Potassium Chloride (Klor-Con M20) 40 meq PO ONETIME ONE Stop: 07/05/19 17:01 Last Admin: 07/05/19 16:53 Dose: 40 meq Potassium Chloride (Klor-Con M20) 40 meq PO ONETIME ONE Stop: 07/11/19 14:16 Last Admin: 07/11/19 15:28 Dose: 40 meq Propofol (Diprivan 20 Ml) Confirm Administered Dose 200 mg .ROUTE .STK-MED ONE Stop: 07/05/19 06:16 Propofol (Diprivan 20 Ml) Confirm Administered Dose 200 mg .ROUTE .STK-MED ONE Stop: 07/07/19 10:33 Propofol (Diprivan 20 Ml) Confirm Administered Dose 200 mg .ROUTE .STK-MED ONE Stop: 07/07/19 10:34 Propofol (Diprivan 20 Ml) Confirm Administered Dose 200 mg .ROUTE .STK-MED ONE Stop: 07/10/19 07:30 Senna/Docusate Sodium (Senna Plus) 1 tab PO BID PRN PRN Reason: Constipation Last Admin: 07/06/19 21:30 Dose: 1 tab Sodium Chloride (Saline Flush) 10 ml FLUSH ONETIME [facility] Stop: 07/04/19 16:00 Last Admin: 07/04/19 15:59 Dose: 10 ml Sodium Chloride (Saline Flush) 10 ml FLUSH ONETIME ONE Stop: 07/08/19 17:23 Last Admin: 07/08/19 18:26 Dose: 10 ml Succinylcholine Chloride (Quelicin) Confirm Administered Dose 200 mg .ROUTE .STK -MED ONE Stop: 07/07/19 10:33 Thiamine HCl (Vitamin B-1) 100 mg PO DAILY [facility] Last Admin: 07/07/19 09:21 Dose: Not Given - Exam General: Alert, Oriented, Mild Distress Lungs: Clear to Auscultation, Normal Respiratory Effort Cardiovascular: Regular Rate, Regular Rhythm, No Murmurs GI/Abdominal Exam: Soft, No Organomegaly, Distended, Tender. No: Guarding, Rigid, Rebound Extremities: Non-Tender, No Pedal Edema - Problem List Review Problem List Initiated/Reviewed/Updated: Yes - Plan Plan:: ASSESSMENT AND PLAN - SEVERE ESOPHAGITIS - probable source of anemia and chronic blood loss. Doing well from the standpoint and no pain with swallowing at this time. -Oral proton pump inhibitor twice daily PANCREATIC PSEUDOCYST - evidence of chronic calcified pancreatitis noted on CT scan, with pseudocyst noted at the pancreatic tail. 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 White blood cell count is improved and he has remained afebrile. CT scan of abdomen pelvis yesterday showed no evidence of abscess or intra-abdominal infection. He does have ongoing difficulty with ileus. -Oral ciprofloxacin -Surgical management per Dr. Velarde SUICIDAL IDEATIONS - fleeting thoughts of harming himself which have now resolved. Likely due to his acute medical illnesses. He was on precautions a few nights ago but has done well since that time. He reports that his mood is steadily improving. 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 HEPATIC CIRRHOSIS - evidence of esophageal varices as well as splenic vein thrombosis SEVERE EMPHYSEMA - noted on CT scan. Alpha-1 antitrypsin is pending. TYPE 2 DIABETES MELLITUS - glucose levels low -Hold metformin -Restart partial dose of his long-acting insulin -QID glucometers -low dose sliding scale Humalog CHRONIC ALCOHOL USE - no evidence for withdrawal. He is interested in treatment for alcohol dependence. -Outpatient treatment MICROCYTIC ANEMIA - likely secondary to chronic blood loss as well as iron deficiency. Hemoglobin stable following transfusion. -Follow-up hemoglobin in a.m. MAINTENANCE ISSUES -DVT prophylaxis; enoxaparin -GI prophylaxis; BID PPI -Sanchez catheter; not indicated -Nutrition; regular diet DISPOSITION - anticipate discharge to nursing [facility] [place] after the hospital stay.
[2019-07-15] MEDS: Azithromycin 250 MG Tab PO SCH (11:31)
[2019-07-15] MEDS: metFORMIN 500 MG Tab PO SCH (19:41)
[2019-07-15] MEDS ORDERED: Insulin Glargine,Human Rec. Analog 100 Units/ML 3 ML Pen SUBCUT SCH (21:00)
[2019-07-16] MEDS: Metoclopramide 10 MG Tab PO SCH ×4 (01:35→21:04)
[2019-07-16] MEDS: HYDROmorphone 1 MG/ML Syringe IVPUSH PRN ×5 (01:39→19:21)
[2019-07-16] MEDS: Magnesium Sulfate/Water 2 GM in Premix Bag 1 BAG IV SCH ×4 (03:30→21:04)
[2019-07-16] MEDS: Insulin Lispro 100 Unit/ML 3 ML KwikPen SUBCUT SCH ×4 (08:14→21:05)
[2019-07-16] MEDS: Aspirin 325 MG Tab.EC PO SCH (08:19)
[2019-07-16] MEDS: Docusate Sodium 100 MG Cap PO SCH ×2 (08:19→21:05)
[2019-07-16] MEDS: Pantoprazole 40 MG Tab.CR PO SCH ×2 (08:19→16:37)
[2019-07-16] MEDS: oxyCODONE 5 MG Tab PO PRN ×4 (08:19→22:31)
[2019-07-16] MEDS: Bisacodyl 5 MG Tab PO SCH ×2 (08:19→21:05)
[2019-07-16] MEDS: Multivitamins with Iron/Calcium/Folic Acid/Minerals Tab PO SCH (08:19)
[2019-07-16] MEDS: Ciprofloxacin 500 MG Tab PO SCH ×2 (08:20→21:04)
--- NOTE | 2019-07-16 09:34 | PCM.PN ---
- General Info Date of Service: 07/16/19 Subjective Update: Mr. Tony has shown some improvement in the last 24 hours, bowels have started to move well and he has been more active. Vital signs remained stable and he has been afebrile, white blood cell count remains moderately elevated. Functional Status: Reports: Tolerating Diet, Ambulating, Urinating - Review of Systems General: Reports: Weakness. Denies: Fever, Chills Pulmonary: Reports: No Symptoms Cardiovascular: Reports: No Symptoms Gastrointestinal: Reports: Abdominal Pain. Denies: Difficulty Swallowing, Nausea, Vomiting - Patient Data Vitals - Most Recent: Last Vital Signs Temp 99.4 F 07/16/19 08:00 Pulse 137 H 07/16/19 08:00 Resp 14 07/16/19 08:00 BP 114/70 07/16/19 08:00 Pulse Ox 95 07/16/19 08:00 Weight - Most Recent: 120 lb 5.958 oz I&O - Last 24 Hours: Intake & Output 07/15/19 07/16/19 07/16/19 22:59 06:59 14:59 Intake Total 335 489 Output Total 200 Balance 135 489 Lab Results Last 24 Hours: Laboratory Results - last 24 hr 07/16/19 07/16/19 Range/Units 04:06 04:06 WBC 17.1 H (4.5-11.0) K/uL RBC 4.15 L (4.30-5.90) M/uL Hgb 10.7 L (12.0-15.0) g/dL Hct 34.4 L (40.0-54.0) % MCV 83 (80-98) fL MCH 26 L (27-31) pg MCHC 31 L (32-36) % Plt Count 1110 H* (150-400) K/uL Sodium 135 L (140-148) mmol/L Potassium 4.0 (3.6-5.2) mmol/L Chloride 100 (100-108) mmol/L Carbon Dioxide 26 (21-32) mmol/L Anion Gap 13.0 (5.0-14.0) mmol/L BUN 7 (7-18) mg/dL Creatinine 0.5 L (0.8-1.3) mg/dL Est Cr Clr Drug Dosing 157.73 mL/min Estimated GFR (MDRD) > 60 (>60) Glucose 185 H (74-106) mg/dL Calcium 7.5 L (8.5-10.1) mg/dL Phosphorus 4.2 (2.5-4.9) mg/dL Total Bilirubin 0.3 (0.2-1.0) mg/dL AST 16 (15-37) U/L ALT 16 (12-78) U/L Alkaline Phosphatase 98 (46-116) U/L Total Protein 5.6 L (6.4-8.2) g/dL Albumin 2.1 L (3.4-5.0) g/dL Globulin 3.5 (2.3-3.5) g/dL Albumin/Globulin Ratio 0.6 L (1.2-2.2) Med Orders - Current: Current Medications Aspirin (Ecotrin) 325 mg PO DAILY [facility] Last Admin: 07/16/19 08:19 Dose: 325 mg Azithromycin (Zithromax) 250 mg PO Q24H [facility] Last Admin: 07/15/19 11:31 Dose: 250 mg Bisacodyl (Dulcolax) 10 mg PO BID [facility] Last Admin: 07/16/19 08:19 Dose: 10 mg Ciprofloxacin (Ciprofloxacin Hcl) 500 mg PO BID@0730,2100 [facility] Last Admin: 07/16/19 08:20 Dose: 500 mg Dextrose (Glutose 15) 15 gm PO ASDIRECTED PRN PRN Reason: HYPOGLYCEMIA Dextrose/Water (Dextrose 50% In Water) 50 ml IVPUSH ASDIRECTED PRN PRN Reason: HYPOGLYCEMIA Last Admin: 07/08/19 21:12 Dose: 50 ml Docusate Sodium (Colace) 100 mg PO BID [facility] Last Admin: 07/16/19 08:19 Dose: 100 mg Enoxaparin Sodium (Lovenox) 40 mg SUBCUT Q24H [facility] Last Admin: 07/15/19 09:21 Dose: 40 mg Glucagon (Glucagen) 1 mg IM ASDIRECTED PRN PRN Reason: HYPOGLYCEMIA Hydromorphone HCl (Dilaudid) 1 mg IVPUSH Q4H PRN PRN Reason: Pain (severe 7-10) Last Admin: 07/16/19 06:11 Dose: 1 mg Hydroxyzine HCl (Vistaril) 100 mg IM Q4H PRN PRN Reason: pain Last Admin: 07/11/19 21:57 Dose: 100 mg Sodium Chloride (Normal Saline) 1,000 mls @ 25 mls/hr IV ASDIRECTED [facility] Last Admin: 07/14/19 01:30 Dose: 25 mls/hr Magnesium Sulfate 2 gm/ Premix 50 mls @ 25 mls/hr IV Q6HR [facility] Stop: 07/18/19 05:59 Last Admin: 07/16/19 03:30 Dose: 25 mls/hr Insulin Human Lispro (Humalog) 0 unit SUBCUT QIDACANDBED [facility]; Protocol Last Admin: 07/16/19 08:14 Dose: 1 unit Metoclopramide HCl (Reglan) 10 mg PO Q6H [facility] Last Admin: 07/16/19 08:19 Dose: 10 mg Multivitamins/Minerals (Thera M Plus) 1 tab PO DAILY [facility] Last Admin: 07/16/19 08:19 Dose: 1 tab Ondansetron HCl (Zofran) 4 mg IV Q4H PRN PRN Reason: Nausea/Vomiting Last Admin: 07/15/19 06:57 Dose: 4 mg Oxycodone HCl (Oxycodone) 5 mg PO Q4H PRN PRN Reason: Pain (moderate 4-6) Last Admin: 07/14/19 13:53 Dose: 5 mg Oxycodone HCl (Oxycodone) 10 mg PO Q4H PRN PRN Reason: Pain (severe 7-10) Last Admin: 07/16/19 08:19 Dose: 10 mg Pantoprazole Sodium (Protonix) 40 mg PO BIDAC [facility] Last Admin: 07/16/19 08:19 Dose: 40 mg Discontinued Medications Bisacodyl (Dulcolax) 10 mg PO ONETIME ONE Stop: 07/04/19 12:31 Last Admin: 07/04/19 14:06 Dose: 10 mg Bisacodyl (Dulcolax) 10 mg PO ONETIME ONE Stop: 07/04/19 20:01 Last Admin: 07/04/19 20:33 Dose: 10 mg Bupivacaine HCl (Marcaine 0.5%) Confirm Administered Dose 50 ml .ROUTE .STK-MED ONE Stop: 07/10/19 06:48 Last Admin: 07/10/19 08:01 Dose: 10 ml Calcium Carbonate (Caltrate 600+D 1500 Mg-400 Units) 1 tab PO DAILY [facility] Last Admin: 07/07/19 09:20 Dose: Not Given Ciprofloxacin (Ciprofloxacin Hcl) 500 mg PO Q12H [facility] Last Admin: 07/13/19 23:20 Dose: 500 mg Ropivacaine 27 ml/Dexamethasone 8 mg/Epinephrine HCl 0.4 mg/ Sodium Chloride 50.6 ml 0 ml NERVRT ASDIRECTED [facility] Last Admin: 07/07/19 13:24 Dose: 80 syringe Ropivacaine 27 ml/Dexamethasone 8 mg/Epinephrine HCl 0.4 mg/ Sodium Chloride 50.6 ml 0 ml NERVRT ASDIRECTED [facility] Last Admin: 07/10/19 07:55 Dose: 80 syringe Dexamethasone (Dexamethasone) Confirm Administered Dose 4 mg .ROUTE .STK-MED ONE Stop: 07/07/19 10:33 Dextrose/Water (Dextrose 50% In Water) 50 ml IVPUSH ONETIME ONE Stop: 07/05/19 04:53 Last Admin: 07/05/19 04:57 Dose: 50 ml Dextrose/Water (Dextrose 50% In Water) Confirm Administered Dose 50 ml .ROUTE .STK-MED ONE Stop: 07/05/19 04:56 Last Admin: 07/05/19 05:16 Dose: Not Given Enoxaparin Sodium (Lovenox) 40 mg SUBCUT DAILY [facility] Last Admin: 07/07/19 08:56 Dose: Not Given Fentanyl (Sublimaze) Confirm Administered Dose 100 mcg .ROUTE .STK-MED ONE Stop: 07/05/19 06:15 Fentanyl (Sublimaze) Confirm Administered Dose 250 mcg .ROUTE .STK-MED ONE Stop: 07/07/19 10:33 Fentanyl (Sublimaze) Confirm Administered Dose 100 mcg .ROUTE .STK-MED ONE Stop: 07/07/19 10:34 Fentanyl (Sublimaze) 50 mcg IVPUSH ONETIME ONE Stop: 07/07/19 10:52 Last Admin: 07/07/19 11:00 Dose: 50 mcg Fentanyl (Sublimaze) Confirm Administered Dose 100 mcg .ROUTE .STK-MED ONE Stop: 07/10/19 07:30 Folic Acid (Folic Acid) 1 mg PO DAILY [facility] Last Admin: 07/07/19 09:20 Dose: Not Given Furosemide (Lasix) 10 mg IVPUSH ONETIME ONE Stop: 07/10/19 14:01 Last Admin: 07/10/19 15:05 Dose: 10 mg Gabapentin (Neurontin) 400 mg PO Q8H MARGY Stop: 07/09/19 06:01 Last Admin: 07/07/19 17:04 Dose: Not Given Glycopyrrolate (Robinul) Confirm Administered Dose 1 mg .ROUTE .STK-MED ONE Stop: 07/07/19 10:33 Hydrocortisone Sodium Succinate (Solu-Cortef) 100 mg IVPUSH ONETIME ONE Stop: 07/08/19 22:33 Last Admin: 07/08/19 22:49 Dose: 100 mg Hydrocortisone Sodium Succinate (Solu-Cortef) 100 mg IVPUSH Q12H MARGY Stop: 07/10/19 10:01 Last Admin: 07/10/19 09:11 Dose: 100 mg Hydromorphone HCl (Dilaudid) 0.5 mg IVPUSH ONETIME ONE Stop: 07/03/19 23:14 Last Admin: 07/03/19 23:45 Dose: 0.5 mg Hydromorphone HCl (Dilaudid Mattress Finisher 15 Mg In Ns 30 Ml) 0 mg IV ASDIRECTED PRN; Protocol PRN Reason: Pain Last Admin: 07/10/19 15:27 Dose: 15 mg Sodium Chloride (Normal Saline) 1,000 mls @ 999 mls/hr IV ASDIRECTED MARGY Last Admin: 07/03/19 22:51 Dose: 999 mls/hr Sodium Chloride (Normal Saline) 1,000 mls @ 999 mls/hr IV ASDIRECTED MARGY Last Admin: 07/03/19 23:48 Dose: 999 mls/hr Sodium Chloride (Normal Saline) 1,000 mls @ 200 mls/hr IV ASDIRECTED MARGY Last Admin: 07/04/19 11:33 Dose: 200 mls/hr Magnesium Sulfate 2 gm/ Premix 50 mls @ 25 mls/hr IV Q6H MARGY Stop: 07/04/19 17:59 Last Admin: 07/04/19 16:33 Dose: 25 mls/hr Ferric Sodium Gluconate Complex 250 mg/ Sodium Chloride 120 mls @ 50 mls/hr IV ONETIME ONE Stop: 07/04/19 14:23 Last Admin: 07/04/19 11:57 Dose: 50 mls/hr Ferric Sodium Gluconate Complex 250 mg/ Sodium Chloride 120 mls @ 60 mls/hr IV ONETIME ONE Stop: 07/05/19 10:29 Last Admin: 07/05/19 08:54 Dose: 60 mls/hr Sodium Chloride (Normal Saline) 1,000 mls @ 100 mls/hr IV ASDIRECTED MARGY Last Admin: 07/05/19 00:17 Dose: 100 mls/hr Sodium Chloride (Normal Saline) 70 mls @ 3 mls/sec IV ASDIRECTED MARGY Stop: 07/04/19 16:00 Last Admin: 07/04/19 15:59 Dose: 3 mls/sec Dextrose/Sodium Chloride (Dextrose 5%-Normal Saline) 1,000 mls @ 100 mls/hr IV ASDIRECTED MARGY Last Admin: 07/05/19 11:46 Dose: 100 mls/hr Potassium Chloride 20 meq/Lidocaine HCl 2 ml/ Sodium Chloride 112 mls @ 56 mls/ hr IV Q2H MARGY Stop: 07/05/19 13:59 Potassium Chloride 20 meq/Lidocaine HCl 2 ml/ Sodium Chloride 112 mls @ 56 mls/ hr IV Q2H [facility] Stop: 07/05/19 14:59 Last Admin: 07/05/19 14:26 Dose: 56 mls/hr Ketamine HCl 50 mg/ Sodium (Chloride) 50 mls @ 16.32 mls/hr IV ASDIRECTED [facility] Magnesium Sulfate 2 gm/ Premix 50 mls @ 25 mls/hr IV Q6H [facility] Stop: 07/09/19 05:59 Last Admin: 07/07/19 09:18 Dose: 25 mls/hr Cefoxitin Sodium 2 gm/ Sodium (Chloride) 50 mls @ 100 mls/hr IV ONETIME ONE Stop: 07/07/19 09:29 Last Admin: 07/07/19 13:23 Dose: 100 mls/hr Dextrose/Lactated Ringer's (Dextrose 5%-Lactated Ringers) 1,000 mls @ 100 mls/ hr IV ASDIRECTED MARGY Last Admin: 07/07/19 03:24 Dose: 100 mls/hr Lactated Ringer's (Ringers, Lactated) Confirm Administered Dose 1,000 mls @ as directed .ROUTE .STK-MED ONE Stop: 07/07/19 11:40 Lactated Ringer's (Ringers, Lactated) Confirm Administered Dose 1,000 mls @ as directed .ROUTE .STK-MED ONE Stop: 07/07/19 13:14 Azithromycin 250 mg/ Sodium (Chloride) 250 mls @ 250 mls/hr IV ONETIME ONE Stop: 07/07/19 14:59 Last Admin: 07/07/19 16:55 Dose: 250 mls/hr Lactated Ringer's (Ringers, Lactated) Confirm Administered Dose 1,000 mls @ as directed .ROUTE .STK-MED ONE Stop: 07/07/19 15:09 Dextrose/Lactated Ringer's (Dextrose 5%-Lactated Ringers) 1,000 mls @ 200 mls/ hr IV ASDIRECTED [facility] Last Admin: 07/08/19 06:04 Dose: 200 mls/hr Multivitamins/Minerals 10 ml/Thiamine HCl 100 mg/ Chromium/Copper/Manganese/ Seleni/Zn 1 ml/ Dextrose/Lactated Ringer's 1,012 mls @ 200 mls/hr IV DAILY@ 1600 [facility] Last Admin: 07/10/19 16:02 Dose: 200 mls/hr Cefoxitin Sodium 2 gm/ Sodium (Chloride) 50 mls @ 100 mls/hr IV Q6H [facility] Last Admin: 07/11/19 08:28 Dose: 100 mls/hr Azithromycin 125 mg/ Sodium (Chloride) 150 mls @ 150 mls/hr IV Q12H [facility] Last Admin: 07/11/19 02:14 Dose: 150 mls/hr Magnesium Sulfate 2 gm/ Premix 50 mls @ 25 mls/hr IV Q6H [facility] Stop: 07/09/19 13:59 Last Admin: 07/09/19 05:46 Dose: 25 mls/hr Dextrose/Lactated Ringer's (Dextrose 5%-Lactated Ringers) 1,000 mls @ 100 mls/ hr IV ASDIRECTED [facility] Last Admin: 07/10/19 21:31 Dose: 100 mls/hr Lactated Ringer's (Ringers, Lactated) 1,000 mls @ 999 mls/hr IV ASDIRECTED [facility] Stop: 07/08/19 16:46 Lactated Ringer's (Ringers, Lactated) 1,000 mls @ 500 mls/hr IV ASDIRECTED [facility] Stop: 07/08/19 19:31 Last Admin: 07/08/19 17:15 Dose: 500 mls/hr Sodium Chloride (Normal Saline) 100 mls @ 0 mls/hr IV ASDIRECTED MARGY Stop: 07/08/19 17:31 Last Admin: 07/08/19 18:26 Dose: 3.5 mls/hr Albumin Human (Albumin 25%) 25 gm in 100 mls @ 25 mls/hr IV ONETIME ONE Stop: 07/08/19 23:03 Last Admin: 07/08/19 19:50 Dose: 25 mls/hr Lactated Ringer's (Ringers, Lactated) 1,000 mls @ 250 mls/hr IV ASDIRECTED MARGY Stop: 07/08/19 23:31 Last Admin: 07/08/19 19:30 Dose: 250 mls/hr Albumin Human (Albumin 25%) 25 gm in 100 mls @ 25 mls/hr IV ONETIME ONE Stop: 07/09/19 07:03 Last Admin: 07/09/19 03:19 Dose: 25 mls/hr Albumin Human (Albumin 25%) 25 gm in 100 mls @ 25 mls/hr IV Q8H [facility] Stop: 07/10/19 05:59 Last Admin: 07/10/19 01:30 Dose: 25 mls/hr Lactated Ringer's (Ringers, Lactated) Confirm Administered Dose 1,000 mls @ as directed .ROUTE .STK-MED ONE Stop: 07/10/19 08:12 Magnesium Sulfate 2 gm/ Premix 50 mls @ 25 mls/hr IV Q6H [facility] Stop: 07/14/19 05:59 Last Admin: 07/12/19 09:17 Dose: 25 mls/hr Potassium Phosphate 22.5 mmole (/ Sodium Chloride) 257.5 mls @ 65 mls/hr IV Q4H [facility] Stop: 07/11/19 15:55 Last Admin: 07/11/19 13:23 Dose: 65 mls/hr Potassium Phosphate 22.5 mmole (/ Sodium Chloride) 257.5 mls @ 65 mls/hr IV Q4H [facility] Stop: 07/12/19 19:58 Last Admin: 07/12/19 16:04 Dose: 65 mls/hr Potassium Phosphate 15 mmole/ (Sodium Chloride) 255 mls @ 85 mls/hr IV ONETIME ONE Stop: 07/12/19 22:59 Last Admin: 07/12/19 20:05 Dose: 85 mls/hr Azithromycin 250 mg/ Sodium (Chloride) 150 mls @ 150 mls/hr IV ONETIME ONE Stop: 07/13/19 09:59 Last Admin: 07/13/19 09:06 Dose: 150 mls/hr Azithromycin 125 mg/ Sodium (Chloride) 150 mls @ 150 mls/hr IV Q12H [facility] Last Admin: 07/13/19 21:10 Dose: 150 mls/hr Potassium Phosphate 20 mmole/ (Sodium Chloride) 256.6667 mls @ 85.556 mls/hr IV Q3H MARGY Stop: 07/13/19 19:29 Last Admin: 07/13/19 17:26 Dose: 85.556 mls/hr Sodium Chloride (Normal Saline) 70 mls @ 3 mls/sec IV ASDIRECTED MARGY Stop: 07/14/19 13:00 Last Admin: 07/14/19 11:45 Dose: 3 mls/sec Influenza Virus Vaccine (Fluzone Quad 0509-8510 Syringe) 60 mcg IM .ONCE ONE Stop: 07/04/19 10:01 Last Admin: 07/04/19 09:31 Dose: 60 mcg Insulin Glargine (Lantus Solostar) 20 units SUBCUT BEDTIME [facility] Last Admin: 07/06/19 21:10 Dose: 20 units Insulin Glargine (Lantus Solostar) 20 units SUBCUT BEDTIME STA Stop: 07/04/19 00:40 Last Admin: 07/04/19 01:02 Dose: 20 units Insulin Glargine (Lantus Solostar) 10 units SUBCUT Q12H [facility] Last Admin: 07/08/19 09:24 Dose: 10 units Insulin Glargine (Lantus Solostar) 20 units SUBCUT BID [facility] Last Admin: 07/11/19 08:36 Dose: 20 units Insulin Glargine (Lantus Solostar) 10 units SUBCUT DAILY [facility] Last Admin: 07/13/19 10:03 Dose: 10 units Insulin Glargine (Lantus Solostar) 10 units SUBCUT BEDTIME [facility] Last Admin: 07/14/19 21:01 Dose: 10 units Insulin Glargine (Lantus Solostar) 8 units SUBCUT ONETIME ONE Stop: 07/14/19 08:16 Last Admin: 07/14/19 08:22 Dose: 8 units Insulin Glargine (Lantus Solostar) 5 units SUBCUT BEDTIME MARGY Insulin Human Lispro (Humalog) 0 unit SUBCUT QIDACANDBED [facility]; Protocol Last Admin: 07/07/19 14:06 Dose: Not Given Insulin Human Lispro (Humalog) 14 unit SUBCUT ONETIME ONE Stop: 07/04/19 16:55 Last Admin: 07/04/19 17:06 Dose: 14 units Insulin Human Lispro (Humalog) 0 unit SUBCUT ASDIRECTED PRN; Protocol PRN Reason: MEDIUM CORRECTIONAL DOSING Last Admin: 07/11/19 08:37 Dose: 3 units Insulin Human Lispro (Humalog) 5 unit SUBCUT TIDMEALS [facility] Last Admin: 07/12/19 16:42 Dose: Not Given Insulin Human Regular (Humulin R) 3 unit IVPUSH ONETIME ONE Stop: 07/03/19 23:13 Last Admin: 07/03/19 23:40 Dose: 3 units Insulin Human Regular (Humulin R) 3 unit SUBCUT ONETIME ONE Stop: 07/03/19 23:14 Last Admin: 07/03/19 23:43 Dose: 3 units Iohexol (Omnipaque) 20 ml PO ONETIME ONE Stop: 07/04/19 13:11 Last Admin: 07/04/19 14:16 Dose: 20 ml Iopamidol (Isovue-300 (61%)) 81 ml IV . DIRECTED PRN PRN Reason: RADIOLOGY EXAM Stop: 07/05/19 12:43 Last Admin: 07/04/19 15:59 Dose: 79 ml Iopamidol (Isovue-370 (76%)) 100 ml IV . DIRECTED MARGY Stop: 07/08/19 17:31 Last Admin: 07/08/19 18:26 Dose: 100 ml Iopamidol (Isovue-300 (61%)) 100 ml IV . DIRECTED ONE Stop: 07/14/19 10:48 Last Admin: 07/14/19 11:45 Dose: 82 ml Ketamine HCl (Ketalar) 27 mg IV ASDIRECTED [facility] Labetalol HCl (Normodyne) Confirm Administered Dose 20 mg .ROUTE .STK-MED ONE Stop: 07/07/19 15:10 Lidocaine/Epinephrine (Xylocaine 1% With Epinephrine 1:100,000) Confirm Administered Dose 50 ml .ROUTE .STK-MED ONE Stop: 07/10/19 06:48 Last Admin: 07/10/19 08:01 Dose: 10 ml Lorazepam (Ativan) 0 mg PO ASDIRECTED MARGY; Protocol Lorazepam (Ativan) 0.5 - 1 mg IVPUSH Q4H PRN PRN Reason: * Last Admin: 07/10/19 05:18 Dose: 1 mg Magnesium Oxide (Magnesium Oxide) 400 mg PO BID [facility] Last Admin: 07/07/19 09:20 Dose: Not Given Meropenem (Merrem) Confirm Administered Dose 500 mg .ROUTE .STK-MED ONE Stop: 07/07/19 12:07 Last Admin: 07/07/19 13:35 Dose: 500 mg Meropenem (Merrem) Confirm Administered Dose 500 mg .ROUTE .STK-MED ONE Stop: 07/10/19 06:48 Last Admin: 07/10/19 08:01 Dose: 500 mg Metformin HCl (Glucophage) 1,000 mg PO BIDMEALS [facility] Last Admin: 07/15/19 19:41 Dose: Not Given Metoclopramide HCl (Reglan) 10 mg IVPUSH Q6H [facility] Last Admin: 07/12/19 09:14 Dose: 10 mg Metoclopramide HCl (Reglan) 10 mg PO QIDACANDBED [facility] Last Admin: 07/13/19 07:42 Dose: 10 mg Metoclopramide HCl (Reglan) 10 mg IV Q6H [facility] Last Admin: 07/14/19 14:13 Dose: Not Given Midazolam HCl (Versed 1 Mg/Ml) Confirm Administered Dose 2 mg .ROUTE .STK-MED ONE Stop: 07/05/19 06:15 Midazolam HCl (Versed 1 Mg/Ml) Confirm Administered Dose 2 mg .ROUTE .STK-MED ONE Stop: 07/07/19 10:34 Midazolam HCl (Versed 1 Mg/Ml) Confirm Administered Dose 2 mg .ROUTE .STK-MED ONE Stop: 07/10/19 07:30 Morphine Sulfate (Morphine) 2 mg IVPUSH Q4H PRN PRN Reason: Pain (moderate 4-6) Last Admin: 07/04/19 14:38 Dose: 2 mg Naloxone HCl (Narcan) 0.1 mg IV ASDIRECTED PRN PRN Reason: decreased respiratory rate Neostigmine Methylsulfate (Neostigmine) Confirm Administered Dose 5 mg .ROUTE .STK-MED ONE Stop: 07/07/19 10:33 Ondansetron HCl (Zofran) Confirm Administered Dose 4 mg .ROUTE .STK-MED ONE Stop: 07/07/19 10:33 Oxycodone HCl (Oxycodone) 10 mg PO Q4H PRN PRN Reason: Pain Last Admin: 07/07/19 07:06 Dose: 10 mg Pantoprazole Sodium (Protonix Iv) 40 mg IVPUSH ONETIME ONE Stop: 07/03/19 23:37 Last Admin: 07/03/19 23:48 Dose: 40 mg Pantoprazole Sodium (Protonix Iv) 40 mg IVPUSH Q12H MARGY Last Admin: 07/11/19 01:34 Dose: 40 mg Polyethylene Glycol (Miralax) 238 gm PO ONETIME ONE Stop: 07/04/19 17:01 Last Admin: 07/04/19 16:58 Dose: 238 gm Potassium Chloride (Klor-Con M20) 40 meq PO ONETIME ONE Stop: 07/04/19 12:46 Last Admin: 07/04/19 14:06 Dose: 40 meq Potassium Chloride (Klor-Con M20) 40 meq PO ONETIME ONE Stop: 07/04/19 17:01 Last Admin: 07/04/19 17:10 Dose: 40 meq Potassium Chloride (Klor-Con M20) 40 meq PO ONETIME ONE Stop: 07/05/19 17:01 Last Admin: 07/05/19 16:53 Dose: 40 meq Potassium Chloride (Klor-Con M20) 40 meq PO ONETIME ONE Stop: 07/11/19 14:16 Last Admin: 07/11/19 15:28 Dose: 40 meq Propofol (Diprivan 20 Ml) Confirm Administered Dose 200 mg .ROUTE .STK-MED ONE Stop: 07/05/19 06:16 Propofol (Diprivan 20 Ml) Confirm Administered Dose 200 mg .ROUTE .STK-MED ONE Stop: 07/07/19 10:33 Propofol (Diprivan 20 Ml) Confirm Administered Dose 200 mg .ROUTE .STK-MED ONE Stop: 07/07/19 10:34 Propofol (Diprivan 20 Ml) Confirm Administered Dose 200 mg .ROUTE .STK-MED ONE Stop: 07/10/19 07:30 Senna/Docusate Sodium (Senna Plus) 1 tab PO BID PRN PRN Reason: Constipation Last Admin: 07/06/19 21:30 Dose: 1 tab Sodium Chloride (Saline Flush) 10 ml FLUSH ONETIME MARGY Stop: 07/04/19 16:00 Last Admin: 07/04/19 15:59 Dose: 10 ml Sodium Chloride (Saline Flush) 10 ml FLUSH ONETIME ONE Stop: 07/08/19 17:23 Last Admin: 07/08/19 18:26 Dose: 10 ml Succinylcholine Chloride (Quelicin) Confirm Administered Dose 200 mg .ROUTE .STK -MED ONE Stop: 07/07/19 10:33 Thiamine HCl (Vitamin B-1) 100 mg PO DAILY MARGY Last Admin: 07/07/19 09:21 Dose: Not Given - Exam Quality Assessment: DVT Prophylaxis General: Alert, Oriented, Cooperative, Mild Distress Lungs: Clear to Auscultation, Normal Respiratory Effort Cardiovascular: Regular Rate, Regular Rhythm, No Murmurs GI/Abdominal Exam: Soft, No Organomegaly, Tender. No: Distended, Guarding, Rigid, Rebound Extremities: Non-Tender, No Pedal Edema - Problem List Review Problem List Initiated/Reviewed/Updated: Yes - Plan Plan:: ASSESSMENT AND PLAN - SEVERE ESOPHAGITIS - as -Oral proton pump inhibitor twice daily PANCREATIC PSEUDOCYST - slow improvement over last few days, ileus appears to have resolved with several bowel movements in the last 24 hours -Oral ciprofloxacin -Surgical management per Dr. 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 HEPATIC CIRRHOSIS - evidence of esophageal varices as well as splenic vein thrombosis SEVERE EMPHYSEMA - noted on CT scan. Alpha-1 antitrypsin is pending. TYPE 2 DIABETES MELLITUS - glucose levels low -Hold metformin -Restart partial dose of his long-acting insulin -QID glucometers -low dose sliding scale Humalog CHRONIC ALCOHOL USE - no evidence for withdrawal. He is interested in treatment for alcohol dependence. -Outpatient treatment MICROCYTIC ANEMIA - likely secondary to chronic blood loss as well as iron deficiency. Hemoglobin stable following transfusion. -Follow-up hemoglobin in a.m. MAINTENANCE ISSUES -DVT prophylaxis; enoxaparin -GI prophylaxis; BID PPI -Sanchez catheter; not indicated -Nutrition; regular diet DISPOSITION - anticipate discharge to longterm house in [place] after the hospital stay.
[2019-07-16] MEDS: Enoxaparin 40 MG/0.4 ML Syringe SUBCUT SCH (09:58)
[2019-07-16] MEDS: Azithromycin 250 MG Tab PO SCH (11:49)
[2019-07-16] MEDS: Ondansetron 4 MG/2 ML SDV IV PRN (16:36)
[2019-07-16] MEDS: Sodium Chloride 0.9% 1,000 ML IV SCH (16:39)
[2019-07-17] MEDS: HYDROmorphone 1 MG/ML Syringe IVPUSH PRN ×2 (00:20→05:57)
[2019-07-17] MEDS: Metoclopramide 10 MG Tab PO SCH ×2 (03:06→08:37)
[2019-07-17] MEDS: Magnesium Sulfate/Water 2 GM in Premix Bag 1 BAG IV SCH ×4 (03:06→21:00)
[2019-07-17] MEDS: Ondansetron 4 MG/2 ML SDV IV PRN ×2 (05:54→22:08)
[2019-07-17] MEDS: Ciprofloxacin 500 MG Tab PO SCH (08:30)
[2019-07-17] MEDS: Multivitamins with Iron/Calcium/Folic Acid/Minerals Tab PO SCH (08:34)
[2019-07-17] MEDS: Pantoprazole 40 MG Tab.CR PO SCH ×2 (08:34→16:34)
[2019-07-17] MEDS: Aspirin 325 MG Tab.EC PO SCH (08:34)
[2019-07-17] MEDS: oxyCODONE 5 MG Tab PO PRN ×4 (08:35→20:31)
[2019-07-17] MEDS: Insulin Lispro 100 Unit/ML 3 ML KwikPen SUBCUT SCH ×4 (08:47→20:59)
[2019-07-17] MEDS ORDERED: HYDROmorphone 2 MG Tab PO PRN (10:08)
[2019-07-17] MEDS: Potassium Chloride 20 MEQ, Lidocaine 1% 2 ML in Sodium Chloride 0.9% 100 ML IV SCH ×2 (10:12→12:25)
[2019-07-17] MEDS: Enoxaparin 40 MG/0.4 ML Syringe SUBCUT SCH (10:13)
[2019-07-17] MEDS ORDERED: Loperamide 2 MG Cap PO PRN (10:35)
--- NOTE | 2019-07-17 10:36 | PN ---
DATE OF SERVICE: 07/17/2019 SUBJECTIVE: Joe has been having frequent loose stools, he said 5. Vital signs have been stable. Oral intake 1100. Urine output, he has been independently going to the bathroom. REVIEW OF SYSTEMS: Remainder of review of systems negative for any pertinent positives and negatives. OBJECTIVE: GENERAL: Joe Tony is a 34-year-old male. VITAL SIGNS: TPR is 97, 110, and 16; blood pressure 101/65. HEENT: Negative. NECK: Supple. HEART: Regular rate and rhythm. LUNGS: Clear. ABDOMEN: Negative. EXTREMITIES: Negative. ASSESSMENT: 1. Exploratory laparotomy, distal pancreatectomy, and splenectomy; date of surgery 07/07/2019. 2. Diabetes type 2. 3. Microcytic anemia secondary to chronic blood loss. PLAN: 1. Potassium was low today so replace potassium chloride 40 mEq IV. CBC, CMP, and phos in a.m. Discontinue bowel stimulation of Colace and Dulcolax due to frequent bowel movements. 2. Good pulmonary toilet. 3. We will evaluate p.r.n. or in a.m. Dione Cunningham PA-C /[id number]
--- NOTE | 2019-07-17 10:40 | PCM.PN ---
- General Info Date of Service: 07/17/19 Subjective Update: Mr. Tony has experienced significant diarrhea over the last 24 hours, stool for Clostridium difficile is negative this morning. Otherwise has been tolerating current diet. Functional Status: Reports: Tolerating Diet, Ambulating, Urinating - Review of Systems General: Reports: Weakness. Denies: Fever, Chills Pulmonary: Reports: No Symptoms Cardiovascular: Reports: No Symptoms Gastrointestinal: Reports: Abdominal Pain, Diarrhea. Denies: Difficulty Swallowing, Hematochezia, Melena, Nausea, Vomiting - Patient Data Vitals - Most Recent: Last Vital Signs Temp 95 F L 07/17/19 08:41 Pulse 112 H 07/17/19 08:41 Resp 20 07/17/19 08:41 BP 108/70 07/17/19 08:41 Pulse Ox 98 07/17/19 08:41 Weight - Most Recent: 120 lb 5.958 oz I&O - Last 24 Hours: Intake & Output 07/16/19 07/17/19 07/17/19 22:59 06:59 14:59 Intake Total 1309 350 150 Balance 1309 350 150 Lab Results Last 24 Hours: Laboratory Results - last 24 hr 07/17/19 07/17/19 Range/Units 04:31 04:31 WBC 9.6 (4.5-11.0) K/uL RBC 4.01 L (4.30-5.90) M/uL Hgb 10.3 L (12.0-15.0) g/dL Hct 33.3 L (40.0-54.0) % MCV 83 (80-98) fL MCH 26 L (27-31) pg MCHC 31 L (32-36) % Plt Count 1241 H* (150-400) K/uL Sodium 132 L (140-148) mmol/L Potassium 3.5 L (3.6-5.2) mmol/L Chloride 98 L (100-108) mmol/L Carbon Dioxide 25 (21-32) mmol/L Anion Gap 12.5 (5.0-14.0) mmol/L BUN 7 (7-18) mg/dL Creatinine 0.5 L (0.8-1.3) mg/dL Est Cr Clr Drug Dosing 157.73 mL/min Estimated GFR (MDRD) > 60 (>60) Glucose 199 H (74-106) mg/dL Calcium 7.3 L (8.5-10.1) mg/dL Phosphorus 3.0 (2.5-4.9) mg/dL Total Bilirubin 0.4 (0.2-1.0) mg/dL AST 8 L (15-37) U/L ALT 14 (12-78) U/L Alkaline Phosphatase 108 (46-116) U/L Total Protein 5.6 L (6.4-8.2) g/dL Albumin 2.0 L (3.4-5.0) g/dL Globulin 3.6 H (2.3-3.5) g/dL Albumin/Globulin Ratio 0.6 L (1.2-2.2) Kiran Results Last 24 Hours: Microbiology 07/17/19 08:08 Clostridioides difficile (PCR) - Final Stool / Feces Med Orders - Current: Current Medications Aspirin (Ecotrin) 325 mg PO DAILY [facility] Last Admin: 07/17/19 08:34 Dose: 325 mg Dextrose (Glutose 15) 15 gm PO ASDIRECTED PRN PRN Reason: HYPOGLYCEMIA Dextrose/Water (Dextrose 50% In Water) 50 ml IVPUSH ASDIRECTED PRN PRN Reason: HYPOGLYCEMIA Last Admin: 07/08/19 21:12 Dose: 50 ml Enoxaparin Sodium (Lovenox) 40 mg SUBCUT Q24H [facility] Last Admin: 07/17/19 10:13 Dose: 40 mg Glucagon (Glucagen) 1 mg IM ASDIRECTED PRN PRN Reason: HYPOGLYCEMIA Magnesium Sulfate 2 gm/ Premix 50 mls @ 25 mls/hr IV Q6HR [facility] Stop: 07/18/19 05:59 Last Admin: 07/17/19 10:12 Dose: 25 mls/hr Potassium Chloride 20 meq/Lidocaine HCl 2 ml/ Sodium Chloride 112 mls @ 56 mls/ hr IV Q2H [facility] Stop: 07/17/19 12:59 Last Admin: 07/17/19 10:12 Dose: 56 mls/hr Insulin Human Lispro (Humalog) 0 unit SUBCUT QIDACANDBED [facility]; Protocol Last Admin: 07/17/19 08:47 Dose: 2 unit Lactobacillus Rhamnosus (Culturelle) 1 cap PO BID MARGY Loperamide HCl (Imodium) 2 mg PO Q4H PRN PRN Reason: Diarrhea Multivitamins/Minerals (Thera M Plus) 1 tab PO DAILY [facility] Last Admin: 07/17/19 08:34 Dose: 1 tab Ondansetron HCl (Zofran) 4 mg IV Q4H PRN PRN Reason: Nausea/Vomiting Last Admin: 07/17/19 05:54 Dose: 4 mg Oxycodone HCl (Oxycodone) 5 mg PO Q4H PRN PRN Reason: Pain (severe 7-10) Pantoprazole Sodium (Protonix) 40 mg PO BIDAC [facility] Last Admin: 07/17/19 08:34 Dose: 40 mg Discontinued Medications Azithromycin (Zithromax) 250 mg PO Q24H [facility] Last Admin: 07/16/19 11:49 Dose: 250 mg Bisacodyl (Dulcolax) 10 mg PO ONETIME ONE Stop: 07/04/19 12:31 Last Admin: 07/04/19 14:06 Dose: 10 mg Bisacodyl (Dulcolax) 10 mg PO ONETIME ONE Stop: 07/04/19 20:01 Last Admin: 07/04/19 20:33 Dose: 10 mg Bisacodyl (Dulcolax) 10 mg PO BID [facility] Last Admin: 07/16/19 21:05 Dose: 10 mg Bupivacaine HCl (Marcaine 0.5%) Confirm Administered Dose 50 ml .ROUTE .STK-MED ONE Stop: 07/10/19 06:48 Last Admin: 07/10/19 08:01 Dose: 10 ml Calcium Carbonate (Caltrate 600+D 1500 Mg-400 Units) 1 tab PO DAILY [facility] Last Admin: 07/07/19 09:20 Dose: Not Given Ciprofloxacin (Ciprofloxacin Hcl) 500 mg PO Q12H [facility] Last Admin: 07/13/19 23:20 Dose: 500 mg Ciprofloxacin (Ciprofloxacin Hcl) 500 mg PO BID@0730,2100 [facility] Last Admin: 07/17/19 08:30 Dose: 500 mg Ropivacaine 27 ml/Dexamethasone 8 mg/Epinephrine HCl 0.4 mg/ Sodium Chloride 50.6 ml 0 ml NERVRT ASDIRECTED [facility] Last Admin: 07/07/19 13:24 Dose: 80 syringe Ropivacaine 27 ml/Dexamethasone 8 mg/Epinephrine HCl 0.4 mg/ Sodium Chloride 50.6 ml 0 ml NERVRT ASDIRECTED [facility] Last Admin: 07/10/19 07:55 Dose: 80 syringe Dexamethasone (Dexamethasone) Confirm Administered Dose 4 mg .ROUTE .STK-MED ONE Stop: 07/07/19 10:33 Dextrose/Water (Dextrose 50% In Water) 50 ml IVPUSH ONETIME ONE Stop: 07/05/19 04:53 Last Admin: 07/05/19 04:57 Dose: 50 ml Dextrose/Water (Dextrose 50% In Water) Confirm Administered Dose 50 ml .ROUTE .STK-MED ONE Stop: 07/05/19 04:56 Last Admin: 07/05/19 05:16 Dose: Not Given Docusate Sodium (Colace) 100 mg PO BID [facility] Last Admin: 07/16/19 21:05 Dose: 100 mg Enoxaparin Sodium (Lovenox) 40 mg SUBCUT DAILY [facility] Last Admin: 07/07/19 08:56 Dose: Not Given Fentanyl (Sublimaze) Confirm Administered Dose 100 mcg .ROUTE .STK-MED ONE Stop: 07/05/19 06:15 Fentanyl (Sublimaze) Confirm Administered Dose 250 mcg .ROUTE .STK-MED ONE Stop: 07/07/19 10:33 Fentanyl (Sublimaze) Confirm Administered Dose 100 mcg .ROUTE .STK-MED ONE Stop: 07/07/19 10:34 Fentanyl (Sublimaze) 50 mcg IVPUSH ONETIME ONE Stop: 07/07/19 10:52 Last Admin: 07/07/19 11:00 Dose: 50 mcg Fentanyl (Sublimaze) Confirm Administered Dose 100 mcg .ROUTE .STK-MED ONE Stop: 07/10/19 07:30 Folic Acid (Folic Acid) 1 mg PO DAILY [facility] Last Admin: 07/07/19 09:20 Dose: Not Given Furosemide (Lasix) 10 mg IVPUSH ONETIME ONE Stop: 07/10/19 14:01 Last Admin: 07/10/19 15:05 Dose: 10 mg Gabapentin (Neurontin) 400 mg PO Q8H [facility] Stop: 07/09/19 06:01 Last Admin: 07/07/19 17:04 Dose: Not Given Glycopyrrolate (Robinul) Confirm Administered Dose 1 mg .ROUTE .STK-MED ONE Stop: 07/07/19 10:33 Hydrocortisone Sodium Succinate (Solu-Cortef) 100 mg IVPUSH ONETIME ONE Stop: 07/08/19 22:33 Last Admin: 07/08/19 22:49 Dose: 100 mg Hydrocortisone Sodium Succinate (Solu-Cortef) 100 mg IVPUSH Q12H [facility] Stop: 07/10/19 10:01 Last Admin: 07/10/19 09:11 Dose: 100 mg Hydromorphone HCl (Dilaudid) 0.5 mg IVPUSH ONETIME ONE Stop: 07/03/19 23:14 Last Admin: 07/03/19 23:45 Dose: 0.5 mg Hydromorphone HCl (Dilaudid [employer] Operations [employer] 15 Mg In Ns 30 Ml) 0 mg IV ASDIRECTED PRN; Protocol PRN Reason: Pain Last Admin: 07/10/19 15:27 Dose: 15 mg Hydromorphone HCl (Dilaudid) 1 mg IVPUSH Q4H PRN PRN Reason: Pain (severe 7-10) Last Admin: 07/17/19 05:57 Dose: 1 mg Hydromorphone HCl (Dilaudid) 2 - 4 mg PO Q4H PRN PRN Reason: Pain Hydroxyzine HCl (Vistaril) 100 mg IM Q4H PRN PRN Reason: pain Last Admin: 07/11/19 21:57 Dose: 100 mg Sodium Chloride (Normal Saline) 1,000 mls @ 999 mls/hr IV ASDIRECTED MARGY Last Admin: 07/03/19 22:51 Dose: 999 mls/hr Sodium Chloride (Normal Saline) 1,000 mls @ 999 mls/hr IV ASDIRECTED MARGY Last Admin: 07/03/19 23:48 Dose: 999 mls/hr Sodium Chloride (Normal Saline) 1,000 mls @ 200 mls/hr IV ASDIRECTED MARGY Last Admin: 07/04/19 11:33 Dose: 200 mls/hr Magnesium Sulfate 2 gm/ Premix 50 mls @ 25 mls/hr IV Q6H [facility] Stop: 07/04/19 17:59 Last Admin: 07/04/19 16:33 Dose: 25 mls/hr Ferric Sodium Gluconate Complex 250 mg/ Sodium Chloride 120 mls @ 50 mls/hr IV ONETIME ONE Stop: 07/04/19 14:23 Last Admin: 07/04/19 11:57 Dose: 50 mls/hr Ferric Sodium Gluconate Complex 250 mg/ Sodium Chloride 120 mls @ 60 mls/hr IV ONETIME ONE Stop: 07/05/19 10:29 Last Admin: 07/05/19 08:54 Dose: 60 mls/hr Sodium Chloride (Normal Saline) 1,000 mls @ 100 mls/hr IV ASDIRECTED MARGY Last Admin: 07/05/19 00:17 Dose: 100 mls/hr Sodium Chloride (Normal Saline) 70 mls @ 3 mls/sec IV ASDIRECTED [facility]ARGY Stop: 07/04/19 16:00 Last Admin: 07/04/19 15:59 Dose: 3 mls/sec Dextrose/Sodium Chloride (Dextrose 5%-Normal Saline) 1,000 mls @ 100 mls/hr IV ASDIRECTED MARGY Last Admin: 07/05/19 11:46 Dose: 100 mls/hr Potassium Chloride 20 meq/Lidocaine HCl 2 ml/ Sodium Chloride 112 mls @ 56 mls/ hr IV Q2H [facility] Stop: 07/05/19 13:59 Potassium Chloride 20 meq/Lidocaine HCl 2 ml/ Sodium Chloride 112 mls @ 56 mls/ hr IV Q2H [facility] Stop: 07/05/19 14:59 Last Admin: 07/05/19 14:26 Dose: 56 mls/hr Ketamine HCl 50 mg/ Sodium (Chloride) 50 mls @ 16.32 mls/hr IV ASDIRECTED [facility] Magnesium Sulfate 2 gm/ Premix 50 mls @ 25 mls/hr IV Q6H [facility] Stop: 07/09/19 05:59 Last Admin: 07/07/19 09:18 Dose: 25 mls/hr Cefoxitin Sodium 2 gm/ Sodium (Chloride) 50 mls @ 100 mls/hr IV ONETIME ONE Stop: 07/07/19 09:29 Last Admin: 07/07/19 13:23 Dose: 100 mls/hr Dextrose/Lactated Ringer's (Dextrose 5%-Lactated Ringers) 1,000 mls @ 100 mls/ hr IV ASDIRECTED MARGY Last Admin: 07/07/19 03:24 Dose: 100 mls/hr Lactated Ringer's (Ringers, Lactated) Confirm Administered Dose 1,000 mls @ as directed .ROUTE .STK-MED ONE Stop: 07/07/19 11:40 Lactated Ringer's (Ringers, Lactated) Confirm Administered Dose 1,000 mls @ as directed .ROUTE .STK-MED ONE Stop: 07/07/19 13:14 Azithromycin 250 mg/ Sodium (Chloride) 250 mls @ 250 mls/hr IV ONETIME ONE Stop: 07/07/19 14:59 Last Admin: 07/07/19 16:55 Dose: 250 mls/hr Lactated Ringer's (Ringers, Lactated) Confirm Administered Dose 1,000 mls @ as directed .ROUTE .STK-MED ONE Stop: 07/07/19 15:09 Dextrose/Lactated Ringer's (Dextrose 5%-Lactated Ringers) 1,000 mls @ 200 mls/ hr IV ASDIRECTED [facility] Last Admin: 07/08/19 06:04 Dose: 200 mls/hr Multivitamins/Minerals 10 ml/Thiamine HCl 100 mg/ Chromium/Copper/Manganese/ Seleni/Zn 1 ml/ Dextrose/Lactated Ringer's 1,012 mls @ 200 mls/hr IV DAILY@ 1600 [facility] Last Admin: 07/10/19 16:02 Dose: 200 mls/hr Cefoxitin Sodium 2 gm/ Sodium (Chloride) 50 mls @ 100 mls/hr IV Q6H [facility] Last Admin: 07/11/19 08:28 Dose: 100 mls/hr Azithromycin 125 mg/ Sodium (Chloride) 150 mls @ 150 mls/hr IV Q12H [facility] Last Admin: 07/11/19 02:14 Dose: 150 mls/hr Magnesium Sulfate 2 gm/ Premix 50 mls @ 25 mls/hr IV Q6H [facility] Stop: 07/09/19 13:59 Last Admin: 07/09/19 05:46 Dose: 25 mls/hr Dextrose/Lactated Ringer's (Dextrose 5%-Lactated Ringers) 1,000 mls @ 100 mls/ hr IV ASDIRECTED [facility] Last Admin: 07/10/19 21:31 Dose: 100 mls/hr Lactated Ringer's (Ringers, Lactated) 1,000 mls @ 999 mls/hr IV ASDIRECTED [facility] Stop: 07/08/19 16:46 Lactated Ringer's (Ringers, Lactated) 1,000 mls @ 500 mls/hr IV ASDIRECTED [facility] Stop: 07/08/19 19:31 Last Admin: 07/08/19 17:15 Dose: 500 mls/hr Sodium Chloride (Normal Saline) 100 mls @ 0 mls/hr IV ASDIRECTED [facility] Stop: 07/08/19 17:31 Last Admin: 07/08/19 18:26 Dose: 3.5 mls/hr Albumin Human (Albumin 25%) 25 gm in 100 mls @ 25 mls/hr IV ONETIME ONE Stop: 07/08/19 23:03 Last Admin: 07/08/19 19:50 Dose: 25 mls/hr Lactated Ringer's (Ringers, Lactated) 1,000 mls @ 250 mls/hr IV ASDIRECTED [facility] Stop: 07/08/19 23:31 Last Admin: 07/08/19 19:30 Dose: 250 mls/hr Albumin Human (Albumin 25%) 25 gm in 100 mls @ 25 mls/hr IV ONETIME ONE Stop: 07/09/19 07:03 Last Admin: 07/09/19 03:19 Dose: 25 mls/hr Albumin Human (Albumin 25%) 25 gm in 100 mls @ 25 mls/hr IV Q8H [facility] Stop: 07/10/19 05:59 Last Admin: 07/10/19 01:30 Dose: 25 mls/hr Lactated Ringer's (Ringers, Lactated) Confirm Administered Dose 1,000 mls @ as directed .ROUTE .[facility] ONE Stop: 07/10/19 08:12 Magnesium Sulfate 2 gm/ Premix 50 mls @ 25 mls/hr IV Q6H [facility] Stop: 07/14/19 05:59 Last Admin: 07/12/19 09:17 Dose: 25 mls/hr Potassium Phosphate 22.5 mmole (/ Sodium Chloride) 257.5 mls @ 65 mls/hr IV Q4H [facility] Stop: 07/11/19 15:55 Last Admin: 07/11/19 13:23 Dose: 65 mls/hr Sodium Chloride (Normal Saline) 1,000 mls @ 25 mls/hr IV ASDIRECTED [facility] Last Admin: 07/16/19 16:39 Dose: 25 mls/hr Potassium Phosphate 22.5 mmole (/ Sodium Chloride) 257.5 mls @ 65 mls/hr IV Q4H [facility] Stop: 07/12/19 19:58 Last Admin: 07/12/19 16:04 Dose: 65 mls/hr Potassium Phosphate 15 mmole/ (Sodium Chloride) 255 mls @ 85 mls/hr IV ONETIME ONE Stop: 07/12/19 22:59 Last Admin: 07/12/19 20:05 Dose: 85 mls/hr Azithromycin 250 mg/ Sodium (Chloride) 150 mls @ 150 mls/hr IV ONETIME ONE Stop: 07/13/19 09:59 Last Admin: 07/13/19 09:06 Dose: 150 mls/hr Azithromycin 125 mg/ Sodium (Chloride) 150 mls @ 150 mls/hr IV Q12H [facility] Last Admin: 07/13/19 21:10 Dose: 150 mls/hr Potassium Phosphate 20 mmole/ (Sodium Chloride) 256.6667 mls @ 85.556 mls/hr IV Q3H [facility] Stop: 07/13/19 19:29 Last Admin: 07/13/19 17:26 Dose: 85.556 mls/hr Sodium Chloride (Normal Saline) 70 mls @ 3 mls/sec IV ASDIRECTED [facility]ARGY Stop: 07/14/19 13:00 Last Admin: 07/14/19 11:45 Dose: 3 mls/sec Influenza Virus Vaccine (Fluzone Quad 3689-1861 Syringe) 60 mcg IM .ONCE ONE Stop: 07/04/19 10:01 Last Admin: 07/04/19 09:31 Dose: 60 mcg Insulin Glargine (Lantus Solostar) 20 units SUBCUT BEDTIME [facility] Last Admin: 07/06/19 21:10 Dose: 20 units Insulin Glargine (Lantus Solostar) 20 units SUBCUT BEDTIME [facility] Stop: 07/04/19 00:40 Last Admin: 07/04/19 01:02 Dose: 20 units Insulin Glargine (Lantus Solostar) 10 units SUBCUT Q12H [facility] Last Admin: 07/08/19 09:24 Dose: 10 units Insulin Glargine (Lantus Solostar) 20 units SUBCUT BID [facility] Last Admin: 07/11/19 08:36 Dose: 20 units Insulin Glargine (Lantus Solostar) 10 units SUBCUT DAILY [facility] Last Admin: 07/13/19 10:03 Dose: 10 units Insulin Glargine (Lantus Solostar) 10 units SUBCUT BEDTIME [facility] Last Admin: 07/14/19 21:01 Dose: 10 units Insulin Glargine (Lantus Solostar) 8 units SUBCUT ONETIME ONE Stop: 07/14/19 08:16 Last Admin: 07/14/19 08:22 Dose: 8 units Insulin Glargine (Lantus Solostar) 5 units SUBCUT BEDTIME MARGY Insulin Human Lispro (Humalog) 0 unit SUBCUT QIDACANDBED [facility]; Protocol Last Admin: 07/07/19 14:06 Dose: Not Given Insulin Human Lispro (Humalog) 14 unit SUBCUT ONETIME ONE Stop: 07/04/19 16:55 Last Admin: 07/04/19 17:06 Dose: 14 units Insulin Human Lispro (Humalog) 0 unit SUBCUT ASDIRECTED PRN; Protocol PRN Reason: MEDIUM CORRECTIONAL DOSING Last Admin: 07/11/19 08:37 Dose: 3 units Insulin Human Lispro (Humalog) 5 unit SUBCUT TIDMEALS [facility] Last Admin: 07/12/19 16:42 Dose: Not Given Insulin Human Regular (Humulin R) 3 unit IVPUSH ONETIME ONE Stop: 07/03/19 23:13 Last Admin: 07/03/19 23:40 Dose: 3 units Insulin Human Regular (Humulin R) 3 unit SUBCUT ONETIME ONE Stop: 07/03/19 23:14 Last Admin: 07/03/19 23:43 Dose: 3 units Iohexol (Omnipaque) 20 ml PO ONETIME ONE Stop: 07/04/19 13:11 Last Admin: 07/04/19 14:16 Dose: 20 ml Iopamidol (Isovue-300 (61%)) 81 ml IV . DIRECTED PRN PRN Reason: RADIOLOGY EXAM Stop: 07/05/19 12:43 Last Admin: 07/04/19 15:59 Dose: 79 ml Iopamidol (Isovue-370 (76%)) 100 ml IV . DIRECTED MARGY Stop: 07/08/19 17:31 Last Admin: 07/08/19 18:26 Dose: 100 ml Iopamidol (Isovue-300 (61%)) 100 ml IV . DIRECTED ONE Stop: 07/14/19 10:48 Last Admin: 07/14/19 11:45 Dose: 82 ml Ketamine HCl (Ketalar) 27 mg IV ASDIRECTED MARGY Labetalol HCl (Normodyne) Confirm Administered Dose 20 mg .ROUTE .STK-MED ONE Stop: 07/07/19 15:10 Lidocaine/Epinephrine (Xylocaine 1% With Epinephrine 1:100,000) Confirm Administered Dose 50 ml .ROUTE .STK-MED ONE Stop: 07/10/19 06:48 Last Admin: 07/10/19 08:01 Dose: 10 ml Lorazepam (Ativan) 0 mg PO ASDIRECTED [facility]; Protocol Lorazepam (Ativan) 0.5 - 1 mg IVPUSH Q4H PRN PRN Reason: * Last Admin: 07/10/19 05:18 Dose: 1 mg Magnesium Oxide (Magnesium Oxide) 400 mg PO BID [facility] Last Admin: 07/07/19 09:20 Dose: Not Given Meropenem (Merrem) Confirm Administered Dose 500 mg .ROUTE .STK-MED ONE Stop: 07/07/19 12:07 Last Admin: 07/07/19 13:35 Dose: 500 mg Meropenem (Merrem) Confirm Administered Dose 500 mg .ROUTE .STK-MED ONE Stop: 07/10/19 06:48 Last Admin: 07/10/19 08:01 Dose: 500 mg Metformin HCl (Glucophage) 1,000 mg PO BIDMEALS [facility] Last Admin: 07/15/19 19:41 Dose: Not Given Metoclopramide HCl (Reglan) 10 mg IVPUSH Q6H [facility] Last Admin: 07/12/19 09:14 Dose: 10 mg Metoclopramide HCl (Reglan) 10 mg PO QIDACANDBED [facility] Last Admin: 07/13/19 07:42 Dose: 10 mg Metoclopramide HCl (Reglan) 10 mg IV Q6H [facility] Last Admin: 07/14/19 14:13 Dose: Not Given Metoclopramide HCl (Reglan) 10 mg PO Q6H [facility] Last Admin: 07/17/19 08:37 Dose: 10 mg Midazolam HCl (Versed 1 Mg/Ml) Confirm Administered Dose 2 mg .ROUTE .STK-MED ONE Stop: 07/05/19 06:15 Midazolam HCl (Versed 1 Mg/Ml) Confirm Administered Dose 2 mg .ROUTE .STK-MED ONE Stop: 07/07/19 10:34 Midazolam HCl (Versed 1 Mg/Ml) Confirm Administered Dose 2 mg .ROUTE .STK-MED ONE Stop: 07/10/19 07:30 Morphine Sulfate (Morphine) 2 mg IVPUSH Q4H PRN PRN Reason: Pain (moderate 4-6) Last Admin: 07/04/19 14:38 Dose: 2 mg Naloxone HCl (Narcan) 0.1 mg IV ASDIRECTED PRN PRN Reason: decreased respiratory rate Neostigmine Methylsulfate (Neostigmine) Confirm Administered Dose 5 mg .ROUTE .STK-MED ONE Stop: 07/07/19 10:33 Ondansetron HCl (Zofran) Confirm Administered Dose 4 mg .ROUTE .STK-MED ONE Stop: 07/07/19 10:33 Oxycodone HCl (Oxycodone) 10 mg PO Q4H PRN PRN Reason: Pain Last Admin: 07/07/19 07:06 Dose: 10 mg Oxycodone HCl (Oxycodone) 5 mg PO Q4H PRN PRN Reason: Pain (moderate 4-6) Last Admin: 07/14/19 13:53 Dose: 5 mg Oxycodone HCl (Oxycodone) 10 mg PO Q4H PRN PRN Reason: Pain (severe 7-10) Last Admin: 07/17/19 08:35 Dose: 10 mg Pantoprazole Sodium (Protonix Iv) 40 mg IVPUSH ONETIME ONE Stop: 07/03/19 23:37 Last Admin: 07/03/19 23:48 Dose: 40 mg Pantoprazole Sodium (Protonix Iv) 40 mg IVPUSH Q12H [facility]ARG[facility] Last Admin: 07/11/19 01:34 Dose: 40 mg Polyethylene Glycol (Miralax) 238 gm PO ONETIME ONE Stop: 07/04/19 17:01 Last Admin: 07/04/19 16:58 Dose: 238 gm Potassium Chloride (Klor-Con M20) 40 meq PO ONETIME ONE Stop: 07/04/19 12:46 Last Admin: 07/04/19 14:06 Dose: 40 meq Potassium Chloride (Klor-Con M20) 40 meq PO ONETIME ONE Stop: 07/04/19 17:01 Last Admin: 07/04/19 17:10 Dose: 40 meq Potassium Chloride (Klor-Con M20) 40 meq PO ONETIME ONE Stop: 07/05/19 17:01 Last Admin: 07/05/19 16:53 Dose: 40 meq Potassium Chloride (Klor-Con M20) 40 meq PO ONETIME ONE Stop: 07/11/19 14:16 Last Admin: 07/11/19 15:28 Dose: 40 meq Propofol (Diprivan 20 Ml) Confirm Administered Dose 200 mg .ROUTE .STK-MED ONE Stop: 07/05/19 06:16 Propofol (Diprivan 20 Ml) Confirm Administered Dose 200 mg .ROUTE .STK-MED ONE Stop: 07/07/19 10:33 Propofol (Diprivan 20 Ml) Confirm Administered Dose 200 mg .ROUTE .STK-MED ONE Stop: 07/07/19 10:34 Propofol (Diprivan 20 Ml) Confirm Administered Dose 200 mg .ROUTE .STK-MED ONE Stop: 07/10/19 07:30 Senna/Docusate Sodium (Senna Plus) 1 tab PO BID PRN PRN Reason: Constipation Last Admin: 07/06/19 21:30 Dose: 1 tab Sodium Chloride (Saline Flush) 10 ml FLUSH ONETIME MARGY Stop: 07/04/19 16:00 Last Admin: 07/04/19 15:59 Dose: 10 ml Sodium Chloride (Saline Flush) 10 ml FLUSH ONETIME ONE Stop: 07/08/19 17:23 Last Admin: 07/08/19 18:26 Dose: 10 ml Succinylcholine Chloride (Quelicin) Confirm Administered Dose 200 mg .ROUTE .STK -MED ONE Stop: 07/07/19 10:33 Thiamine HCl (Vitamin B-1) 100 mg PO DAILY [facility] Last Admin: 07/07/19 09:21 Dose: Not Given - Exam Quality Assessment: DVT Prophylaxis General: Alert, Oriented, Cooperative, Mild Distress Lungs: Clear to Auscultation, Normal Respiratory Effort Cardiovascular: Regular Rate, Regular Rhythm, No Murmurs GI/Abdominal Exam: Soft, No Organomegaly, No Distention, Tender. No: Guarding, Rigid, Rebound Extremities: Non-Tender, No Pedal Edema - Problem List Review Problem List Initiated/Reviewed/Updated: Yes - My Orders Last 24 Hours: My Active Orders 07/17/19 10:35 Loperamide [Imodium] 2 mg PO Q4H PRN Convert IV to Saline Lock [OM.PC] Routine 07/17/19 10:36 oxyCODONE 5 mg PO Q4H PRN 07/17/19 10:45 Lactobacillus Rhamnosus GG [Culturelle] 1 cap PO BID 07/17/19 11:30 GLUCOSE POC LAB TO COLLECT [POC] QIDACANDBED 07/17/19 16:30 GLUCOSE POC LAB TO COLLECT [POC] QIDACANDBED 07/17/19 21:00 GLUCOSE POC LAB TO COLLECT [POC] QIDACANDBED - Plan Plan:: ASSESSMENT AND PLAN - SEVERE ESOPHAGITIS - resolved -Oral proton pump inhibitor twice daily PANCREATIC PSEUDOCYST - unfortunately has developed diarrhea with multiple stools during the night. Stool for C. difficile is negative -Odium as needed for diarrhea -Discontinue ciprofloxacin -Discontinue bowel stimulation because of diarrhea -Surgical management per Dr. 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 HEPATIC CIRRHOSIS - evidence of esophageal varices as well as splenic vein thrombosis SEVERE EMPHYSEMA - noted on CT scan. Alpha-1 antitrypsin is pending. TYPE 2 DIABETES MELLITUS - glucose levels low -Hold metformin -Restart partial dose of his long-acting insulin -QID glucometers -low dose sliding scale Humalog CHRONIC ALCOHOL USE - no evidence for withdrawal. He is interested in treatment for alcohol dependence. -Outpatient treatment MICROCYTIC ANEMIA - likely secondary to chronic blood loss as well as iron deficiency. Hemoglobin stable following transfusion. -Follow-up hemoglobin in a.m. MAINTENANCE ISSUES -DVT prophylaxis; enoxaparin -GI prophylaxis; BID PPI -Sanchez catheter; not indicated -Nutrition; regular diet DISPOSITION - anticipate discharge to [facility] in [place] after the hospital stay.
[2019-07-17] MEDS: Lactobacillus Rhamnosus GG (Probiotic) Cap PO SCH ×2 (12:25→20:59)
[2019-07-17] MEDS ORDERED: oxyCODONE 5 MG Tab PO ONE (22:23)
[2019-07-17] MEDS: HYDROmorphone 0.5 MG/0.5 ML Syringe IVPUSH PRN (23:47)
[2019-07-18] MEDS: Magnesium Sulfate/Water 2 GM in Premix Bag 1 BAG IV SCH (04:11)
[2019-07-18] MEDS: HYDROmorphone 0.5 MG/0.5 ML Syringe IVPUSH PRN ×4 (04:43→22:44)
--- NOTE | 2019-07-18 06:08 | CRLCR ---
Indication: Ileus Technique: Abdomen 3 view Comparison: 07/13/2019 Findings/Impression: Bowel: Gaseous distension with fluid levels appears to be predominantly in the small bowel. This has worsened since the prior exam. The pattern is more suggestive of a small bowel obstruction favored over ileus. Soft tissues: No sign of free air. No sign of soft tissue mass. No suspicious calcifications. Bones: Unremarkable for age. Dictated by Raymundo Evans MD @ 07/18/2019 6:07:36 AM Dictated by: Raymundo Evans MD @ 07/18/2019 06:07:44 (Electronically Signed)
[2019-07-18] MEDS ORDERED: Potassium Chloride Riders 40 MEQ in Premix Bag 1 BAG IV ONE (06:56)
[2019-07-18] MEDS ORDERED: Sodium Chloride 0.9% 10 ML Syringe FLUSH ONE (07:08)
[2019-07-18] MEDS ORDERED: Iopamidol 612 MG/ML 100 ML Bottle IV SCH (07:15)
[2019-07-18] MEDS: Potassium Chloride 20 MEQ, Lidocaine 1% 2 ML in Sodium Chloride 0.9% 100 ML IV SCH ×4 (07:50→19:46)
[2019-07-18] MEDS: Dextrose 5%-Lactated Ringers 1,000 ML IV SCH ×2 (07:52→17:53)
[2019-07-18] MEDS: Insulin Lispro 100 Unit/ML 3 ML KwikPen SUBCUT SCH ×4 (08:35→22:11)
[2019-07-18] MEDS: Pantoprazole 40 MG Tab.CR PO SCH ×2 (08:36→15:46)
[2019-07-18] MEDS: Multivitamins with Iron/Calcium/Folic Acid/Minerals Tab PO SCH (08:36)
[2019-07-18] MEDS: Aspirin 325 MG Tab.EC PO SCH (08:36)
[2019-07-18] MEDS: Lactobacillus Rhamnosus GG (Probiotic) Cap PO SCH ×3 (09:08→22:10)
--- NOTE | 2019-07-18 10:18 | CRLCT ---
INDICATION: Small-bowel obstruction. TECHNIQUE: CT abdomen and pelvis acquired with 100 cc Isovue-300 IV contrast. COMPARISON: July 04, 2019. FINDINGS: There is diffuse fluid filled distention of the GI tract. This appears more prevalent in the small bowel which is dilated up to 4.8 cm but is also present in the colon. The liver is normal in size, shape and attenuation. Unremarkable gallbladder. No biliary dilatation. Multiple calcifications in the pancreas suggesting chronic pancreatitis. No sign of acute pancreatic disease. Spleen is absent. Adrenal glands are unremarkable. The kidneys are unremarkable. Pelvic organs are unremarkable. No lymphadenopathy evident. No free air or significant free fluid. Trace left-sided pleural effusion. IMPRESSION: Diffuse fluid filled distention of the GI tract, small bowel greater than colon. This pattern could represent a generalized ileus or partial small bowel obstruction. There is no distinct transition point evident. Dictated by Raymundo Evans MD @ 07/18/2019 10:16:33 AM Please note that all CT scans at this facility use dose modulation, iterative reconstruction, and/or weight-based dosing when appropriate to reduce radiation dose to as low as reasonably achievable. Dictated by: Raymundo Evans MD @ 07/18/2019 10:16:35 (Electronically Signed)
[2019-07-18] MEDS: Enoxaparin 40 MG/0.4 ML Syringe SUBCUT SCH (10:59)
--- NOTE | 2019-07-18 11:25 | PN ---
DATE OF SERVICE: 07/15/2019 The patient has been afebrile with stable vital signs. Still fairly distended, but appears to be somewhat less so today. CT that was obtained yesterday does show some possible partial obstruction mostly at the partial colon resection site and the area around the splenic flexure with there being quite a bit of stool proximal to that and some distention of the small bowel as well. He has been moving his bowels, however, and there is obviously not a complete obstruction and it is hard to know to what extent he has some GI tract motility issues related to the diabetes, which we certainly have seen in the stomach. Of note, the stomach appeared to have as much material in it as previously. Otherwise, we will have him eat today once again and will schedule followup in this clinic over the next couple of days. If we get towards the end of the week and things are opening up, we will probably re-CT scan the patient, and at some point if things are not opening up satisfactorily as far as the large bowel situation, that area might need to be resected. Blood sugars are a little bit low this morning and will back down on the Lantus dose. It may be he is getting a little bit more effect of the metformin at this point as well. Otherwise, continue to work with Dr. Contreras and his labs today showed somewhat low magnesium, we will supplement that. His white count is down to 16,000, which is an improvement. Isaias Velarde MD Job #: [id number]
--- NOTE | 2019-07-18 11:43 | PN ---
DATE OF SERVICE: 07/16/2019 The patient has been afebrile with stable vital signs. Oral intake has been fair. He is moving his bowels and blood sugars are running fairly good at this point without any insulin, just with the metformin. The abdomen is much less distended than it had been and overall appears to be improving. Lab showed some persistent elevation in the white count of 17,000, hemoglobin 10.7, platelets are 1100. He was started on aspirin and otherwise, chemistries show no significant problems. We will continue to maximize activity and work with pulmonary toilet, and encourage ongoing oral intake. I think the Zithromax is probably effected at this point with regard to the gastric emptying. Isaias Velarde MD Job #: [id number]
--- NOTE | 2019-07-18 13:00 | PCM.PN ---
- General Info Date of Service: 07/18/19 Subjective Update: Mr. Tony has unfortunately developed recurrent symptoms of abdominal pain with nausea and vomiting. CT scan obtained this morning shows evidence of bowel obstruction versus ileus. He has been seen and evaluated by Dr. Velarde, plan is to proceed with exploratory laparotomy tomorrow. Functional Status: Reports: Ambulating, Urinating. Denies: Tolerating Diet - Review of Systems General: Denies: Fever, Chills Pulmonary: Reports: No Symptoms Cardiovascular: Reports: No Symptoms Gastrointestinal: Reports: Abdominal Pain, Diarrhea, Nausea, Vomiting. Denies: Difficulty Swallowing, Hematochezia, Melena - Patient Data Vitals - Most Recent: Last Vital Signs Temp 96.4 F 07/18/19 11:04 Pulse 114 H 07/18/19 11:04 Resp 16 07/18/19 11:04 BP 101/54 L 07/18/19 11:04 Pulse Ox 93 L 07/18/19 11:04 Weight - Most Recent: 120 lb 5.958 oz I&O - Last 24 Hours: Intake & Output 07/17/19 07/18/19 07/18/19 22:59 06:59 14:59 Intake Total 1168 995 362 Balance 1168 995 362 Lab Results Last 24 Hours: Laboratory Results - last 24 hr 07/18/19 07/18/19 Range/Units 03:42 03:42 WBC 10.8 (4.5-11.0) K/uL RBC 3.68 L (4.30-5.90) M/uL Hgb 9.5 L (12.0-15.0) g/dL Hct 30.6 L (40.0-54.0) % MCV 83 (80-98) fL MCH 26 L (27-31) pg MCHC 31 L (32-36) % Plt Count 1226 H* (150-400) K/uL Sodium 135 L (140-148) mmol/L Potassium 3.2 L (3.6-5.2) mmol/L Chloride 100 (100-108) mmol/L Carbon Dioxide 22 (21-32) mmol/L Anion Gap 16.2 H (5.0-14.0) mmol/L BUN 5 L (7-18) mg/dL Creatinine 0.5 L (0.8-1.3) mg/dL Est Cr Clr Drug Dosing 157.73 mL/min Estimated GFR (MDRD) > 60 (>60) Glucose 218 H (74-106) mg/dL Calcium 6.9 L* (8.5-10.1) mg/dL Phosphorus 1.8 L (2.5-4.9) mg/dL Total Bilirubin 0.3 (0.2-1.0) mg/dL AST 8 L (15-37) U/L ALT 12 (12-78) U/L Alkaline Phosphatase 101 (46-116) U/L Total Protein 5.4 L (6.4-8.2) g/dL Albumin 1.9 L (3.4-5.0) g/dL Globulin 3.5 (2.3-3.5) g/dL Albumin/Globulin Ratio 0.5 L (1.2-2.2) Kiran Results Last 24 Hours: Microbiology 07/17/19 08:08 Clostridioides difficile (PCR) - Final Stool / Feces Med Orders - Current: Current Medications Dextrose (Glutose 15) 15 gm PO ASDIRECTED PRN PRN Reason: HYPOGLYCEMIA Dextrose/Water (Dextrose 50% In Water) 50 ml IVPUSH ASDIRECTED PRN PRN Reason: HYPOGLYCEMIA Last Admin: 07/08/19 21:12 Dose: 50 ml Glucagon (Glucagen) 1 mg IM ASDIRECTED PRN PRN Reason: HYPOGLYCEMIA Hydromorphone HCl (Dilaudid) 0.5 mg IVPUSH Q3H PRN PRN Reason: Pain (severe 7-10) Last Admin: 07/18/19 11:53 Dose: 0.5 mg Potassium Chloride 20 meq/Lidocaine HCl 2 ml/ Sodium Chloride 112 mls @ 56 mls/ hr IV Q2H [facility] Stop: 07/18/19 21:59 Dextrose/Lactated Ringer's (Dextrose 5%-Lactated Ringers) 1,000 mls @ 100 mls/ hr IV ASDIRECTED [facility]ARGY Last Admin: 07/18/19 07:52 Dose: 100 mls/hr Azithromycin 250 mg/ Sodium (Chloride) 150 mls @ 150 mls/hr IV Q12H [facility] Last Admin: 07/18/19 11:55 Dose: 150 mls/hr Insulin Human Lispro (Humalog) 0 unit SUBCUT QIDACANDBED [facility]; Protocol Last Admin: 07/18/19 11:47 Dose: 2 unit Lactobacillus Rhamnosus (Culturelle) 1 cap PO BID [facility] Last Admin: 07/18/19 09:08 Dose: Not Given Loperamide HCl (Imodium) 2 mg PO Q4H PRN PRN Reason: Diarrhea Multivitamins/Minerals (Thera M Plus) 1 tab PO DAILY [facility] Last Admin: 07/18/19 08:36 Dose: Not Given Ondansetron HCl (Zofran) 4 mg IV Q4H PRN PRN Reason: Nausea/Vomiting Last Admin: 07/17/19 22:08 Dose: 4 mg Oxycodone HCl (Oxycodone) 5 mg PO Q4H PRN PRN Reason: Pain (severe 7-10) Last Admin: 07/17/19 20:31 Dose: 5 mg Pantoprazole Sodium (Protonix) 40 mg PO BIDAC [facility] Last Admin: 07/18/19 08:36 Dose: Not Given Discontinued Medications Aspirin (Ecotrin) 325 mg PO DAILY [facility] Last Admin: 07/18/19 08:36 Dose: Not Given Azithromycin (Zithromax) 250 mg PO Q24H [facility] Last Admin: 07/16/19 11:49 Dose: 250 mg Bisacodyl (Dulcolax) 10 mg PO ONETIME ONE Stop: 07/04/19 12:31 Last Admin: 07/04/19 14:06 Dose: 10 mg Bisacodyl (Dulcolax) 10 mg PO ONETIME ONE Stop: 07/04/19 20:01 Last Admin: 07/04/19 20:33 Dose: 10 mg Bisacodyl (Dulcolax) 10 mg PO BID [facility] Last Admin: 07/16/19 21:05 Dose: 10 mg Bupivacaine HCl (Marcaine 0.5%) Confirm Administered Dose 50 ml .ROUTE .STK-MED ONE Stop: 07/10/19 06:48 Last Admin: 07/10/19 08:01 Dose: 10 ml Calcium Carbonate (Caltrate 600+D 1500 Mg-400 Units) 1 tab PO DAILY [facility] Last Admin: 07/07/19 09:20 Dose: Not Given Ciprofloxacin (Ciprofloxacin Hcl) 500 mg PO Q12H [facility] Last Admin: 07/13/19 23:20 Dose: 500 mg Ciprofloxacin (Ciprofloxacin Hcl) 500 mg PO BID@0730,2100 [facility] Last Admin: 07/17/19 08:30 Dose: 500 mg Ropivacaine 27 ml/Dexamethasone 8 mg/Epinephrine HCl 0.4 mg/ Sodium Chloride 50.6 ml 0 ml NERVRT ASDIRECTED [facility] Last Admin: 07/07/19 13:24 Dose: 80 syringe Ropivacaine 27 ml/Dexamethasone 8 mg/Epinephrine HCl 0.4 mg/ Sodium Chloride 50.6 ml 0 ml NERVRT ASDIRECTED [facility] Last Admin: 07/10/19 07:55 Dose: 80 syringe Dexamethasone (Dexamethasone) Confirm Administered Dose 4 mg .ROUTE .STK-MED ONE Stop: 07/07/19 10:33 Dextrose/Water (Dextrose 50% In Water) 50 ml IVPUSH ONETIME ONE Stop: 07/05/19 04:53 Last Admin: 07/05/19 04:57 Dose: 50 ml Dextrose/Water (Dextrose 50% In Water) Confirm Administered Dose 50 ml .ROUTE .STK-MED ONE Stop: 07/05/19 04:56 Last Admin: 07/05/19 05:16 Dose: Not Given Docusate Sodium (Colace) 100 mg PO BID [facility] Last Admin: 07/16/19 21:05 Dose: 100 mg Enoxaparin Sodium (Lovenox) 40 mg SUBCUT DAILY [facility] Last Admin: 07/07/19 08:56 Dose: Not Given Enoxaparin Sodium (Lovenox) 40 mg SUBCUT Q24H [facility] Last Admin: 07/18/19 10:59 Dose: Not Given Fentanyl (Sublimaze) Confirm Administered Dose 100 mcg .ROUTE .STK-MED ONE Stop: 07/05/19 06:15 Fentanyl (Sublimaze) Confirm Administered Dose 250 mcg .ROUTE .STK-MED ONE Stop: 07/07/19 10:33 Fentanyl (Sublimaze) Confirm Administered Dose 100 mcg .ROUTE .STK-MED ONE Stop: 07/07/19 10:34 Fentanyl (Sublimaze) 50 mcg IVPUSH ONETIME ONE Stop: 07/07/19 10:52 Last Admin: 07/07/19 11:00 Dose: 50 mcg Fentanyl (Sublimaze) Confirm Administered Dose 100 mcg .ROUTE .STK-MED ONE Stop: 07/10/19 07:30 Folic Acid (Folic Acid) 1 mg PO DAILY [facility] Last Admin: 07/07/19 09:20 Dose: Not Given Furosemide (Lasix) 10 mg IVPUSH ONETIME ONE Stop: 07/10/19 14:01 Last Admin: 07/10/19 15:05 Dose: 10 mg Gabapentin (Neurontin) 400 mg PO Q8H [facility] Stop: 07/09/19 06:01 Last Admin: 07/07/19 17:04 Dose: Not Given Glycopyrrolate (Robinul) Confirm Administered Dose 1 mg .ROUTE .STK-MED ONE Stop: 07/07/19 10:33 Hydrocortisone Sodium Succinate (Solu-Cortef) 100 mg IVPUSH ONETIME ONE Stop: 07/08/19 22:33 Last Admin: 07/08/19 22:49 Dose: 100 mg Hydrocortisone Sodium Succinate (Solu-Cortef) 100 mg IVPUSH Q12H [facility] Stop: 07/10/19 10:01 Last Admin: 07/10/19 09:11 Dose: 100 mg Hydromorphone HCl (Dilaudid) 0.5 mg IVPUSH ONETIME ONE Stop: 07/03/19 23:14 Last Admin: 07/03/19 23:45 Dose: 0.5 mg Hydromorphone HCl (Dilaudid Head Of Product 15 Mg In Ns 30 Ml) 0 mg IV ASDIRECTED PRN; Protocol PRN Reason: Pain Last Admin: 07/10/19 15:27 Dose: 15 mg Hydromorphone HCl (Dilaudid) 1 mg IVPUSH Q4H PRN PRN Reason: Pain (severe 7-10) Last Admin: 07/17/19 05:57 Dose: 1 mg Hydromorphone HCl (Dilaudid) 2 - 4 mg PO Q4H PRN PRN Reason: Pain Hydroxyzine HCl (Vistaril) 100 mg IM Q4H PRN PRN Reason: pain Last Admin: 07/11/19 21:57 Dose: 100 mg Sodium Chloride (Normal Saline) 1,000 mls @ 999 mls/hr IV ASDIRECTED MARGY Last Admin: 07/03/19 22:51 Dose: 999 mls/hr Sodium Chloride (Normal Saline) 1,000 mls @ 999 mls/hr IV ASDIRECTED MARGY Last Admin: 07/03/19 23:48 Dose: 999 mls/hr Sodium Chloride (Normal Saline) 1,000 mls @ 200 mls/hr IV ASDIRECTED MARGY Last Admin: 07/04/19 11:33 Dose: 200 mls/hr Magnesium Sulfate 2 gm/ Premix 50 mls @ 25 mls/hr IV Q6H [facility] Stop: 07/04/19 17:59 Last Admin: 07/04/19 16:33 Dose: 25 mls/hr Ferric Sodium Gluconate Complex 250 mg/ Sodium Chloride 120 mls @ 50 mls/hr IV ONETIME ONE Stop: 07/04/19 14:23 Last Admin: 07/04/19 11:57 Dose: 50 mls/hr Ferric Sodium Gluconate Complex 250 mg/ Sodium Chloride 120 mls @ 60 mls/hr IV ONETIME ONE Stop: 07/05/19 10:29 Last Admin: 07/05/19 08:54 Dose: 60 mls/hr Sodium Chloride (Normal Saline) 1,000 mls @ 100 mls/hr IV ASDIRECTED [facility] Last Admin: 07/05/19 00:17 Dose: 100 mls/hr Sodium Chloride (Normal Saline) 70 mls @ 3 mls/sec IV ASDIRECTED [facility] Stop: 07/04/19 16:00 Last Admin: 07/04/19 15:59 Dose: 3 mls/sec Dextrose/Sodium Chloride (Dextrose 5%-Normal Saline) 1,000 mls @ 100 mls/hr IV ASDIRECTED [facility] Last Admin: 07/05/19 11:46 Dose: 100 mls/hr Potassium Chloride 20 meq/Lidocaine HCl 2 ml/ Sodium Chloride 112 mls @ 56 mls/ hr IV Q2H [facility] Stop: 07/05/19 13:59 Potassium Chloride 20 meq/Lidocaine HCl 2 ml/ Sodium Chloride 112 mls @ 56 mls/ hr IV Q2H [facility] Stop: 07/05/19 14:59 Last Admin: 07/05/19 14:26 Dose: 56 mls/hr Ketamine HCl 50 mg/ Sodium (Chloride) 50 mls @ 16.32 mls/hr IV ASDIRECTED [facility] Magnesium Sulfate 2 gm/ Premix 50 mls @ 25 mls/hr IV Q6H [facility] Stop: 07/09/19 05:59 Last Admin: 07/07/19 09:18 Dose: 25 mls/hr Cefoxitin Sodium 2 gm/ Sodium (Chloride) 50 mls @ 100 mls/hr IV ONETIME ONE Stop: 07/07/19 09:29 Last Admin: 07/07/19 13:23 Dose: 100 mls/hr Dextrose/Lactated Ringer's (Dextrose 5%-Lactated Ringers) 1,000 mls @ 100 mls/ hr IV ASDIRECTED [facility] Last Admin: 07/07/19 03:24 Dose: 100 mls/hr Lactated Ringer's (Ringers, Lactated) Confirm Administered Dose 1,000 mls @ as directed .ROUTE .STK-MED ONE Stop: 07/07/19 11:40 Lactated Ringer's (Ringers, Lactated) Confirm Administered Dose 1,000 mls @ as directed .ROUTE .STK-MED ONE Stop: 07/07/19 13:14 Azithromycin 250 mg/ Sodium (Chloride) 250 mls @ 250 mls/hr IV ONETIME ONE Stop: 07/07/19 14:59 Last Admin: 07/07/19 16:55 Dose: 250 mls/hr Lactated Ringer's (Ringers, Lactated) Confirm Administered Dose 1,000 mls @ as directed .[facility]TE [facility] Stop: 07/07/19 15:09 Dextrose/Lactated Ringer's (Dextrose 5%-Lactated Ringers) 1,000 mls @ 200 mls/ hr IV ASDIRECTED [facility] Last Admin: 07/08/19 06:04 Dose: 200 mls/hr Multivitamins/Minerals 10 ml/Thiamine HCl 100 mg/ Chromium/Copper/Manganese/ Seleni/Zn 1 ml/ Dextrose/Lactated Ringer's 1,012 mls @ 200 mls/hr IV DAILY@ 1600 [facility] Last Admin: 07/10/19 16:02 Dose: 200 mls/hr Cefoxitin Sodium 2 gm/ Sodium (Chloride) 50 mls @ 100 mls/hr IV Q6H [facility] Last Admin: 07/11/19 08:28 Dose: 100 mls/hr Azithromycin 125 mg/ Sodium (Chloride) 150 mls @ 150 mls/hr IV Q12H [facility] Last Admin: 07/11/19 02:14 Dose: 150 mls/hr Magnesium Sulfate 2 gm/ Premix 50 mls @ 25 mls/hr IV Q6H [facility] Stop: 07/09/19 13:59 Last Admin: 07/09/19 05:46 Dose: 25 mls/hr Dextrose/Lactated Ringer's (Dextrose 5%-Lactated Ringers) 1,000 mls @ 100 mls/ hr IV ASDIRECTED MARGY Last Admin: 07/10/19 21:31 Dose: 100 mls/hr Lactated Ringer's (Ringers, Lactated) 1,000 mls @ 999 mls/hr IV ASDIRECTED [facility] Stop: 07/08/19 16:46 Lactated Ringer's (Ringers, Lactated) 1,000 mls @ 500 mls/hr IV ASDIRECTED [facility] Stop: 07/08/19 19:31 Last Admin: 07/08/19 17:15 Dose: 500 mls/hr Sodium Chloride (Normal Saline) 100 mls @ 0 mls/hr IV ASDIRECTED [facility] Stop: 07/08/19 17:31 Last Admin: 07/08/19 18:26 Dose: 3.5 mls/hr Albumin Human (Albumin 25%) 25 gm in 100 mls @ 25 mls/hr IV ONETIME ONE Stop: 07/08/19 23:03 Last Admin: 07/08/19 19:50 Dose: 25 mls/hr Lactated Ringer's (Ringers, Lactated) 1,000 mls @ 250 mls/hr IV ASDIRECTED [facility] Stop: 07/08/19 23:31 Last Admin: 07/08/19 19:30 Dose: 250 mls/hr Albumin Human (Albumin 25%) 25 gm in 100 mls @ 25 mls/hr IV ONETIME ONE Stop: 07/09/19 07:03 Last Admin: 07/09/19 03:19 Dose: 25 mls/hr Albumin Human (Albumin 25%) 25 gm in 100 mls @ 25 mls/hr IV Q8H [facility] Stop: 07/10/19 05:59 Last Admin: 07/10/19 01:30 Dose: 25 mls/hr Lactated Ringer's (Ringers, Lactated) Confirm Administered Dose 1,000 mls @ as directed .ROUTE .STK-MED ONE Stop: 07/10/19 08:12 Magnesium Sulfate 2 gm/ Premix 50 mls @ 25 mls/hr IV Q6H [facility] Stop: 07/14/19 05:59 Last Admin: 07/12/19 09:17 Dose: 25 mls/hr Potassium Phosphate 22.5 mmole (/ Sodium Chloride) 257.5 mls @ 65 mls/hr IV Q4H [facility] Stop: 07/11/19 15:55 Last Admin: 07/11/19 13:23 Dose: 65 mls/hr Sodium Chloride (Normal Saline) 1,000 mls @ 25 mls/hr IV ASDIRECTED [facility]ARG[facility] Last Admin: 07/16/19 16:39 Dose: 25 mls/hr Potassium Phosphate 22.5 mmole (/ Sodium Chloride) 257.5 mls @ 65 mls/hr IV Q4H [facility] Stop: 07/12/19 19:58 Last Admin: 07/12/19 16:04 Dose: 65 mls/hr Potassium Phosphate 15 mmole/ (Sodium Chloride) 255 mls @ 85 mls/hr IV ONETIME ONE Stop: 07/12/19 22:59 Last Admin: 07/12/19 20:05 Dose: 85 mls/hr Azithromycin 250 mg/ Sodium (Chloride) 150 mls @ 150 mls/hr IV ONETIME ONE Stop: 07/13/19 09:59 Last Admin: 07/13/19 09:06 Dose: 150 mls/hr Azithromycin 125 mg/ Sodium (Chloride) 150 mls @ 150 mls/hr IV Q12H [facility] Last Admin: 07/13/19 21:10 Dose: 150 mls/hr Potassium Phosphate 20 mmole/ (Sodium Chloride) 256.6667 mls @ 85.556 mls/hr IV Q3H [facility] Stop: 07/13/19 19:29 Last Admin: 07/13/19 17:26 Dose: 85.556 mls/hr Sodium Chloride (Normal Saline) 70 mls @ 3 mls/sec IV ASDIRECTED [facility] Stop: 07/14/19 13:00 Last Admin: 07/14/19 11:45 Dose: 3 mls/sec Magnesium Sulfate 2 gm/ Premix 50 mls @ 25 mls/hr IV Q6HR [facility] Stop: 07/18/19 05:59 Last Admin: 07/18/19 04:11 Dose: 25 mls/hr Potassium Chloride 20 meq/Lidocaine HCl 2 ml/ Sodium Chloride 112 mls @ 56 mls/ hr IV Q2H [facility] Stop: 07/17/19 12:59 Last Admin: 07/17/19 12:25 Dose: 56 mls/hr Sodium Chloride (Normal Saline) 70 mls @ 3 mls/sec IV ASDIRECTED [facility] Stop: 07/18/19 09:00 Last Admin: 07/18/19 09:30 Dose: 3 mls/sec Potassium Chloride 20 meq/Lidocaine HCl 2 ml/ Sodium Chloride 112 mls @ 56 mls/ hr IV Q2H [facility] Stop: 07/18/19 11:29 Last Admin: 07/18/19 09:56 Dose: 56 mls/hr Influenza Virus Vaccine (Fluzone Quad [id number] Syringe) 60 mcg IM .ONCE ONE Stop: 07/04/19 10:01 Last Admin: 07/04/19 09:31 Dose: 60 mcg Insulin Glargine (Lantus Solostar) 20 units SUBCUT BEDTIME [facility] Last Admin: 07/06/19 21:10 Dose: 20 units Insulin Glargine (Lantus Solostar) 20 units SUBCUT BEDTIME [facility] Stop: 07/04/19 00:40 Last Admin: 07/04/19 01:02 Dose: 20 units Insulin Glargine (Lantus Solostar) 10 units SUBCUT Q12H [facility] Last Admin: 07/08/19 09:24 Dose: 10 units Insulin Glargine (Lantus Solostar) 20 units SUBCUT BID [facility] Last Admin: 07/11/19 08:36 Dose: 20 units Insulin Glargine (Lantus Solostar) 10 units SUBCUT DAILY [facility] Last Admin: 07/13/19 10:03 Dose: 10 units Insulin Glargine (Lantus Solostar) 10 units SUBCUT BEDTIME [facility] Last Admin: 07/14/19 21:01 Dose: 10 units Insulin Glargine (Lantus Solostar) 8 units SUBCUT ONETIME ONE Stop: 07/14/19 08:16 Last Admin: 07/14/19 08:22 Dose: 8 units Insulin Glargine (Lantus Solostar) 5 units SUBCUT BEDTIME [facility] Insulin Human Lispro (Humalog) 0 unit SUBCUT QIDACANDBED [facility]; Protocol Last Admin: 07/07/19 14:06 Dose: Not Given Insulin Human Lispro (Humalog) 14 unit SUBCUT ONETIME ONE Stop: 07/04/19 16:55 Last Admin: 07/04/19 17:06 Dose: 14 units Insulin Human Lispro (Humalog) 0 unit SUBCUT ASDIRECTED PRN; Protocol PRN Reason: MEDIUM CORRECTIONAL DOSING Last Admin: 07/11/19 08:37 Dose: 3 units Insulin Human Lispro (Humalog) 5 unit SUBCUT TIDMEALS [facility]ARGY Last Admin: 07/12/19 16:42 Dose: Not Given Insulin Human Regular (Humulin R) 3 unit IVPUSH ONETIME ONE Stop: 07/03/19 23:13 Last Admin: 07/03/19 23:40 Dose: 3 units Insulin Human Regular (Humulin R) 3 unit SUBCUT ONETIME ONE Stop: 07/03/19 23:14 Last Admin: 07/03/19 23:43 Dose: 3 units Iohexol (Omnipaque) 20 ml PO ONETIME ONE Stop: 07/04/19 13:11 Last Admin: 07/04/19 14:16 Dose: 20 ml Iopamidol (Isovue-300 (61%)) 81 ml IV . DIRECTED PRN PRN Reason: RADIOLOGY EXAM Stop: 07/05/19 12:43 Last Admin: 07/04/19 15:59 Dose: 79 ml Iopamidol (Isovue-370 (76%)) 100 ml IV . DIRECTED [facility]ARG[facility] Stop: 07/08/19 17:31 Last Admin: 07/08/19 18:26 Dose: 100 ml Iopamidol (Isovue-300 (61%)) 100 ml IV . DIRECTED ONE Stop: 07/14/19 10:48 Last Admin: 07/14/19 11:45 Dose: 82 ml Iopamidol (Isovue-300 (61%)) 81 ml IV . DIRECTED [facility] Stop: 07/18/19 10:00 Last Admin: 07/18/19 09:30 Dose: 100 ml Ketamine HCl (Ketalar) 27 mg IV ASDIRECTED [facility] Labetalol HCl (Normodyne) Confirm Administered Dose 20 mg .ROUTE .STK-MED ONE Stop: 07/07/19 15:10 Lidocaine/Epinephrine (Xylocaine 1% With Epinephrine 1:100,000) Confirm Administered Dose 50 ml .ROUTE .STK-MED ONE Stop: 07/10/19 06:48 Last Admin: 07/10/19 08:01 Dose: 10 ml Lorazepam (Ativan) 0 mg PO ASDIRECTED MARGY; Protocol Lorazepam (Ativan) 0.5 - 1 mg IVPUSH Q4H PRN PRN Reason: * Last Admin: 07/10/19 05:18 Dose: 1 mg Magnesium Oxide (Magnesium Oxide) 400 mg PO BID [facility] Last Admin: 07/07/19 09:20 Dose: Not Given Meropenem (Merrem) Confirm Administered Dose 500 mg .ROUTE .STK-MED ONE Stop: 07/07/19 12:07 Last Admin: 07/07/19 13:35 Dose: 500 mg Meropenem (Merrem) Confirm Administered Dose 500 mg .ROUTE .STK-MED ONE Stop: 07/10/19 06:48 Last Admin: 07/10/19 08:01 Dose: 500 mg Metformin HCl (Glucophage) 1,000 mg PO BIDMEALS [facility] Last Admin: 07/15/19 19:41 Dose: Not Given Metoclopramide HCl (Reglan) 10 mg IVPUSH Q6H [facility] Last Admin: 07/12/19 09:14 Dose: 10 mg Metoclopramide HCl (Reglan) 10 mg PO QIDACANDBED [facility] Last Admin: 07/13/19 07:42 Dose: 10 mg Metoclopramide HCl (Reglan) 10 mg IV Q6H [facility] Last Admin: 07/14/19 14:13 Dose: Not Given Metoclopramide HCl (Reglan) 10 mg PO Q6H [facility] Last Admin: 07/17/19 08:37 Dose: 10 mg Midazolam HCl (Versed 1 Mg/Ml) Confirm Administered Dose 2 mg .ROUTE .STK-MED ONE Stop: 07/05/19 06:15 Midazolam HCl (Versed 1 Mg/Ml) Confirm Administered Dose 2 mg .ROUTE .STK-MED ONE Stop: 07/07/19 10:34 Midazolam HCl (Versed 1 Mg/Ml) Confirm Administered Dose 2 mg .ROUTE .STK-MED ONE Stop: 07/10/19 07:30 Morphine Sulfate (Morphine) 2 mg IVPUSH Q4H PRN PRN Reason: Pain (moderate 4-6) Last Admin: 07/04/19 14:38 Dose: 2 mg Naloxone HCl (Narcan) 0.1 mg IV ASDIRECTED PRN PRN Reason: decreased respiratory rate Neostigmine Methylsulfate (Neostigmine) Confirm Administered Dose 5 mg .ROUTE .STK-MED ONE Stop: 07/07/19 10:33 Ondansetron HCl (Zofran) Confirm Administered Dose 4 mg .ROUTE .STK-MED ONE Stop: 07/07/19 10:33 Oxycodone HCl (Oxycodone) 10 mg PO Q4H PRN PRN Reason: Pain Last Admin: 07/07/19 07:06 Dose: 10 mg Oxycodone HCl (Oxycodone) 5 mg PO Q4H PRN PRN Reason: Pain (moderate 4-6) Last Admin: 07/14/19 13:53 Dose: 5 mg Oxycodone HCl (Oxycodone) 10 mg PO Q4H PRN PRN Reason: Pain (severe 7-10) Last Admin: 07/17/19 08:35 Dose: 10 mg Oxycodone HCl (Oxycodone) 5 mg PO ONETIME ONE Stop: 07/17/19 22:24 Last Admin: 07/17/19 22:33 Dose: 5 mg Pantoprazole Sodium (Protonix Iv) 40 mg IVPUSH ONETIME ONE Stop: 07/03/19 23:37 Last Admin: 07/03/19 23:48 Dose: 40 mg Pantoprazole Sodium (Protonix Iv) 40 mg IVPUSH Q12H [facility] Last Admin: 07/11/19 01:34 Dose: 40 mg Polyethylene Glycol (Miralax) 238 gm PO ONETIME ONE Stop: 07/04/19 17:01 Last Admin: 07/04/19 16:58 Dose: 238 gm Potassium Chloride (Klor-Con M20) 40 meq PO ONETIME ONE Stop: 07/04/19 12:46 Last Admin: 07/04/19 14:06 Dose: 40 meq Potassium Chloride (Klor-Con M20) 40 meq PO ONETIME ONE Stop: 07/04/19 17:01 Last Admin: 07/04/19 17:10 Dose: 40 meq Potassium Chloride (Klor-Con M20) 40 meq PO ONETIME ONE Stop: 07/05/19 17:01 Last Admin: 07/05/19 16:53 Dose: 40 meq Potassium Chloride (Klor-Con M20) 40 meq PO ONETIME ONE Stop: 07/11/19 14:16 Last Admin: 07/11/19 15:28 Dose: 40 meq Propofol (Diprivan 20 Ml) Confirm Administered Dose 200 mg .ROUTE .STK-MED ONE Stop: 07/05/19 06:16 Propofol (Diprivan 20 Ml) Confirm Administered Dose 200 mg .ROUTE .STK-MED ONE Stop: 07/07/19 10:33 Propofol (Diprivan 20 Ml) Confirm Administered Dose 200 mg .ROUTE .STK-MED ONE Stop: 07/07/19 10:34 Propofol (Diprivan 20 Ml) Confirm Administered Dose 200 mg .ROUTE .STK-MED ONE Stop: 07/10/19 07:30 Senna/Docusate Sodium (Senna Plus) 1 tab PO BID PRN PRN Reason: Constipation Last Admin: 07/06/19 21:30 Dose: 1 tab Sodium Chloride (Saline Flush) 10 ml FLUSH ONETIME MARGY Stop: 07/04/19 16:00 Last Admin: 07/04/19 15:59 Dose: 10 ml Sodium Chloride (Saline Flush) 10 ml FLUSH ONETIME ONE Stop: 07/08/19 17:23 Last Admin: 07/08/19 18:26 Dose: 10 ml Sodium Chloride (Saline Flush) 10 ml FLUSH ONETIME ONE Stop: 07/18/19 07:09 Last Admin: 07/18/19 09:30 Dose: 10 ml Succinylcholine Chloride (Quelicin) Confirm Administered Dose 200 mg .ROUTE .STK -MED ONE Stop: 07/07/19 10:33 Thiamine HCl (Vitamin B-1) 100 mg PO DAILY [facility] Last Admin: 07/07/19 09:21 Dose: Not Given - Exam Quality Assessment: DVT Prophylaxis General: Alert, Oriented, Moderate Distress Lungs: Clear to Auscultation, Normal Respiratory Effort Cardiovascular: Regular Rate, Regular Rhythm, No Murmurs GI/Abdominal Exam: Soft, Non-Tender, No Organomegaly, No Distention Extremities: Non-Tender, No Pedal Edema - Problem List Review Problem List Initiated/Reviewed/Updated: Yes - My Orders Last 24 Hours: My Active Orders 07/17/19 23:39 HYDROmorphone [Dilaudid] 0.5 mg IVPUSH Q3H PRN 07/18/19 10:00 Azithromycin [Zithromax] 250 mg Sodium Chloride 0.9% [Normal Saline] 150 ml IV Q12H 07/18/19 16:30 GLUCOSE POC LAB TO COLLECT [POC] QIDACANDBED 07/18/19 21:00 GLUCOSE POC LAB TO COLLECT [POC] QIDACANDBED - Plan Plan:: ASSESSMENT AND PLAN - SEVERE ESOPHAGITIS - resolved -Oral proton pump inhibitor twice daily PANCREATIC PSEUDOCYST - continues to experience some diarrhea, also his experienced recurrent abdominal pain with nausea and vomiting. CT scan of the abdomen shows evidence of obstruction versus ileus -Immodium as needed for diarrhea -Surgical management per Dr. 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 HEPATIC CIRRHOSIS - evidence of esophageal varices as well as splenic vein thrombosis SEVERE EMPHYSEMA - noted on CT scan. Alpha-1 antitrypsin is pending. TYPE 2 DIABETES MELLITUS - glucose levels low -Hold metformin -long-acting insulin -QID glucometers -low dose sliding scale Humalog CHRONIC ALCOHOL USE - no evidence for withdrawal. He is interested in treatment for alcohol dependence. -Outpatient treatment MICROCYTIC ANEMIA - likely secondary to chronic blood loss as well as iron deficiency. Hemoglobin stable following transfusion. -Follow-up hemoglobin in a.m. MAINTENANCE ISSUES -DVT prophylaxis; enoxaparin -GI prophylaxis; BID PPI -Sanchez catheter; not indicated -Nutrition; regular diet DISPOSITION - anticipate discharge to [facility] after the hospital stay. Hospitalist service will sign off on the patient at this time, if we can be of further assistance in medical management during his hospital stay please feel free to reconsult.
--- NOTE | 2019-07-18 13:07 | PN ---
DATE OF SERVICE: 07/18/2019 SUBJECTIVE: Joe has been afebrile. His heart rate has been 112 to 122 in the past 24 hours. Last blood pressure was hypotensive at 96/63. He does normally run low. He is reporting an increased amount of pain. He tells me it is a 10/10. Having incontinent bowel movements. He did have one emesis that was not recorded and passed on through nursing report, but the time of emesis is unknown. His pain has significantly increased. He was initially changed to oral Dilaudid, thinking that would help and then switched over to IV Dilaudid, which he feels it has improved. X-ray this morning at 0400 of abdomen flat and upright showed gaseous distention and fluid levels predominantly in small bowel, worsened since prior exam. More suggestive of small bowel obstruction favored over ileus. OBJECTIVE: GENERAL: Joe Tony is a 34-year-old male. He is awake. He is in pain. VITAL SIGNS: TPR is 96.4, 110, 20, blood pressure 96/63. HEENT: Negative. NECK: Supple. HEART: Regular rate and rhythm. LUNGS: Clear. ABDOMEN: Distended, firm on the left mid and lower abdominal quadrant, very tender. [place] intact. EXTREMITIES: Without peripheral edema. ASSESSMENT: 1. Partial small bowel obstruction. 2. Exploratory laparotomy, distal pancreatectomy, and splenectomy; date of surgery 07/07/2019. 3. Diabetes type 2. 4. Microcytic anemia secondary to chronic blood loss. PLAN: 1. Check CT of abdomen and pelvis with IV contrast only stat. 2. N.p.o. 3. KCl 40 mEq b.i.d. IV. 4. Start maintenance dose of D5 LR at 100 mL per hour. 5. To call with CT results. Dione Cunningham PA-C /[id number]
--- NOTE | 2019-07-18 13:10 | OR ---
DATE OF PROCEDURE: 07/05/2019 SURGEON: Isaias Velarde MD PREOPERATIVE DIAGNOSIS: Iron-deficiency anemia. POSTOPERATIVE DIAGNOSES: Iron-deficiency anemia associated with: 1. Severe esophagitis extending from the proximal esophagus above the moderate-sized hiatal hernia up to maximum of the esophagus. 2. Moderate-sized gastric and esophageal varices. 3. Large gastric bezoar. 4. Inadequate colon prep. OPERATIVE PROCEDURE: Esophagogastroduodenoscopy. ANESTHESIA: IV sedation. INDICATION FOR PROCEDURE: This is a 34-year-old presenting with a host of medical problems including iron-deficiency anemia. He is undergoing upper and lower endoscopy for diagnostic purposes. Potential risks including bleeding and perforation were discussed, and the patient wishes to proceed. DETAILS OF PROCEDURE: The patient was taken to the operating room and placed in a left lateral decubitus position. IV sedation was administered, after which the upper GI endoscope was passed orally through the length of the esophagus, into the stomach with retroflexion view of the fundus, and thereafter through the pyloric channel and into the proximal duodenum. Findings included extremely severe-appearing esophagitis. Roughly 2/3 of length of the esophagus was covered with fibrinous exudate. This area easily did bleed when the fibrinous exudate was rubbed, and this appeared to be likely the patient's source of GI blood loss. As one passed towards the stomach, there was a moderate-sized hiatal hernia. Within the stomach, there was a large gastric bezoar present gastritis likely related to bezoar. The patient was noted to have a normal pyloric channel and proximal duodenum. One additional finding was that the patient had moderate-sized gastric and esophageal varices. On the CT scan obtained yesterday, the patient was noted to have splenic vein thrombosis, but a fairly normal-appearing liver, so these varices are likely related to the splenic vein thrombosis. The gastroscope was then withdrawn, and the procedure was then concluded. Attention was taken to the colonoscopy. By immediate examination, the patient was noted to have grossly inadequate prep with thick liquid stool present and that procedure was then abandoned. The patient was taken to the recovery room in satisfactory condition. Isaias Velarde MD Job #: [id number]
--- NOTE | 2019-07-18 14:31 | OR ---
DATE OF PROCEDURE: 07/07/2019 SURGEON: Isaias Velarde MD PREOPERATIVE DIAGNOSES: 1. 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 2. Severe diabetic gastroparesis with distended solid and liquid-filled stomach. POSTPERATIVE DIAGNOSES: 3. 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 4. Severe diabetic gastroparesis with distended solid and liquid-filled stomach. OPERATIVE PROCEDURE: Exploratory laparotomy with: 1. Distal pancreatectomy and splenectomy (64497). 2. Drainage of peripancreatic infected fluid collection/abscess (33591). 3. Debridement of necrotic tissue in and around pancreatic tail (04948). 4. Wedge resection of wall of splenic flexure (56042). 5. Gastrotomy for evacuation of gastric contents (72002). 6. Placement of Interceed mesh x2 to the displaced pelvic abdominal wall from underlying viscera to limit recurrent adhesion formation (71178). ANESTHESIA: General. ROOFER VINYL COATING: Dione Cunningham PA-C. INDICATIONS FOR PROCEDURE: This is a 34-year-old male with a complex presentation which includes the pancreatic pseudocyst or infected peripancreatic fluid collection adjacent to the distal pancreas, chronic pancreatitis, and to splenic vein thrombosis which has resulted in significant esophageal gastric varices. His liver appears to be normal, so the varices are likely related to the splenic vein thrombosis which would be cured by means of a splenectomy. There is also adherence to the splenic flexure of colon at the point of the peripancreatic fluid pseudocyst collection. Plan is to proceed with exploratory laparotomy, distal pancreatectomy and splenectomy including excision of a pseudocyst likely present and/or drainage of peripancreatic tissue and/or abscesses, may also need to be a wedge resection or segmental resection of the splenic flexure of the colon depending on the operative findings. Potential risks of the procedure were reviewed with the patient including bleeding, infection, injury to underlying viscera, possible worsening of the diabetes due to resection of some of the pancreatic tissue and lastly remote possibility of cardiopulmonary, septic, or hemorrhagic complications leading to were all reviewed, and the patient wishes to proceed. DETAILS OF PROCEDURE: The patient was taken to the operating room and placed in a supine position. After general endotracheal anesthesia was induced, a Sanchez catheter was inserted and the abdomen prepped and draped. An upper midline incision was then made from the xiphoid to the umbilicus and carried down through the full-thickness abdominal wall. Upon entering the peritoneal cavity, the initial finding was that of a markedly distended stomach. The patient had a nasogastric tube placed at this point, but the material was to a large extent solid, not amenable to evacuation by nasogastric tube. This was causing a complete obliteration of the plane of where we would need to be doing the operation. Given this, the gastrotomy was then placed and a size 40 chest tube was then placed into the lumen of the stomach and placed to suction evacuating a large amount of the solid and liquid content. This reduced the gastric volume by roughly 80% and at that point, it still appeared to be manageable and the gastrotomy was then closed with a WILL purple load with that staple line then reinforced with 3-0 Vicryl seromuscular stitch as well. At this point, the area of intense inflammation in the area around the pancreatic tail was identified. Dissection around the splenic flexure of the colon did reveal it to be adherent to this area and in order to gain access to the pancreatic tail, the greater omentum was divided away from the greater curvature of the stomach. This eventually allowed dissection underneath the tail of the pancreas just proximal to the area of inflammation. This area was then divided with a series of WILL black loads and the splenic artery and vein were also then divided with the WILL reji as they were encountered. The attachments to the spleen between the diaphragm, lateral abdominal wall and colon were then divided with combination of blunt and cautery dissection. This allowed mobilization of the spleen and distal pancreas upward away from the retroperitoneum, and the area of fluid collection adjacent to the tail of the pancreas was then entered. This appeared to be either an infected pancreatic pseudocyst or abscess, which essentially may be the same thing in this case as the pseudocyst present had a very limited capsule, so we were basically draining an infected peripancreatic fluid collection or abscess. Cultures of this were obtained. This area was densely adherent to the splenic flexure of the colon and a small wedge resection of the colon was then accomplished with a WILL stapler as well. At this point, the staple line appeared to be intact. The remaining retroperitoneal attachments of the distal pancreas were then divided with the WILL reji and the specimen consisting of the spleen, distal pancreas, the associated remnants of peripancreatic fluid collection, and a wedge of the colon were all then delivered from the field. There was some necrotic material along the distal edge of the pancreatic staple line along with some peripancreatic infected and necrotic tissue, which was then debrided and sent as a separate specimen as well. At this point, no further problems were noted. The pancreatic staple line was then reinforced with fibrin sealant as was the colon staple line. The abdomen was irrigated with meropenem-containing saline solution. Two Elver-Sanabria drains were then placed in the left subcostal area and positioned adjacent to the pancreatic tail and then into the depths of the splenic fossa. At that point, no further problems were noted. Some omentum was noted to be ischemic and a portion of this was excised with a WILL stapler as well at this point, and given this, upon closure of the wound of the fascia, Interceed mesh was placed underneath the wound closure from the abdomen and pelvis to limit recurrent adhesion formation. The midline fascia was then approximated with #2 Vicryl stitch and the skin left open for a planned delayed primary closure in 48 hours. The drain was sutured to the skin with some 3-0 Vicryl stitch and Iodoform guaze placed in the open wound and dressing applied. The patient was taken to the recovery room in satisfactory condition. There were no evident complications. Physician vector control assistant, Dione Cunningham, played an essential role in assisting in this case, helping to position the patient, retract structures as needed, as well as suturing and cutting sutures when indicated. Her presence improved patient safety and decreased the operative time. Isaias Velarde MD Job #: [id number]
[2019-07-18] MEDS: oxyCODONE 5 MG Tab PO PRN ×2 (15:46→22:16)
[2019-07-19] MEDS: HYDROmorphone 0.5 MG/0.5 ML Syringe IVPUSH PRN ×7 (01:59→22:25)
[2019-07-19] MEDS: Dextrose 5%-Lactated Ringers 1,000 ML IV SCH (05:58)
--- NOTE | 2019-07-19 06:56 | CRLCR ---
Indication: Ileus follow-up Technique: Abdomen 2 view Comparison: Abdomen: 07/18/2019 Findings/Impression: Skin reji are present in a vertical pattern in the midline. There are mildly to moderately dilated loops of bowel within the mid abdomen with some bowel loops having indistinct features suggesting some bowel edema. Suture material is noted in the left upper quadrant. Bowel caliber is similar to minimally improved compared to the prior exam. Dictated by Jonathan Jolley MD @ Jul 19 2019 6:51AM Signed by Dr. Jonathan Jolley @ Jul 19 2019 6:54AM
[2019-07-19] MEDS: oxyCODONE 5 MG Tab PO PRN ×2 (06:59→15:30)
[2019-07-19] MEDS: Pantoprazole 40 MG Tab.CR PO SCH ×2 (06:59→17:38)
[2019-07-19] MEDS: Multivitamins with Iron/Calcium/Folic Acid/Minerals Tab PO SCH (08:44)
[2019-07-19] MEDS: Lactobacillus Rhamnosus GG (Probiotic) Cap PO SCH ×2 (08:44→21:46)
[2019-07-19] MEDS: Insulin Lispro 100 Unit/ML 3 ML KwikPen SUBCUT SCH ×4 (08:44→21:45)
[2019-07-19] MEDS: Potassium Phosphates 25 MMOLE in Sodium Chloride 0.9% 250 ML IV SCH ×3 (09:59→17:58)
[2019-07-19] MEDS: Aspirin 325 MG Tab.EC PO SCH (10:48)
[2019-07-19] MEDS: metFORMIN 500 MG Tab PO SCH ×2 (10:48→17:37)
[2019-07-19] MEDS: Amylase/Lipase/Protease 12,000 Unit Cap.CR PO SCH ×2 (10:49→17:38)
[2019-07-19] MEDS: Lactated Ringers 1,000 ML IV SCH (18:09)
[2019-07-20] MEDS: HYDROmorphone 0.5 MG/0.5 ML Syringe IVPUSH PRN ×8 (01:32→23:20)
[2019-07-20] MEDS: Lactated Ringers 1,000 ML IV SCH (04:28)
--- NOTE | 2019-07-20 05:39 | CRLCR ---
Indication: Ileus, small bowel obstruction follow-up. Technique: Abdomen 2 view Comparison: Abdomen 07/19/2019 Findings/Impression: Skin reji are present in a vertical pattern with suture material in the left upper quadrant. There are multiple mildly dilated loops of small bowel which are similar in caliber to the study of 1 day prior. No pneumatosis seen. Phlebolith within the pelvis. Dictated by Jonathan Jolley MD @ Jul 20 2019 5:36AM Signed by Dr. Jonathan Jolley @ Jul 20 2019 5:37AM
[2019-07-20] MEDS ORDERED: Sodium Chloride 0.9% 1,000 ML IV SCH (07:45)
[2019-07-20] MEDS: Amylase/Lipase/Protease 12,000 Unit Cap.CR PO SCH ×3 (07:50→15:49)
[2019-07-20] MEDS: metFORMIN 500 MG Tab PO SCH ×2 (07:50→17:02)
[2019-07-20] MEDS: Pantoprazole 40 MG Tab.CR PO SCH ×2 (07:51→15:50)
[2019-07-20] MEDS: Insulin Lispro 100 Unit/ML 3 ML KwikPen SUBCUT SCH ×4 (07:56→22:24)
[2019-07-20] MEDS: Multivitamins with Iron/Calcium/Folic Acid/Minerals Tab PO SCH (08:00)
[2019-07-20] MEDS: Aspirin 325 MG Tab.EC PO SCH (08:00)
[2019-07-20] MEDS: Lactobacillus Rhamnosus GG (Probiotic) Cap PO SCH ×2 (08:00→22:24)
[2019-07-20] MEDS: Magnesium Sulfate/Water 2 GM in Premix Bag 1 BAG IV SCH ×3 (08:51→20:04)
[2019-07-20] MEDS: Potassium Phosphates 20 MMOLE in Sodium Chloride 0.9% 250 ML IV SCH ×3 (09:22→15:53)
--- NOTE | 2019-07-20 12:39 | PN ---
DATE OF SERVICE: 07/19/2019 The patient clearly looked quite a bit better today. He was made more or less n.p.o. except from liquids yesterday with his abdomen being quite distended and CT scan suggestive of either an ileus or partial obstruction. Today, his abdomen looked softer and not nearly as distended. Heart rates down into the 90s and vital signs otherwise stable. Abdominal x-ray looks fairly unremarkable. There are some few small bowel loops present, but none appear to be overly distended, and there is quite a bit of air in the colon as well extending past the narrowed area in the splenic flexure, into the left colon and rectum. The patient was restarted on the Zithromax yesterday, and we will continue that, that seemed very helpful with his gastric emptying. We will not restart the Reglan. I think we will start him on a solid diet. He does have a significant history of being on Creon for what must be an exocrine insufficiency related to his chronic pancreatitis. We will restart that. His albumin is quite low, and we will supplement that over the next 4 days. His blood sugars were running in the low 200s, and we will restart the metformin 1000 mg b.i.d. His phosphate is strikingly low at 0.9 this morning. We will give him 75 mmol of IV piggyback potassium starting this morning. He is probably having some degree of a refeeding syndrome with that low phosphate. Recheck some labs tomorrow along with abdominal x-ray. At this point, we are not looking at needing an operation with his platelet counts being 1.2 million status post splenectomy. We would, at this point, restart the aspirin. Isaias Velarde MD Job #: [id number]
--- NOTE | 2019-07-20 12:57 | PN ---
DATE OF SERVICE: 07/20/2019 The patient has been afebrile with stable vital signs. No major problems noted. Oral intake remains good. Blood sugar is running a little bit high and he was switched to an insulin-carb diet. He was switched back to regular diet, which is what he will be typically eating when he leaves the hospital, so they could be regulated on that basis in terms of blood sugar management. Magnesium phosphate remained marginally low, and we will supplement those today. Otherwise, we will continue the IV Zithromax. His abdominal x-ray looks good and the abdomen is getting flatter. We will probably switch to oral Zithromax tomorrow. He may be ready for transfer to [place] by mid-week or so. Isaias Velarde MD Job #: [id number]
[2019-07-20] MEDS: Ondansetron 4 MG/2 ML SDV IV PRN (13:09)
[2019-07-21] MEDS: Magnesium Sulfate/Water 2 GM in Premix Bag 1 BAG IV SCH ×4 (02:49→20:25)
[2019-07-21] MEDS: HYDROmorphone 0.5 MG/0.5 ML Syringe IVPUSH PRN ×2 (02:49→06:30)
[2019-07-21] MEDS: HYDROmorphone 2 MG Tab PO PRN ×4 (07:36→20:21)
--- NOTE | 2019-07-21 07:39 | PN ---
DATE OF SERVICE: 07/05/2019 Earlier today, the patient underwent an upper endoscopy with findings outlined in that report. Overall, based on the CAT scan, the patient appears to have an infected pancreatic pseudocyst in the tail of the pancreas, which may have a connection with extension to the splenic flexure of the colon and also a splenic vein thrombosis, which is causing the patient to have the esophageal and gastric varices. Given this, the plan will be to transfuse the patient somewhat further and then on Sunday, i.e. in 2 days, proceed with exploratory laparotomy and distal pancreatectomy, including excision of the pseudocyst and splenectomy. This would alleviate the patient off the problem of gastroesophageal varices and high risk of bleeding over time related to those being present. There may need to be a wedge or segmental colon resection as well, based on the operative findings. This was all reviewed with the patient and will go over that, as well as once again review the potential risks and pros and cons of the procedure tomorrow as well and then plan on proceeding with surgical intervention on Sunday. Isaias Velarde MD Job #: [id number]
--- NOTE | 2019-07-21 07:55 | PN ---
DATE OF SERVICE: 07/05/2019 SUBJECTIVE: Joe's vital signs have been stable. He has been up ambulating. He is on a regular diet, which is more consistent with what he will be when he goes home. His oral intake was 3230. Urine output difficult to measure. The patient is independent. He has consumed 100% of breakfast, lunch, dinner, and snacks. LABORATORY DATA: Today, hemoglobin 8.7, platelets remain elevated due to splenectomy at 1466. Glucose 231. He has no other concerns or questions today. OBJECTIVE: GENERAL: Joe Tony is a 34-year-old male. He is alert, orientated, eating breakfast. VITAL SIGNS: TPR is 98, 96, 18, blood pressure 124/83. HEENT: Negative. NECK: Supple. HEART: Regular rate and rhythm. LUNGS: Clear. ABDOMEN: Dressings dry and intact. EXTREMITIES: Without peripheral edema. ASSESSMENT: 1. Esophagogastroduodenoscopy for iron deficiency anemia associated with;. a. Severe esophagitis extending from the proximal esophagus above the moderate-size hiatal hernia up to the maximum of the esophagus. b. Moderate-size gastric and esophageal varices. c. Large gastric bezoar. d. Inadequate colon prep. Date of procedure: 07/05/2019. 2. Exploratory laparotomy with;. a. Distal pancreatectomy and splenectomy. b. Drainage of peripancreatic infected fluid collection/abscess. c. Debridement of necrotic tissue in and around the pancreatic tail. d. Resection of wall of splenic flexure. e. Gastrostomy for evacuation of gastric contents. f. Placement of Interceed mesh x2 to the displaced pelvic abdominal wall from underlying viscera to limit recurrent adhesion formation for chronic pancreatitis with peripancreatic infected fluid collection or infected pseudocyst with evident adherence to the splenic flexure of colon and splenic vein thrombosis with secondary portal hypertension and resulting gastric and esophageal varices and severe diabetic gastroparesis with distended solid and liquid filled stomach. PLAN: 1. Dilaudid 2 mg p.o. q.4 hours p.r.n. pain. 2. Discontinue IV Dilaudid. 3. Tylenol 650 mg p.o. every 6 hours scheduled. 4. Alogliptin (Januvia) 25 mg p.o. daily. 5. Zithromax 125 mg p.o. b.i.d. 6. Discontinue IV Zithromax. 7. Lantus 5 units subcu one time now. 8. K-Phos 60 mmol IV one time today. 9. Multivitamin p.o. one tablet b.i.d. 10.B12 1000 mcg IM one time today. 11.Discontinue oxycodone. 12.Check CBC, CMP, and phos in a.m. 13.Good pulmonary toilet. 14.We will evaluate p.r.n. or in a.m. Dione Cunningham PA-C /[id number]
[2019-07-21] MEDS: Insulin Lispro 100 Unit/ML 3 ML KwikPen SUBCUT SCH ×4 (07:56→22:01)
[2019-07-21] MEDS: Pantoprazole 40 MG Tab.CR PO SCH ×2 (08:02→16:17)
[2019-07-21] MEDS: Amylase/Lipase/Protease 12,000 Unit Cap.CR PO SCH ×3 (08:02→16:17)
[2019-07-21] MEDS: Multivitamins with Iron/Calcium/Folic Acid/Minerals Tab PO SCH ×2 (08:03→22:03)
[2019-07-21] MEDS: Lactobacillus Rhamnosus GG (Probiotic) Cap PO SCH ×2 (08:03→22:03)
[2019-07-21] MEDS: Aspirin 325 MG Tab.EC PO SCH (08:03)
[2019-07-21] MEDS: Acetaminophen 325 MG Tab PO SCH ×3 (08:04→22:03)
[2019-07-21] MEDS: metFORMIN 500 MG Tab PO SCH ×2 (08:05→17:39)
[2019-07-21] MEDS: Azithromycin 250 MG Tab PO SCH ×2 (08:05→22:04)
--- NOTE | 2019-07-21 08:58 | OR ---
DATE OF PROCEDURE: 07/10/2019 SURGEON: Isaias Velarde MD PREOPERATIVE DIAGNOSIS: Open abdominal incision. POSTOPERATIVE DIAGNOSIS: Open abdominal incision. OPERATIVE PROCEDURE: Delayed primary closure of open abdominal incision. ANESTHESIA: IV block plus sedation. INDICATION FOR PROCEDURE: The patient is status post complex open repair, which involved some infected fluid collections. Given this, the skin and subcutaneous tissues were left open for a planned delayed primary closure at this time. Potential risks including bleeding and infection were reviewed, and the patient wishes to proceed. DETAILS OF PROCEDURE: The patient was taken to the operating room and placed in a supine position. After IV sedation was administered, the operative dressing was taken down, and the wound was judged to be satisfactory for closure, and the abdomen was then prepped and draped. Using ultrasound guidance, bilateral transversus abdominis plane blocks were then placed, and the incision then anesthetized with 1% lidocaine mixed with Marcaine, irrigated with meropenem-containing saline solution, and then closed with a layer of 3-0 Vicryl stitch deep and then reji for the skin. The patient's previous Elver-Sanabria drains were also removed at this time, as the output was cleared, and the amylase levels with the drains located adjacent to the divided pancreas were very low. The patient was taken to the recovery room in satisfactory condition. Isaias Velarde MD Job #: [id number]
[2019-07-21] MEDS ORDERED: Insulin Glargine,Human Rec. Analog 100 Units/ML 3 ML Pen SUBCUT ONE (09:00)
[2019-07-21] MEDS ORDERED: Cyanocobalamin (Vitamin B12) 1,000 MCG/ML SDV IM ONE (09:00)
[2019-07-21] MEDS: Potassium Phosphates 20 MMOLE in Sodium Chloride 0.9% 250 ML IV SCH ×3 (10:56→17:30)
[2019-07-21] MEDS: Ondansetron 4 MG/2 ML SDV IV PRN ×2 (16:28→20:10)
[2019-07-22] MEDS: HYDROmorphone 2 MG Tab PO PRN ×5 (01:39→21:49)
[2019-07-22] MEDS: Magnesium Sulfate/Water 2 GM in Premix Bag 1 BAG IV SCH ×4 (01:58→20:32)
[2019-07-22] MEDS: Acetaminophen 325 MG Tab PO SCH ×4 (02:05→20:32)
[2019-07-22] MEDS: Ondansetron 4 MG/2 ML SDV IV PRN ×3 (07:21→18:40)
[2019-07-22] MEDS: Amylase/Lipase/Protease 12,000 Unit Cap.CR PO SCH ×3 (07:26→17:18)
[2019-07-22] MEDS: Pantoprazole 40 MG Tab.CR PO SCH ×2 (07:26→17:21)
[2019-07-22] MEDS: metFORMIN 500 MG Tab PO SCH ×2 (07:27→17:21)
[2019-07-22] MEDS ORDERED: Sodium Chloride 0.9% 10 ML Syringe IV SCH (08:00)
[2019-07-22] MEDS: Insulin Lispro 100 Unit/ML 3 ML KwikPen SUBCUT SCH ×4 (08:07→21:04)
[2019-07-22] MEDS: Lactobacillus Rhamnosus GG (Probiotic) Cap PO SCH ×2 (08:09→20:31)
[2019-07-22] MEDS: Multivitamins with Iron/Calcium/Folic Acid/Minerals Tab PO SCH ×2 (08:10→20:32)
[2019-07-22] MEDS: Aspirin 325 MG Tab.EC PO SCH (08:10)
[2019-07-22] MEDS: Azithromycin 250 MG Tab PO SCH ×2 (08:11→20:32)
[2019-07-22] MEDS: Potassium Phosphates 20 MMOLE in Sodium Chloride 0.9% 250 ML IV SCH ×3 (09:55→17:17)
[2019-07-23] MEDS: Magnesium Sulfate/Water 2 GM in Premix Bag 1 BAG IV SCH (02:21)
[2019-07-23] MEDS: HYDROmorphone 2 MG Tab PO PRN ×5 (02:22→20:36)
[2019-07-23] MEDS: Acetaminophen 325 MG Tab PO SCH ×4 (02:22→20:35)
[2019-07-23] MEDS: Amylase/Lipase/Protease 12,000 Unit Cap.CR PO SCH ×3 (07:43→16:24)
[2019-07-23] MEDS: Pantoprazole 40 MG Tab.CR PO SCH ×2 (07:44→17:30)
[2019-07-23] MEDS: metFORMIN 500 MG Tab PO SCH ×2 (07:44→16:25)
[2019-07-23] MEDS: Insulin Lispro 100 Unit/ML 3 ML KwikPen SUBCUT SCH ×4 (07:47→20:43)
--- NOTE | 2019-07-23 08:37 | PN ---
DATE OF SERVICE: 07/22/2019 The patient has been afebrile with stable vital signs. Blood sugars are coming down into the 180 to 190 range with a combination of metformin and Januvia. Oral intake was good. He more or less binge eats, and he did have one emesis, but otherwise has been able to keep things down. His bowels continue to move. Phosphate remains marginally low and that will be supplemented. We will also check a zinc level, empirically give him some zinc supplementation, given his pattern of refeeding syndrome and his labs. We are awaiting on his discharge planning as far as the next site of placement. Otherwise, the reji will come out today. Isaias Velarde MD Job #: [id number]
[2019-07-23] MEDS: Lactobacillus Rhamnosus GG (Probiotic) Cap PO SCH ×2 (09:10→20:35)
[2019-07-23] MEDS: Aspirin 325 MG Tab.EC PO SCH (09:11)
[2019-07-23] MEDS: Azithromycin 250 MG Tab PO SCH ×2 (09:11→20:35)
[2019-07-23] MEDS: Multivitamins with Iron/Calcium/Folic Acid/Minerals Tab PO SCH ×2 (09:11→20:35)
[2019-07-23] MEDS: Zinc (Zinc Gluconate) 50 MG Tab PO SCH ×2 (09:12→20:35)
[2019-07-23] MEDS: Ondansetron 4 MG/2 ML SDV IV PRN (18:31)
[2019-07-23] MEDS: Insulin Glargine,Human Rec. Analog 100 Units/ML 3 ML Pen SUBCUT SCH (20:44)
[2019-07-24] MEDS: HYDROmorphone 2 MG Tab PO PRN ×6 (00:32→23:00)
[2019-07-24] MEDS: Acetaminophen 325 MG Tab PO SCH ×4 (04:44→21:09)
[2019-07-24] MEDS: Insulin Lispro 100 Unit/ML 3 ML KwikPen SUBCUT SCH ×4 (08:04→21:07)
[2019-07-24] MEDS: Amylase/Lipase/Protease 12,000 Unit Cap.CR PO SCH ×3 (08:06→16:05)
[2019-07-24] MEDS: metFORMIN 500 MG Tab PO SCH ×2 (08:07→16:04)
[2019-07-24] MEDS: Lactobacillus Rhamnosus GG (Probiotic) Cap PO SCH ×2 (08:08→21:08)
[2019-07-24] MEDS: Magnesium Sulfate/Water 2 GM in Premix Bag 1 BAG IV SCH ×3 (08:09→21:07)
[2019-07-24] MEDS: Pantoprazole 40 MG Tab.CR PO SCH ×2 (08:09→16:05)
[2019-07-24] MEDS: Aspirin 325 MG Tab.EC PO SCH (08:09)
[2019-07-24] MEDS: Multivitamins with Iron/Calcium/Folic Acid/Minerals Tab PO SCH ×2 (08:10→21:08)
[2019-07-24] MEDS: Zinc (Zinc Gluconate) 50 MG Tab PO SCH ×2 (08:11→21:09)
[2019-07-24] MEDS: Azithromycin 250 MG Tab PO SCH ×2 (08:12→21:09)
[2019-07-24] MEDS: Insulin Glargine,Human Rec. Analog 100 Units/ML 3 ML Pen SUBCUT SCH ×2 (08:12→21:07)
--- NOTE | 2019-07-24 08:20 | PN ---
,DATE OF SERVICE: 07/23/2019 SUBJECTIVE: Joe's blood sugars are still running high. His blood sugar this morning was 329. He is on Januvia and metformin. He had two emesis, which were thought to be from eating too fast, too much. He had 225 on days and 100 at nights. He had his reji removed. Hemoglobin this morning was 9.5, which was stable, platelets elevated at 1545 due to splenectomy. Potassium 5.2, glucose 329 as stated. He did get K-Phos, magnesium, and albumin yesterday. He has no concerns or questions today. OBJECTIVE: GENERAL: Joe Tony is a 34-year-old male. He is eating his breakfast. VITAL SIGNS: TPR is 95.5, 78, 16, and blood pressure 121/78. HEENT: Negative. NECK: Supple. HEART: Regular rate and rhythm. LUNGS: Clear. ABDOMEN: Incision is dry, healed well. EXTREMITIES: Without peripheral edema. ASSESSMENT: 1. Esophagogastroduodenoscopy for iron deficiency anemia associated with: a. Severe esophagitis extending from the proximal esophagus above the moderate-size hiatal hernia up to the maximum of the esophagus. b. Moderate-size gastric and esophageal varices. c. Large gastric bezoar. d. Inadequate colon prep. Date of procedure: 07/05/2019. 2. Exploratory laparotomy with: a. Distal pancreatectomy and splenectomy. b. Drainage of peripancreatic infected fluid collection/abscess. c. Debridement of necrotic tissue in and around the pancreatic tail. d. Resection of wall of splenic flexure. e. Gastrostomy for evacuation of gastric contents. f. Placement of Interceed mesh x2 to the displaced pelvic abdominal wall from underlying viscera to limit recurrent adhesion formation for chronic pancreatitis with peripancreatic infected fluid collection or infected pseudocyst with evident adherence to the splenic flexure of colon and splenic vein thrombosis with secondary portal hypertension and resulting gastric and esophageal varices and severe diabetic gastroparesis with distended solid and liquid filled stomach. PLAN: Referral to architecture internship in regard to medication management, preferably oral medications. Discussion with financial planner. We will plan discharge on Sunday. Dione Cunningham PA-C /[id number]
[2019-07-24] MEDS: Ondansetron 4 MG/2 ML SDV IV PRN (10:02)
[2019-07-24] MEDS: Potassium Phosphates 20 MMOLE in Sodium Chloride 0.9% 250 ML IV SCH ×3 (10:09→16:04)
--- NOTE | 2019-07-24 15:20 | PN ---
DATE OF SERVICE: 07/24/2019 SUBJECTIVE: Joe's blood sugar this morning was 254. His magnesium was 1.3. He states he is feeling better. He is taking Dilaudid 4 mg every 4 hours. Plan of discharge is Sunday and Discharge Planning is working with the patient in a difficult situation. Discussion with Joe regarding decreasing the Dilaudid. He will have to be off narcotics or antianxiety medication prior to discharge. He states that he has been on "street drugs as much as I can get in a day." When withdrawing, he states he gets severe abdominal pain and cramping, hot, sweaty, chills, and uncontrollable shakiness. REVIEW OF SYSTEMS: Remainder of review of systems negative for any pertinent positives or negatives. Oral intake 3560. Urine output, he does not collect it to have any measurement. Has not had any emesis. Bowel movements, he has had 6 in the past 24 hours. OBJECTIVE: GENERAL: Joe Tony is a 34-year-old male. He is alert, orientated, talkative. VITAL SIGNS: TPR; 97.5, 85, 16. Blood pressure 109/68. HEENT: Negative. NECK: Supple. HEART: Regular rate and rhythm. LUNGS: Clear. ABDOMEN: Soft and nondistended. Incision looks good. EXTREMITIES: Without peripheral edema. ASSESSMENT: 1. Esophagogastroduodenoscopy for iron deficiency anemia associated with: a. Severe esophagitis extending from the proximal esophagus above the moderate-size hiatal hernia up to the maximum of the esophagus. b. Moderate-size gastric and esophageal varices. c. Large gastric bezoar. d. Inadequate colon prep. Date of procedure: 07/05/2019. 2. Exploratory laparotomy with: a. Distal pancreatectomy and splenectomy. b. Drainage of peripancreatic infected fluid collection/abscess. c. Debridement of necrotic tissue in and around the pancreatic tail. d. Resection of wall of splenic flexure. e. Gastrostomy for evacuation of gastric contents. f. Placement of Interceed mesh x2 to the displaced pelvic abdominal wall from underlying viscera to limit recurrent adhesion formation for chronic pancreatitis with peripancreatic infected fluid collection or infected pseudocyst with evident adherence to the splenic flexure of colon and splenic vein thrombosis with secondary portal hypertension and resulting gastric and esophageal varices and severe diabetic gastroparesis with distended solid and liquid filled stomach. PLAN: 1. Dilaudid 3 mg every 4 hours p.r.n. pain. 2. Magnesium 2 g q.6 hours x72 hours IV. 3. K-Phos 60 mmol IV 1 time today. 4. Check CBC, CMP, phos in a.m. 5. Plan of decreasing Dilaudid pending symptoms: Tomorrow, 07/25/2019, Dilaudid 2 mg every 4 hours; 07/26/2019, Dilaudid 2 mg every 6 hours; and Sunday, we will wait and see how his symptoms are and discharge planning involved. We will get record release from the patient to call [facility] and [facility] when the patient is discharged to arrange a ride to retirement to fulfill his warrant and then to get into chemical dependency treatment. Continue to work on good pulmonary toilet. 6. We will evaluate p.r.n. or in a.m. Dione Cunningham PA-C /[id number]
[2019-07-25] MEDS: HYDROmorphone 2 MG Tab PO PRN ×5 (03:09→21:40)
[2019-07-25] MEDS: Acetaminophen 325 MG Tab PO SCH ×4 (03:09→21:40)
[2019-07-25] MEDS: Magnesium Sulfate/Water 2 GM in Premix Bag 1 BAG IV SCH ×4 (03:09→21:41)
[2019-07-25] MEDS: Insulin Lispro 100 Unit/ML 3 ML KwikPen SUBCUT SCH ×4 (08:21→21:08)
[2019-07-25] MEDS: Amylase/Lipase/Protease 12,000 Unit Cap.CR PO SCH ×3 (08:21→16:00)
[2019-07-25] MEDS: Multivitamins with Iron/Calcium/Folic Acid/Minerals Tab PO SCH ×2 (08:22→21:40)
[2019-07-25] MEDS: Pantoprazole 40 MG Tab.CR PO SCH ×2 (08:22→16:01)
[2019-07-25] MEDS: metFORMIN 500 MG Tab PO SCH ×2 (08:22→16:01)
[2019-07-25] MEDS: Aspirin 325 MG Tab.EC PO SCH (08:22)
[2019-07-25] MEDS: Lactobacillus Rhamnosus GG (Probiotic) Cap PO SCH ×2 (08:23→21:40)
[2019-07-25] MEDS: Azithromycin 250 MG Tab PO SCH ×2 (08:25→21:39)
[2019-07-25] MEDS: Zinc (Zinc Gluconate) 50 MG Tab PO SCH ×2 (08:25→21:40)
[2019-07-25] MEDS: Insulin Glargine,Human Rec. Analog 100 Units/ML 3 ML Pen SUBCUT SCH ×2 (08:25→21:42)
--- NOTE | 2019-07-25 12:12 | PN ---
DATE OF SERVICE: 07/25/2019 SUBJECTIVE: Joe's blood sugars continue to run high, mostly due to dietary intake. His blood sugar this morning was 191. He is getting Lantus 10 units b.i.d. and metformin along with alogliptin. Dietary consumption is large. He is having no difficulty eating. Oral intake is 2800. He is ordering meals every 2 hours and he has had no emesis. Urine output, he is voiding independently. Has had 3 bowel movements in the past 24 hours. He has no concerns or questions today. OBJECTIVE: GENERAL: Joe Tony is a 34-year-old male. VITAL SIGNS: TPR is 98.2, 103, 15, blood pressure 114/73. HEENT: Negative. NECK: Supple. HEART: Regular rate and rhythm. LUNGS: Clear. ABDOMEN: Negative. Incision looks good. Soft and nontender. EXTREMITIES: Without peripheral edema. ASSESSMENT: 1. Esophagogastroduodenoscopy for iron deficiency anemia associated with: a. Severe esophagitis extending from the proximal esophagus above the moderate-size hiatal hernia up to the maximum of the esophagus. b. Moderate-size gastric and esophageal varices. c. Large gastric bezoar. d. Inadequate colon prep. Date of procedure: 07/05/2019. 2. Exploratory laparotomy with: a. Distal pancreatectomy and splenectomy. b. Drainage of peripancreatic infected fluid collection/abscess. c. Debridement of necrotic tissue in and around the pancreatic tail. d. Resection of wall of splenic flexure. e. Gastrostomy for evacuation of gastric contents. f. Placement of Interceed mesh x2 to the displaced pelvic abdominal wall from underlying viscera to limit recurrent adhesion formation for chronic pancreatitis with peripancreatic infected fluid collection or infected pseudocyst with evident adherence to the splenic flexure of colon and splenic vein thrombosis with secondary portal hypertension and resulting gastric and esophageal varices and severe diabetic gastroparesis with distended solid and liquid filled stomach. PLAN: 1. Decrease Dilaudid down to 2 mg every 4 hours p.r.n. pain. 2. Discontinue alogliptin. 3. Communication order written to check on prior authorization of Zithromax and Creon. Continue planned discharge on Sunday and [facility] and [facility] are aware of his discharge. A record release was sent to these agencies, and discharge planning, Laura is continuing to work on this. 4. We will evaluate p.darline or in a.mNahun Cunningham PA-C /[id number]
[2019-07-25] MEDS: Ondansetron 4 MG/2 ML SDV IV PRN (13:08)
[2019-07-25] MEDS ORDERED: Insulin Lispro 100 Unit/ML 3 ML KwikPen SUBCUT ONE (21:30)
[2019-07-26] MEDS: HYDROmorphone 2 MG Tab PO PRN ×4 (01:54→18:39)
[2019-07-26] MEDS: Magnesium Sulfate/Water 2 GM in Premix Bag 1 BAG IV SCH ×4 (02:04→21:06)
[2019-07-26] MEDS: Acetaminophen 325 MG Tab PO SCH ×4 (02:04→20:08)
[2019-07-26] MEDS: Pantoprazole 40 MG Tab.CR PO SCH ×3 (08:04→16:47)
[2019-07-26] MEDS: Amylase/Lipase/Protease 12,000 Unit Cap.CR PO SCH ×4 (08:04→16:47)
[2019-07-26] MEDS: Insulin Lispro 100 Unit/ML 3 ML KwikPen SUBCUT SCH ×4 (08:41→21:05)
[2019-07-26] MEDS: Insulin Glargine,Human Rec. Analog 100 Units/ML 3 ML Pen SUBCUT SCH ×2 (08:42→21:06)
[2019-07-26] MEDS: metFORMIN 500 MG Tab PO SCH ×3 (08:42→16:47)
[2019-07-26] MEDS: Multivitamins with Iron/Calcium/Folic Acid/Minerals Tab PO SCH ×2 (08:43→20:08)
[2019-07-26] MEDS: Zinc (Zinc Gluconate) 50 MG Tab PO SCH (08:43)
[2019-07-26] MEDS: Aspirin 325 MG Tab.EC PO SCH (08:43)
[2019-07-26] MEDS: Lactobacillus Rhamnosus GG (Probiotic) Cap PO SCH ×2 (08:43→20:09)
[2019-07-26] MEDS: Azithromycin 250 MG Tab PO SCH (10:06)
[2019-07-26] MEDS ORDERED: Potassium Phosphates 30 MMOLE in Sodium Chloride 0.9% 250 ML IV ONE (10:30)
[2019-07-26] MEDS: Loperamide 2 MG Cap PO PRN ×2 (13:16→20:08)
[2019-07-27] MEDS: HYDROmorphone 2 MG Tab PO PRN ×5 (00:18→22:02)
[2019-07-27] MEDS: Magnesium Sulfate/Water 2 GM in Premix Bag 1 BAG IV SCH (03:27)
[2019-07-27] MEDS: Acetaminophen 325 MG Tab PO SCH ×4 (03:28→20:29)
[2019-07-27] MEDS: Loperamide 2 MG Cap PO PRN ×2 (07:36→18:36)
[2019-07-27] MEDS: Amylase/Lipase/Protease 12,000 Unit Cap.CR PO SCH ×3 (07:37→15:38)
[2019-07-27] MEDS: Pantoprazole 40 MG Tab.CR PO SCH ×2 (07:38→15:39)
[2019-07-27] MEDS: metFORMIN 500 MG Tab PO SCH ×2 (07:38→17:22)
[2019-07-27] MEDS: Insulin Lispro 100 Unit/ML 3 ML KwikPen SUBCUT SCH ×4 (08:22→21:15)
[2019-07-27] MEDS ORDERED: HYDROmorphone 2 MG Tab PO PRN (08:47)
[2019-07-27] MEDS ORDERED: Potassium Phosphates 30 MMOLE in Sodium Chloride 0.9% 250 ML IV ONE (10:00)
[2019-07-27] MEDS: Lactobacillus Rhamnosus GG (Probiotic) Cap PO SCH ×2 (10:11→20:29)
[2019-07-27] MEDS: Phosphorus #1 250 MG Tab PO SCH (10:11)
[2019-07-27] MEDS: Multivitamins with Iron/Calcium/Folic Acid/Minerals Tab PO SCH ×2 (10:11→20:29)
[2019-07-27] MEDS: Magnesium Oxide 400 MG Tab PO SCH (10:11)
[2019-07-27] MEDS: Azithromycin 250 MG Tab PO SCH (10:12)
[2019-07-27] MEDS: Insulin Glargine,Human Rec. Analog 100 Units/ML 3 ML Pen SUBCUT SCH ×2 (10:13→21:17)
[2019-07-27] MEDS: Aspirin 325 MG Tab.EC PO SCH (10:16)
--- NOTE | 2019-07-27 12:47 | OR ---
DATE OF PROCEDURE: 07/26/2019 SURGEON: Isaias Velarde MD The patient has been afebrile with stable vital signs. Oral intake remains relatively scant with some frequent loose bowel movements and did have incontinence of stool in that which was semi-formed. Given this, I think we will probably be going down on the Zithromax to 125 mg once daily and also add some Imodium p.r.n. as well as we will continue to wean down the Dilaudid going to 2 mg q.6 hours and then we will go ahead with 1 mg q.6 hours starting tomorrow, and at the time of discharge on Sunday, he will off the Dilaudid. Zinc level was noted to be normal and that will be discontinued today. Otherwise, continue to maximize activity and work with pulmonary toilet. Isaias Velarde MD /[id number]
[2019-07-27] MEDS ORDERED: Insulin Lispro 100 Unit/ML 3 ML KwikPen SUBCUT ONE (17:12)
[2019-07-28] MEDS: Acetaminophen 325 MG Tab PO SCH ×2 (03:29→09:11)
[2019-07-28] MEDS: HYDROmorphone 2 MG Tab PO PRN ×2 (03:30→09:06)
[2019-07-28] MEDS: Insulin Lispro 100 Unit/ML 3 ML KwikPen SUBCUT SCH (08:19)
[2019-07-28] MEDS: Pantoprazole 40 MG Tab.CR PO SCH (08:30)
[2019-07-28] MEDS: Amylase/Lipase/Protease 12,000 Unit Cap.CR PO SCH (08:30)
[2019-07-28] MEDS: metFORMIN 500 MG Tab PO SCH (08:30)
--- NOTE | 2019-07-28 08:41 | PN ---
DATE OF SERVICE: 07/27/2019 The patient has been afebrile with stable vital signs. White count has now become normal at 9.4. Phosphate still remains a little bit on the low side at 2.9, and we will give him some K-Phos today, as he is still demonstrating some element of refeeding syndrome. We will start him on some phosphorus 250, as well as magnesium oxide orally today. To make sure he tolerates those, he will need to be on some supplements of those after discharge, which will likely be tomorrow. We will otherwise back down on the Dilaudid to 1 mg q.4 hours p.r.n. pain today, and he will likely be discharged tomorrow. Apparently, he will be going to either [facility] or [facility], and then they will release him to [facility] rehab facility in the [facility]. Isaias Velarde MD /[id number]
[2019-07-28] MEDS ORDERED: [UNRECOGNIZED DRUG - OTHER] IM ONE (09:00)
[2019-07-28] MEDS: Insulin Glargine,Human Rec. Analog 100 Units/ML 3 ML Pen SUBCUT SCH (09:01)
[2019-07-28] MEDS: Azithromycin 250 MG Tab PO SCH (09:10)
[2019-07-28] MEDS: Magnesium Oxide 400 MG Tab PO SCH (09:13)
[2019-07-28] MEDS: Lactobacillus Rhamnosus GG (Probiotic) Cap PO SCH (09:13)
[2019-07-28] MEDS: Aspirin 325 MG Tab.EC PO SCH (09:13)
[2019-07-28] MEDS: Multivitamins with Iron/Calcium/Folic Acid/Minerals Tab PO SCH (09:14)
[2019-07-28] MEDS: Phosphorus #1 250 MG Tab PO SCH (09:14)
--- NOTE | 2019-07-28 09:21 | DISCH ---
ADMISSION DIAGNOSES: 1. High blood sugar. 2. Alcohol intoxication. 3. Methamphetamine use. 4. Chronic pancreatitis. 5. Chronic obstructive pulmonary disease. 6. History of seizure. 7. Diabetes type 1. 8. Anxiety. 9. Depression. 10.Suicide attempt. 11.Anemia. 12.Malnutrition. DISCHARGE DIAGNOSES: 1. Esophagogastroduodenoscopy for iron deficiency anemia associated with: a. Severe esophagitis extending from the proximal esophagus above the moderate-size hiatal hernia to maximum of esophagus. b. Moderate-size gastric and esophageal varices. c. Large gastric bezoar. d. Inadequate colon prep. Date of procedure, 07/05/2019. Surgeon, Isaias Velarde MD. 2. Exploratory laparotomy with: a. Distal pancreatectomy and splenectomy. b. Drainage of peripancreatic infected fluid collection abscess. c. Debridement of necrotic tissue in and around the pancreatic tail. d. Resection of wall of splenic flexure. e. Gastrostomy for evacuation of gastric contents. f. Placement of Interceed mesh x2 to the displaced pelvic abdominal wall from underlying viscera to limit recurrent adhesion formation for chronic pancreatitis with peripancreatic infected fluid collection or infected pseudocyst with evident adherent and resulting gastric and esophageal varices and severe diabetic gastroparesis with distended solid- and liquid-filled stomach. Date of surgery, 07/07/2019. 3. Delayed primary closure of open abdominal incision. Date is 07/10/2019. Surgeon, Isaias Velarde MD. 4. Severe malnutrition. 5. Diabetes type 1, uncontrolled. 6. Diabetic gastroparesis. 7. Low phosphorus. 8. Low magnesium. HISTORY: Joe Tony presented to the emergency room with iron deficiency anemia. He had an upper GI and lower endoscopy for diagnostic purposes and it showed a moderate-sized gastric and esophageal varices, large gastric bezoar. That date of procedure was 07/05/2019, two days after he was admitted from the emergency room. He underwent his first surgical procedure as above on 07/07/2019 with delayed primary closure 2 days later. He had no operative complications. He was in ICU for close observation. He did remain n.p.o. until his bowels started to work on their own. He started out on 07/10 with sips of clear. He was given IV Lasix, and he received a total of 3 units of packed red blood cells for hemoglobin of 7.7. On 07/11, he was able to transfer to [address] [place] [address]. He was started on a regular diet. He was able to shower. Blood sugar was monitored with metformin, Januvia, and he ended up needing to have the Lantus. K-Phos and magnesium were continually being replaced. He was on Zithromax for the gastroparesis. Stools were more on the diarrhea side. He was also started on Creon for absorption, and he was given albumin for low albumin. Jessica were removed on 07/21 and his appetite was enormous. Blood sugars were continued to be monitored. On day of discharge, 07/27/2019, he was given Pneumovax, haemophilus immunization, and meningococcal vaccine for splenectomy. Dilaudid was decreased to where he will be able to go home with. He will be discharged with no narcotics. On the day of discharge, he reports his pain is controlled. He has been afebrile, ambulating. Last labs; hemoglobin was 9, platelet count was 307, potassium 3.4, and glucose was 55. He did receive extra food during the night because of a low blood sugar of 44. Calcium 7.5. Joe Tony was able to be discharged on 08/04/2019 with no complications. PHYSICAL EXAMINATION: GENERAL: Reggie is a 34-year-old male. VITAL SIGNS: Height is 5 feet 9 inches, weight is 120 pounds, BMI is 17. TPR; 98.6, 108, 16. Blood pressure 127/76. HEENT: Negative. NECK: Supple. HEART: Regular rate and rhythm. LUNGS: Clear. ABDOMEN: Incision looks good. Abdominal binder is on. EXTREMITIES: Without peripheral edema. DISPOSITION: Stable, discharged to home. FOLLOWUP APPOINTMENT: Isaias Velarde MD, on 08/06/2019 at 10 a.m. HOME MEDICATIONS: 1. Tylenol 650 mg q.6 hours, #100[place] [address] [address] units 2 capsules 3 times a day before meals, 180 capsules. 3. Aspirin 325 mg oral daily, #30. 4. Zithromax 125 mg oral daily. 5. Lantus 10 units subcu twice daily. 6. Insulin Humalog 100 units per meal pen. Blood sugar less than 150, no insulin. Blood sugar 150 to 199, 1 unit subcu. Blood sugar 200 to 249, 2 units subcutaneous. Blood sugars 250 to 299, 3 units subcu. Blood sugars 300 to 349, 4 units subcu. Blood sugar 350 to 400, 5 units subcu. Blood sugars greater than 400, notify provider. 7. Culturelle 1 capsule twice daily, #60. 8. Magnesium oxide 400 mg oral daily. 9. Glucophage 1000 mg oral twice daily with meals, #60. 10.Protonix 40 mg oral twice daily before meals, #60. 11.Neutra-Phos 250 mg oral daily, #30. 12.Zinc 50 mg oral twice daily, #60. 13.Multivitamin 1 daily. DIET: Usual diet as tolerated. Drink 8 to 10 glasses of water a day. ACTIVITY: No lifting greater than 10 pounds for 4 weeks. OTHER ACTIVITY: 1. Walk 6 times daily inside your home. Driving; do not drive. Shower/bathing; may shower. Notify provider if fever, increased pain, nausea, vomiting. Keep site clean and dry. Use incentive spirometer 10 times every hour while awake for 1 week. 2. Check blood sugars 4 times a day and record results and bring to clinic appointments.
[2019-07-28] MEDS ORDERED: Pneumococcal Polyvalent-23 Vaccine 0.5 ML SDV IM ONE (10:00)
[2019-07-28] MEDS ORDERED: [UNRECOGNIZED DRUG - OTHER] SUBCUT ONE (10:00)
[2019-07-28] MEDS ORDERED: Meningococcal Polysaccharide Conjugate Vaccine 4 MCG/0.5 ML SDV IM ONE (10:00)
== END 2019-07-28 10:05 | disposition home or self-care (01) | DRG 405 ==
LOC: JP.ED 21:45 → JP.MS 23:52 → OBSVTOIN 23:52 → JP.ICU 07-07 17:14 → JP.MS 07-16 10:14
PROVIDERS: ADMIT Family Medicine; ATTEND Hospitalist
PROC: 0DJ08ZZ Inspection of Upper Intestinal Tract, Via Natural or Artificial Opening Endoscopic (ICD-10-PCS; principal; 2019-07-05)
PROC: 0FBG0ZZ Excision of Pancreas, Open Approach (ICD-10-PCS; 2019-07-05)
PROC: 07BP0ZZ Excision of Spleen, Open Approach (ICD-10-PCS; 2019-07-05)
PROC: 0F9G0ZZ Drainage of Pancreas, Open Approach (ICD-10-PCS; 2019-07-05)
PROC: 0DC60ZZ Extirpation of Matter from Stomach, Open Approach (ICD-10-PCS; 2019-07-05)
PROC: 0DBL0ZZ Excision of Transverse Colon, Open Approach (ICD-10-PCS; 2019-07-05)
PROC: 0DBU0ZZ Excision of Omentum, Open Approach (ICD-10-PCS; 2019-07-05)
PROC: 3E0M05Z Introduction of Adhesion Barrier into Peritoneal Cavity, Open Approach (ICD-10-PCS; 2019-07-05)
PROC: 0WQF0ZZ Repair Abdominal Wall, Open Approach (ICD-10-PCS; 2019-07-10)
PROC: 30233N1 Transfusion of Nonautologous Red Blood Cells into Peripheral Vein, Percutaneous Approach (ICD-10-PCS; 2019-07-10)
DX: K86.3 Pseudocyst of pancreas (principal); E43 Unspecified severe protein-calorie malnutrition; I85.00 Esophageal varices without bleeding; K56.600 Partial intestinal obstruction, unspecified as to cause; K56.7 Ileus, unspecified; I82.890 Acute embolism and thrombosis of other specified veins; Z68.1 Body mass index [BMI] 19.9 or less, adult; D50.9 Iron deficiency anemia, unspecified; K86.1 Other chronic pancreatitis; K20.9 Esophagitis, unspecified; K44.9 Diaphragmatic hernia without obstruction or gangrene; I86.4 Gastric varices; T18.2XXA Foreign body in stomach, initial encounter; D73.5 Infarction of spleen; K31.84 Gastroparesis; E10.43 Type 1 diabetes mellitus with diabetic autonomic (poly)neuropathy; E83.30 Disorder of phosphorus metabolism, unspecified; E83.42 Hypomagnesemia; F41.9 Anxiety disorder, unspecified; F32.9 Major depressive disorder, single episode, unspecified; J44.9 Chronic obstructive pulmonary disease, unspecified; E86.0 Dehydration; F15.10 Other stimulant abuse, uncomplicated; F17.200 Nicotine dependence, unspecified, uncomplicated; D50.0 Iron deficiency anemia secondary to blood loss (chronic); K74.60 Unspecified cirrhosis of liver
CPT/HCPCS: 36415; 36430; 71045; 71275; 74019; 74021; 74177; 74177-26; 80048; 80053; 80305-QW; 81001; 82009; 82103; 82150; 82330; 82728; 82800; 82947; 82962; 83550; 83605; 83690; 83735; 83880; 84100; 84630; 85018; 85025; 85027; 86140; 86850; 86870; 86900; 86901; 86902; 86920; 86922; 86970; 87070; 87075; 87077; 87186; 87205; 87493; 88305; 88307; 88313; 90471; 90648; 90686; 90732; 93005; 96361; 96372; 96374; 96375; 97162-GP; 97530-GP; 97535-GP; 99285-25; A9270-GY; C9113; G0008; G0480; J0171; J0330; J0456; J0694; J1100; J1170; J1650; J1720; J1815; J1815-GY; J1940; J2001; J2060; J2185; J2250; J2270; J2405; J2704; J2710; J2765; J2795; J2916; J3010; J3410; J3411; J3420; J3475; J3480; J3490; J7030; J7050; J7120; J7121; P9016; P9047; Q9967

== ENCOUNTER 2019-07-31 14:34 | Emergency (ER) | payer MEDICAID ==
[2019-07-31] MEDS ORDERED: Sodium Chloride 0.9% 10 ML Syringe FLUSH PRN (14:57)
[2019-07-31] MEDS ORDERED: Iopamidol 612 MG/ML 100 ML Bottle IV PRN (14:57)
[2019-07-31] MEDS ORDERED: Glucose Gel 15 GM in 37.5 GM Tube PO ONE (15:39)
--- NOTE | 2019-07-31 15:39 | CRLCT ---
INDICATION: Abdominal pain TECHNIQUE: CT abdomen and pelvis acquired with 76 cc Isovue-300 IV contrast. COMPARISON: July 18, 2019 FINDINGS: Lower chest: Emphysema. Mild circumferential wall thickening of the distal esophagus. Liver: Unremarkable. Spleen: S/p splenectomy. Pancreas: Pancreatic calcifications. Stable pancreatic ductal dilatation. Gallbladder and bile ducts: Unremarkable. Adrenal glands: Unremarkable. Kidneys: Focal area of hypodensity in the posterior aspect of the right kidney appears new compared to the prior exam. GI tract: Mild, diffuse wall thickening of the stomach. Appendix is not seen. Vascular structures: Unremarkable. Lymph nodes: Unremarkable. Miscellaneous: Small amount of free fluid in the left upper quadrant. No focal fluid collection identified. Pelvic Organs: Unremarkable. Bones: Bilateral L5 pars defects. IMPRESSION: Mild, diffuse wall thickening of the stomach and distal esophagus may represent esophagitis/gastritis. Small amount of fluid in the left upper quadrant without focal fluid collection. Focal area of hypodensity in the posterior aspect of the right kidney appears new compared to the prior exam and may represent pyelonephritis. Correlate with urinalysis. Chronic pancreatitis with stable dilatation of the pancreatic duct. Emphysema. Status post splenectomy. Please note that all CT scans at this facility use dose modulation, iterative reconstruction, and/or weight-based dosing when appropriate to reduce radiation dose to as low as reasonably achievable. Dictated by Unique Mcgee MD @ Jul 31 2019 3:27PM Signed by Dr. Unique Mcgee @ Jul 31 2019 3:38PM
[2019-07-31] MEDS ORDERED: Dextrose 5%-0.9% NaCl 1,000 ML IV SCH (15:45)
[2019-07-31] MEDS ORDERED: Pantoprazole 40 MG Vial IVPUSH ONE (15:49)
--- NOTE | 2019-07-31 15:56 | EDM.PDOC ---
ED HPI GENERAL MEDICAL PROBLEM - General Chief Complaint: Abdominal Pain Stated Complaint: MED[facility] Time Seen by Provider: 07/31/19 15:51 Source of Information: Reports: Patient History Limitations: Reports: No Limitations - History of Present Illness INITIAL COMMENTS - FREE TEXT/NARRATIVE: pt arrived from [facility] with upper abdomanl pain and a high Bs. He had not had his Insulin since Sunday. He had surgery in [place]. He does not have abdomanal distention. Onset: Today, Other ( Bs was over 500.) Duration: Hour(s): Location: Reports: Abdomen Associated Symptoms: Reports: Nausea/Vomiting, Other (Pt had a very high Bs. ) Abdominal Pain Score (Numeric/FACES): 9 - Related Data Allergies Allergy/AdvReac Type Severity Reaction Status Date / Time No Known Allergies Allergy Verified 07/31/19 14:46 Home Meds: Home Meds Acetaminophen [Tylenol] 650 mg PO Q6H #100 tablet 07/25/19 [Rx] Amylase/Lipase/Protease [Crerober DR 12,000 Units] 2 cap PO TIDAC #180 cap.cr 07/25 [Rx] Aspirin [Ecotrin EC] 325 mg PO DAILY #30 tab.ec 07/25/19 [Rx] Insulin Glarg,Human.Rec.Analog [Lantus Solostar] 10 units SUBCUT BID #3 pen 02/05 [Rx] Lactobacillus Rhamnosus GG [Culturelle] 1 cap PO BID #60 cap 07/25/19 [Rx] Magnesium 400 mg PO DAILY #30 tablet 07/25/19 [Rx] Pantoprazole [ProTONIX] 40 mg PO BIDAC #60 tab.cr 07/25/19 [Rx] Zinc Gluconate [Zinc] 50 mg PO BID #60 tablet 07/25/19 [Rx] metFORMIN [Glucophage] 1,000 mg PO BIDMEALS #60 tablet 07/25/19 [Rx] Azithromycin [Zithromax] 125 mg PO DAILY #30 tablet 07/28/19 [Rx] Insulin Lispro [Humalog] 1 unit SUBCUT QIDACANDBED #3 pen 07/28/19 [Rx] Multivitamin with Iron [Multivitamins with Iron] 1 each PO DAILY #100 tablet 05/08 [Rx] Phosphorus #1 [Neutra-Phos] 250 mg PO DAILY #30 tablet 07/28/19 [Rx] Past Medical History Respiratory History: Reports: COPD, Other (See Below) Other Respiratory History: lower portion of left lung removed due to infection. Hx of trach Gastrointestinal History: Reports: GI Bleed, Pancreatitis Genitourinary History: Reports: Other (See Below) Other Genitourinary History: distended bladder Neurological History: Reports: Seizure Psychiatric History: Reports: Anxiety, Depression, Suicide Attempt Endocrine/Metabolic History: Reports: Diabetes, Type I Hematologic History: Reports: Anemia - Infectious Disease History Infectious Disease History: Reports: Chicken Pox - Past Surgical History GI Surgical History: Reports: Other (See Below) Other GI Surgeries/Procedures: pancreatecomy. splenectomy. mesh Social & Family History - Family History Family Medical History: Noncontributory - Tobacco Use Smoking Status *Q: Current Every Day Smoker Years of Tobacco use: 20 Packs/Tins Daily: 1 - Caffeine Use Caffeine Use: Reports: Coffee, Energy Drinks, Soda - Recreational Drug Use Recreational Drug Use: Yes Drug Use in Last 12 Months: Yes Recreational Drug Type: Reports: Methamphetamine Recreational Drug Use Frequency: Daily ED ROS GENERAL - Review of Systems Review Of Systems: See Below Constitutional: Reports: Decreased Appetite, Other (pt did vomit 2-3 times. ) HEENT: Reports: No Symptoms Respiratory: Reports: No Symptoms Cardiovascular: Reports: No Symptoms Endocrine: Reports: No Symptoms GI/Abdominal: Reports: Abdominal Pain, Nausea, Vomiting : Reports: No Symptoms Musculoskeletal: Reports: No Symptoms Skin: Reports: No Symptoms Neurological: Reports: No Symptoms Hematologic/Lymphatic: Reports: No Symptoms ED EXAM, GI/ABD - Physical Exam Exam: See Below Text/Narrative:: pt arrived because of increased pain in the abdoman. He stated that he did vomit 2 times today. Exam Limited By: No Limitations General Appearance: Alert, Anxious, Mild Distress Ears: Normal TMs Nose: Normal Inspection Throat/Mouth: Normal Inspection Head: Atraumatic Neck: Normal Inspection Respiratory/Chest: No Respiratory Distress Cardiovascular: Regular Rate, Rhythm GI/Abdominal Exam: Other ( mild upper abdomanal tenderness) (Male) Exam: Deferred Rectal (Males) Exam: Deferred Back Exam: Normal Inspection Extremities: Normal Inspection Neurological: Alert, Oriented, Normal Cognition Course - Vital Signs Last Recorded V/S: Last Vital Signs Temp 36.1 C 07/31/19 14:38 Pulse 113 H 07/31/19 14:38 Resp 16 07/31/19 14:38 BP 111/67 07/31/19 14:38 Pulse Ox 99 07/31/19 14:38 - Orders/Labs/Meds Orders: Active Orders 24 hr Category Date Time Status GLUCOSE POC LAB TO COLLECT [POC] Stat Lab 07/31/19 16:42 Ordered UA W/MICROSCOPIC [URIN] Urgent Lab 07/31/19 15:48 Ordered Dextrose 5%-0.9% NaCl [Dextrose 5%-Normal Saline] 1,000 Med 07/31/19 15:45 Active ml IV ASDIRECTED Sodium Chloride 0.9% [Saline Flush] Med 07/31/19 14:57 Active 10 ml FLUSH ONETIME PRN Medication Orders Dextrose/Sodium Chloride (Dextrose 5%-Normal Saline) 1,000 mls @ 100 mls/hr IV ASDIRECTED MARGY Last Admin: 07/31/19 16:08 Dose: 100 mls/hr Sodium Chloride (Saline Flush) 10 ml FLUSH ONETIME PRN PRN Reason: PER RADIOLOGY PROTOCOL Last Admin: 07/31/19 15:19 Dose: 10 ml Meds: Medications Generic Name Dose Route Start Last Admin Trade Name Freq PRN Reason Stop Dose Admin Dextrose/Sodium Chloride 1,000 mls @ 100 mls/hr 07/31/19 15:45 07/31/19 16:08 Dextrose 5%-Normal Saline IV 100 mls/hr ASDIRECTED MARGY Administration Sodium Chloride 10 ml 07/31/19 14:57 07/31/19 15:19 Saline Flush FLUSH 10 ml ONETIME PRN Administration PER RADIOLOGY PROTOCOL Discontinued Medications Generic Name Dose Route Start Last Admin Trade Name Freq PRN Reason Stop Dose Admin Acetaminophen 650 mg 07/31/19 16:43 07/31/19 16:56 Tylenol PO 07/31/19 16:44 Not Given NOW ONE Dextrose 15 gm 07/31/19 15:39 07/31/19 15:46 Glutose 15 PO 07/31/19 15:40 15 gm ONETIME ONE Administration Sodium Chloride 70 mls @ 3 mls/sec 07/31/19 14:57 07/31/19 15:19 Normal Saline IV 07/31/19 14:58 3 mls/sec ONETIME ONE Administration Iopamidol 76 ml 07/31/19 14:57 07/31/19 15:19 Isovue-300 (61%) IV 76 ml . DIRECTED PRN Administration RADIOLOGY EXAM Pantoprazole Sodium 40 mg 07/31/19 15:49 07/31/19 16:17 Protonix Iv IVPUSH 07/31/19 15:50 40 mg ONETIME ONE Administration - Re-Assessments/Exams Free Text/Narrative Re-Assessment/Exam: 07/31/19 16:38 cat scan of the abdoman was neg. He had normal labs at the [facility]. When he arrived here his bs was 40. He was given glucose and some d5. His bs is now 104. He had normal lipase and amylase. 07/31/19 17:01 oN THE CAT SCAN THERE WAS SOME CONCERN REGARDING A KIDNEY INFECTION. hE REFUSED TO GIVE A URINE. hE REFUSED TO HAVE HIS BS RECHECKED. hE DEMANDED DILAUDID, HE REFUSED TO TAKE THE TYLENOL AND DEMANDED THAT HIS iv BE TAKEN OUT. Departure - Departure Time of Disposition: 17:03 Disposition: Home, Self-Care 01 Condition: Fair Clinical Impression: Abdominal pain, Hyperglycemia, Hypoglycemia, UTI symptoms - Discharge Information Referrals: PCP,None [Primary Care Provider] - Forms: ED Department Discharge Care Plan Goals: [facility] needs to be sure the pt is getting his meds regularly. check bs regularly. [facility] IS SENDING A [facility]DE MANGER TO PICK HIM UP. pT LEFT THE ROOM PRIOR TO BEING DISCHARGED. Sepsis Event Note - Evaluation Sepsis Screening Result: No Definite Risk - Focused Exam Vital Signs: Vital Signs Temp Pulse Resp BP Pulse Ox 07/31/19 14:38 36.1 C 113 H 16 111/67 99 Date Exam was Performed: 07/31/19 Time Exam was Performed: 17:05 - My Orders Last 24 Hours: My Active Orders 07/31/19 14:57 Sodium Chloride 0.9% [Saline Flush] 10 ml FLUSH ONETIME PRN 07/31/19 15:45 Dextrose 5%-0.9% NaCl [Dextrose 5%-Normal Saline] 1,000 ml IV ASDIRECTED 07/31/19 15:48 UA W/MICROSCOPIC [URIN] Urgent 07/31/19 16:42 GLUCOSE POC LAB TO COLLECT [POC] Stat - Assessment/Plan Last 24 Hours: My Active Orders 07/31/19 14:57 Sodium Chloride 0.9% [Saline Flush] 10 ml FLUSH ONETIME PRN 07/31/19 15:45 Dextrose 5%-0.9% NaCl [Dextrose 5%-Normal Saline] 1,000 ml IV ASDIRECTED 07/31/19 15:48 UA W/MICROSCOPIC [URIN] Urgent 07/31/19 16:42 GLUCOSE POC LAB TO COLLECT [POC] Stat
[2019-07-31] MEDS ORDERED: Acetaminophen 325 MG Tab PO ONE (16:43)
== END 2019-07-31 17:14 | disposition home or self-care (01) ==
LOC: JP.ED 14:34
DX: E10.65 Type 1 diabetes mellitus with hyperglycemia (principal); E10.649 Type 1 diabetes mellitus with hypoglycemia without coma; R10.10 Upper abdominal pain, unspecified; R11.2 Nausea with vomiting, unspecified; J44.9 Chronic obstructive pulmonary disease, unspecified; F17.210 Nicotine dependence, cigarettes, uncomplicated; Z79.82 Long term (current) use of aspirin; Z79.4 Long term (current) use of insulin
CPT/HCPCS: 74177; 82962; 96365; 96375; 99285; A9270; C9113; J7050; Q9967